=== PATIENT | male | born 1935 | race Caucasian/White ===

== ENCOUNTER → 2023-04-29 08:29 | Outpatient (REF) | payer MEDICARE, SELFPAY ==
[2023-04-29 09:22] LABS: INR 3.09; PT 32.4 Sec (11.4-14.6)
== END ==
LOC: REG 08:29
PROVIDERS: ATTENDING PHYSICIAN Internal Medicine Cardiovascular Disease; FAMILY PHYSICIAN Physician Assistant Medical
DX: I48.0 Paroxysmal atrial fibrillation (principal)
CPT/HCPCS: 36415; 85610

== ENCOUNTER → 2023-05-06 07:38 | Outpatient (REF) | payer MEDICARE, SELFPAY ==
[2023-05-06 08:30] LABS: INR 3.31; PT 33.6 Sec (11.4-14.6)
== END ==
LOC: REG 07:38
PROVIDERS: ATTENDING PHYSICIAN Internal Medicine Cardiovascular Disease
DX: I48.0 Paroxysmal atrial fibrillation (principal)
CPT/HCPCS: 36415; 85610

== ENCOUNTER → 2023-05-14 10:23 | Outpatient (REF) | payer MEDICARE, SELFPAY ==
[2023-05-14 11:06] LABS: INR 3.35; PT 34.5 Sec (11.4-14.6)
== END ==
LOC: REG 10:23
PROVIDERS: ATTENDING PHYSICIAN Internal Medicine Cardiovascular Disease
DX: I48.0 Paroxysmal atrial fibrillation (principal)
CPT/HCPCS: 36415; 85610

== ENCOUNTER → 2023-05-20 07:25 | Outpatient (REF) | payer MEDICARE, SELFPAY ==
[2023-05-20 08:32] LABS: INR 2.18; PT 24.2 Sec (11.4-14.6)
== END ==
LOC: REG 07:25
PROVIDERS: ATTENDING PHYSICIAN Internal Medicine Cardiovascular Disease; FAMILY PHYSICIAN Physician Assistant Medical
DX: I48.0 Paroxysmal atrial fibrillation (principal)
CPT/HCPCS: 36415; 85610

== ENCOUNTER → 2023-05-27 06:49 | Outpatient (REF) | payer MEDICARE, SELFPAY ==
[2023-05-27 07:37] LABS: INR 2.19; PT 24.2 Sec (11.4-14.6)
== END ==
LOC: REG 06:49
PROVIDERS: ATTENDING PHYSICIAN Internal Medicine Cardiovascular Disease; FAMILY PHYSICIAN Physician Assistant Medical
DX: I48.0 Paroxysmal atrial fibrillation (principal)
CPT/HCPCS: 36415; 85610

== ENCOUNTER → 2023-06-03 06:53 | Outpatient (REF) | payer MEDICARE, SELFPAY ==
[2023-06-03 08:31] LABS: INR 1.92; PT 21.9 Sec (11.4-14.6)
== END ==
LOC: REG 06:53
PROVIDERS: ATTENDING PHYSICIAN Internal Medicine Cardiovascular Disease; FAMILY PHYSICIAN Physician Assistant Medical
DX: I48.0 Paroxysmal atrial fibrillation (principal)
CPT/HCPCS: 36415; 85610

== ENCOUNTER → 2023-06-10 07:16 | Outpatient (REF) | payer MEDICARE, SELFPAY ==
[2023-06-10 08:05] LABS: INR 1.87; PT 21.4 Sec (11.4-14.6)
== END ==
LOC: REG 07:16
PROVIDERS: ATTENDING PHYSICIAN Internal Medicine Cardiovascular Disease; FAMILY PHYSICIAN Physician Assistant Medical
DX: I48.0 Paroxysmal atrial fibrillation (principal)
CPT/HCPCS: 36415; 85610

== ENCOUNTER → 2023-06-17 07:19 | Outpatient (REF) | payer MEDICARE, SELFPAY ==
[2023-06-17 08:31] LABS: INR 2.25; PT 24.7 Sec (11.4-14.6)
== END ==
LOC: REG 07:19
PROVIDERS: ATTENDING PHYSICIAN Internal Medicine Cardiovascular Disease; FAMILY PHYSICIAN Physician Assistant Medical
DX: I48.0 Paroxysmal atrial fibrillation (principal)
CPT/HCPCS: 36415; 85610

== ENCOUNTER → 2023-06-24 07:22 | Outpatient (REF) | payer MEDICARE, SELFPAY ==
[2023-06-24 08:02] LABS: INR 1.83
== END ==
LOC: REG 07:22
PROVIDERS: ATTENDING PHYSICIAN Internal Medicine Cardiovascular Disease; FAMILY PHYSICIAN Physician Assistant Medical
DX: I48.0 Paroxysmal atrial fibrillation (principal)
CPT/HCPCS: 36415; 85610

== ENCOUNTER → 2023-07-01 06:32 | Outpatient (REF) | payer MEDICARE, SELFPAY ==
[2023-07-01 07:09] LABS: INR 2.37; PT 25.8 Sec (11.4-14.6)
== END ==
LOC: REG 06:32
PROVIDERS: ATTENDING PHYSICIAN Internal Medicine Cardiovascular Disease; FAMILY PHYSICIAN Physician Assistant Medical
DX: I48.0 Paroxysmal atrial fibrillation (principal)
CPT/HCPCS: 36415; 85610

== ENCOUNTER → 2023-07-08 06:28 | Outpatient (REF) | payer MEDICARE, SELFPAY ==
[2023-07-08 07:36] LABS: INR 2.82; PT 29.6 Sec (11.4-14.6)
== END ==
LOC: REG 06:28
PROVIDERS: ATTENDING PHYSICIAN Internal Medicine Cardiovascular Disease; FAMILY PHYSICIAN Physician Assistant Medical
DX: I48.0 Paroxysmal atrial fibrillation (principal)
CPT/HCPCS: 36415; 85610

== ENCOUNTER → 2023-07-15 06:25 | Outpatient (REF) | payer MEDICARE, SELFPAY ==
[2023-07-15 07:08] LABS: PT 30.3 Sec (11.4-14.6)
== END ==
LOC: REG 06:25
PROVIDERS: ATTENDING PHYSICIAN Internal Medicine Cardiovascular Disease; FAMILY PHYSICIAN Physician Assistant Medical
DX: I48.0 Paroxysmal atrial fibrillation (principal)
CPT/HCPCS: 36415; 85610

== ENCOUNTER → 2023-07-22 06:38 | Outpatient (REF) | payer MEDICARE, SELFPAY ==
[2023-07-22 07:56] LABS: INR 2.62; PT 27.9 Sec (11.4-14.6)
== END ==
LOC: REG 06:38
PROVIDERS: ATTENDING PHYSICIAN Internal Medicine Cardiovascular Disease
DX: I48.0 Paroxysmal atrial fibrillation (principal)
CPT/HCPCS: 36415; 85610

== ENCOUNTER → 2023-08-04 06:22 | Outpatient (REF) | payer MEDICARE, SELFPAY ==
[2023-08-04 07:15] LABS: % Basophils 0.6 % (0-2); % Eosinophils 2.2 % (0-6); % Immature Granulocytes 0.3 % (0-0.5); % Lymphocytes 16.5 % (20.5-51.1); % Neutrophils 70.4 % (42.2-75.2); Absolute Eosinophils 0.2 10^3/uL (0-0.7); Absolute Lymphocytes 1.1 10^3/uL (1.2-3.4); Absolute Monocytes 0.7 10^3/uL (0.1-0.6); Absolute Neutrophils 4.8 10^3/uL (1.4-6.5); Hematocrit 44.5 % (39.0-52.0); Hemoglobin 14.8 g/dL (13.0-18.0); Mean Corp Hgb Conc. 33.3 g/dL (33.0-37.0); Mean Corpuscular Hgb 27.9 pg (27.0-31.0); Mean Corpuscular Volume 83.8 fL (80.0-94.0); Mean Platelet Volume 11.5 fL (7.4-10.4); Nucleated Red Blood Cells % 0 % (-); Platelet Count 191 10^3/uL (130-400); Red Blood Cell Count 5.31 10^6/uL (4.70-6.10); Red Cell Dist. Width 14.3 % (11.5-14.5); White Blood Cell Count 6.8 10^3/uL (4.8-10.8)
[2023-08-04 07:34] LABS: ALT (SGPT) 15 U/L (0-50); AST (SGOT) 21 U/L (17-59); Albumin 4.5 g/dl (3.5-5.0); Alkaline Phosphatase 82 U/L (38-126); Blood Urea Nitrogen 41 mg/dl (9-20); Calcium 9.6 mg/dl (8.4-10.2); Carbon Dioxide 30 mmol/L (22-30); Chloride 101 mmol/L (98-107); Glucose 135 mg/dl (70-99); Sodium 141 mmol/L (135-145); Total Bilirubin 0.9 mg/dl (0.2-1.3); Total Protein 7.4 g/dl (6.3-8.2)
[2023-08-04 07:50] LABS: Vitamin D, 25-OH*** 37.4 ng/mL (30-80)
[2023-08-04 07:53] LABS: Microalbumin, Random Urine 8.1 mg/dl (0.6-1.7); Microalbumin/creatinine Ratio 111.1 mg/g
[2023-08-04 09:50] LABS: Glycohemoglobin (HgbA1c) 8.5 % (4.0-5.6)
== END ==
LOC: REG 06:22
PROVIDERS: ATTENDING PHYSICIAN Physician Assistant Medical
DX: I10 Essential (primary) hypertension (principal); E11.22 Type 2 diabetes mellitus with diabetic chronic kidney disease; D68.69 Other thrombophilia; E55.9 Vitamin D deficiency, unspecified
CPT/HCPCS: 36415; 80053; 82043; 82306; 82570; 83036; 85025

== ENCOUNTER → 2023-08-19 06:21 | Outpatient (REF) | payer MEDICARE, SELFPAY ==
[2023-08-19 07:47] LABS: PT 34.4 Sec (11.4-14.6)
== END ==
LOC: REG 06:21
PROVIDERS: ATTENDING PHYSICIAN Internal Medicine Cardiovascular Disease
DX: I48.0 Paroxysmal atrial fibrillation (principal)
CPT/HCPCS: 36415; 85610

== ENCOUNTER → 2023-08-26 06:25 | Outpatient (REF) | payer MEDICARE, SELFPAY ==
[2023-08-26 07:29] LABS: INR 2.24; PT 24.6 Sec (11.4-14.6)
== END ==
LOC: REG 06:25
PROVIDERS: ATTENDING PHYSICIAN Internal Medicine Cardiovascular Disease; FAMILY PHYSICIAN Physician Assistant Medical
DX: I48.0 Paroxysmal atrial fibrillation (principal)
CPT/HCPCS: 36415; 85610

== ENCOUNTER → 2023-09-02 06:19 | Outpatient (REF) | payer MEDICARE, SELFPAY ==
[2023-09-02 07:50] LABS: INR 2.17
== END ==
LOC: REG 06:19
PROVIDERS: ATTENDING PHYSICIAN Internal Medicine Cardiovascular Disease; FAMILY PHYSICIAN Physician Assistant Medical
DX: I48.0 Paroxysmal atrial fibrillation (principal)
CPT/HCPCS: 36415; 85610

== ENCOUNTER → 2023-09-09 06:24 | Outpatient (REF) | payer MEDICARE, SELFPAY ==
[2023-09-09 07:38] LABS: PT 24.3 Sec (11.4-14.6)
== END ==
LOC: REG 06:24
PROVIDERS: ATTENDING PHYSICIAN Internal Medicine Cardiovascular Disease; FAMILY PHYSICIAN Physician Assistant Medical
DX: I48.0 Paroxysmal atrial fibrillation (principal)
CPT/HCPCS: 36415; 85610

== ENCOUNTER → 2023-09-16 06:31 | Outpatient (REF) | payer MEDICARE, SELFPAY ==
[2023-09-16 08:01] LABS: INR 2.96; PT 30.8 Sec (11.4-14.6)
== END ==
LOC: REG 06:31
PROVIDERS: ATTENDING PHYSICIAN Internal Medicine Cardiovascular Disease
DX: I48.0 Paroxysmal atrial fibrillation (principal)
CPT/HCPCS: 36415; 85610

== ENCOUNTER → 2023-10-14 06:22 | Outpatient (REF) | payer MEDICARE, SELFPAY ==
[2023-10-14 07:37] LABS: PT 28.6 Sec (11.4-14.6)
== END ==
LOC: REG 06:22
PROVIDERS: ATTENDING PHYSICIAN Internal Medicine Cardiovascular Disease; FAMILY PHYSICIAN Physician Assistant Medical
DX: I48.0 Paroxysmal atrial fibrillation (principal)
CPT/HCPCS: 36415; 85610

== ENCOUNTER → 2023-11-11 06:26 | Outpatient (REF) | payer MEDICARE, SELFPAY ==
[2023-11-11 07:47] LABS: INR 1.65; PT 19.4 Sec (11.4-14.6)
== END ==
LOC: REG 06:26
PROVIDERS: ATTENDING PHYSICIAN Internal Medicine Cardiovascular Disease; FAMILY PHYSICIAN Physician Assistant Medical
DX: I48.0 Paroxysmal atrial fibrillation (principal)
CPT/HCPCS: 36415; 85610

== ENCOUNTER → 2023-11-18 06:22 | Outpatient (REF) | payer MEDICARE, SELFPAY ==
[2023-11-18 07:48] LABS: INR 1.91; PT 21.7 Sec (11.4-14.6)
== END ==
LOC: REG 06:22
PROVIDERS: ATTENDING PHYSICIAN Internal Medicine Cardiovascular Disease; FAMILY PHYSICIAN Physician Assistant Medical
DX: I48.0 Paroxysmal atrial fibrillation (principal)
CPT/HCPCS: 36415; 85610

== ENCOUNTER → 2023-11-25 06:32 | Outpatient (REF) | payer MEDICARE, SELFPAY ==
[2023-11-25 07:31] LABS: PT 33.5 Sec (11.4-14.6)
== END ==
LOC: REG 06:32
PROVIDERS: ATTENDING PHYSICIAN Internal Medicine Cardiovascular Disease; FAMILY PHYSICIAN Physician Assistant Medical
DX: I48.0 Paroxysmal atrial fibrillation (principal); I48.91 Unspecified atrial fibrillation
CPT/HCPCS: 36415; 85610

== ENCOUNTER → 2023-12-02 06:27 | Outpatient (REF) | payer MEDICARE, SELFPAY ==
[2023-12-02 07:33] LABS: INR 3.62; PT 36.1 Sec (11.4-14.6)
== END ==
LOC: REG 06:27
PROVIDERS: ATTENDING PHYSICIAN Internal Medicine Cardiovascular Disease; FAMILY PHYSICIAN Physician Assistant Medical
DX: I48.0 Paroxysmal atrial fibrillation (principal)
CPT/HCPCS: 36415; 85610

== ENCOUNTER → 2023-12-16 09:35 | Outpatient (REF) | payer MEDICARE, SELFPAY ==
[2023-12-16 10:20] LABS: INR 1.84; PT 21.1 Sec (11.4-14.6)
== END ==
LOC: REG 09:35
PROVIDERS: ATTENDING PHYSICIAN Internal Medicine Cardiovascular Disease; FAMILY PHYSICIAN Physician Assistant Medical
DX: I48.0 Paroxysmal atrial fibrillation (principal)
CPT/HCPCS: 36415; 85610

== ENCOUNTER → 2023-12-23 09:48 | Outpatient (REF) | payer MEDICARE, SELFPAY ==
[2023-12-23 11:46] LABS: INR 1.86; PT 21.3 Sec (11.4-14.6)
== END ==
LOC: REG 09:48
PROVIDERS: ATTENDING PHYSICIAN Internal Medicine Cardiovascular Disease
DX: I48.0 Paroxysmal atrial fibrillation (principal)
CPT/HCPCS: 36415; 85610

== ENCOUNTER → 2023-12-30 08:44 | Outpatient (REF) | payer MEDICARE, SELFPAY ==
[2023-12-30 10:31] LABS: INR 1.72
== END ==
LOC: REG 08:44
PROVIDERS: ATTENDING PHYSICIAN Internal Medicine Cardiovascular Disease; FAMILY PHYSICIAN Physician Assistant Medical
DX: I48.0 Paroxysmal atrial fibrillation (principal)
CPT/HCPCS: 36415; 85610

== ENCOUNTER → 2024-01-06 09:16 | Outpatient (REF) | payer MEDICARE, SELFPAY ==
[2024-01-06 10:26] LABS: % Basophils 0.5 % (0-2); % Eosinophils 2.5 % (0-6); % Immature Granulocytes 0.5 % (0-0.5); % Lymphocytes 17.6 % (20.5-51.1); % Monocytes 7.1 % (1.7-9.3); % Neutrophils 71.8 % (42.2-75.2); Absolute Eosinophils 0.2 10^3/uL (0-0.7); Absolute Lymphocytes 1.1 10^3/uL (1.2-3.4); Absolute Monocytes 0.5 10^3/uL (0.1-0.6); Absolute Neutrophils 4.6 10^3/uL (1.4-6.5); Hematocrit 41.3 % (39.0-52.0); Hemoglobin 13.7 g/dL (13.0-18.0); Mean Corp Hgb Conc. 33.2 g/dL (33.0-37.0); Mean Corpuscular Hgb 28.1 pg (27.0-31.0); Mean Corpuscular Volume 84.8 fL (80.0-94.0); Mean Platelet Volume 12.2 fL (7.4-10.4); Nucleated Red Blood Cells % 0 % (-); Platelet Count 187 10^3/uL (130-400); Red Blood Cell Count 4.87 10^6/uL (4.70-6.10); Red Cell Dist. Width 14.6 % (11.5-14.5); White Blood Cell Count 6.4 10^3/uL (4.8-10.8)
[2024-01-06 10:28] LABS: INR 2.56; PT 27.4 Sec (11.4-14.6)
[2024-01-06 11:09] LABS: Microalbumin, Random Urine 3.5 mg/dl (0.6-1.7); Microalbumin/creatinine Ratio 45.5 mg/g
[2024-01-06 11:24] LABS: Glycohemoglobin (HgbA1c) 8.8 % (4.0-5.6)
[2024-01-06 11:26] LABS: ALT (SGPT) 14 U/L (0-50); AST (SGOT) 19 U/L (17-59); Albumin 4.3 g/dl (3.5-5.0); Alkaline Phosphatase 78 U/L (38-126); Blood Urea Nitrogen 63 mg/dl (9-20); Calcium 9.5 mg/dl (8.4-10.2); Carbon Dioxide 28 mmol/L (22-30); Chloride 101 mmol/L (98-107); Glucose 207 mg/dl (70-99); HDL Cholesterol 55 mg/dl; LDL Cholesterol, Calculated 95 mg/dl; Potassium 4.2 mmol/L (3.5-5.1); Sodium 143 mmol/L (135-145); Total Bilirubin 0.7 mg/dl (0.2-1.3); Total Cholesterol 171 mg/dl (50-199); Total Protein 6.9 g/dl (6.3-8.2); Triglyceride 106 mg/dl (10-149); Very Low Density Lipoprotein 21 mg/dl (0-30); eGFR 38.53
[2024-01-06 11:27] LABS: Vitamin D, 25-OH*** 34.4 ng/mL (30-80)
== END ==
LOC: REG 09:16
PROVIDERS: ATTENDING PHYSICIAN Internal Medicine Cardiovascular Disease; FAMILY PHYSICIAN Physician Assistant Medical
DX: I48.0 Paroxysmal atrial fibrillation (principal); Z00.01 Encounter for general adult medical examination with abnormal findings; E11.22 Type 2 diabetes mellitus with diabetic chronic kidney disease; E55.9 Vitamin D deficiency, unspecified; I25.810 Atherosclerosis of coronary artery bypass graft(s) without angina pectoris; I48.91 Unspecified atrial fibrillation
CPT/HCPCS: 36415; 80053; 80061; 82043; 82306; 82570; 83036; 85025; 85610

== ENCOUNTER → 2024-01-13 09:25 | Outpatient (REF) | payer MEDICARE, SELFPAY ==
[2024-01-13 11:30] LABS: INR 2.66; PT 28.3 Sec (11.4-14.6)
== END ==
LOC: REG 09:25
PROVIDERS: ATTENDING PHYSICIAN Internal Medicine Cardiovascular Disease; FAMILY PHYSICIAN Physician Assistant Medical
DX: I48.0 Paroxysmal atrial fibrillation (principal)
CPT/HCPCS: 36415; 85610

== ENCOUNTER → 2024-01-20 10:04 | Outpatient (REF) | payer MEDICARE, SELFPAY ==
[2024-01-20 10:56] LABS: INR 3.71; PT 36.8 Sec (11.4-14.6)
== END ==
LOC: REG 10:04
PROVIDERS: ATTENDING PHYSICIAN Internal Medicine Cardiovascular Disease; FAMILY PHYSICIAN Physician Assistant Medical
DX: I48.0 Paroxysmal atrial fibrillation (principal)
CPT/HCPCS: 36415; 85610

== ENCOUNTER → 2024-01-27 09:24 | Outpatient (REF) | payer MEDICARE, SELFPAY ==
[2024-01-27 12:19] LABS: INR 1.68; PT 19.6 Sec (11.4-14.6)
== END ==
LOC: REG 09:24
PROVIDERS: ATTENDING PHYSICIAN Internal Medicine Cardiovascular Disease; FAMILY PHYSICIAN Physician Assistant Medical
DX: I48.0 Paroxysmal atrial fibrillation (principal)
CPT/HCPCS: 36415; 85610

== ENCOUNTER → 2024-02-03 08:31 | Outpatient (REF) | payer MEDICARE, SELFPAY ==
[2024-02-03 09:55] LABS: INR 4.69; PT 44.3 Sec (11.4-14.6)
[2024-02-03 10:27] LABS: HDL Cholesterol 52 mg/dl; LDL Cholesterol, Calculated 67 mg/dl; Total Cholesterol 130 mg/dl (50-199); Triglyceride 57 mg/dl (10-149); Very Low Density Lipoprotein 11 mg/dl (0-30)
== END ==
LOC: REG 08:31
PROVIDERS: ATTENDING PHYSICIAN Internal Medicine Cardiovascular Disease
DX: I48.0 Paroxysmal atrial fibrillation (principal); Z95.1 Presence of aortocoronary bypass graft; I10 Essential (primary) hypertension
CPT/HCPCS: 36415; 80061; 85610

== ENCOUNTER → 2024-02-11 14:18 | Outpatient (REF) | payer MEDICARE, SELFPAY ==
[2024-02-11 15:06] LABS: INR 4.58; PT 43.4 Sec (11.4-14.6)
== END ==
LOC: REG 14:18
PROVIDERS: ATTENDING PHYSICIAN Internal Medicine Cardiovascular Disease
DX: I48.0 Paroxysmal atrial fibrillation (principal)
CPT/HCPCS: 36415; 85610

== ENCOUNTER → 2024-02-17 10:22 | Outpatient (REF) | payer MEDICARE, SELFPAY ==
[2024-02-17 11:39] LABS: INR 3.68; PT 36.2 Sec (11.4-14.6)
== END ==
LOC: REG 10:22
PROVIDERS: ATTENDING PHYSICIAN Internal Medicine Cardiovascular Disease; FAMILY PHYSICIAN Physician Assistant Medical
DX: I48.0 Paroxysmal atrial fibrillation (principal)
CPT/HCPCS: 36415; 85610

== ENCOUNTER 2024-06-08 12:57 | Inpatient (IN) | payer MEDICARE, SELFPAY ==
[2024-06-08 09:55] VITALS: BP 140/75
[2024-06-08 10:21] LABS: % Basophils 0.3 % (0-2); % Eosinophils 0.6 % (0-6); % Immature Granulocytes 0.4 % (0-0.5); % Lymphocytes 9.3 % (20.5-51.1); % Monocytes 8.9 % (1.7-9.3); % Neutrophils 80.5 % (42.2-75.2); Absolute Lymphocytes 0.7 10^3/uL (1.2-3.4); Absolute Monocytes 0.6 10^3/uL (0.1-0.6); Absolute Neutrophils 5.8 10^3/uL (1.4-6.5); Hematocrit 35.7 % (39.0-52.0); Hemoglobin 11.8 g/dL (13.0-18.0); Mean Corp Hgb Conc. 33.1 g/dL (33.0-37.0); Mean Corpuscular Hgb 27.6 pg (27.0-31.0); Mean Corpuscular Volume 83.4 fL (80.0-94.0); Mean Platelet Volume 11.4 fL (7.4-10.4); Nucleated Red Blood Cells % 0 % (-); Platelet Count 172 10^3/uL (130-400); Red Blood Cell Count 4.28 10^6/uL (4.70-6.10); Red Cell Dist. Width 15.1 % (11.5-14.5); White Blood Cell Count 7.2 10^3/uL (4.8-10.8)
[2024-06-08 10:38] LABS: ALT (SGPT) < 10 U/L (0-50); AST (SGOT) 15 U/L (17-59); Albumin 3.6 g/dl (3.5-5.0); Alkaline Phosphatase 78 U/L (38-126); Blood Urea Nitrogen 40 mg/dl (9-20); Carbon Dioxide 29 mmol/L (22-30); Chloride 100 mmol/L (98-107); Glucose 331 mg/dl (70-99); Potassium 3.6 mmol/L (3.5-5.1); Sodium 136 mmol/L (135-145); Total Bilirubin 1.7 mg/dl (0.2-1.3); Total Protein 6.2 g/dl (6.3-8.2); eGFR 53.17
--- NOTE | 2024-06-08 11:03 | EDRN ---
Pt was dropped off by a driver engineer from [facility], driver engineer name is Siddhartha and he will grape picker pt when discharged. Siddhartha--[phone]
--- NOTE | 2024-06-08 11:22 | ED.GENMED ---
History of Present Illness
<ROSHAN Trotter - Last Filed: 06/09/24 10:13>
General
Chief Complaint: Skin Problem
Source: patient
Exam Limitations: none
Time Seen by Provider: 06/08/24 11:09
Nursing documentation reviewed up to this point in time: agreed with
History of Present Illness
History of Present Illness:
Patient is an 88-year-old male presents to the ER for evaluation of redness to right hand and wrist. This started on Friday 4 days ago. He reports started with redness to the right wrist but this has spread to his hand. He does complain of
swelling. He saw his family doctor yesterday who wanted him to come to the ER but it was late and so they prescribed Keflex. He started Keflex yesterday. He is a diabetic and takes Tresiba however has not been able to take it yesterday or today
because he is right-handed and had difficulty injecting himself. 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 Garza .
He denies any fever/chills.
Past History
<ROSHAN Trotter - Last Filed: 06/09/24 10:13>
Past History
ED Past Medical History: Arrthythmia, NIDDM and Other (sleep apnea)
ED Past Surgical History: Cardiac
Social History
Tobacco: Non-smoker
Personal:
Living: with family
Review of Systems
<ROSHAN Trotter - Last Filed: 06/09/24 10:13>
Review of Systems
Allergies reviewed?: Yes
All Other Systems: ROS reviewed and negative except as documented in HPI and ROS
Constitutional: Reports no symptoms; Denies fever, fatigue or chills
Musculoskeletal: Reports other (redness/pain/swelling to right hand/wrist )
Skin: Reports other (see above )
Neurological: Reports no symptoms
Psychiatric: Reports no symptoms
Phy Exam
<ROSHAN Trotter - Last Filed: 06/09/24 10:13>
General Physical Exam
General Presentation: well appearing
General age: appears stated age
General Skin: warm and dry
General Habitus: normal
General Mental: alert
General Hydration: appears well hydrated
Neurological Exam
Neurological Exam: alert and oriented x3
Musculoskeletal Exam
Musculoskeletal Exam: other (rue with strong pulses + swelling/erythema to hand/index finger and volar/dorsal wrist, patient has good range of motion to hand and wrist)
Skin Exam
Skin Exam: normal color and warm/dry
Psychiatric Exam
Psychiatric Exam: normal mood/affect
Course
<ROSHAN Trotter - Last Filed: 06/09/24 10:13>
Orders/Labs/Results
Orders:
Orders
06/08/24 10:02
Complete Blood Count/With Diff Urgent
Comprehensive Metabolic Panel Urgent
06/08/24 11:23
IV Insert/Care/Rem.- Treatment PRN
0.9% Sodium Chloride 1000 ml [Nss] 1,000 ml IV BOLUS
Hand, Right 3 View [CR Hand - Right Min 3 Views] Urgent
Comment:
Reason For Exam: redness
06/08/24 11:24
Foot, Right 3 View [CR Foot - Right Min 3 Views] Urgent
Comment:
Reason For Exam: diabetic ulcer
06/08/24 11:42
Lactic Acid Urgent
06/08/24 12:06
Cefepime HCl [Maxipime] 1,000 mg IV NOW STA
06/08/24 12:15
Vancomycin [Vancocin] 2,000 mg 0.9% Sodium Chloride 500 ml [Nss] 500 ml IV NOW
06/08/24 12:49
Admit/Transfer Patient As Directed
Co-Sign Provider:
Level of Care: Inpatient admission
Assign to:: Medical/Surgical
Physician / Group: ame
Diagnosis: hand ifnection
Reason for Hospitalization: hand infection
Expected length of stay greater than two midnights?: Yes
ELOS- Estimated Length of Stay in days: 2
I certify the patient meets the requirements for IP care: Yes
PRN Pain Medication Management As Directed
May give lesser potent ordered pain med per pt: Yes
preference::
Protocol:: Medication orders for pain may be administered in a
manner that supports deferring to patient preference
when the pt is:
- Requesting an ordered lesser potent pain medication.
Least to most potent pain medications are defined
as: acetaminophen < NSAID < tramadol < opioids
(morphine, oxycodone, hydromorphone).
- Requesting a lesser dose of the same medication IF
ORDERED.
- Requesting a less intrusive route of administration
if both routes are prescribed by the provider (PO <
IV).
06/08/24 12:50
Code Status As Directed
Resuscitation Status: Full Code
06/08/24 14:54
Cefepime HCl [Maxipime] 2,000 mg IV Q24H
Dextrose 50%-Water [Dextrose 50% Syringe] 12.5 grams IV [id number] PRN
Glucagon [GlucaGen] 1 mg IM PRN PRN
VANCOMYCIN Pharmacy to Dose [VANCOCIN Pharmacy to Dose] 1 each Pharmacy To Prepare [Call Pharmacy To Prepare] 0 ml IV PER PROTOCOL
06/08/24 14:54
ORTHOPEDIC CONSULT Routine
Consulting Provider: Clifton Mallory
Was physician already notified: Yes
Activity As Directed
Activity Level: As Tolerated
Bedside Glucose Monitoring As Directed
Frequency: AC&HS
Additional Instructions:: Change to q6h if pt on TPN, tube feeding or not eating
Pneumatic Compression Sleeves As Directed
Type: Knee high
Vital Signs As Directed
Frequency: Per unit guidelines
DX Deep Vein Thrombosis Video Routine
06/08/24 Dinner
2000 calorie (17 carb) Diabetic
At Your Request: Full Participation
06/08/24 15:05
Acetaminophen [Tylenol] 1,000 mg PO Q6HPRN PRN
06/08/24 16:30
Insulin Aspart Corrective Low [Novolog Flexpen-Low Resistance] See Protocol SC AC
06/08/24 18:00
Aspirin Low Dose EC [Aspir Low (Enteric Coated)] 81 mg PO QPM
Atorvastatin [Lipitor] 40 mg PO QPM
Metoprolol Xl [Toprol Xl] 75 mg PO QPM
Valsartan [Diovan] 160 mg PO QPM
06/09/24 05:42
Complete Blood Count/With Diff IN AM
Comprehensive Metabolic Panel IN AM
Glycohemoglobin (HgbA1c) IN AM
Abnormal Lab Results
06/08/24
10:02
RBC 4.28 L 10^6/uL
(4.70-6.10)
Hgb 11.8 L g/dL
(13.0-18.0)
Hct 35.7 L %
(39.0-52.0)
RDW 15.1 H %
(11.5-14.5)
MPV 11.4 H fL
(7.4-10.4)
Absolute Lymphs (auto) 0.7 L 10^3/uL
(1.2-3.4)
Neutrophils % 80.5 H %
(42.2-75.2)
Lymphocytes % 9.3 L %
(20.5-51.1)
BUN 40 H mg/dl
(9-20)
Glucose 331 H mg/dl
(70-99)
Total Bilirubin 1.7 H mg/dl
(0.2-1.3)
AST 15 L U/L
(17-59)
Total Protein 6.2 L g/dl
(6.3-8.2)
06/08/24 10:02
06/08/24 10:02
Vital Signs
Initial and Last Documented VS:
Initial Vital Signs
Temp Pulse Resp BP Pulse Ox
98.4 F 96 16 140/75 95
06/08/24 09:55 06/08/24 09:55 06/08/24 09:55 06/08/24 09:55 06/08/24 09:55
Last Documented Vital Signs
Temp Pulse Resp BP Pulse Ox
97.5 F 72 17 139/73 97
06/09/24 07:24 06/09/24 07:24 06/09/24 07:24 06/09/24 07:24 06/09/24 08:15
Summer Counselor consulted with Physician
Summer Counselor consulted with physician?: Yes
Name of Physician Consulted: Fadi
<Favian Aponte, DO - Last Filed: 06/08/24 12:06>
Orders/Labs/Results
Orders:
Orders
06/08/24 10:02
Complete Blood Count/With Diff Urgent
Comprehensive Metabolic Panel Urgent
06/08/24 11:23
IV Insert/Care/Rem.- Treatment PRN
0.9% Sodium Chloride 1000 ml [Nss] 1,000 ml IV BOLUS
Hand, Right 3 View [CR Hand - Right Min 3 Views] Urgent
Comment:
Reason For Exam: redness
06/08/24 11:24
Foot, Right 3 View [CR Foot - Right Min 3 Views] Urgent
Comment:
Reason For Exam: diabetic ulcer
06/08/24 11:42
Lactic Acid Urgent
06/08/24 12:06
Cefepime HCl [Maxipime] 1,000 mg IV NOW STA
06/08/24 12:15
Vancomycin [Vancocin] 2,000 mg 0.9% Sodium Chloride 500 ml [Nss] 500 ml IV NOW
06/08/24 12:49
Admit/Transfer Patient As Directed
Co-Sign Provider:
Level of Care: Inpatient admission
Assign to:: Medical/Surgical
Physician / Group: ame
Diagnosis: hand ifnection
Reason for Hospitalization: hand infection
Expected length of stay greater than two midnights?: Yes
ELOS- Estimated Length of Stay in days: 2
I certify the patient meets the requirements for IP care: Yes
PRN Pain Medication Management As Directed
May give lesser potent ordered pain med per pt: Yes
preference::
Protocol:: Medication orders for pain may be administered in a
manner that supports deferring to patient preference
when the pt is:
- Requesting an ordered lesser potent pain medication.
Least to most potent pain medications are defined
as: acetaminophen < NSAID < tramadol < opioids
(morphine, oxycodone, hydromorphone).
- Requesting a lesser dose of the same medication IF
ORDERED.
- Requesting a less intrusive route of administration
if both routes are prescribed by the provider (PO <
IV).
06/08/24 12:50
Code Status As Directed
Resuscitation Status: Full Code
06/08/24 14:54
Cefepime HCl [Maxipime] 2,000 mg IV Q24H
Dextrose 50%-Water [Dextrose 50% Syringe] 12.5 grams IV [id number] PRN
Glucagon [GlucaGen] 1 mg IM PRN PRN
VANCOMYCIN Pharmacy to Dose [VANCOCIN Pharmacy to Dose] 1 each Pharmacy To Prepare [Call Pharmacy To Prepare] 0 ml IV PER PROTOCOL
06/08/24 14:54
ORTHOPEDIC CONSULT Routine
Consulting Provider: Clifton Mallory
Was physician already notified: Yes
Activity As Directed
Activity Level: As Tolerated
Bedside Glucose Monitoring As Directed
Frequency: AC&HS
Additional Instructions:: Change to q6h if pt on TPN, tube feeding or not eating
Pneumatic Compression Sleeves As Directed
Type: Knee high
Vital Signs As Directed
Frequency: Per unit guidelines
DX Deep Vein Thrombosis Video Routine
06/08/24 Dinner
2000 calorie (17 carb) Diabetic
At Your Request: Full Participation
06/08/24 15:05
Acetaminophen [Tylenol] 1,000 mg PO Q6HPRN PRN
06/08/24 16:30
Insulin Aspart Corrective Low [Novolog Flexpen-Low Resistance] See Protocol SC AC
06/08/24 18:00
Aspirin Low Dose EC [Aspir Low (Enteric Coated)] 81 mg PO QPM
Atorvastatin [Lipitor] 40 mg PO QPM
Metoprolol Xl [Toprol Xl] 75 mg PO QPM
Valsartan [Diovan] 160 mg PO QPM
06/09/24 05:42
Complete Blood Count/With Diff IN AM
Comprehensive Metabolic Panel IN AM
Glycohemoglobin (HgbA1c) IN AM
Abnormal Lab Results
06/08/24
10:02
RBC 4.28 L 10^6/uL
(4.70-6.10)
Hgb 11.8 L g/dL
(13.0-18.0)
Hct 35.7 L %
(39.0-52.0)
RDW 15.1 H %
(11.5-14.5)
MPV 11.4 H fL
(7.4-10.4)
Absolute Lymphs (auto) 0.7 L 10^3/uL
(1.2-3.4)
Neutrophils % 80.5 H %
(42.2-75.2)
Lymphocytes % 9.3 L %
(20.5-51.1)
BUN 40 H mg/dl
(9-20)
Glucose 331 H mg/dl
(70-99)
Total Bilirubin 1.7 H mg/dl
(0.2-1.3)
AST 15 L U/L
(17-59)
Total Protein 6.2 L g/dl
(6.3-8.2)
06/08/24 10:02
06/08/24 10:02
Vital Signs
Initial and Last Documented VS:
Initial Vital Signs
Temp Pulse Resp BP Pulse Ox
98.4 F 96 16 140/75 95
06/08/24 09:55 06/08/24 09:55 06/08/24 09:55 06/08/24 09:55 06/08/24 09:55
Last Documented Vital Signs
Temp Pulse Resp BP Pulse Ox
97.5 F 72 17 139/73 97
06/09/24 07:24 06/09/24 07:24 06/09/24 07:24 06/09/24 07:24 06/09/24 08:15
<ROSHAN Trotter - Last Filed: 06/09/24 10:13>
MDM/Problems Addressed
Differential Diagnosis Includes:
Not limited to cellulitis less likely septic joint
MDM/Problems Addressed:
Patient is a 88-year-old male diabetic who has not taken his injectable Tresiba because of right hand pain presents to the ER for evaluation. Patient started with right wrist and hand pain redness several days ago on Keflex since yesterday however
no improvement. On exam he has redness to his hand index finger and volar dorsal wrist. He does however good range of motion to the wrist ;he denies any fevers and is nontoxic. Incidentally his sugar was found to be elevated 331 again he has not
used his Tresiba injectable medication because he has had discomfort and swelling in the right hand. Incidentally patient is following with his diabetic educator for ulcer to plantar aspect of right foot. 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
right foot.
Patient evaluated by ED physician will admit with IV antibiotics
Chronic conditions affecting care:
iddm
<ROSHAN Trotter - Last Filed: 06/09/24 10:13>
*Radiology
Radiology exam reviewed: radiology read reviewed
*Pulse Oximetry
Patient hypoxic: no
*Critical Care Note
Total Time (30-74mins, 75-104mins- exclusive of procedures): Not Applicable
ED Attending Note
<ROSHAN Trotter - Last Filed: 06/09/24 10:13>
-
Portions of this chart may have been created with voice recognition software.� Occasional wrong word or��sound alike� substitutions may have occurred due to the inherent limitations of voice recognition software.
<Favian Aponte DO - Last Filed: 06/08/24 12:06>
ED Attending Note
Patient seen and examined by attending physician: Yes
I performed the substantive portion of visit, reviewed & personally made and approve the management plan that is documented in note by myself or ALBAN.: Yes
ED Attending Note:
Seen with WAREHOUSE FOREMAN examined independently 88-year-old male diabetic not on insulin prior amputation of the right great toe presents with atraumatic right hand swelling warmth some general malaise but no fever has had a few doses of Keflex
Discharge Plan
Departure
Patient Disposition: Admit
Date of Disposition: 06/08/24
Time of Disposition: 12:20
Admit to: Med/Surg
Admit to doctor: hospitalist
Presentation/result/management discussed w/ accepting MD/DO: Hospitalist
Patient with high blood pressure during this ER visit?: Yes
Condition: Fair
Covid-19: Not Applicable
Discharge Problem:
Cellulitis, Acute hyperglycemia
Interventions
Interventions:
*Risk Screen - Suicide Last Done: 06/08/24 09:55
*General Assessment Last Done: 06/08/24 09:55
*Neglect/Abuse Screening Last Done: 06/08/24 09:55
*ED- Fall Risk Assessment Last Done: 06/08/24 14:57
*ED COVID-19 Vaccine History Last Done: 06/08/24 15:04
*Nursing Disposition Last Done: 06/08/24 14:57
ED-Skin Assessment Last Done: 06/08/24 11:58
Discharge Date and Time
Discharge Date/Time: 06/08/24 14:59
[2024-06-08] MEDS: NSS 1000 IV (11:41)
[2024-06-08 11:58] VITALS: BMI 26.1
[2024-06-08] MEDS: MAXIPIME 1000 MG IV ×2 (12:37→23:10)
[2024-06-08] MEDS: VANCOCIN 540 MG IV (12:37)
--- NOTE | 2024-06-08 12:52 | HPS.HSE ---
Family Physician
-
Family Physician: Bee Posada PA-C
Chief Complaint
-
right hand infection
History of Present Illness
88-year-old male past medical history of permanent atrial fibrillation on Coumadin, Dupuytren's contracture of right hand status post surgery 6 years ago, CAD, hypertension, diabetes, chronic right foot ulcer, presenting for redness of the right
hand and wrist starting 4 days ago. Started with redness to the right wrist but spread to the hand. Denies any injury. Complains of swelling. He saw his primary care physician who wanted him to come to the emergency room and prescribed Keflex.
Start Keflex yesterday.
He has a chronic ulcer on the plantar surface of the right foot for which she sees Dr. Garza and gets periodic debridements. This is stable.
He has not been able to inject himself with Tresiba due to the hand discomfort.
He does not smoke or drink alcohol.
Medical History
Past Medical History
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
Past Surgical History: Reports None
Social History
Tobacco: Non-smoker
Alcohol: None
Drug: None
Family History
Family History: Not pertinent
Allergies / Home Medications
Allergies reflects when Allergies were last updated in [facility].
Home Medications with original date entered in [facility]
Allergy/Medication List:
Allergies
Allergy/AdvReac Type Severity Reaction Status Date / Time
ivermectin Allergy Unknown Verified 06/08/24 09:58
penicillin Allergy Rash Verified 06/08/24 09:58
penicillin G Allergy SEE BELOW Verified 06/08/24 09:58
Home Medications
aspirin 81 mg tablet,delayed release 81 mg PO QPM 10/11/14
metoprolol succinate 50 mg tablet,extended release 24 hr 75 mg PO QPM 10/11/14
acetaminophen 500 mg tablet 1,000 mg PO Q6HPRN PRN mild pain 06/08/24
atorvastatin 40 mg tablet (Lipitor) 40 mg PO QPM 06/08/24
cephalexin 500 mg capsule 500 mg PO TID for 7 days 06/08/24
insulin degludec 100 unit/mL (3 mL) subcutaneous pen (Tresiba FlexTouch U-100 insulin) 20 unit SC DAILY 06/08/24
valsartan 160 mg-hydrochlorothiazide 25 mg tablet 1 tab PO QPM 06/08/24
warfarin 5 mg tablet (Jantoven) 5 mg PO QPM 06/08/24
Review of Systems
-
History Source: Patient
A 12 point ROS was completed and negative except as noted: Yes
Constitutional: Reports No Symptoms
EENT: Reports No Symptoms
Respiratory: Reports No Symptoms
Cardiac: Reports No Symptoms
Abdomen/GI: Reports No Symptoms
: Reports No Symptoms
Musculoskeletal: Reports No Symptoms
Skin: Reports See HPI
Neurological: Reports No Symptoms
Endocrine: Reports No Symptoms
Hematologic/Lymphatic: Reports No Symptoms
Psych: Reports No Symptoms
Physical Exam
Vital Signs
Vital Signs
Temp Pulse Resp BP Pulse Ox
98.4 F 96 16 140/75 95
06/08/24 09:55 06/08/24 09:55 06/08/24 09:55 06/08/24 09:55 06/08/24 09:55
Physical Exam
General: Well Developed, Well Nourished and No Apparent Distress
HEENT: NormoCephalic, Moist mucous membranes and Atraumatic
Respiratory: Clear
Cardiac: S1/S2 and Regular Rhythm; No Murmur or Rub
GI: Soft, Non Tender, Non Distended and Normal Bowel Sounds; No Organomegaly
Rectal: Deferred by Provider
Musculoskeletal: No Clubbing, No Cyanosis and No Edema
Skin: No Rash
Neuro: Nonfocal/grossly intact
Laboratory Results
-
06/08/24 10:02
06/08/24 10:02
Laboratory Results
Lactic Acid 1.0 mmol/L (0.7-2.0) 06/08/24 11:42
Total Bilirubin 1.7 mg/dl (0.2-1.3) H 06/08/24 10:02
AST 15 U/L (17-59) L 06/08/24 10:02
ALT < 10 U/L (0-50) 06/08/24 10:02
Alkaline Phosphatase 78 U/L (38-126) 06/08/24 10:02
Data Reviewed
-
Lab Data: Labs Reviewed by me
Old Records: Reviewed
Impression/Plan
-
IMPRESSION:
PLAN:
# Right hand/wrist hand/wrist infection, possible tenosynovitis
-X-ray report pending
-Vancomycin/cefepime
-Ortho consulted
-Hold Coumadin for now
# Hyperglycemia due to not taking insulin
# Type 2 diabetes
-Blood sugar 331
-Resume Tresiba 20 units
-Insulin sliding scale
Permanent atrial fibrillation
-Hold Coumadin for now
-Continue metoprolol
CAD
-Continue aspirin, statin
Essential hypertension
-Continue valsartan/hydrochlorothiazide
Chronic right foot ulcer
-X-ray pending but has been stable
Chronic anemia
Full code
DVT prophylaxis�SCDs
Diabetic diet
--- NOTE | 2024-06-08 14:14 | W.PN.UPDATE ---
Update Note
Progress Note Update
Full H&P to follow
88-year-old [id number] male with significant past medical history of atrial fibrillation and type 2 diabetes for right wrist pain swelling and redness ongoing 6 days without traumatic injury. He denies any inoculating injury reports pain
began about the right wrist and is spread most proximal and distal. Denies associated paresthesias. Denies fevers or chills
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
Examination of the right upper extremity shows redness and swelling to about the mid antebrachium that is all dorsal. There is no significant volar cellulitis or skin changes. Distal sensation is intact. He tolerates mild wrist passive range of
motion as well as finger passive flexion and extension without significant discomfort. There is no palpable fluid collection or effusion. There are some prominence of the ulnar styloid about the ulnar carpal joint. Dorsally there is a small
amount of eschar slightly proximal to the radiocarpal joint
No current ESR CRP; WBC within normal limits
Imaging: X-rays taken of the right wrist show mild degenerative changes but no acute osseous abnormalities
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 Superficial cellulitis is within
the differential diagnosis as well; limited nonvascular ultrasound was performed at bedside showing no significant effusion.
Recommend ESR and CRP for trending and baseline. Recommend continued soft tissue rest. Can continue with treatment for infectious cellulitis and will continue to monitor clinically if there is further indication for arthrocentesis. Pending his
response can further consider more specific treatment for crystal arthropathy or diagnostic imaging if indicated. Orthopedic surgery will continue to follow
[2024-06-08 15:07] VITALS: BP 125/94
[2024-06-08 15:09] VITALS: BMI 26.6
[2024-06-08 15:39] VITALS: BMI 26.6
--- NOTE | 2024-06-08 15:50 | PHA.VAN.IN ---
Assessment
- Assessment
Renal Function: Unknown baseline
Concomitant Antimicrobials: cefepime
Plan
- Plan
Initial / Loading Dose: 2000mg - 06/08 12:37
Maintenance Regimen: dosing by level
Monitoring: random 06/09 0600
Pharmacokinetics Vancomycin I
- -
Patient Age: 88
Patient Sex: Male
Vancomycin Day #: 1
Indication: Skin And Soft Tissue
Requesting Provider: Dr. Car
Pertinent Antimicrobial Allergies:
ivermectin - dehydration
penicillin - rash
Height / Weight:
Height 5 ft 10 in
Actual Weight 83.971 kg
Pertinent Past Medical History: DM 2
- Vital Signs / Lab Results
Temp Pulse Resp BP Pulse Ox
97.9 F 85 17 125/94 97
06/08/24 15:07 06/08/24 15:07 06/08/24 15:07 06/08/24 15:07 06/08/24 15:07
Lab Results - Hematology
06/08/24
10:02
WBC 7.2
Lab Results - Chemistry
06/08/24
10:02
BUN 40 H
Creatinine 1.3
Albumin 3.6
06/08/24
11:42
Lactic Acid 1.0
[2024-06-08 16:25] LABS: Glucose - Point of Care 187 mg/dl (70-99)
[2024-06-08] MEDS: DIOVAN 160 MG PO (18:05)
[2024-06-08] MEDS: NOVOLOG FLEXPEN-LOW RESISTANCE 1 UNITS SC (18:05)
[2024-06-08] MEDS: ORETIC 25 MG PO (18:05)
[2024-06-08] MEDS: ASPIR LOW (ENTERIC COATED) 81 MG PO (18:05)
[2024-06-08] MEDS: TOPROL XL 75 MG PO (18:06)
[2024-06-08] MEDS: LIPITOR 40 MG PO (18:08)
[2024-06-08 21:44] LABS: Glucose - Point of Care 217 mg/dl (70-99)
[2024-06-08 21:48] LABS: Erythrocyte Sed Rate 58 mm/hour (0-20)
[2024-06-08] MEDS: STERILE WATER FOR INJECTION 10 ML IV (23:11)
[2024-06-08 23:25] VITALS: BP 133/69
[2024-06-09 06:20] LABS: % Basophils 0.5 % (0-2); % Eosinophils 1.4 % (0-6); % Immature Granulocytes 1.3 % (0-0.5); % Lymphocytes 9.5 % (20.5-51.1); % Monocytes 9.5 % (1.7-9.3); % Neutrophils 77.8 % (42.2-75.2); Absolute Eosinophils 0.1 10^3/uL (0-0.7); Absolute Immature Granulocytes 0.1 10^3/uL (0-0.05); Absolute Lymphocytes 0.6 10^3/uL (1.2-3.4); Absolute Monocytes 0.6 10^3/uL (0.1-0.6); Absolute Neutrophils 4.9 10^3/uL (1.4-6.5); Hematocrit 32.4 % (39.0-52.0); Hemoglobin 10.9 g/dL (13.0-18.0); Mean Corp Hgb Conc. 33.6 g/dL (33.0-37.0); Mean Corpuscular Hgb 27.6 pg (27.0-31.0); Mean Platelet Volume 11.4 fL (7.4-10.4); Nucleated Red Blood Cells % 0 % (-); Platelet Count 155 10^3/uL (130-400); Red Blood Cell Count 3.95 10^6/uL (4.70-6.10); Red Cell Dist. Width 14.7 % (11.5-14.5); White Blood Cell Count 6.3 10^3/uL (4.8-10.8)
[2024-06-09 06:40] LABS: ALT (SGPT) < 10 U/L (0-50); AST (SGOT) 13 U/L (17-59); Albumin 3.1 g/dl (3.5-5.0); Alkaline Phosphatase 74 U/L (38-126); Blood Urea Nitrogen 29 mg/dl (9-20); Calcium 8.8 mg/dl (8.4-10.2); Carbon Dioxide 26 mmol/L (22-30); Chloride 106 mmol/L (98-107); Estimated Creatinine Clearance 49 ml/min; Glucose 168 mg/dl (70-99); Potassium 3.5 mmol/L (3.5-5.1); Sodium 137 mmol/L (135-145); Total Bilirubin 1.5 mg/dl (0.2-1.3); Total Protein 5.7 g/dl (6.3-8.2); Vancomycin Random 12.5 ug/ml; eGFR > 60.00
[2024-06-09 07:24] VITALS: BP 139/73
--- NOTE | 2024-06-09 07:37 | W.PN.UPDATE ---
Update Note
Progress Note Update
Mr. Coleman is resting comfortably in bed this morning. He reports the symptoms in his hand and wrist have gradually improved overnight. He reports his ROM seems improved, and his pain is less intense.
Directed exam of the right upper extremity reveals erythema, and edema overlying the dorsal aspect of the hand and wrist. Patient able to wiggle fingers, and flex/extend wrist, which he reports is improved from yesterday. There is still stiffness
and discomfort with these movements. Sensation intact to light touch. Capillary refill <2 seconds.
WBC 7.2-->6.3
CRP 71.1
ESR 58
Overall, Lucas seems to be making progress in the right direction since initiating IV antibiotics. Continue to monitor symptoms. Should symptoms worsen or persist, we can consider arthrocentesis/advanced imaging/treatment for crystal arthropathy.
Continue with abx per ID and primary, currently vanco and cefepime. Continue with soft tissue rest. May perform gentle ROM of fingers as tolerated. Pain control prn. Elevation for edema control. Orthopedic surgery will continue to follow.
[2024-06-09 07:44] LABS: Glucose - Point of Care 159 mg/dl (70-99)
[2024-06-09] MEDS: NOVOLOG FLEXPEN-LOW RESISTANCE 1 UNITS SC ×2 (07:50→17:20)
[2024-06-09] MEDS: LANTUS 0.2 UNITS SC (07:50)
[2024-06-09 09:21] LABS: Glycohemoglobin (HgbA1c) 7.5 % (4.0-5.6)
--- NOTE | 2024-06-09 09:32 | PHA.VAN.FU ---
Vancomycin Assessment / Plan
- Assessment
Renal Function: SCR Decreasing
In the past 24 hrs, patient has been: Afebrile
Concomitant Antimicrobials: cefepime
- Assessment - Therapeutic Drug Monitoring
Random Level: 12.5 - drawn ~17H after 2g loading dose
- Dosing Plan
Dosing by Level: Re-dose today (Vanc 1250mg)
- Monitoring Plan
Random Level: 06/10 06
- Follow Up
Pharmacy will continue to follow.
Vancomycin Follow UP
- -
Patient Age: 88
Patient Sex: Male
Vancomycin Day #: 2
Indication: Skin And Soft Tissue
Requesting Provider: Dr. Car
Pertinent Antimicrobial Allergies:
ivermectin - dehydration
penicillin - rash
Height / Weight:
Height 5 ft 10 in
Actual Weight 83.971 kg
Pertinent Past Medical History: DM 2
- Vital Signs / Lab Results
Temp Pulse Resp BP Pulse Ox
97.5 F 72 17 139/73 97
06/09/24 07:24 06/09/24 07:24 06/09/24 07:24 06/09/24 07:24 06/09/24 08:15
Lab Results - Hematology
06/08/24 06/09/24
10:02 05:42
WBC 7.2 6.3
Lab Results - Chemistry
06/08/24 06/09/24
10:02 05:42
BUN 40 H 29 H
Creatinine 1.3 1.1
Estimated Creat Clear 49
Albumin 3.6 3.1 L
06/08/24
11:42
Lactic Acid 1.0
Therapeutic Drug Monitoring
Random Vancomycin 12.5 ug/ml 06/09/24 05:42
[2024-06-09] MEDS: MAXIPIME 1000 MG IV (11:27)
[2024-06-09] MEDS: STERILE WATER FOR INJECTION 10 ML IV (11:29)
[2024-06-09] MEDS: VANCOCIN 275 MG IV (11:49)
[2024-06-09] MEDS: NOVOLOG FLEXPEN-LOW RESISTANCE 2 UNITS SC (11:51)
[2024-06-09 11:52] LABS: Glucose - Point of Care 227 mg/dl (70-99)
[2024-06-09 13:44] LABS: APTT 50.5 Sec (23.4-35.0); INR 1.47; PT 18.4 Sec (11.4-14.6)
[2024-06-09 13:52] VITALS: BP 139/67; O2SAT 98
--- NOTE | 2024-06-09 13:59 | CM ---
Patient seen at bedside. Patient states that he lives in an apartment at [address] in [place] with his . Patient uses a cane but no other DME. Patient stated that he uses the [facility]. 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 Patient PCP is Bee LAW. Patient daughter would provide transportation home. Patient has a nurse from [facility]. CM will continue to follow for discharge planning needs.
Plan; home with home health from [facility] will need referral for [facility]
[2024-06-09 14:03] VITALS: BP 139/67; PULSE 69; O2SAT 100
--- NOTE | 2024-06-09 14:53 | W.PN.HOSP.TC ---
Addendum entered and electronically signed by Aly Condon MD 06/09/24 23:54:
Attending Addendum-
I saw and evaluated the patient. I reviewed the resident�s note and agree with findings and plan as documented in the resident�s note. Sub: Complains of pain swelling and decreased ROM of right wrist. Denies fevers chills. Full 12 point ROS
reviewed and negative except as documented Exam: Vitals reviewed in chart GEN-NAD heart irreg irreg lungs clear abd soft Ext: rights wrist red swollen warm pulses intact contracted pulses intact limited ROM due to pain and swelling
# Right hand/wrist hand/wrist cellulitis, possible tenosynovitis
-right hand X-ray-No fractures, dislocations, or suspicious bony abnormalities
-cont Vancomycin DC cefepime
-elevated CRP
-Ortho consulted- appreciate input leaning towards pseudogout
-check US
-would favor aspiration to confirm dx r/o septic arthritis
# Type 2 diabetes
- hasn't taken insulin since 06/04
- Resume Tresiba 20 units
- JlR9a-3.5
- Insulin sliding scale
# Permanent atrial fibrillation
-restart Coumadin
-check STAT INR
-Continue metoprolol
#CAD
-Continue aspirin, statin
#Essential hypertension
-Continue valsartan/hydrochlorothiazide
#Chronic right foot ulcer
-wound care consult
-foot x ray-Extensive postsurgical and postinfectious changes involving the right foot with a large skin defect/wound seen along the undersurface of the distal foot. There appears to be some irregular ulceration/erosion of the undersurface of the
metatarsal suspicious for acute on chronic osteomyelitis
-T/C MRI r/o osteo
#Chronic anemia
#HLD-cont atorvastatin
Full code
DVT prophylaxis�coumadin
Diabetic diet
Time spent coordinating care, review of plan of care with resident, personally reviewed records in EMR, med rec, consults, notes, labs, radiology, d/w nursing � 55 mins
Original Note:
Today's Communication/Plan
-
Continue vanco, hand US to eval for joint effusion consistent with crystal arthropathy
Assessment / Plan
Assessment / Plan
88-year-old male with past medical history of permanent A-fib on Coumadin, diabetes, chronic right foot ulcer presented to ED on 06/08 with right hand and wrist pain, redness and swelling. Diagnosed with cellulitits by PCP on friday who started him
on keflex and recommended him to come to ED. He started the Keflex on 06/07. Hand x-ray findings inconclusive. Vitals stable. Patient started on broad-spectrum antibiotics and admitted for cellulitis versus pseudogout.
Right hand redness and swelling
-Hand x-ray unremarkable for cause and no hx trauma
-Ortho recommended continuation of antibiotics, but if doesnt get better consider work up for crystal arthropathy
-Limited nonvascular US at bedside revealed no significant effusion per ortho
-2 doses of cefepime and 2 doses of vanco
-d/c cefepime and continue with vanco
-Patient stated he feels better today after starting antibiotics
-Formal US to eval joint spaces for effusion pending
-Further workup for crystal arthopathy pending clinical progression per ortho
Permanent a.fib
-On Coumadin
-Hasn't taken since Friday
-INR subtherapeutic at 1.47
-Restart him home dose of 5mg Coumadin qpm
-Unlikely to need procedure
-Continue metoprolol
Type 2 diabetes
-Hyperglycemic on admission as he stated he wasn't taking insulin due to pain in hand
-Restarted home dose tresiba 20 units
-Insulin sliding scale
-hgA1c 7.5
Chronic right foot ulcer
-Follows with Dr. Garza and gets periodic debridement
-Foot x-ray suspicious for acute on chronic osteomyelitis
-Currently on vanco
-Monitor
CAD
-Cont asa and statin
HTN
-Cont valsartan/HCTZ
Chronic anemia
Full code
DVT SCDs
Diabetic diet
Anticipated Discharge: Within 24 hours
Subjective/Interval History
-
Date of Service: June 09, 2024
Objective Data
-
Labs:
Laboratory Results
06/09/24 06/09/24
05:42 13:16
WBC 6.3
Hgb 10.9 L
Hct 32.4 L
Plt Count 155
PT 18.4 H
INR 1.47
APTT 50.5 H
Sodium 137
Potassium 3.5
Chloride 106
Carbon Dioxide 26
BUN 29 H
Creatinine 1.1
Glucose 168 H
Calcium 8.8
Total Bilirubin 1.5 H
AST 13 L
ALT < 10
Alkaline Phosphatase 74
Vital Signs:
Vital Signs
Temp Pulse Resp BP Pulse Ox
97.5 F 72 17 139/73 97
06/09/24 07:24 06/09/24 07:24 06/09/24 07:24 06/09/24 07:24 06/09/24 08:15
I&O
06/08/24 06/09/24 06/10/24
06:59 06:59 06:59
Intake Total 720 / 720
Output Total 400 / 400
Balance 320 / 320
Review of Systems
-
History Source: Patient
Respiratory: Reports No Symptoms
Cardiac: Reports No Symptoms
Abdomen/GI: Reports No Symptoms
Musculoskeletal: Reports Other (increased pain, swelling and redness of right hand/wrist)
Neuro: Reports No Symptoms
Physical Exam
-
General: Well Developed, Well Nourished and No Apparent Distress
HEENT: Normocephalic
Respiratory: Clear to Auscultation
Cardiac: Regular Rhythm and S1/S2
GI: Soft, Nontender and Nondistended
Musculoskeletal: Other (Increase swelling and erythema of right hand. Tenderness with palpation of skin. Warm. Pain with movement of fingers and wrist. ROM intact, sensation intact, capillary refill intact. )
Skin: Warm and Dry
Neuro: AO x 3
Psych: Calm
[2024-06-09 15:13] VITALS: BP 130/72
[2024-06-09 16:27] LABS: Glucose - Point of Care 163 mg/dl (70-99)
--- NOTE | 2024-06-09 16:42 | CON.ORTHO ---
Consultation
-
Date/Time Consultation Requested: 06/08/2024 1247
Date/Time Consultation Performed: 06/08/2024 1400
Requesting Provider: Dr. Chika Car
Performing Provider: MOE Balderrama, Dr. Catarino Adames
Reason for Consultation: R elbow redness/pain/swelling
Consultation - Orthopedics
History
88-year-old [id number] male with significant past medical history of atrial fibrillation and type 2 diabetes for right wrist pain swelling and redness ongoing 6 days without traumatic injury. He denies any inoculating injury reports pain
began about the right wrist and is spread most proximal and distal. Denies associated paresthesias. Denies fevers or chills
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
Allergies / Home Medications
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
Past Surgical History: Reports None
Social History
Tobacco: Non-smoker
Alcohol: None
Drug: None
Family History
Family History: Not pertinent
Allergies / Home Medications
Allergy/AdvReac Type Severity Reaction Status Date / Time
ivermectin Allergy dehydration Verified 06/08/24 15:50
penicillin Allergy Rash Verified 06/08/24 09:58
penicillin G Allergy Tolerated Verified 06/08/24 15:50
Keflex in
the past-
pt
allergic
to all PCN
�Medication �Instructions �Recorded
aspirin 81 mg tablet,delayed 81 mg PO QPM Blood Clot 10/11/14
release Prevention/Tx
metoprolol succinate 50 mg 75 mg PO QPM Heart 10/11/14
tablet,extended release 24 hr Disease/Condition
acetaminophen 500 mg tablet 1,000 mg PO Q6HPRN PRN mild pain 06/08/24
atorvastatin 40 mg tablet (Lipitor) 40 mg PO QPM High Cholesterol 06/08/24
cephalexin 500 mg capsule 500 mg PO TID for 7 days 06/08/24
insulin degludec 100 unit/mL (3 20 unit SC DAILY Diabetes 06/08/24
mL) subcutaneous pen (Tresiba
FlexTouch U-100 insulin)
valsartan 160 1 tab PO QPM Blood Pressure 06/08/24
mg-hydrochlorothiazide 25 mg tablet
warfarin 5 mg tablet (Jantoven) 5 mg PO QPM Blood Clot 06/08/24
Prevention/Tx
Vital Signs / Lab Results
Temp Pulse Resp BP Pulse Ox
98.1 F 69 17 130/72 97
06/09/24 15:13 06/09/24 15:13 06/09/24 15:13 06/09/24 15:13 06/09/24 15:13
06/09/24 05:42
06/09/24 05:42
Labs:
ESR/CRP pending at time of eval
WBC WNL
PE: Examination of the right upper extremity shows redness and swelling to about the mid antebrachium that is all dorsal. There is no significant volar cellulitis or skin changes. Distal sensation is intact. He tolerates mild wrist passive range
of motion as well as finger passive flexion and extension without significant discomfort. There is no palpable fluid collection or effusion. There are some prominence of the ulnar styloid about the ulnar carpal joint. Dorsally there is a small
amount of eschar slightly proximal to the radiocarpal joint
Imaging: X-rays taken of the right wrist show mild degenerative changes but no acute osseous abnormalities
Assessment / Plan
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 Superficial cellulitis is within
the differential diagnosis as well; limited nonvascular ultrasound was performed at bedside showing no significant effusion.
Recommend ESR and CRP for trending and baseline. Recommend continued soft tissue rest. Can continue with treatment for infectious cellulitis and will continue to monitor clinically if there is further indication for arthrocentesis. Pending his
response can further consider more specific treatment for crystal arthropathy or diagnostic imaging if indicated. Orthopedic surgery will continue to follow
[2024-06-09] MEDS: TOPROL XL 75 MG PO (17:18)
[2024-06-09] MEDS: LIPITOR 40 MG PO (17:19)
[2024-06-09] MEDS: COUMADIN 5 MG PO (17:19)
[2024-06-09] MEDS: ASPIR LOW (ENTERIC COATED) 81 MG PO (17:19)
[2024-06-09] MEDS: DIOVAN 160 MG PO (17:19)
[2024-06-09] MEDS: ORETIC 25 MG PO (17:19)
[2024-06-09 21:47] LABS: Glucose - Point of Care 212 mg/dl (70-99)
[2024-06-09 23:13] VITALS: BP 134/84
[2024-06-10 06:27] LABS: Vancomycin Random 14.2 ug/ml
[2024-06-10 06:34] LABS: PT 17.7 Sec (11.4-14.6)
[2024-06-10 06:42] LABS: % Basophils 0.5 % (0-2); % Eosinophils 2.2 % (0-6); % Immature Granulocytes 0.2 % (0-0.5); % Lymphocytes 11.1 % (20.5-51.1); % Monocytes 10.3 % (1.7-9.3); % Neutrophils 75.7 % (42.2-75.2); Absolute Eosinophils 0.1 10^3/uL (0-0.7); Absolute Lymphocytes 0.7 10^3/uL (1.2-3.4); Absolute Monocytes 0.7 10^3/uL (0.1-0.6); Absolute Neutrophils 4.8 10^3/uL (1.4-6.5); Hematocrit 32.9 % (39.0-52.0); Hemoglobin 11.1 g/dL (13.0-18.0); Mean Corp Hgb Conc. 33.7 g/dL (33.0-37.0); Mean Corpuscular Hgb 27.5 pg (27.0-31.0); Mean Corpuscular Volume 81.6 fL (80.0-94.0); Mean Platelet Volume 11.5 fL (7.4-10.4); Nucleated Red Blood Cells % 0 % (-); Platelet Count 164 10^3/uL (130-400); Red Blood Cell Count 4.03 10^6/uL (4.70-6.10); Red Cell Dist. Width 14.6 % (11.5-14.5); White Blood Cell Count 6.3 10^3/uL (4.8-10.8)
[2024-06-10 06:48] LABS: Blood Urea Nitrogen 29 mg/dl (9-20); Carbon Dioxide 26 mmol/L (22-30); Chloride 104 mmol/L (98-107); Estimated Creatinine Clearance 49 ml/min; Glucose 147 mg/dl (70-99); Potassium 3.4 mmol/L (3.5-5.1); Sodium 137 mmol/L (135-145); eGFR > 60.00
[2024-06-10 07:16] VITALS: BP 136/75
[2024-06-10 07:53] LABS: Glucose - Point of Care 142 mg/dl (70-99)
[2024-06-10 07:57] LABS: Erythrocyte Sed Rate 58 mm/hour (0-20)
--- NOTE | 2024-06-10 08:18 | W.PN.UPDATE ---
Update Note
Progress Note Update
Patient relays that he is scheduled for an ultrasound of his right upper extremity later today. He relays that Dr. Adames did see him yesterday and was in agreement with this study. If fluid collection noted recommend that he be sent to
interventional radiology for aspiration. Continue with current medical treatment and antibiotics. Orthopedics to follow along.
--- NOTE | 2024-06-10 08:32 | W.PN.HOSP.TC ---
Addendum entered and electronically signed by Aly Condon MD 06/10/24 22:45:
Attending Addendum-
I saw and evaluated the patient. I reviewed the resident�s note and agree with findings and plan as documented in the resident�s note. Sub: states that pain and swelling have improved slightly.. Denies fevers chills. Full 12 point ROS reviewed and
negative except as documented Exam: Vitals reviewed in chart GEN-NAD heart irreg irreg lungs clear abd soft Ext: rights wrist/hand swollen warm pulses intact, contracted, pulses intact limited ROM
# Right hand/wrist hand/wrist cellulitis, possible pseudogout
-right hand X-ray-No fractures, dislocations, or suspicious bony abnormalities
-cont Vancomycin DC cefepime
-elevated CRP
-Ortho consulted- appreciate input leaning towards pseudogout
-check US - no drainable collection
-start short course steroids and cont RICE
# Hypokalemia
-replete
-repeat BMP in am
# Type 2 diabetes
- hasn't taken insulin since 06/04
- cont Tresiba 20 units
- XoO1k-5.5
- Insulin sliding scale
# Permanent atrial fibrillation
-cont Coumadin, subtherapeutic INR
-daily INR
-Continue metoprolol
#CAD
-Continue aspirin, statin
#Essential hypertension
-Continue valsartan/hydrochlorothiazide
#Chronic right foot ulcer
-wound care consult
-foot x ray-Extensive postsurgical and postinfectious changes involving the right foot with a large skin defect/wound seen along the undersurface of the distal foot. There appears to be some irregular ulceration/erosion of the undersurface of the
metatarsal suspicious for acute on chronic osteomyelitis
#Chronic anemia
#HLD-cont atorvastatin
Full code
DVT prophylaxis�coumadin
Diabetic diet
Dispo DC in am
Time spent coordinating care, review of plan of care with resident, personally reviewed records in EMR, med rec, consults, notes, labs, radiology, d/w nursing � 53 mins
Original Note:
Today's Communication/Plan
-
Continue antibiotics, discharge tomorrow
Assessment / Plan
Assessment / Plan
88-year-old male with past medical history of permanent A-fib on Coumadin, diabetes, chronic right foot ulcer presented to ED on 06/08 with right hand and wrist pain, redness and swelling. Diagnosed with cellulitits by PCP on friday who started him
on keflex and recommended him to come to ED. He started the Keflex on 06/07. Hand x-ray findings inconclusive. Vitals stable. Patient started on broad-spectrum antibiotics and admitted for cellulitis versus pseudogout.
Right hand redness and swelling
-Hand x-ray unremarkable for cause and no hx trauma
-Ortho recommended continuation of antibiotics, but if doesnt get better consider work up for crystal arthropathy
-Limited nonvascular US at bedside revealed no significant effusion per ortho
-2 doses of cefepime and 2 doses of vanco
-d/c cefepime and continue with vanco day 3
-Formal US reveal no abscess or drainable collection, although swelling
-Further workup for crystal arthopathy pending clinical progression per ortho
Permanent a.fib
-On Coumadin
-Hasn't taken since Friday
-INR subtherapeutic at 1.40 today
-Continue him home dose of 5mg Coumadin qpm
-Continue metoprolol
Hypokalemia
-Replete as needed
Type 2 diabetes
-Hyperglycemic on admission as he stated he wasn't taking insulin due to pain in hand
-Restarted home dose tresiba 20 units
-Insulin sliding scale
-hgA1c 7.5
Chronic right foot ulcer
-Follows with Dr. Garza and gets periodic debridement
-Foot x-ray suspicious for acute on chronic osteomyelitis
-Currently on vanco
-Monitor
CAD
-Cont asa and statin
HTN
-Cont valsartan/HCTZ
Chronic anemia
Full code
DVT SCDs
Diabetic diet
Anticipated Discharge: Within 24 hours
Subjective/Interval History
-
Date of Service: June 10, 2024
Objective Data
-
Labs:
Laboratory Results
06/10/24
05:47
WBC 6.3
Hgb 11.1 L
Hct 32.9 L
Plt Count 164
PT 17.7 H
INR 1.40
Sodium 137
Potassium 3.4 L
Chloride 104
Carbon Dioxide 26
BUN 29 H
Creatinine 1.1
Glucose 147 H
Calcium 9.0
Vital Signs:
Vital Signs
Temp Pulse Resp BP Pulse Ox
98.6 F 74 18 136/75 93
06/10/24 07:16 06/10/24 07:16 06/10/24 07:16 06/10/24 07:16 06/10/24 07:16
I&O
06/09/24 06/10/24 06/11/24
06:59 06:59 06:59
Intake Total 720 / 720 720 / 720
Output Total 400 / 400 600 / 600
Balance 320 / 320 120 / 120
Review of Systems
-
History Source: Patient
Constitutional: Reports No Symptoms
Respiratory: Reports No Symptoms
Cardiac: Reports No Symptoms
Abdomen/GI: Reports No Symptoms
Musculoskeletal: Reports Other (Right hand/wrist pain, reddness and swelling improved from yesterday)
Neuro: Reports No Symptoms
Physical Exam
-
General: Well Developed and No Apparent Distress
Respiratory: Clear to Auscultation
Cardiac: Irregular Rhythm
GI: Soft, Nontender, Nondistended and Normal Bowel Sounds
Musculoskeletal: Other (Right hand/wrist redness, swelling, tenderness with palpation and movement but improved from yesterday)
Skin: Warm and Dry
Neuro: AO x 3
Psych: Calm
[2024-06-10] MEDS: NOVOLOG FLEXPEN-LOW RESISTANCE SC ×2 (08:42→16:54)
[2024-06-10] MEDS: LANTUS 0.2 UNITS SC (08:43)
[2024-06-10] MEDS: KCL 20 MEQ PO (09:09)
--- NOTE | 2024-06-10 09:57 | PN.CDI ---
CDI
- -
CDI:
Physician Documentation Request
Admit Date: 06/08/24 12:57
Dear Doctor Lenore,
Please review the following and provide your response in the progress notes.
Clinical Indicators:
PN, 06/10
#...Diagnosed with cellulitits by PCP on friday ....
#...started the Keflex on 06/07.
#...Patient started on broad-spectrum antibiotics and
#...admitted for cellulitis versus pseudogout.
#Right hand redness and swelling
#...-Hand x-ray unremarkable for cause and no hx trauma
#...-2 doses of cefepime and 2 doses of vanco
#...-d/c cefepime and continue with vanco day 3
#Type 2 diabetes
#...-Hyperglycemic on admission as he stated he wasn't taking insulin due to pain in hand
#...-hgA1c 7.5
#Chronic right foot ulcer
#...-Foot x-ray suspicious for acute on chronic osteomyelitis
#...-Currently on vanco
Laboratory Tests
06/08/24 06/09/24 06/10/24
21:34 05:42 05:47
Hemoglobin A1c 7.5 H
C-Reactive Protein 71.10 H 82.30 H
Based on the above and your clinical assessment, please clarify the etiology of the right hand cellulitis:
Multifactorial, diabetes, pseudogout, and (please specify)
Right hand cellulitis only
Other (please specify)
Use of terms such as suspected, likely, concern for, or probable (associated with a specific diagnosis that is being evaluated, monitored, or treated as if it exists) are acceptable and can be coded in the inpatient setting, when documented at the
time of discharge.
Thank you,
Urvashi Montana RN BSN CCDS
CDI Specialist
please contact via tiger text
Please use your independent medical judgment in providing your response.
--- NOTE | 2024-06-10 10:29 | PHA.VAN.FU ---
Vancomycin Assessment / Plan
- Assessment
Renal Function: Stable
WBC's are: WNL
In the past 24 hrs, patient has been: Afebrile
- Assessment - Therapeutic Drug Monitoring
Random Level: 14.2 - drawn ~18H after previous dose of 1250mg
- Dosing Plan
Dosing by Level: Re-dose today (Vanc 1250mg)
- Monitoring Plan
Random Level: 06/11 0600
- Follow Up
Pharmacy will continue to follow.
Vancomycin Follow UP
- -
Patient Age: 88
Patient Sex: Male
Vancomycin Day #: 3
Indication: Skin And Soft Tissue
Requesting Provider: Dr. Car
Pertinent Antimicrobial Allergies:
ivermectin - dehydration
penicillin - rash
Height / Weight:
Height 5 ft 10 in
Actual Weight 83.971 kg
Pertinent Past Medical History: DM 2
- Vital Signs / Lab Results
Temp Pulse Resp BP Pulse Ox
98.6 F 74 18 136/75 93
06/10/24 07:16 06/10/24 07:16 06/10/24 07:16 06/10/24 07:16 06/10/24 07:16
Lab Results - Hematology
06/08/24 06/09/24 06/10/24
10:02 05:42 05:47
WBC 7.2 6.3 6.3
Lab Results - Chemistry
06/08/24 06/09/24 06/10/24
10:02 05:42 05:47
BUN 40 H 29 H 29 H
Creatinine 1.3 1.1 1.1
Estimated Creat Clear 49 49
Albumin 3.6 3.1 L
06/08/24
11:42
Lactic Acid 1.0
Therapeutic Drug Monitoring
Random Vancomycin 14.2 ug/ml 06/10/24 05:47
--- NOTE | 2024-06-10 10:50 | CM ---
Addendum entered by Adry Lee 06/10/24 14:48:
Patient seen at bedside. Patient states he doesnot want to go to SNF but understands that that is the recommendation of therapy. CM completed IMM and signed form placed on chart. Patient stated he is to go home tomorrow as he has no rides today. CM
will continue to follow for discharge planning needs.
Plan home with VN; [facility]
[place] [phone];please fax to [phone]
Original Note:
[facility] accepted per all scripts [place] [phone];please fax to [phone] when patient is for discharge. CM will continue to follow for discharge planning needs.
Plan; home with VN
[2024-06-10 12:12] LABS: Glucose - Point of Care 240 mg/dl (70-99)
[2024-06-10] MEDS: NOVOLOG FLEXPEN-LOW RESISTANCE 2 UNITS SC (13:00)
[2024-06-10] MEDS: VANCOCIN 275 MG IV (13:04)
[2024-06-10 16:09] VITALS: BP 151/80
[2024-06-10 16:44] LABS: Glucose - Point of Care 129 mg/dl (70-99)
[2024-06-10] MEDS: COUMADIN 5 MG PO (17:57)
[2024-06-10] MEDS: TOPROL XL 75 MG PO (17:57)
[2024-06-10] MEDS: ASPIR LOW (ENTERIC COATED) 81 MG PO (17:57)
[2024-06-10] MEDS: LIPITOR 40 MG PO (17:58)
[2024-06-10] MEDS: DIOVAN 160 MG PO (17:59)
[2024-06-10] MEDS: ORETIC 25 MG PO (18:06)
[2024-06-10 21:53] LABS: Glucose - Point of Care 159 mg/dl (70-99)
[2024-06-10 23:35] VITALS: BP 128/68
[2024-06-10] MEDS: DELTASONE 40 MG PO (23:41)
[2024-06-11 06:44] LABS: Hemoglobin 11.6 g/dL (13.0-18.0); Mean Corp Hgb Conc. 34.1 g/dL (33.0-37.0); Mean Corpuscular Hgb 27.6 pg (27.0-31.0); Mean Corpuscular Volume 80.8 fL (80.0-94.0); Mean Platelet Volume 11.3 fL (7.4-10.4); Platelet Count 174 10^3/uL (130-400); Red Blood Cell Count 4.21 10^6/uL (4.70-6.10); Red Cell Dist. Width 14.6 % (11.5-14.5); White Blood Cell Count 5.8 10^3/uL (4.8-10.8)
[2024-06-11 07:05] VITALS: BP 139/86
[2024-06-11 07:10] LABS: Blood Urea Nitrogen 26 mg/dl (9-20); Calcium 8.8 mg/dl (8.4-10.2); Carbon Dioxide 23 mmol/L (22-30); Chloride 103 mmol/L (98-107); Estimated Creatinine Clearance 54 ml/min; Glucose 171 mg/dl (70-99); Sodium 138 mmol/L (135-145); eGFR > 60.00
[2024-06-11] MEDS: DELTASONE 40 MG PO (07:46)
[2024-06-11] MEDS: LANTUS 0.2 UNITS SC (07:47)
[2024-06-11 08:01] LABS: Glucose - Point of Care 180 mg/dl (70-99)
[2024-06-11] MEDS: NOVOLOG FLEXPEN-LOW RESISTANCE 1 UNITS SC (08:23)
--- NOTE | 2024-06-11 09:10 | PHA.VAN.FU ---
Vancomycin Assessment / Plan
- Assessment
Renal Function: Stable
WBC's are: WNL
In the past 24 hrs, patient has been: Afebrile
- Assessment - Therapeutic Drug Monitoring
Random Level: 16 - drawn ~17H after previous dose of 1250mg
- Dosing Plan
Dosing by Level: Re-dose today (Vanc 1000mg)
Patient with accumulation - reducing dose today - if continues to accumulate, may require prolonged re-dosing interval
Patient appears to be clearing less than population PK predicts
- Monitoring Plan
Random Level: 06/12 0600
- Follow Up
Pharmacy will continue to follow.
Vancomycin Follow UP
- -
Patient Age: 88
Patient Sex: Male
Vancomycin Day #: 4
Indication: Skin And Soft Tissue
Requesting Provider: Dr. Car
Pertinent Antimicrobial Allergies:
ivermectin - dehydration
penicillin - rash
Height / Weight:
Height 5 ft 10 in
Actual Weight 83.971 kg
Pertinent Past Medical History: DM 2
- Vital Signs / Lab Results
Temp Pulse Resp BP Pulse Ox
97.7 F 99 18 139/86 97
06/11/24 07:05 06/11/24 07:05 06/11/24 07:05 06/11/24 07:05 06/11/24 07:05
Lab Results - Hematology
06/08/24 06/09/24 06/10/24
10:02 05:42 05:47
WBC 7.2 6.3 6.3
06/11/24
05:54
WBC 5.8
Lab Results - Chemistry
06/08/24 06/09/24 06/10/24
10:02 05:42 05:47
BUN 40 H 29 H 29 H
Creatinine 1.3 1.1 1.1
Estimated Creat Clear 49 49
Albumin 3.6 3.1 L
06/11/24
05:54
BUN 26 H
Creatinine 1.0
Estimated Creat Clear 54
Albumin
06/08/24
11:42
Lactic Acid 1.0
Therapeutic Drug Monitoring
Random Vancomycin 16.0 ug/ml 06/11/24 05:54
--- NOTE | 2024-06-11 09:43 | W.PN.HOSP.TC ---
Addendum entered and electronically signed by Aly Condon MD 06/11/24 22:33:
Attending Addendum-
I saw and evaluated the patient. I reviewed the resident�s note and agree with findings and plan as documented in the resident�s note. Sub: states that pain and swelling have improved dramatically s/p steroid.. Denies fevers chills. Full 12 point
ROS reviewed and negative except as documented Exam: Vitals reviewed in chart GEN-NAD heart irreg irreg lungs clear abd soft Ext: rights wrist/hand less swollen not warm pulses intact, contracted, pulses intact improved ROM
# Superimposed Right hand cellulitis on pseudogout
-right hand X-ray-No fractures, dislocations, or suspicious bony abnormalities
-cont keflex on DC
-Ortho consulted- appreciate input leaning towards pseudogout
-check US - no drainable collection
-start short course steroids and cont RICE
# Hypokalemia
-resolved
# Type 2 diabetes
- hasn't taken insulin since 06/04
- cont Tresiba 20 units
- DtH5p-0.5
- Insulin sliding scale
# Permanent atrial fibrillation
-cont Coumadin, still subtherapeutic INR
-INR on friday as OP
-Continue metoprolol
#CAD
-Continue aspirin, statin
#Essential hypertension
-Continue valsartan/hydrochlorothiazide
#Chronic right foot ulcer
-wound care consult
-foot x ray-Extensive postsurgical and postinfectious changes involving the right foot with a large skin defect/wound seen along the undersurface of the distal foot. There appears to be some irregular ulceration/erosion of the undersurface of the
metatarsal suspicious for acute on chronic osteomyelitis
-not septic close OP follow patient agreeable
#Chronic anemia
#HLD-cont atorvastatin
Full code
DVT prophylaxis�coumadin
Diabetic diet
Dispo DC home
Time spent coordinating care, DC planning, review of DC plan of care with resident, transition of care, review of records, med rec/scripts sent electronically, consults, notes, d/w consultants, nursing, and CM� 33 mins
Original Note:
Today's Communication/Plan
-
Discharge on antibiotics and steroid taper
Assessment / Plan
Assessment / Plan
88-year-old male with past medical history of permanent A-fib on Coumadin, diabetes, chronic right foot ulcer presented to ED on 06/08 with right hand and wrist pain, redness and swelling. Diagnosed with cellulitits by PCP on friday who started him
on keflex and recommended him to come to ED. He started the Keflex on 06/07. Hand x-ray findings inconclusive. Vitals stable. Patient started on broad-spectrum antibiotics and admitted for cellulitis versus pseudogout.
Right hand redness and swelling
-Hand x-ray unremarkable for cause and no hx trauma
-Ortho recommended continuation of antibiotics, but if doesnt get better consider work up for crystal arthropathy
-Limited nonvascular US at bedside revealed no significant effusion per ortho
-2 doses of cefepime
-d/c cefepime and continue with vanco day 4
-Formal US reveal no abscess or drainable collection, although swelling
-Further workup for crystal arthopathy pending clinical progression per ortho
-Start steroids as othro suspects pseudogout
-Discharge on taper and oral antibiotics
Permanent a.fib
-On Coumadin
-Hasn't taken since Friday
-INR subtherapeutic
-Continue him home dose of 5mg Coumadin qpm
-Continue metoprolol
Hypokalemia
-Replete as needed
Type 2 diabetes
-Hyperglycemic on admission as he stated he wasn't taking insulin due to pain in hand
-Restarted home dose tresiba 20 units
-Insulin sliding scale
-hgA1c 7.5
-Monitor now that he is on steroids
Chronic right foot ulcer
-Follows with Dr. Garza and gets periodic debridement
-Foot x-ray suspicious for acute on chronic osteomyelitis
-Currently on vanco
-Wound care consult
-Monitor
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
CAD
-Cont asa and statin
HTN
-Cont valsartan/HCTZ
Chronic anemia
Full code
DVT SCDs
Diabetic diet
Anticipated Discharge: Today
Subjective/Interval History
-
Date of Service: June 11, 2024
Objective Data
-
Labs:
Laboratory Results
06/11/24 06/11/24
05:54 09:15
WBC 5.8
Hgb 11.6 L
Hct 34.0 L
Plt Count 174
PT Pending
INR Pending
Sodium 138
Potassium 4.0
Chloride 103
Carbon Dioxide 23
BUN 26 H
Creatinine 1.0
Glucose 171 H
Calcium 8.8
Vital Signs:
Vital Signs
Temp Pulse Resp BP Pulse Ox
97.7 F 99 18 139/86 97
06/11/24 07:05 06/11/24 07:05 06/11/24 07:05 06/11/24 07:05 06/11/24 07:05
I&O
06/10/24 06/11/24 06/12/24
06:59 06:59 06:59
Intake Total 720 / 720 960 / 960
Output Total 600 / 600 675 / 675
Balance 120 / 120 285 / 285
Review of Systems
-
History Source: Patient
Constitutional: Reports No Symptoms
Respiratory: Reports No Symptoms
Cardiac: Reports No Symptoms
Abdomen/GI: Reports No Symptoms
Musculoskeletal: Reports Other (Hand redness and swelling improvement from prior )
Neuro: Reports No Symptoms
Physical Exam
-
General: Well Developed and No Apparent Distress
Respiratory: Clear to Auscultation
Cardiac: Irregular Rhythm
GI: Soft and Nontender
Musculoskeletal: No Edema
Neuro: AO x 3
[2024-06-11 09:48] LABS: INR 1.45; PT 17.9 Sec (11.4-14.6)
[2024-06-11] MEDS: VANCOCIN 200 IV (10:19)
[2024-06-11 11:38] LABS: Glucose - Point of Care 394 mg/dl (70-99)
[2024-06-11] MEDS: NOVOLOG FLEXPEN-LOW RESISTANCE 5 UNITS SC (11:41)
--- NOTE | 2024-06-11 12:48 | W.PN.UPDATE ---
Update Note
Progress Note Update
Pt seen this AM- no fluid collection on diagnostic MSK US with radiology- reports improvement dramatically with steroid.
Ortho will follow peripherally at this time.
[2024-06-11 15:05] VITALS: BP 136/83
--- NOTE | 2024-06-11 17:16 | W.DCSUMMARY ---
Addendum entered and electronically signed by Aly Condon MD 06/11/24 22:36:
Read, reviewed, and agree. See same day progress note for additional details. Error noted in warfarin instructions- patient verbally advised to continue taking warfarin over weekend and repeat INR on Wednesday 06/14.
Mando Condon MD
Original Note:
Documented by User: Patricia Grover MD, Resident 06/11/24 17:23
Discharge Summary
Discharge Data
Date of Admission: 06/08/24
Date of Discharge: 06/11/24
-
Pending Results: No
Hospital Course
Primary diagnosis:
Cellulitis versus pseudogout
Secondary diagnosis:
Permanent A-fib
Hypokalemia
Type 2 diabetes
Chronic right foot ulcer
CAD
Hypertension
Chronic anemia
Hospital course:
Right hand redness and swelling
-Hand x-ray unremarkable for cause and no hx trauma
-Started on cefepime and vanco -> vanco
-Ortho recommended continuation of antibiotics, but if doesnt get better consider work up for crystal arthropathy
-Limited nonvascular US at bedside revealed no significant effusion per ortho
-Improvement with antibiotics and later steroids
-Discharge with 5 day steroid burst and finish keflex provided by PCP prior to admission
Type 2 diabetes
-Hyperglycemic on admission as he stated he wasn't taking insulin due to pain in hand
-Restarted home dose tresiba 20 units
-Insulin sliding scale
-hgA1c 7.5
-Monitor now that he is on steroids
Chronic right foot ulcer
-Follows with Dr. Garza and gets periodic debridement
-Foot x-ray suspicious for acute on chronic osteomyelitis
-Was on antibiotics for hand
-Wound care
-Monitor
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
Today, pt is stable for discharge. Provided steroid burst and recommendations to continue keflex provided by PCP for duration of course as he stated he only took one dose prior.
Discharge Plan
-
Patient Disposition: Home (Routine Discharge)
Discharge Diagnosis/Procedures: Right lower extremity Cellulitis
Condition: Good
Diet: No restrictions
Activity: No restrictions
Driving Restrictions: As prior to admission
Other Services: VN and PT
Referrals:
Bee Posada PA-C [Family Provider] - in less than 1 week
Prescriptions:
New
prednisone 20 mg tablet
40 mg PO DAILY 5 Days Qty: 10 0RF
Continued
metoprolol succinate 50 MG tablet extended release 24 hr
75 mg PO QPM
aspirin 81 MG tablet,delayed release (DR/EC)
81 mg PO QPM
atorvastatin [Lipitor] 40 mg Tablet
40 mg PO QPM
acetaminophen 500 mg Tablet
1,000 mg PO Q6HPRN PRN (Reason: mild pain)
cephalexin 500 mg Capsule
500 mg PO TID
valsartan-hydrochlorothiazide 160-25 mg Tablet
1 tab PO QPM
insulin degludec [Tresiba FlexTouch U-100] 100 unit/mL (3 mL) Insulin Pen
20 unit SC DAILY
warfarin [Jantoven] 5 MG tablet
5 mg PO QPM
Rx Instructions:
DO NOT TAKE THIS WEEKEND. CHECK INR ON Friday10/16/15 AND WE WILL GIVE YOU DOSING INSTRUCTIONS ([facility])
Discharge Orders:
Discharge Patient (As Directed); Ordered 06/11/24
Ordered By: Patricia Grover
Discharge Date and Time
Discharge Date/Time: 06/11/24 17:01
Print Language: NIGERIEN

Documented by User: Aly Condon MD 06/11/24 22:29
Discharge Summary
Discharge Data
Date of Admission: 06/08/24
Date of Discharge: 06/11/24
Discharge Plan
-
Patient Disposition: Home (Routine Discharge)
Discharge Diagnosis/Procedures: Right lower extremity Cellulitis
Condition: Good
Diet: No restrictions
Activity: No restrictions
Driving Restrictions: As prior to admission
Other Services: VN and PT
Referrals:
Bee Posada PA-C [Family Provider] - in less than 1 week
Prescriptions:
New
prednisone 20 mg tablet
40 mg PO DAILY 5 Days Qty: 10 0RF
Continued
metoprolol succinate 50 MG tablet extended release 24 hr
75 mg PO QPM
aspirin 81 MG tablet,delayed release (DR/EC)
81 mg PO QPM
atorvastatin [Lipitor] 40 mg Tablet
40 mg PO QPM
acetaminophen 500 mg Tablet
1,000 mg PO Q6HPRN PRN (Reason: mild pain)
cephalexin 500 mg Capsule
500 mg PO TID
valsartan-hydrochlorothiazide 160-25 mg Tablet
1 tab PO QPM
insulin degludec [Tresiba FlexTouch U-100] 100 unit/mL (3 mL) Insulin Pen
20 unit SC DAILY
warfarin [Jantoven] 5 MG tablet
5 mg PO QPM
Rx Instructions:
DO NOT TAKE THIS WEEKEND. CHECK INR ON Friday10/16/15 AND WE WILL GIVE YOU DOSING INSTRUCTIONS ([facility])
Discharge Orders:
Discharge Patient (As Directed); Ordered 06/11/24
Ordered By: Patricia Grover
Discharge Date and Time
Discharge Date/Time: 06/11/24 17:01
Print Language: NIGERIEN
--- NOTE | 2024-06-11 17:50 | CM ---
MD entered order for discharge.
Spoke with pt he said he was ready for discharge . IMM reviewed and he agreed with dc.
Spoke with Imelda at [facility] [phone] she requested nurse call report.She said their was no transportation for patients.
Spoke with King sanchez he agreed to pay for [facility] . Acute care number [phone].
transport form completed.
LM with [facility].
PLAN [facility] report [phone] fax [phone]
[facility] fax [phone]
== END 2024-06-11 17:01 | disposition home health service (06) | DRG 603 ==
LOC: 3 WEST ACU 12:57
PROVIDERS: Nurse Practitioner; Physician Assistant Surgical; ADMITTING PHYSICIAN Hospitalist; ATTENDING PHYSICIAN Family Medicine; EMERGENCY PHYSICIAN Emergency Medicine; FAMILY PHYSICIAN Physician Assistant Medical; OTHER PHYSICIAN Orthopaedic Surgery
DX: L03.113 Cellulitis of right upper limb (principal); L03.115 Cellulitis of right lower limb; I48.21 Permanent atrial fibrillation; M86.671 Other chronic osteomyelitis, right ankle and foot; M86.171 Other acute osteomyelitis, right ankle and foot; M11.241 Other chondrocalcinosis, right hand; E87.6 Hypokalemia; E11.621 Type 2 diabetes mellitus with foot ulcer; E11.622 Type 2 diabetes mellitus with other skin ulcer; L97.519 Non-pressure chronic ulcer of other part of right foot with unspecified severity; E11.65 Type 2 diabetes mellitus with hyperglycemia; M72.0 Palmar fascial fibromatosis [Dupuytren]; I25.10 Atherosclerotic heart disease of native coronary artery without angina pectoris; D64.9 Anemia, unspecified; I10 Essential (primary) hypertension; E78.5 Hyperlipidemia, unspecified; M65.931 Unspecified synovitis and tenosynovitis, right forearm; M65.941 Unspecified synovitis and tenosynovitis, right hand; Z79.01 Long term (current) use of anticoagulants; Z79.899 Other long term (current) drug therapy; Z79.4 Long term (current) use of insulin; Z79.82 Long term (current) use of aspirin
CPT/HCPCS: 73130; 73630; 76882; 80048; 80053; 80202; 82962; 83036; 83605; 85025; 85027; 85610; 85652; 85730; 86140; 87070; 96365; 96366; 96375; 97116; 97163; 97167; 99285

== ENCOUNTER 2024-09-10 14:15 | Emergency (ER) | payer MEDICARE, SELFPAY ==
[2024-09-10 14:26] VITALS: BP 155/93
[2024-09-10 14:49] LABS: % Basophils 0.2 % (0-2); % Eosinophils 0.1 % (0-6); % Immature Granulocytes 0.4 % (0-0.5); % Lymphocytes 6.3 % (20.5-51.1); Absolute Lymphocytes 0.5 10^3/uL (1.2-3.4); Absolute Monocytes 0.7 10^3/uL (0.1-0.6); Absolute Neutrophils 6.9 10^3/uL (1.4-6.5); Hemoglobin 10.4 g/dL (13.0-18.0); Mean Corp Hgb Conc. 33.5 g/dL (33.0-37.0); Mean Corpuscular Hgb 27.7 pg (27.0-31.0); Mean Corpuscular Volume 82.4 fL (80.0-94.0); Mean Platelet Volume 10.9 fL (7.4-10.4); Nucleated Red Blood Cells % 0 % (-); Platelet Count 177 10^3/uL (130-400); Red Blood Cell Count 3.76 10^6/uL (4.70-6.10); Red Cell Dist. Width 14.4 % (11.5-14.5); White Blood Cell Count 8.1 10^3/uL (4.8-10.8)
[2024-09-10 15:15] LABS: Erythrocyte Sed Rate 1 mm/hour (0-20)
[2024-09-10 15:55] LABS: ALT (SGPT) 10 U/L (0-50); AST (SGOT) 14 U/L (17-59); Albumin 3.7 g/dl (3.5-5.0); Alkaline Phosphatase 84 U/L (38-126); Blood Urea Nitrogen 25 mg/dl (9-20); Calcium 8.6 mg/dl (8.4-10.2); Carbon Dioxide 25 mmol/L (22-30); Chloride 106 mmol/L (98-107); Glucose 215 mg/dl (70-99); Potassium 3.6 mmol/L (3.5-5.1); Sodium 138 mmol/L (135-145); Total Bilirubin 1.9 mg/dl (0.2-1.3); Total Protein 6.5 g/dl (6.3-8.2); eGFR 58.17
[2024-09-10] MEDS: ULTRAM 50 MG PO (17:00)
--- NOTE | 2024-09-10 18:05 | ED.GENMED ---
History of Present Illness
General
Chief Complaint: Musculo-Skeletal Complaint
Time Seen by Provider: 09/10/24 16:49
History of Present Illness
History of Present Illness:
Note:
CHIEF COMPLAINT(S)
Wrist pain and swelling.
HISTORY OF PRESENT ILLNESS
The patient is an 89-year-old male with a history of pseudogout, presenting with wrist pain and swelling since Friday. The patient indicates the current episode feels similar to previous pseudogout flare-ups. He denies any injury to the wrist. He
is currently on warfarin for anticoagulation. A previous episode approximately six weeks ago was treated with prednisone. The wrist displays pain with passive flexion but not with passive extension.
CHRONIC MEDICAL CONDITIONS SIGNIFICANTLY AFFECTING CARE
- Diabetes mellitus
- Atrial fibrillation (implied from warfarin use)
MEDICATIONS
- Warfarin
- Prednisone (previous episodic use for joint swelling)
REVIEW OF SYSTEMS
- Muscular-skeletal: Wrist pain and swelling, likened to previous pseudogout episodes
- Skin: No open wounds or clear sources of infection noted.
PHYSICAL EXAM
- GEN: WDWN, no distress
- Cardio: Regular rate
- Musculoskeletal: Diffuse edema of the wrist with minor joint effusion, mild erythema and warmth. Pain noted with passive flexion but not with extension. The patient appears well and in no distress.
- Nursing notes reviewed and vital signs reviewed.
PLAN
- Obtain wrist X-ray to assess for characteristic changes suggestive of inflammatory conditions.
- Await lab results to exclude joint infection.
- Consider a course of steroids, provided lab work is reassuring.
- Provide pain management, mindful of NSAID-related renal risk due to warfarin.
- Provide a mild splint for wrist immobilization to minimize pain.
- Follow-up with the patients regular physician during the week.
DIFFERENTIAL DIAGNOSIS
The Differential Diagnosis includes, in no particular order and is not limited to:
1. Pseudogout
2. Gout
3. Septic arthritis
4. Osteoarthritis
5. Rheumatoid arthritis
6. Joint effusion
7. Tenosynovitis
8. Traumatic arthritis
9. Psoriatic arthritis
10. Systemic lupus erythematosus arthritis
Disposition:
DIAGNOSIS
- Pseudogout (M11.09)
SUMMARY OF ENCOUNTER
The patient is an 89-year-old male who presented with non-traumatic swelling of the left wrist. His symptomatology is reminiscent of a previous episode of pseudogout which occurred earlier in the year affecting the right wrist. Physical examination
revealed minimal pain with passive stretch. Given the absence of fever or leukocytosis, infectious arthritis is not currently indicated.
PLAN
- Treat with corticosteroids considering past efficacy for pseudogout and current anticoagulation therapy.
- Avoid NSAIDs due to anticoagulation therapy (warfarin).
- Provide opioid analgesics for pain management.
INDEPENDENT INTERPRETATION OF TESTS
- My independent interpretation of wrist X-rays is that they are unremarkable with no significant findings.
MEDICATION RECONCILIATION
- Initiate corticosteroid therapy.
- Provide opioid analgesics for pain relief.
MEDICAL DECISION MAKING
Number and Complexity of Problems Addressed:
The chief complaint was non-traumatic wrist swelling in a patient with a history of pseudogout. The decision-making process involved evaluating the recurrence of pseudogout and managing it in the context of the patient�s current anticoagulation
therapy.
Data:
Based on the presentation and past medical history, other causes of arthritis were considered, but were less likely due to the lack of infectious signs.
Risk:
Risk management considerations included avoiding NSAIDs due to the patients ongoing anticoagulation therapy. The decision for potential hospitalization was contemplated, but not pursued. Corticosteroid therapy was chosen based on previous positive
response and risk assessments.
Past History
Past History
ED Past Medical History: Arrthythmia, NIDDM and Other (sleep apnea)
ED Past Surgical History: Cardiac
Social History
Tobacco: Non-smoker
Personal:
Living: with family
Phy Exam
Physical Exam
Physical Exam:
.
Course
Orders/Labs/Results
Orders:
Orders
09/10/24 14:37
C-Reactive Protein Urgent
Comment: ADD ON
CMP [Comprehensive Metabolic Panel] Urgent
Complete Blood Count/With Diff Urgent
Erythrocyte Sed Rate Urgent
Comment: ADD ON
09/10/24 14:54
Add On- LAB Urgent
Comments:: blood in lab
Tests Added?: ESR, CRP.
09/10/24 16:56
Tramadol HCl [Ultram] 50 mg PO NOW STA
CR Wrist - Left Min 3 Views Urgent
Comment:
Reason For Exam: swelling
09/10/24 18:35
Prednisone [Deltasone] 40 mg PO NOW STA
Abnormal Lab Results
09/10/24
14:37
RBC 3.76 L 10^6/uL
(4.70-6.10)
Hgb 10.4 L g/dL
(13.0-18.0)
Hct 31.0 L %
(39.0-52.0)
MPV 10.9 H fL
(7.4-10.4)
Absolute Neuts (auto) 6.9 H 10^3/uL
(1.4-6.5)
Absolute Lymphs (auto) 0.5 L 10^3/uL
(1.2-3.4)
Absolute Monos (auto) 0.7 H 10^3/uL
(0.1-0.6)
Neutrophils % 85.0 H %
(42.2-75.2)
Lymphocytes % 6.3 L %
(20.5-51.1)
BUN 25 H mg/dl
(9-20)
Glucose 215 H mg/dl
(70-99)
Total Bilirubin 1.9 H mg/dl
(0.2-1.3)
AST 14 L U/L
(17-59)
C-Reactive Protein 117.30 H mg/L
(0.0-10.00)
09/10/24 14:37
09/10/24 14:37
Vital Signs
Initial and Last Documented VS:
Initial Vital Signs
Temp Pulse Resp BP Pulse Ox
99.8 F 105 18 155/93 99
09/10/24 14:26 09/10/24 14:26 09/10/24 14:26 09/10/24 14:26 09/10/24 14:26
Last Documented Vital Signs
Temp Pulse Resp BP Pulse Ox
99.8 F 105 18 155/93 99
09/10/24 14:26 09/10/24 14:26 09/10/24 14:26 09/10/24 14:26 09/10/24 14:26
*Critical Care Note
Total Time (30-74mins, 75-104mins- exclusive of procedures): Not Applicable
ED Attending Note
-
Portions of this chart may have been created with voice recognition software.� Occasional wrong word or��sound alike� substitutions may have occurred due to the inherent limitations of voice recognition software.
Discharge Plan
Departure
Patient Disposition: Home (Routine Discharge)
Date of Disposition: 09/10/24
Time of Disposition: 18:05
Patient with high blood pressure during this ER visit?: No
Discharge Problem:
Pseudogout of left wrist
Instructions: Calcium pyrophosphate deposition disease
Prescriptions:
New
methylprednisolone [Medrol ([place])] 4 mg tablets,dose pack
See Rx Instructions .ROUTE .COMPLEX Qty: 21 0RF
Rx Instructions:
for 6 days
tramadol 50 mg tablet
50 mg PO Q8H PRN (Reason: Pain) Qty: 10 0RF
No Action
metoprolol succinate 50 MG tablet extended release 24 hr
75 mg PO QPM
aspirin 81 MG tablet,delayed release (DR/EC)
81 mg PO QPM
atorvastatin [Lipitor] 40 mg Tablet
40 mg PO QPM
acetaminophen 500 mg Tablet
1,000 mg PO Q6HPRN PRN (Reason: mild pain)
cephalexin 500 mg Capsule
500 mg PO TID
valsartan-hydrochlorothiazide 160-25 mg Tablet
1 tab PO QPM
insulin degludec [Tresiba FlexTouch U-100] 100 unit/mL (3 mL) Insulin Pen
20 unit SC DAILY
warfarin [Jantoven] 5 MG tablet
5 mg PO QPM
Rx Instructions:
DO NOT TAKE THIS WEEKEND. CHECK INR ON Friday10/16/15 AND WE WILL GIVE YOU DOSING INSTRUCTIONS ([facility])
prednisone 20 mg tablet
40 mg PO DAILY 5 Days Qty: 10 0RF
Referrals:
Bee Posada PA-C [Family Provider, Family Practice]
Interventions
Interventions:
*Risk Screen - Suicide Last Done: 09/10/24 14:26
*General Assessment Last Done: 09/10/24 15:44
*Neglect/Abuse Screening Last Done: 09/10/24 14:26
*Nursing Disposition Last Done: 09/10/24 18:48
ED-Musculoskeletal Assessment Last Done: 09/10/24 15:44
Discharge Date and Time
Discharge Date/Time: 09/10/24 18:49
Print Language: SPANISH
[2024-09-10] MEDS: DELTASONE 40 MG PO (18:46)
== END 2024-09-10 18:49 | disposition home or self-care (01) ==
LOC: EMR 14:15
PROVIDERS: Emergency Medicine; EMERGENCY PHYSICIAN Student in an Organized Health Care Education/Training Program; FAMILY PHYSICIAN Physician Assistant Medical
DX: M25.432 Effusion, left wrist (principal); M11.20 Other chondrocalcinosis, unspecified site; E11.9 Type 2 diabetes mellitus without complications; G47.30 Sleep apnea, unspecified; I48.91 Unspecified atrial fibrillation; Z79.01 Long term (current) use of anticoagulants
CPT/HCPCS: 99283; 29125; 73110; 80053; 85025; 85652; 86140

== ENCOUNTER 2024-09-28 20:47 | Inpatient (IN) | payer MEDICARE, SELFPAY ==
[2024-09-28] VITALS (8 sets, daily range): BP systolic 90–117; BP diastolic 50–67; BMI 25.3
[2024-09-28 17:02] LABS: Urine Character Clear (Clear)
[2024-09-28 17:04] LABS: Hematocrit 25.6 % (39.0-52.0); Hemoglobin 8.7 g/dL (13.0-18.0); Mean Corp Hgb Conc. 34.0 g/dL (33.0-37.0); Mean Corpuscular Volume 81.3 fL (80.0-94.0); Nucleated Red Blood Cells % 0 % (-); Platelet Count 152 10^3/uL (130-400); Red Cell Dist. Width 14.8 % (11.5-14.5)
[2024-09-28 17:08] LABS: Urine Squamous Cell 0-2 /LPF (Few)
[2024-09-28 17:09] LABS: Urine Red Blood Cell 0-2 /HPF (0-2)
[2024-09-28 17:23] LABS: COVID-19 Antigen Negative (Negative)
[2024-09-28 17:24] LABS: ALT (SGPT) 11 U/L (0-50); AST (SGOT) 14 U/L (17-59); Albumin 2.7 g/dl (3.5-5.0); Alkaline Phosphatase 92 U/L (38-126); Blood Urea Nitrogen 28 mg/dl (9-20); Calcium 7.6 mg/dl (8.4-10.2); Carbon Dioxide 25 mmol/L (22-30); Chloride 105 mmol/L (98-107); Estimated Creatinine Clearance 45 ml/min; Glucose 361 mg/dl (70-99); Magnesium 1.5 mg/dl (1.6-2.3); Potassium 3.3 mmol/L (3.5-5.1); Sodium 131 mmol/L (135-145); Total Protein 5.1 g/dl (6.3-8.2); eGFR 58.17
--- NOTE | 2024-09-28 17:31 | ED.GENMED ---
History of Present Illness
General
Chief Complaint: Abdominal Symptoms
Time Seen by Provider: 09/28/24 16:07
History of Present Illness
History of Present Illness:
Patient is a 89-year-old male with history of A-fib on Coumadin, hypertension, hyperlipidemia, diabetes presenting to the emergency department with nausea vomiting diarrhea. Patient states for the past few days been having nausea vomiting diarrhea.
He also been having ongoing weakness. He has been having some chills. No recent travel or antibiotics. He does state that there is a wound to his right foot that has been been monitored by podiatry. There has been some increase in drainage. No
chest pain. No difficulty breathing.
Past History
Past History
ED Past Medical History: Arrthythmia, NIDDM and Other (sleep apnea)
ED Past Surgical History: Cardiac
Social History
Tobacco: Non-smoker
Personal:
Living: with family
Phy Exam
Physical Exam
Physical Exam:
GENERAL: in no acute distress
HEENT: normocephalic, extraocular movements intact, dry oral mucosa
NECK: normal inspection
RESPIRATORY: no respiratory distress, clear to auscultation bilaterally
CARDIOVASCULAR: regular rate and rhythm
ABDOMEN/: soft, non-distended, non-tender to palpation, no rebound or guarding
EXTREMITIES: Right foot with foot ulcer at the base of the foot with mild drainage, foul-smelling, no warmth or tenderness
NEUROLOGIC: awake and alert, moves all extremities
SKIN: warm
Sepsis
Sepsis Screening
Sepsis Assessment: Sepsis
Sepsis Screen
Sepsis Screen: Sepsis
Date: 09/28/24
Time: 19:50
Course
Orders/Labs/Results
Orders:
Orders
09/28/24 16:12
Electrocardiogram (*1) Urgent
Reason for Study: Fatigue / Weakness
09/28/24 16:13
EKG- Treatment ONCE
09/28/24 16:44
COVID-19 Antigen Urgent
Source: Nasal Swab
Complete Blood Count/With Diff Urgent
Comprehensive Metabolic Panel Urgent
Magnesium Urgent
Urinalysis Reflex To Culture Urgent
Date Specimen was Collected: 09/28/24
Time Specimen was Collected: 16:13
Urine Microscopic Reflex Cult Urgent
Influenza A+B Rapid Molecular Urgent
SANDRA Source: Nasal Swab
Specimen Description:
Urine Culture Urgent
SANDRA Source: U
Specimen Description:
Date Specimen was Collected: 09/28/24
Time Specimen was Collected: 16:13
09/28/24 17:29
CT Abd/pelvis W Iv Cont Urgent
Comment:
Reason For Exam: n/v/d
Cefepime HCl [Maxipime] 2,000 mg IV NOW STA
MetroNIDAZOLE 500 MG/100 ML [Flagyl 500 mg] 100 ml IV NOW
CR Foot - Right Min 3 Views Urgent
Reason For Exam: diABETIC FOOT WOUND
09/28/24 17:30
Lactated Ringers [Lr] 1,000 ml IV BOLUS
09/28/24 17:32
Acetaminophen [Tylenol] 1,000 mg PO NOW STA
09/28/24 17:44
Vancomycin [Vancocin] 2,000 mg 0.9% Sodium Chloride 500 ml [Nss] 500 ml IV NOW
09/28/24 17:51
Lactic Acid Urgent
Blood Culture Q30M
SANDRA Source: Blood/Venous
Specimen Description:
Wound Culture [Wound/Abscess/Other Culture] Urgent
SANDRA Source: Foot
Specimen Description: Right
Date Specimen was Collected: 09/28/24
Time Specimen was Collected: 17:37
09/28/24 18:00
Blood Culture Q30M
SANDRA Source: Blood/Venous
Specimen Description:
09/28/24 18:15
Blood Culture Urgent
SANDRA Source: Blood/Venous
Specimen Description:
Abnormal Lab Results
09/28/24
16:44
WBC 11.6 H 10^3/uL
(4.8-10.8)
RBC 3.15 L 10^6/uL
(4.70-6.10)
Hgb 8.7 L g/dL
(13.0-18.0)
Hct 25.6 L %
(39.0-52.0)
RDW 14.8 H %
(11.5-14.5)
MPV 11.1 H fL
(7.4-10.4)
Abs Immat Gran (auto) 0.1 H 10^3/uL
(0-0.05)
Absolute Neuts (auto) 10.8 H 10^3/uL
(1.4-6.5)
Absolute Lymphs (auto) 0.1 L 10^3/uL
(1.2-3.4)
Neutrophils % 92.9 H %
(42.2-75.2)
Lymphocytes % 1.0 L %
(20.5-51.1)
Sodium 131 L mmol/L
(135-145)
Potassium 3.3 L mmol/L
(3.5-5.1)
BUN 28 H mg/dl
(9-20)
Glucose 361 H mg/dl
(70-99)
Calcium 7.6 L mg/dl
(8.4-10.2)
Magnesium 1.5 L mg/dl
(1.6-2.3)
Total Bilirubin 1.4 H mg/dl
(0.2-1.3)
AST 14 L U/L
(17-59)
Total Protein 5.1 L g/dl
(6.3-8.2)
Albumin 2.7 L g/dl
(3.5-5.0)
Urine Bacteria (Reflex) Many A
(Negative)
Urine Glucose 4+ A
(Negative)
Urine Albumin (Reflex) 2+ A
(Neg - Trace)
09/28/24 16:44
09/28/24 16:44
Vital Signs
Initial and Last Documented VS:
Initial Vital Signs
Temp Pulse Resp BP Pulse Ox
102.9 F H 99 18 99/51 96
09/28/24 16:00 09/28/24 16:00 09/28/24 16:00 09/28/24 16:00 09/28/24 16:00
Last Documented Vital Signs
Temp Pulse Resp BP Pulse Ox
102.9 F H 81 16 105/50 94
09/28/24 16:00 09/28/24 19:15 09/28/24 19:15 09/28/24 19:00 09/28/24 19:15
MDM/Problems Addressed
Differential Diagnosis Includes:
Patient is a 89-year-old man presenting to the emergency department with a few days of nausea vomiting diarrhea as well as a foot wound with increased drainage and chills. On arrival patient is hypotensive and febrile. On exam he does have dry
oral mucosa with a ulcer to the bottom of the right foot that is actively draining and foul-smelling. Concern for intra-abdominal pathology such as diverticulitis or gastroenteritis. Regarding patient's foot concern for osteomyelitis. No obvious
crepitus less likely be necrotizing soft tissue infection. Blood work obtained prior to evaluation does show leukocytosis. Given patient's allergies will cover with cefepime Flagyl and vancomycin. Will obtain blood cultures and lactic acid. Will
give IV fluids. Will also obtain x-ray of the foot as well as CT scan of the abdomen.
*Pulse Oximetry
SaO2: 97
Oxygen Mode of Delivery: Room air
Patient hypoxic: no
*Critical Care Note
Total Time (30-74mins, 75-104mins- exclusive of procedures): Not Applicable
Update Note
Update Note:
Urine does appear infected. CT scan does show mild urinary bladder wall thickening. There is a distended gallbladder with a noncalcified gallstone and gallbladder sludge but no signs of acute cholecystitis. On repeat evaluation patient's abdomen
exam remains benign.
X-ray of the foot per my interpretation with new destructive changes. Per the official read consistent with osteo and there is small foci of gas are scattered around the first metatarsophalangeal joint. I did discuss with radiology as this is the
location of the ulcer and if it is more consistent with the ulcer versus necrotizing soft tissue infection. Given that it is hard to say I did reach out to on-call podiatry Dr. Polanco to evaluate images. He is in agreement that it is less likely
to be necrotizing soft tissue infection especially as this was not patient's primary complaint and his white count is 11.6. At this time we will hold off on adding clindamycin. If he clinically decompensates overnight we can reach out to this
group. Otherwise patient does follow with
ED Attending Note
-
Portions of this chart may have been created with voice recognition software.� Occasional wrong word or��sound alike� substitutions may have occurred due to the inherent limitations of voice recognition software.
Discharge Plan
Departure
Patient Disposition: Admit
Date of Disposition: 09/28/24
Time of Disposition: 19:44
Presentation/result/management discussed w/ accepting MD/DO: Hospitalist
Discharge Problem:
Acute UTI, Osteomyelitis, Vomiting, Diarrhea
Prescriptions:
No Action
metoprolol succinate 50 MG tablet extended release 24 hr
75 mg PO QPM
aspirin 81 MG tablet,delayed release (DR/EC)
81 mg PO QPM
atorvastatin [Lipitor] 40 mg Tablet
40 mg PO QPM
acetaminophen 500 mg Tablet
1,000 mg PO Q6HPRN PRN (Reason: mild pain)
valsartan-hydrochlorothiazide 160-25 mg Tablet
1 tab PO QPM
insulin degludec [Tresiba FlexTouch U-100] 100 unit/mL (3 mL) Insulin Pen
20 unit SC DAILY
warfarin [Jantoven] 5 MG tablet
5 mg PO QPM
Rx Instructions:
DO NOT TAKE THIS WEEKEND. CHECK INR ON Friday10/16/15 AND WE WILL GIVE YOU DOSING INSTRUCTIONS (CBC CARDIOLOGY)
furosemide 20 mg Tablet
20 mg PO DAILY PRN (Reason: fluid retention/peripheral edema)
Referrals:
UNKNOWN - PT DOES,NOT KNOW [Unknown Provider]
Interventions
Interventions:
*Risk Screen - Suicide Last Done: 09/28/24 16:00
*General Assessment Last Done: 09/28/24 16:00
*Neglect/Abuse Screening Last Done: 09/28/24 16:00
*ED- Fall Risk Assessment Last Done: 09/28/24 16:00
*ED COVID-19 Vaccine History Last Done: 09/28/24 16:00
[id number] Assessment Last Done: 09/28/24 16:00
Discharge Date and Time
Print Language: DANISH
[2024-09-28] MEDS: VANCOCIN 540 MG IV (17:58)
[2024-09-28] MEDS: MAXIPIME 2000 MG IV (17:59)
[2024-09-28] MEDS: TYLENOL 1000 MG PO (17:59)
[2024-09-28] MEDS: FLAGYL 500 MG 100 IV (17:59)
[2024-09-28] MEDS: LR 1000 IV (18:00)
--- NOTE | 2024-09-28 20:02 | HPS.HSE ---
Addendum entered and electronically signed by Dave Peck DO 09/28/24 21:09:
Patient seen and examined independently. Agree with findings and plan as set forth by Emy Watts PA-C.
Patient is an 89y M with PMH significant for ASCVD, DM-II and chronic R foot wound who presents to ED complaining of poor PO intake, weakness / fatigue, N/V and 'feeling dehydrated'. Patient denies abdominal pain. He is noted to have R foot
wound with malodorous / purulent discharge. Imaging studies in the ED show evidence for acute osteomyelitis at the R 1st MTP.
Ass:
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
Cellulitis / Diabetic Foot Infection secondary to the above
Sepsis secondary to the above
ASCVD
Permanent Atrial Fibrillation
Hypokalemia / Hypomagnesemia
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
DM-II
Benign Hypertension
Plan:
Admit for further evaluation and treatment.
IV abx with Vanco / Cefepime / Flagyl.
IVF support.
Podiatry eval for additional recommendations and probable amputation.
Hold Coumadin for possible OR / intervention.
1/2 dose usual insulin while NPO. Follow glucose and cover with SSI as needed.
Hold antihypertensive medications given hypotension.
Follow for clinical improvement.
Original Note:
Family Physician
-
Family Physician: Bee Posada PA-C
Chief Complaint
-
Weakness
History of Present Illness
Patient is an 89 y/o male past medical history of coronary artery disease, atrial fibrillation, hypertension, hyperlipidemia, diabetes mellitus and chronic right foot ulcer who presents with weakness. Patient reports he usually ambulates with a
single point cane, but today was unable to ambulate. Patient reports associated nausea, vomiting and diarrhea, but denies any abdominal pain. Patient also reports increased drainage from his chronic right foot wound. Upon arrival to the emergency
department he was found to be febrile with temp 102.9F.
Medical History
Past Medical History
Past Medical History: Reports Other
Additional Past Medical History:
Coronary Artery Disease
Permanent Atrial Fibrillation
Essential Hypertension
Hyperlipidemia
Diabetes Mellitus, Type II
Chronic Right Foot Ulcer
Past Surgical History: Reports Other
Additional Past Surgical History:
Right Hand Dupuytren's Contracture Release
Multiple Right Foot Surgeries for infection
Social History
Tobacco: Non-smoker
Alcohol: None
Drug: None
Family History
Family History: Not pertinent
Allergies / Home Medications
Allergies reflects when Allergies were last updated in [facility].
Home Medications with original date entered in [facility]
Allergy/Medication List:
Allergies
Allergy/AdvReac Type Severity Reaction Status Date / Time
ivermectin Allergy dehydration Verified 09/10/24 14:26
penicillin Allergy Rash Verified 09/10/24 14:26
penicillin G Allergy Tolerated Verified 09/10/24 14:26
Keflex in
the past-
pt
allergic
to all PCN
Home Medications
aspirin 81 mg tablet,delayed release 81 mg PO QPM Blood Clot Prevention/Tx 10/11/14
metoprolol succinate 50 mg tablet,extended release 24 hr 75 mg PO QPM Heart Disease/Condition 10/11/14
acetaminophen 500 mg tablet 1,000 mg PO Q6HPRN PRN mild pain 06/08/24
atorvastatin 40 mg tablet (Lipitor) 40 mg PO QPM High Cholesterol 06/08/24
insulin degludec 100 unit/mL (3 mL) subcutaneous pen (Tresiba FlexTouch U-100 insulin) 20 unit SC DAILY Diabetes 06/08/24
valsartan 160 mg-hydrochlorothiazide 25 mg tablet 1 tab PO QPM Blood Pressure 06/08/24
warfarin 5 mg tablet (Jantoven) 5 mg PO QPM Blood Clot Prevention/Tx 06/08/24
furosemide 20 mg tablet 20 mg PO DAILY PRN fluid retention/peripheral edema 09/28/24
Review of Systems
-
A 12 point ROS was completed and negative except as noted: Yes
Constitutional: Reports Fever
Respiratory: Denies Cough or Trouble Breathing
Cardiac: Denies Chest Pain or Palpitations
Abdomen/GI: Reports See HPI
Skin: Reports See HPI
Physical Exam
Vital Signs
Vital Signs
Temp Pulse Resp BP Pulse Ox
102.9 F H 81 16 105/50 94
09/28/24 16:00 09/28/24 19:15 09/28/24 19:15 09/28/24 19:00 09/28/24 19:15
Physical Exam
General: Comfortable and Conversant
HEENT: Anicteric and Moist mucous membranes
Respiratory: Clear and Non Labored Respirations
Cardiac: S1/S2 and Irregular Rhythm; No Tachycardia
GI: Soft, Non Tender and Non Distended
Rectal: Deferred by Provider
Musculoskeletal: No Clubbing and No Cyanosis
Skin: Warm, Dry and Other (Right forefoot with increased erythema and warmth to touch; Right plantar foot wound with foul smelling purulent drainage noted)
Neuro: Awake, Alert and Nonfocal/grossly intact
Laboratory Results
-
09/28/24 16:44
09/28/24 16:44
Laboratory Results
Lactic Acid 1.6 mmol/L (0.7-2.0) 09/28/24 17:51
Total Bilirubin 1.4 mg/dl (0.2-1.3) H 09/28/24 16:44
AST 14 U/L (17-59) L 09/28/24 16:44
ALT 11 U/L (0-50) 09/28/24 16:44
Alkaline Phosphatase 92 U/L (38-126) 09/28/24 16:44
Foot X-Ray:
New destructive changes centered at the first metatarsophalangeal joint involving the head of the first metatarsal and the base of the first proximal phalanx consistent with acute osteomyelitis.
Scattered small foci of gas about the first metatarsophalangeal joint, and soft tissue swelling about the foot. Other chronic findings are not appreciably changed compared to the previous right foot radiographs from 06/08/2024.
Abd/Pelvis CT Scan:
Distended gallbladder containing a large noncalcified gallstone and gallbladder sludge.
Splenomegaly.
Colonic diverticulosis, without evidence for acute diverticulitis.
Nonspecific mild urinary bladder wall thickening. Recommend correlation with a urinalysis if there is clinical concern for acute cystitis.
Data Reviewed
-
Diagnostic Radiology: Report Reviewed by me
CT Scan: Report Reviewed by me
Lab Data: Labs Reviewed by me
Impression/Plan
-
Sepsis secondary to Infected Right Foot Wound
-Admit to IMU due hypotension
-Continue Vancomycin, Cefepime and Metronidazole
-X-Ray raises concern for underlying osteomyelitis - Check MRI
-Consult Podiatry
-NPO after midnight for possible OR tomorrow
Hypokalemia / Hypomagnesemia
-Replace potassium and magnesium
-Recheck labs in AM
Normocytic Anemia
-Hgb trending down over the past few months
-Check iron studies, vitamin b12 and folic acid
Coronary Artery Disease
-Continue aspirin
Permanent Atrial Fibrillation
-Coumadin on Hold for possible OR - Await INR
-Hold metoprolol until blood pressure improves - Monitor heart rate
Diabetes Mellitus, Type II with Hyperglycemia
-Check HgbA1c
-Half usual dose of insulin ordered while NPO
-Monitor sugars and continue coverage insulin
Essential Hypertension
-Hold valsartan/HCTZ in setting of hypotension
Hyperlipidemia
-Continue atorvastatin
DVT prop: SCDs until able to restart Coumadin
Code Status: Full Code
[2024-09-28] MEDS: MAGNESIUM SULFATE 50 IV (20:48)
[2024-09-28] MEDS: NSS 1500 IV (20:51)
[2024-09-28 21:37] LABS: Iron < 20 ug/dl (49-181)
[2024-09-28 21:44] LABS: Total Iron Binding Capacity 199 ug/dl (261-462)
[2024-09-28 22:10] LABS: Ferritin 93.3 ng/ml (17.9-464.0)
--- NOTE | 2024-09-28 22:26 | PHA.VAN.IN ---
Assessment
- Assessment
Renal Function: SCR Appears Elevated from baseline (06/11/24 BASELINE SCR: 1.0)
Concomitant Antimicrobials: CEFEPIME
- Previous Dosing Experience
Previous Regimen: DOSING BY RANDOM LEVELS
Date of Regimen: 06/08/24
Provided Trough of: UNKNOWN
Provided AUC of: UNKNOWN
Patient's SCR is: Decreased compared to previous dosing experience (06/08/24 SCR = 1.3)
Patient's weight is: Decreased compared to previous dosing experience (06/08/24 WT = 84 KG)
AUC Dosing Plan
- Dosing Variables
Dosing Weight (kg): 82.1
Dosing CrCl (ml/min): 45
Vd coefficient (L/kg): 0.7
- Empiric Dosing
Initial / Loading Dose: 2GM
Maintenance Regimen: 1250MG IV Q24H
Estimated AUC (mcg*h/mL): 537
Estimated Peak (mcg*h/mL): 34.4
Estimated Trough (mcg/ml): 13.4
Estimated Half Life (H): 16.6
Pharmacokinetics Vancomycin I
- -
Patient Age: 89
Patient Sex: Male
Vancomycin Day #: 1
Indication: Diabetic Foot (OM [R] 1ST MTP)
Requesting Provider: MARK
Height / Weight:
Height 5 ft 11 in
Actual Weight 82.1 kg
Pertinent Past Medical History: DM
- Vital Signs / Lab Results
Temp Pulse Resp BP Pulse Ox
97.5 F 81 15 103/63 87
09/28/24 21:19 09/28/24 21:15 09/28/24 21:15 09/28/24 21:00 09/28/24 21:15
Lab Results - Hematology
09/28/24
16:44
WBC 11.6 H
Lab Results - Chemistry
09/28/24
16:44
BUN 28 H
Creatinine 1.2
Estimated Creat Clear 45
Albumin 2.7 L
09/28/24
17:51
Lactic Acid 1.6
Lab Results - Urine
09/28/24
16:44
Urine Nitrite (Reflex) Negative
Leukocyte Esterase Rfl Negative
Urine WBC (Reflex) 3-5
Ur Squamous Epith Cells 0-2
Urine Bacteria (Reflex) Many A
Microbiology Results
09/28/24 17:51 Gram Stain - Preliminary
Foot - Right
09/28/24 16:44 Influenza Types A & B (GINA) - Final
Nasal Swab Negative for Influenza A & B, NAAT
Negative results must be combined with clinical observations
and patient history.
Nucleic Acid Amplification test (NAAT)performed on the
[employer] NOW platform.
[2024-09-28 22:42] LABS: Folate 9.7 ng/ml (2.76-20); Vitamin B12 218 pg/ml (239-931)
[2024-09-28] MEDS: NSS 1000 IV (23:23)
[2024-09-28] MEDS: KCL ELIXIR 40 MEQ TUBE (23:23)
[2024-09-29] VITALS (14 sets, daily range): BP systolic 91–134; BP diastolic 48–82; BMI 25.5
[2024-09-29] MEDS: FLAGYL 500 MG 100 IV ×3 (02:25→18:05)
[2024-09-29] MEDS: MAXIPIME 1000 MG IV ×3 (02:26→18:05)
[2024-09-29] MEDS: STERILE WATER FOR INJECTION 10 ML IV ×3 (02:26→18:05)
[2024-09-29 05:00] LABS: Hematocrit 26.6 % (39.0-52.0); Hemoglobin 9.0 g/dL (13.0-18.0); Mean Corp Hgb Conc. 33.8 g/dL (33.0-37.0); Mean Corpuscular Volume 83.1 fL (80.0-94.0); Platelet Count 142 10^3/uL (130-400); Red Cell Dist. Width 15.1 % (11.5-14.5)
[2024-09-29 05:03] LABS: INR 2.44; PT 26.6 Sec (11.4-14.6)
[2024-09-29 05:19] LABS: ALT (SGPT) 11 U/L (0-50); AST (SGOT) 14 U/L (17-59); Albumin 2.6 g/dl (3.5-5.0); Alkaline Phosphatase 84 U/L (38-126); Blood Urea Nitrogen 27 mg/dl (9-20); Calcium 7.7 mg/dl (8.4-10.2); Carbon Dioxide 26 mmol/L (22-30); Chloride 107 mmol/L (98-107); Estimated Creatinine Clearance 45 ml/min; Glucose 248 mg/dl (70-99); Magnesium 2.2 mg/dl (1.6-2.3); Potassium 4.0 mmol/L (3.5-5.1); Sodium 134 mmol/L (135-145); Total Protein 5.1 g/dl (6.3-8.2); eGFR 58.17
[2024-09-29] MEDS: VANCOCIN 275 MG IV (06:00)
[2024-09-29 07:00] LABS: Glucose - Point of Care 221 mg/dl (70-99)
[2024-09-29 08:10] LABS: Glycohemoglobin (HgbA1c) 9.2 % (4.0-5.6)
--- NOTE | 2024-09-29 08:41 | PHA.VAN.FU ---
Vancomycin Assessment / Plan
- Assessment
Renal Function: Stable
WBC's are: WNL
In the past 24 hrs, patient has been: Febrile
Concomitant Antimicrobials: cefepime, metronidazole
- Dosing Plan
Adjust Regimen to: dosing by level
Patient previously was dosed by level and had accumulation of random levels with 1250mg dosing
Will change to dose by level for now to follow levels more closely
- Monitoring Plan
Random Level: 09/30 0600
- Follow Up
Pharmacy will continue to follow.
Vancomycin Follow UP
- -
Patient Age: 89
Patient Sex: Male
Vancomycin Day #: 2
Indication: Diabetic Foot
Requesting Provider: David Watts
Pertinent Antimicrobial Allergies:
penicillin - rash; tolerated cephalexin
ivermectin - dehydration
Height / Weight:
Height 5 ft 11 in
Actual Weight 82.752 kg
Pertinent Past Medical History: DM II
- Vital Signs / Lab Results
Temp Pulse Resp BP Pulse Ox
97.3 F 72 14 109/59 97
09/29/24 03:38 09/29/24 03:15 09/29/24 03:15 09/29/24 02:36 09/29/24 03:15
Lab Results - Hematology
09/28/24 09/29/24
16:44 04:42
WBC 11.6 H 10.0
Lab Results - Chemistry
09/28/24 09/29/24
16:44 04:42
BUN 28 H 27 H
Creatinine 1.2 1.2
Estimated Creat Clear 45 45
Albumin 2.7 L 2.6 L
09/28/24
17:51
Lactic Acid 1.6
Lab Results - Urine
09/28/24
16:44
Urine Nitrite (Reflex) Negative
Leukocyte Esterase Rfl Negative
Ur Squamous Epith Cells 0-2
Microbiology Results
09/28/24 17:51 Gram Stain - Preliminary
Foot - Right
09/28/24 16:44 Influenza Types A & B (GINA) - Final
Nasal Swab Negative for Influenza A & B, NAAT
Negative results must be combined with clinical observations
and patient history.
Nucleic Acid Amplification test (NAAT)performed on the
[employer] NOW platform.
[2024-09-29] MEDS: LANTUS 0.1 UNITS SC (09:01)
[2024-09-29] MEDS: NOVOLOG FLEXPEN-MODERATE RESISTANCE 3 UNITS SC (09:03)
[2024-09-29 09:14] LABS: Glucose - Point of Care 201 mg/dl (70-99)
--- NOTE | 2024-09-29 09:58 | W.PN.HOSP.TC ---
Today's Communication/Plan
-
see outlined plan below
Assessment / Plan
Assessment / Plan
Assessment:
Nausea/vomiting
- denies pain
- unclear etiology
- check Lipase
- CT: Distended gallbladder containing a large noncalcified gallstone and gallbladder sludge. Splenomegaly. Colonic diverticulosis, without evidence for acute diverticulitis. Nonspecific mild urinary bladder wall thickening.
- LFTs normal, UA normal
- NPO pending evals; if no surgery, can trial clears and assess tolerance.
Sepsis POA (fever, tachycardia)
Cellulitis and diabetic foot infection
- X-ray: New destructive changes centered at the first metatarsophalangeal joint involving the head of the first metatarsal and the base of the first proximal phalanx consistent with acute osteomyelitis. Scattered small foci of gas about the first
metatarsophalangeal joint, and soft tissue swelling about the foot
- MRI pending
- continue Vanco/Cefepime/Flagyl for now. ID consulted
- Podiatry consulted; patient known to Dr. Ventura.
- wound care consulted
Hypokalemia/Hypomagnesemia
- monitor labs and prn replacement
Hyponatremia
- monitor BMP
Permanent Atrial Fibrillation
- continue BB - reduce dose to 25mg due to hypotension
- holding Coumadin pending podiatric eval. f/u daily INRs
DM-II
- continue 1/2 dose of home long acting
- monitor accu-checks
- A1c: 9.2%
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
- Iron labs suggest deficiency. oral iron at discharge. heme test stools
- hypovitaminosis B12 - start replacement (IM while in hospital then PO)
Coronary Artery Disease
- continue aspirin/Statin/BB
Essential Hypertension
- hold valsartan/HCTZ in setting of hypotension
Hyperlipidemia
- continue atorvastatin
DVT prop: SCDs until able to restart Coumadin
Code Status: Full Code
Anticipated Discharge: > 48 hours
Subjective/Interval History
-
Date of Service: September 29, 2024
no abd pain or nausea
no vomiting
Tmax 102.9 at 4pm yesterday
reports some discomfort with R plantar foot ulcer - OM found on Xray
Objective Data
-
Labs:
Laboratory Results
09/28/24 09/29/24
20:06 04:42
WBC 10.0
Hgb 9.0 L
Hct 26.6 L
Plt Count 142
PT Cancelled 26.6 H
INR Cancelled 2.44
Sodium 134 L
Potassium 4.0
Chloride 107
Carbon Dioxide 26
BUN 27 H
Creatinine 1.2
Glucose 248 H
Calcium 7.7 L
Total Bilirubin 1.1
AST 14 L
ALT 11
Alkaline Phosphatase 84
Vital Signs:
Vital Signs
Temp Pulse Resp BP Pulse Ox
97.4 F 72 14 109/59 97
09/29/24 07:05 09/29/24 03:15 09/29/24 03:15 09/29/24 02:36 09/29/24 03:15
Physical Exam
-
General: No Apparent Distress
HEENT: Normocephalic and Atraumatic
Respiratory: Negative Wheezes
Cardiac: Regular Rhythm and S1/S2
GI: Soft and Nontender
Genito-urinary: No Costovertebral Tender
Skin: Other (Right forefoot with increased erythema and warmth to touch; Right plantar foot wound with foul smelling purulent drainage noted)
Neuro: AO x 3
Psych: Calm
Data Reviewed
-
Total Time Spent with Patient (in minutes): 42
Labs: Labs Reviewed by me
--- NOTE | 2024-09-29 10:44 | CON.ID ---
Consultation
-
Date/Time Consultation Requested: September 29, 2024 0826
Date/Time Consultation Performed: September 29, 2024 1045
Requesting Provider: Dr. Ashley Martinez
Performing Provider: Dr. Irma Rankin
Reason for Consultation: diabetic foot wound with osteomyelitis
Chief Complaint / Past History
Chief Complaint
Weakness and fall
History of Present Illness
89-year-old male with history of diabetes mellitus, neuropathy, pseudogout, right 1st and 2nd toe amputations who presented to the hospital on September 28 due to fall and unable to get up. Patient states he was feeling unwell with nausea and malaise.
In the ER temperature 102.9. Right foot x-ray shows a bone destruction first MPJ concerning for osteomyelitis. Patient has a chronic right plantar foot wound for which he follows with podiatry. He has neuropathy and no sensation. He weightbears
on his foot. Had vomiting x 1. No diarrhea. No abdominal pain.
Past History
Additional Past Medical History:
Diabetes mellitus
Neuropathy
Hypertension
CKD
CAD
Atrial fibrillation
Pseudogout
Right second toe osteomyelitis status post amputation
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
Allergy History:
ivermectin Allergy (Verified 09/10/24 14:26)
dehydration
penicillin Allergy (Verified 09/10/24 14:26)
Rash
penicillin G Allergy (Verified 09/10/24 14:26)
Tolerated Keflex in the past- pt allergic to all PCN
Medications Reviewed: Yes
Current Antibiotics:
Vancomycin
Cefepime
Metronidazole
Social History
Tobacco: Non-Smoker
Alcohol: None
Drug: None
Personal:
Living: Assisted Living
Family History
Family History: Not Pertinent
Review of Systems
Review of Systems
General: Change in Appetite
HEENT: Negative Sinus Problems or Headache
Cardiovascular: Negative Chest Pain or Dyspnea
Respiratory: Negative Dyspnea or Cough
Gasteroenterology: Nausea; Negative Diarrhea
Genital / Urological: Negative Dysuria or Flank Pain
Endocrine: Weakness
Neurological: Negative Dizziness
All systems: All other systems were reviewed and were negative
Vital Signs
Temp Pulse Resp BP Pulse Ox
97.4 F 72 14 109/59 97
09/29/24 07:05 09/29/24 03:15 09/29/24 03:15 09/29/24 02:36 09/29/24 03:15
Selected Entries
09/28/24
16:00 09/28/24
16:00
Temp 102.9 F H 102.9 F H
Physical Exam
Physical Exam
Constitutional: No Acute Distress and Comfortable
Head: Other (No frontal or max or sinus tenderness)
Eyes: No Conjunctival Hemorrhage and Sclera Anicteric
Cardiovascular: Regular Rate and S1/S2
Pulmonary: Clear
Gastrointestinal: Soft, Non Tender, Non Distended and Normal Bowel Sounds
Genito-Urinary: Negative CVA Tenderness
Extremities: Edema (RIGHT FOOT 1+, warm), Pulses (no palpable pulse right foot) and Venous Insufficiency
Wound: Other (Right plantar foot: over 5th metatarsal large wound with palpable bone; 5th toe edematous/erythematous)
Neurological: Awake and Alert
Lab / Diagnostic Study Results
09/29/24 04:42
09/29/24 04:42
Abs Immat Gran (auto) 0.1 10^3/uL (0-0.05) H 09/28/24 16:44
Absolute Neuts (auto) 10.8 10^3/uL (1.4-6.5) H 09/28/24 16:44
Absolute Lymphs (auto) 0.1 10^3/uL (1.2-3.4) L 09/28/24 16:44
Absolute Monos (auto) 0.6 10^3/uL (0.1-0.6) 09/28/24 16:44
Absolute Basos (auto) 0.0 10^3/uL (0-0.2) 09/28/24 16:44
Immature Gran % 0.5 % (0-0.5) 09/28/24 16:44
Neutrophils % 92.9 % (42.2-75.2) H 09/28/24 16:44
Lymphocytes % 1.0 % (20.5-51.1) L 09/28/24 16:44
Monocytes % 5.4 % (1.7-9.3) 09/28/24 16:44
Eosinophils % 0.0 % (0-6) 09/28/24 16:44
Basophils % 0.2 % (0-2) 09/28/24 16:44
PT 26.6 Sec (11.4-14.6) H 09/29/24 04:42
INR 2.44 09/29/24 04:42
Lactic Acid 1.6 mmol/L (0.7-2.0) 09/28/24 17:51
Ur Squamous Epith Cells 0-2 /LPF (Few) 09/28/24 16:44
Microbiology Results
Micro:
09/28/24 18:15 Blood Culture - Pending
Blood/Venous
09/28/24 17:51 Wound Culture - Pending
Foot - Right Gram Stain - Preliminary
09/28/24 17:51 Blood Culture - Pending
Blood/Venous
09/28/24 16:44 Influenza Types A & B (GINA) - Final
Nasal Swab Negative for Influenza A & B, NAAT
Negative results must be combined with clinical observations
and patient history.
Nucleic Acid Amplification test (NAAT)performed on the
[employer] platform.
09/28/24 16:44 Urine Culture - Pending
Urine
09/28/24 Foot XRAY: Personally reviewed. New destructive changes centered at the 5th metatarsophalangeal joint involving the head of the 5th metatarsal and the base of the first proximal phalanx consistent with acute osteomyelitis.
09/28/24 CT a/p: Distended gallbladder containing a large noncalcified gallstone and gallbladder sludge. Splenomegaly.
Assessment / Plan
# Right 5th toe cellulitis
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
# Fever
# Leukocytosis
# Uncontrolled diabetes mellitus with neuropathy
# PCN allergy
- I personally reviewed the right foot x-ray. Area of bony destruction is on the fifth metatarsal, not over the first digit as reported.
-MRI of the foot
-Ordered arterial duplex to assess arterial circulation.
-Follow blood cultures
-Continue vancomycin, cefepime, and metronidazole.
-Trend white count and temps.
- Recommend tight glucose control
Care Review
Plan reviewed with: Physician (Dr. Ashley Martinez)
--- NOTE | 2024-09-29 10:54 | WOUNDNOTE ---
LEFT POSTERIOR ELBOW/UPPER ARM
--- NOTE | 2024-09-29 10:55 | WOUNDNOTE ---
RIGHT PLANTAR FOOT
--- NOTE | 2024-09-29 10:55 | WOUNDNOTE ---
LEFT LATERAL LOWER LEG
--- NOTE | 2024-09-29 10:56 | WOUNDNOTE ---
BILATERAL LOWER LEGS
--- NOTE | 2024-09-29 10:56 | WOUNDNOTE ---
SACRUM/COCCYX/BUTTOCKS
[2024-09-29] MEDS: CYANOCOBALAMIN 1000 MCG IM (11:10)
[2024-09-29] MEDS: TOPROL XL 25 MG PO (11:10)
--- NOTE | 2024-09-29 11:17 | WOUNDNOTE ---
[facility] RN note: Patient admitted with acute UTI, osteomyelitis of R foot.
See H&P for complete history.
PMH:ED Past Medical History: Arrthythmia, NIDDM and Other (sleep apnea)
ED Past Surgical History: Cardiac
Wound Location and type/assessment: Patient admitted with: R plantar foot with osteomyelitis/diabetic wound. Podiatry on consult. Base of wound with galloway slough, macerated periwound and + odor. Skin warm and dry, wound culture pending. L elbow and L
medial ankle with skin tears from fall patient reports. Sacrum and heels intact.
Appetite: NPO
Pressure redistribution devices in place: On air mattress, turns with assist. Air cushion under heels. Asked nurse to locate pillow to place under calves along with air cushion to offload heels.
Plan: Local wound care applied, MRI for today and defer to Podiatry. Will follow along peripherally and assist as needed. Recommend [facility] WTD if surgery not an option. Arm and leg local wound care for skin tears and adhesive foams applied to heels
to protect. Will confirm orders with hospitalist and update nurse.
Updated care plan and will follow as needed.
Note to case management of equipment requested for discharge: TBD
Recommend follow up at wound care center upon discharge.
[2024-09-29 11:28] LABS: Lipase 30 U/L (23-300)
--- NOTE | 2024-09-29 12:05 | WOUNDNOTE ---
LEFT MEDIAL ANKLE
[2024-09-29] MEDS: NSS 1000 IV (12:37)
[2024-09-29] MEDS: NOVOLOG FLEXPEN-MODERATE RESISTANCE SC ×2 (12:38→18:06)
[2024-09-29 12:50] LABS: Glucose - Point of Care 133 mg/dl (70-99)
--- NOTE | 2024-09-29 15:36 | PN.CDI ---
CDI
- -
CDI:
Physician Documentation Request
Admit Date: 09/28/24 20:47
Dear Doctor Juan,
Patient admitted with sepsis.
09/29 Nursing skin assessment, 'Stage 2 sacral pressure injury, POA.'
Physician documentation of the type and location of wounds is required for compliant documentation. Based on the above clinical findings and your assessment, please provide the following in your progress note:
Type (etiology) of ulcer/wound:
- Pressure (decubitus) ulcer
- Other
- Unable to determine
For a pressure ulcer, please also include the stage* of the ulcer:
- Stage 1 - Skin intact, non-blanchable redness
- Stage 2 - Partial thickness loss of dermis, includes intact or open blister
- Stage 3 - Full thickness tissue not including bone, tendon or muscle
- Stage 4 - Full thickness tissue loss, including exposed bone, tendon or muscle
- Unstageable - Full thickness loss in which the base of the ulcer is covered by slough (yellow, galloway, bucio, green or brown) and/or eschar (galloway, brown or black) in the wound bed.
- Unable to determine
Use of terms such as suspected, likely, concern for, or probable (associated with a specific diagnosis that is being evaluated, monitored, or treated as if it exists) are acceptable and can be coded in the inpatient setting, when documented at the
time of discharge.
Thank you,
Althea DA SILVA,RN,CCDS
CDI Specialist
Available via [place] text
Please use your independent medical judgment in providing your response.
*Source: National Pressure Ulcer Advisory Panel (NPUAP)
--- NOTE | 2024-09-29 17:29 | W.PN.UPDATE ---
Update Note
Progress Note Update
Patient with forefoot abscess and acute on chronic osteomyelitis
-Discussed with patient tomorrow pending advanced imaging
-Await MRI
-NPO at midnight
-Plan for OR tomorrow for TMA, anticipated staged procedure
[2024-09-29 18:05] LABS: Glucose - Point of Care 103 mg/dl (70-99)
[2024-09-29] MEDS: ASPIR LOW (ENTERIC COATED) 81 MG PO (18:05)
[2024-09-29] MEDS: LIPITOR 40 MG PO (18:05)
[2024-09-29] MEDS: MEPHYTON 2.5 MG PO (18:37)
[2024-09-29 22:19] LABS: Glucose - Point of Care 122 mg/dl (70-99)
[2024-09-30] VITALS (17 sets, daily range): BP systolic 99–139; BP diastolic 55–97; BMI 27.7
[2024-09-30 00:24] LABS: Glucose - Point of Care 136 mg/dl (70-99)
[2024-09-30] MEDS: NSS 1000 IV ×2 (02:42→14:09)
[2024-09-30] MEDS: MAXIPIME 1000 MG IV ×3 (02:44→17:15)
[2024-09-30] MEDS: FLAGYL 500 MG 100 IV ×3 (02:44→17:15)
[2024-09-30] MEDS: STERILE WATER FOR INJECTION 10 ML IV ×3 (02:44→17:15)
[2024-09-30 05:47] LABS: Glucose - Point of Care 109 mg/dl (70-99)
[2024-09-30 06:00] LABS: Hematocrit 26.6 % (39.0-52.0); Hemoglobin 8.9 g/dL (13.0-18.0); Mean Corp Hgb Conc. 33.5 g/dL (33.0-37.0); Mean Corpuscular Volume 83.1 fL (80.0-94.0); Nucleated Red Blood Cells % 0 % (-); Platelet Count 141 10^3/uL (130-400); Red Cell Dist. Width 15.0 % (11.5-14.5)
[2024-09-30 06:13] LABS: INR 1.81; PT 21.5 Sec (11.4-14.6)
[2024-09-30 06:46] LABS: ALT (SGPT) 11 U/L (0-50); AST (SGOT) 16 U/L (17-59); Albumin 2.5 g/dl (3.5-5.0); Alkaline Phosphatase 79 U/L (38-126); Blood Urea Nitrogen 22 mg/dl (9-20); Calcium 7.6 mg/dl (8.4-10.2); Carbon Dioxide 19 mmol/L (22-30); Chloride 112 mmol/L (98-107); Estimated Creatinine Clearance 49 ml/min; Glucose 99 mg/dl (70-99); Potassium 3.7 mmol/L (3.5-5.1); Sodium 137 mmol/L (135-145); Total Protein 4.9 g/dl (6.3-8.2); eGFR > 60.00
--- NOTE | 2024-09-30 07:29 | PTCARENOTE ---
Pt continues AAOx3, denies complaints at this time. Witnessed desat to 58% on RA while sleeping, with prompt recovery to 96% without intervention. Upon arousal, pt denies symptoms. Maintained on RA. VSS otherwise. Call hale within reach. CHG and
linen change performed in preparation for OR this AM. Care ongoing.
[2024-09-30] MEDS: TOPROL XL 25 MG PO (08:31)
[2024-09-30] MEDS: NOVOLOG FLEXPEN-MODERATE RESISTANCE SC ×3 (08:41→17:14)
--- NOTE | 2024-09-30 08:58 | W.PN.HOSP.TC ---
Today's Communication/Plan
-
OR today
continue Abx
Assessment / Plan
Assessment / Plan
Assessment:
Nausea/vomiting
- denies pain
- unclear etiology
- Lipase 30
- CT: Distended gallbladder containing a large noncalcified gallstone and gallbladder sludge. Splenomegaly. Colonic diverticulosis, without evidence for acute diverticulitis. Nonspecific mild urinary bladder wall thickening.
- LFTs normal, UA normal
- tolerated diet
Sepsis POA (fever, tachycardia)
Cellulitis and diabetic foot infection
- X-ray: New destructive changes centered at the 5th metatarsophalangeal joint involving the head of the first metatarsal and the base of the first proximal phalanx consistent with acute osteomyelitis. Scattered small foci of gas about the first
metatarsophalangeal joint, and soft tissue swelling about the foot
- MRI: Acute osteomyelitis of the lateral forefoot. Involvement of the majority of the fourth and fifth metatarsals with sparing of small portions of both metatarsal bases. Osteomyelitis of the entire fifth proximal phalanx and the base of the
fourth proximal phalanx. Questionable early osteomyelitis versus reactive edema in the shaft of the third metatarsal without overt T1 hypointense marrow replacement. Plantar lateral forefoot soft tissue wound extending to the fourth and fifth
metatarsophalangeal joints. Rim-enhancing abscess contiguous with the soft tissue wound that wraps around the dorsal aspect of the fifth metatarsophalangeal joint and extends into the fourth intermetatarsal space.
- continue Vanco/Cefepime/Flagyl for now. ID following
- Podiatry evaluated; OR today for TMA, anticipated staged procedure
- wound care following
Hypokalemia/Hypomagnesemia
- monitor labs and prn replacement
Hyponatremia
- monitor BMP
Permanent Atrial Fibrillation
- continue BB - reduce dose to 25mg due to hypotension
- holding Coumadin for OR. s/p vitamin K 2.5mg. INR 1.81
DM-II
- continue 1/2 dose of home long acting
- monitor accu-checks
- A1c: 9.2%
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
- Iron labs suggest deficiency. oral iron at discharge. heme test stools
- hypovitaminosis B12 - continue replacement (IM while in hospital then PO)
Coronary Artery Disease
- continue aspirin/Statin/BB
Essential Hypertension
- hold valsartan/HCTZ in setting of hypotension
Hyperlipidemia
- continue atorvastatin
Stage 2 sacral pressure injury, POA
DVT prop: SCDs until able to resume Coumadin
Code Status: Full Code
Anticipated Discharge: > 48 hours
Subjective/Interval History
-
Date of Service: September 30, 2024
resting comfortably, no complaints at present
Objective Data
-
Labs:
Laboratory Results
09/30/24
05:51
WBC 6.4
Hgb 8.9 L
Hct 26.6 L
Plt Count 141
PT 21.5 H
INR 1.81
Sodium 137
Potassium 3.7
Chloride 112 H
Carbon Dioxide 19 L
BUN 22 H
Creatinine 1.1
Glucose 99
Calcium 7.6 L
Total Bilirubin 1.1
AST 16 L
ALT 11
Alkaline Phosphatase 79
Vital Signs:
Vital Signs
Temp Pulse Resp BP Pulse Ox
97.6 F 85 22 137/74 97
09/30/24 07:05 09/30/24 08:31 09/30/24 06:00 09/30/24 08:31 09/30/24 06:00
I&O
09/29/24 09/30/24 10/01/24
06:59 06:59 06:59
Intake Total 2700 / 2700
Output Total 900 / 900
Balance 1800 / 1800
Physical Exam
-
General: No Apparent Distress
HEENT: Normocephalic and Atraumatic
Respiratory: Negative Wheezes
Cardiac: Regular Rhythm and S1/S2
GI: Soft
Skin: Other (Right forefoot with increased erythema and warmth to touch; Right plantar foot wound with foul smelling purulent drainage noted)
Neuro: AO x 3
Psych: Calm
Data Reviewed
-
Total Time Spent with Patient (in minutes): 42
Labs: Labs Reviewed by me
--- NOTE | 2024-09-30 09:14 | PHA.VAN.FU ---
Vancomycin Assessment / Plan
- Assessment
Renal Function: Stable
WBC's are: Stable
In the past 24 hrs, patient has been: Afebrile
Concomitant Antimicrobials: cefepime, metronidazole
- Assessment - Therapeutic Drug Monitoring
Random Level: 14.7 - drawn ~24H after previous dose of 1250mg
- Dosing Plan
Dosing by Level: Re-dose today (Vanc 1000mg)
- Monitoring Plan
Random Level: 10/01 06
- Follow Up
Pharmacy will continue to follow.
Vancomycin Follow UP
- -
Patient Age: 89
Patient Sex: Male
Vancomycin Day #: 3
Indication: Diabetic Foot
Requesting Provider: David Watts / Dr. Rankin
Pertinent Antimicrobial Allergies:
penicillin - rash; tolerated cephalexin
ivermectin - dehydration
Height / Weight:
Height 5 ft 11 in
Actual Weight 89.9 kg
Pertinent Past Medical History: DM II
- Vital Signs / Lab Results
Temp Pulse Resp BP Pulse Ox
97.6 F 85 22 137/74 97
09/30/24 07:05 09/30/24 08:31 09/30/24 06:00 09/30/24 08:31 09/30/24 06:00
Lab Results - Hematology
09/28/24 09/29/24 09/30/24
16:44 04:42 05:51
WBC 11.6 H 10.0 6.4
Lab Results - Chemistry
09/28/24 09/29/24 09/30/24
16:44 04:42 05:51
BUN 28 H 27 H 22 H
Creatinine 1.2 1.2 1.1
Estimated Creat Clear 45 45 49
Albumin 2.7 L 2.6 L 2.5 L
09/28/24
17:51
Lactic Acid 1.6
Microbiology Results
09/28/24 17:51 Wound Culture - Preliminary
Foot - Right Staph aureus MRSA
Viridans Streptococcus Group
Gram Stain - Preliminary
09/29/24 17:19 Gram Stain - Preliminary
Foot - Right
09/28/24 18:15 Blood Culture - Preliminary
Blood/Venous No Growth in 24 hours- Final report to follow
09/28/24 17:51 Blood Culture - Preliminary
Blood/Venous No Growth in 24 hours- Final report to follow
09/28/24 16:44 Urine Culture - Final
Urine NO GROWTH
09/28/24 16:44 Influenza Types A & B (GINA) - Final
Nasal Swab Negative for Influenza A & B, NAAT
Negative results must be combined with clinical observations
and patient history.
Nucleic Acid Amplification test (NAAT)performed on the
[employer] platform.
Therapeutic Drug Monitoring
Random Vancomycin 14.7 ug/ml 09/30/24 05:51
--- NOTE | 2024-09-30 09:47 | W.PN.ID1 ---
Date of Service
Date of Service: September 30, 2024
Today's Communication
Continue antibiotics.
Assessment / Plan
# Right 5th toe cellulitis
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
# Fever
# Leukocytosis
# Uncontrolled diabetes mellitus with neuropathy
# PCN allergy
Recommendations:
- Follow blood cultures
- Continue vancomycin, cefepime, and metronidazole.
- Trend white count and temps.
- Tight glucose control
- Await potential surgery.
����������������������������������������������������������
Chief Complaint
-: Cellulitis
Subjective / Review of Systems
Review of Systems: No Fever and No Chills
Vital Signs / Physical Exam
Vital Signs
Vital Signs
Temp Pulse Resp BP Pulse Ox
97.6 F 85 22 137/74 97
09/30/24 07:05 09/30/24 08:31 09/30/24 06:00 09/30/24 08:31 09/30/24 06:00
Physical Exam
Constitutional: No Acute Distress, Comfortable and Non-toxic
Cardiovascular: S1/S2; Negative S3/S4
Pulmonary: Clear; Negative Wheezes or Rales
Extremities: Edema (Bilateral lower extremities); Negative Erythema
Wound: Other (Right foot dressed. No strikethrough.)
Neurological: Awake and Alert
Psychological: Calm
Objective Data
Lab Data
Lab Results
09/30/24 05:51
09/30/24 05:51
PT 21.5 Sec (11.4-14.6) H 09/30/24 05:51
INR 1.81 09/30/24 05:51
Estimated Creat Clear 49 ml/min 09/30/24 05:51
Lactic Acid 1.6 mmol/L (0.7-2.0) 07/01/25 17:51
Total Bilirubin 1.1 mg/dl (0.2-1.3) 09/30/24 05:51
AST 16 U/L (17-59) L 09/30/24 05:51
ALT 11 U/L (0-50) 09/30/24 05:51
Alkaline Phosphatase 79 U/L (38-126) 09/30/24 05:51
Most recent labs reviewed.
Micro Results:
09/28/24 17:51 Wound Culture - Preliminary
Foot - Right Staph aureus MRSA
Viridans Streptococcus Group
Gram Stain - Preliminary
09/29/24 17:19 Wound Culture - Pending
Foot - Right Gram Stain - Preliminary
09/28/24 18:15 Blood Culture - Preliminary
Blood/Venous No Growth in 24 hours- Final report to follow
09/28/24 17:51 Blood Culture - Preliminary
Blood/Venous No Growth in 24 hours- Final report to follow
09/29/24 17:19 Anaerobic Culture - Pending
Foot - Right
09/28/24 16:44 Urine Culture - Final
Urine NO GROWTH
09/28/24 16:44 Influenza Types A & B (GINA) - Final
Nasal Swab Negative for Influenza A & B, NAAT
Negative results must be combined with clinical observations
and patient history.
Nucleic Acid Amplification test (NAAT)performed on the
[employer] platform.
Imaging:
09/29/2024 MRI right lower extremity: Acute osteomyelitis of the lateral forefoot. Involvement of the majority of the fourth and fifth metatarsals with sparing of small portions of both metatarsal bases. Osteomyelitis of the entire fifth proximal
phalanx and the base of the fourth proximal phalanx. Questionable early osteomyelitis versus reactive edema in the shaft of the third metatarsal without overt T1 hypointense marrow replacement. Plantar lateral forefoot soft tissue wound extending to
the fourth and fifth metatarsophalangeal joints. Rim-enhancing abscess contiguous with the soft tissue wound that wraps around the dorsal aspect of the fifth metatarsophalangeal joint and extends into the fourth intermetatarsal space.
09/28/24 Foot XRAY: Personally reviewed. New destructive changes centered at the 5th metatarsophalangeal joint involving the head of the 5th metatarsal and the base of the first proximal phalanx consistent with acute osteomyelitis.
09/28/24 CT a/p: Distended gallbladder containing a large noncalcified gallstone and gallbladder sludge. Splenomegaly.
--- NOTE | 2024-09-30 11:20 | CM ---
Addendum entered by Veronique Friedman RN 09/30/24 11:43:
Seen by wound care nurse.
Original Note:
Patient from [facility] with Dx Sepsis POA, Cellulitis and diabetic foot infection. Plan OR today for TMA. Room air. Receiving IV Abx.
Met with patient who resides with his at [facility].
The patient has been independent in ADLs and ambulation using his SPC.
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
DME - [facility]PC
Current with [facility] for SN for wound care, [facility] for PT/OT
No prior SNF
PCP - Bee Posada
Pharmacy - [facility]
Spoke with Dr Martinez; patient going to OR today and will work with PT/OT post op, likely here over weekend.
Spoke with airline lounge receptionist, [facility]; she confirms patient is in assisted living (they have assisted living and memory care in their facility). The ph for report to the nurse is [phone], fax [phone].
Plan follow patient's wound care and mobility needs.
Plan follow up post op after seen by PT/OT.
[2024-09-30 11:27] LABS: Glucose - Point of Care 100 mg/dl (70-99)
--- NOTE | 2024-09-30 11:30 | W.PN.UPDATE ---
Update Note
Progress Note Update
s/p TMA right foot left open
-Plan for delayed primary closure on 10/04/24
-Continue ABx, plan for ABX for additional 14 days past 10/04 fof soft tissue coverage, pressumed surgical cure of bone
-NWB RLE
-Dressing changes per wound care or nursing
-Will follow
[2024-09-30] MEDS: LANTUS 0.1 UNITS SC (12:48)
[2024-09-30] MEDS: VANCOCIN 200 IV (12:48)
[2024-09-30] MEDS: CYANOCOBALAMIN 1000 MCG IM (14:07)
--- NOTE | 2024-09-30 14:14 | PTCARENOTE ---
Patient back from the OR s/p amputation on right lower extremity. Area wrapped with gauze upon arrival, No bleeding observed. Patient denying pain when asked. Patient ate 100% of lunch. Vital signs stable.
[2024-09-30] MEDS: ASPIR LOW (ENTERIC COATED) 81 MG PO (17:14)
[2024-09-30] MEDS: LIPITOR 40 MG PO (17:15)
[2024-09-30 17:24] LABS: Glucose - Point of Care 145 mg/dl (70-99)
--- NOTE | 2024-09-30 20:41 | PTCARENOTE ---
Pt continues to deny pain at surgical site. Dressing with small amount of pink drainage present. Pt reports feeling tired d/t poor sleep the past few nights. VSS. Call hale within reach. Pt able to make needs known. Frequent turning in place to
prevent skin breakdown. Care ongoing.
[2024-09-30 22:12] LABS: Glucose - Point of Care 203 mg/dl (70-99)
[2024-09-30] MEDS: ULTRAM 25 MG PO (22:26)
[2024-10-01] VITALS (13 sets, daily range): BP systolic 110–168; BP diastolic 53–82; PULSE 72–91; BMI 26.0
[2024-10-01] MEDS: FLAGYL 500 MG 100 IV ×3 (01:08→18:06)
[2024-10-01] MEDS: STERILE WATER FOR INJECTION 10 ML IV ×3 (01:10→18:06)
[2024-10-01] MEDS: MAXIPIME 1000 MG IV ×3 (01:10→18:07)
[2024-10-01 05:36] LABS: Hematocrit 25.8 % (39.0-52.0); Hemoglobin 8.5 g/dL (13.0-18.0); Mean Corp Hgb Conc. 32.9 g/dL (33.0-37.0); Mean Corpuscular Volume 82.7 fL (80.0-94.0); Nucleated Red Blood Cells % 0 % (-); Platelet Count 154 10^3/uL (130-400); Red Cell Dist. Width 14.9 % (11.5-14.5)
[2024-10-01 06:03] LABS: ALT (SGPT) < 10 U/L (0-50); AST (SGOT) 13 U/L (17-59); Albumin 2.6 g/dl (3.5-5.0); Alkaline Phosphatase 82 U/L (38-126); Blood Urea Nitrogen 21 mg/dl (9-20); Calcium 7.6 mg/dl (8.4-10.2); Carbon Dioxide 19 mmol/L (22-30); Chloride 111 mmol/L (98-107); Estimated Creatinine Clearance 49 ml/min; Glucose 162 mg/dl (70-99); Potassium 3.8 mmol/L (3.5-5.1); Sodium 136 mmol/L (135-145); Total Protein 5.0 g/dl (6.3-8.2); eGFR > 60.00
[2024-10-01 06:04] LABS: INR 1.44; PT 18.0 Sec (11.4-14.6)
--- NOTE | 2024-10-01 07:16 | PHA.VAN.FU ---
Vancomycin Assessment / Plan
- Assessment
Renal Function: Stable
WBC's are: WNL
In the past 24 hrs, patient has been: Afebrile
Concomitant Antimicrobials: cefepime, metronidazole
- Assessment - Therapeutic Drug Monitoring
Random Level: 15.4 - drawn ~16.5H after previous dose of 1000mg
- Dosing Plan
Dosing by Level: Re-dose today (Vanc 1000mg)
Will follow level trend - may require prolonged interval depending on trend
- Monitoring Plan
Random Level: 10/02 06
- Follow Up
Pharmacy will continue to follow.
Vancomycin Follow UP
- -
Patient Age: 89
Patient Sex: Male
Vancomycin Day #: 4
Indication: Diabetic Foot
Requesting Provider: David Watts / Dr. Rankin
Pertinent Antimicrobial Allergies:
penicillin - rash; tolerated cephalexin
ivermectin - dehydration
Height / Weight:
Height 5 ft 11 in
Actual Weight 84.5 kg
Pertinent Past Medical History: DM II
- Vital Signs / Lab Results
Temp Pulse Resp BP Pulse Ox
97.8 F 85 15 122/74 97
10/01/24 01:32 10/01/24 06:00 10/01/24 06:00 10/01/24 06:00 10/01/24 06:00
Lab Results - Hematology
09/28/24 09/29/24 09/30/24
16:44 04:42 05:51
WBC 11.6 H 10.0 6.4
10/01/24
05:29
WBC 6.2
Lab Results - Chemistry
09/28/24 09/29/24 09/30/24
16:44 04:42 05:51
BUN 28 H 27 H 22 H
Creatinine 1.2 1.2 1.1
Estimated Creat Clear 45 45 49
Albumin 2.7 L 2.6 L 2.5 L
10/01/24
05:29
BUN 21 H
Creatinine 1.1
Estimated Creat Clear 49
Albumin 2.6 L
09/28/24
17:51
Lactic Acid 1.6
Microbiology Results
09/28/24 17:51 Wound Culture - Preliminary
Foot - Right Staph aureus MRSA
Viridans Streptococcus Group
Gram Stain - Preliminary
09/28/24 18:15 Blood Culture - Preliminary
Blood/Venous No Growth in 48 hours- Final report to follow
09/28/24 17:51 Blood Culture - Preliminary
Blood/Venous No Growth in 48 hours- Final report to follow
09/30/24 10:56 Gram Stain - Preliminary
Foot - Right
09/29/24 17:19 Anaerobic Culture - Preliminary
Foot - Right Culture pending. Anaerobic cultures are examined after 3
days incubation. Additional information to follow.
09/29/24 17:19 Wound Culture - Preliminary
Foot - Right Gram Stain - Preliminary
09/28/24 16:44 Urine Culture - Final
Urine NO GROWTH
Therapeutic Drug Monitoring
Random Vancomycin 15.4 ug/ml 10/01/24 05:29
[2024-10-01 07:22] LABS: Glucose - Point of Care 176 mg/dl (70-99)
[2024-10-01] MEDS: CYANOCOBALAMIN 1000 MCG IM (08:07)
[2024-10-01] MEDS: LANTUS 0.1 UNITS SC (08:08)
[2024-10-01] MEDS: TOPROL XL 25 MG PO (08:08)
[2024-10-01] MEDS: VANCOCIN 200 IV (08:09)
[2024-10-01] MEDS: NOVOLOG FLEXPEN-MODERATE RESISTANCE 1 UNITS SC (08:09)
--- NOTE | 2024-10-01 08:13 | W.PN.UPDATE ---
Update Note
Progress Note Update
Patient s/p Rigth TMA left open
-Plan for OR 10/04 for closure
-NPO after 7am Friday (procedure planned after 3PM)
-Continue ABx
-NWB RLE
-PT/OT consults
-Daily dressing changes
--- NOTE | 2024-10-01 08:54 | W.PN.ID1 ---
Date of Service
Date of Service: October 01, 2024
Today's Communication
Continue current antibiotics.
Assessment / Plan
# Right 5th toe cellulitis
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
# Fever
# Leukocytosis
# Uncontrolled diabetes mellitus with neuropathy
# PCN allergy
Recommendations:
Patient is status post right TMA with delayed closure.
Blood cultures remain negative.
- Continue vancomycin, cefepime, and metronidazole. Follow Vanco levels closely to prevent nephrotoxicity.
- Trend white count and temps.
- Tight glucose control
����������������������������������������������������������
Chief Complaint
-: Cellulitis
Subjective / Review of Systems
Review of Systems: No Fever and No Chills
Vital Signs / Physical Exam
Vital Signs
Vital Signs
Temp Pulse Resp BP Pulse Ox
97.7 F 69 15 131/63 97
10/01/24 07:28 10/01/24 08:00 10/01/24 08:00 10/01/24 08:00 10/01/24 08:00
Physical Exam
Constitutional: No Acute Distress, Comfortable and Non-toxic
Cardiovascular: S1/S2; Negative S3/S4
Pulmonary: Clear; Negative Wheezes or Rales
Extremities: Edema (Bilateral lower extremities); Negative Erythema
Wound: Other (Right foot dressed. No strikethrough.)
Neurological: Awake and Alert
Psychological: Calm
Objective Data
Lab Data
Lab Results
10/01/24 05:29
10/01/24 05:
PT 18.0 Sec (11.4-14.6) H 10/01/24 05:29
INR 1.44 10/01/24 05:29
Estimated Creat Clear 49 ml/min 10/01/24 05:29
Lactic Acid 1.6 mmol/L (0.7-2.0) 09/28/24 17:51
Total Bilirubin 1.1 mg/dl (0.2-1.3) 10/01/24 05:29
AST 13 U/L (17-59) L 10/01/24 05:29
ALT < 10 U/L (0-50) 10/01/24 05:29
Alkaline Phosphatase 82 U/L (38-126) 10/01/24 05:29
Most recent labs reviewed.
Micro Results:
09/28/24 17:51 Wound Culture - Final
Foot - Right Staph aureus MRSA
Viridans Streptococcus Group
Gram Stain - Final
09/28/24 18:15 Blood Culture - Preliminary
Blood/Venous No Growth in 48 hours- Final report to follow
09/28/24 17:51 Blood Culture - Preliminary
Blood/Venous No Growth in 48 hours- Final report to follow
09/30/24 13:18 MRSA Screen - Pending
Nose
09/30/24 10:56 Wound Culture - Pending
Foot - Right Gram Stain - Preliminary
09/30/24 10:56 Anaerobic Culture - Pending
Foot - Right
09/29/24 17:19 Anaerobic Culture - Preliminary
Foot - Right Culture pending. Anaerobic cultures are examined after 3
days incubation. Additional information to follow.
09/29/24 17:19 Wound Culture - Preliminary
Foot - Right Gram Stain - Preliminary
09/28/24 16:44 Urine Culture - Final
Urine NO GROWTH
09/28/24 16:44 Influenza Types A & B (GINA) - Final
Nasal Swab Negative for Influenza A & B, NAAT
Negative results must be combined with clinical observations
and patient history.
Nucleic Acid Amplification test (NAAT)performed on the
[employer] platform.
Imaging:
09/29/2024 MRI right lower extremity: Acute osteomyelitis of the lateral forefoot. Involvement of the majority of the fourth and fifth metatarsals with sparing of small portions of both metatarsal bases. Osteomyelitis of the entire fifth proximal
phalanx and the base of the fourth proximal phalanx. Questionable early osteomyelitis versus reactive edema in the shaft of the third metatarsal without overt T1 hypointense marrow replacement. Plantar lateral forefoot soft tissue wound extending to
the fourth and fifth metatarsophalangeal joints. Rim-enhancing abscess contiguous with the soft tissue wound that wraps around the dorsal aspect of the fifth metatarsophalangeal joint and extends into the fourth intermetatarsal space.
09/28/24 Foot XRAY: Personally reviewed. New destructive changes centered at the 5th metatarsophalangeal joint involving the head of the 5th metatarsal and the base of the first proximal phalanx consistent with acute osteomyelitis.
09/28/24 CT a/p: Distended gallbladder containing a large noncalcified gallstone and gallbladder sludge. Splenomegaly.
--- NOTE | 2024-10-01 10:01 | W.PN.HOSP.TC ---
Today's Communication/Plan
-
continue IV abx pending cultures
follow podiatry recs
d/w podiatry and ok for IV heparin drip
Assessment / Plan
Assessment / Plan
Assessment:
Nausea/vomiting
- denies pain
- unclear etiology at time of admission, in retrospect possible related to acute illnes/sepsis?
- Lipase 30
- CT: Distended gallbladder containing a large noncalcified gallstone and gallbladder sludge. Splenomegaly. Colonic diverticulosis, without evidence for acute diverticulitis. Nonspecific mild urinary bladder wall thickening.
- LFTs normal, UA normal
- tolerating diet
- continue to observe
Sepsis POA (fever, tachycardia)
Cellulitis and diabetic foot infection
- X-ray: New destructive changes centered at the 5th metatarsophalangeal joint involving the head of the first metatarsal and the base of the first proximal phalanx consistent with acute osteomyelitis. Scattered small foci of gas about the first
metatarsophalangeal joint, and soft tissue swelling about the foot
- MRI: Acute osteomyelitis of the lateral forefoot. Involvement of the majority of the fourth and fifth metatarsals with sparing of small portions of both metatarsal bases. Osteomyelitis of the entire fifth proximal phalanx and the base of the
fourth proximal phalanx. Questionable early osteomyelitis versus reactive edema in the shaft of the third metatarsal without overt T1 hypointense marrow replacement. Plantar lateral forefoot soft tissue wound extending to the fourth and fifth
metatarsophalangeal joints. Rim-enhancing abscess contiguous with the soft tissue wound that wraps around the dorsal aspect of the fifth metatarsophalangeal joint and extends into the fourth intermetatarsal space.
- Podiatry following
- s/p Right TMA 09/30 with open surgical wound. Closure planned 10/04.
- NWB RLE. PT/OT
- continue Vanco/Cefepime/Flagyl pending operative cultures. ID following
L forearm/wrist stiffness
- patient was previous brace which he used longer than prescribed after orthopedic fluid drainage procedure 1 week prior (Dr. Adames)
- no evidence of infection
- encourage therapy and ROM exercises in bed. in no improvement by Friday, Consider consult to orthopedics
Hypokalemia/Hypomagnesemia
- monitor labs and prn replacement
Hyponatremia
- monitor BMP
Permanent Atrial Fibrillation
- continue BB - reduce dose to 25mg due to hypotension
- holding Coumadin for OR. s/p vitamin K 2.5mg. INR 1.44
- start IV heparin drip when ok'd by podiatry
DM-II
- continue Lantus 20 units - will reduce to 10 units perioperatively
- monitor accu-checks
- A1c: 9.2%
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
- Iron labs suggest deficiency. oral iron at discharge. heme test stools
- hypovitaminosis B12 - continue replacement (IM while in hospital then PO)
Coronary Artery Disease
- continue aspirin/Statin/BB
Essential Hypertension
- hold valsartan/HCTZ in setting of hypotension
Hyperlipidemia
- continue atorvastatin
Stage 2 sacral pressure injury, POA
DVT prop: SCDs until able to resume anticoagulation
Code Status: Full Code
Anticipated Discharge: > 48 hours
Subjective/Interval History
-
Date of Service: October 01, 2024
no overnight events
working with PT/OT; patient and therapy discussing stiffness of L forearm/wrist - patient was previous brace which he used longer than prescribed after orthopedic fluid drainage procedure 1 week prior
Objective Data
-
Labs:
Laboratory Results
10/01/24
05:29
WBC 6.2
Hgb 8.5 L
Hct 25.8 L
Plt Count 154
PT 18.0 H
INR 1.44
Sodium 136
Potassium 3.8
Chloride 111 H
Carbon Dioxide 19 L
BUN 21 H
Creatinine 1.1
Glucose 162 H
Calcium 7.6 L
Total Bilirubin 1.1
AST 13 L
ALT < 10
Alkaline Phosphatase 82
Vital Signs:
Vital Signs
Temp Pulse Resp BP Pulse Ox
97.7 F 69 15 131/63 97
10/01/24 07:28 10/01/24 08:00 10/01/24 08:00 10/01/24 08:00 10/01/24 08:00
I&O
09/30/24 10/01/24 10/02/24
06:59 06:59 06:59
Intake Total 2700 / 2700 315 / 315
Output Total 900 / 900 375 / 375
Balance 1800 / 1800 -60 / -60
Physical Exam
-
General: No Apparent Distress
HEENT: Normocephalic and Atraumatic
Respiratory: Negative Wheezes
Cardiac: Irregular Rhythm
GI: Soft and Nontender
Musculoskeletal: Other (L forearm/wrist stiffness, mild edema, no redness. )
Neuro: AO x 3 and No Motor Deficits
Psych: Calm
Data Reviewed
-
Total Time Spent with Patient (in minutes): 41
Labs: Labs Reviewed by me
[2024-10-01 11:39] LABS: Glucose - Point of Care 244 mg/dl (70-99)
[2024-10-01 12:06] LABS: APTT 46.8 Sec (23.4-35.0)
[2024-10-01] MEDS: HEPARIN 25000 UNITS/250 ML IV (12:41)
[2024-10-01] MEDS: NOVOLOG FLEXPEN-MODERATE RESISTANCE 3 UNITS SC ×2 (12:45→17:49)
--- NOTE | 2024-10-01 17:02 | TRANSFER ---
AAOx3 pleasant, denies pain. Right foot dressing changed previous shift- shadowing noted this pm. IV Heparin initiated per orders. PTT due 1849. Tolerating po ada diet, accu checks with coverage given. Report to Lauren and transferred to 2
north.
[2024-10-01 17:19] LABS: Glucose - Point of Care 220 mg/dl (70-99)
--- NOTE | 2024-10-01 17:29 | PTCARENOTE ---
Rec'd pt at aprox 1630 as a transfer from IMU. Pt transferred to bed from stretcher. Heparin infusing at 1000 unit (10ml) per hour. Next PTT due at 1850. Pt denies any pain. Right foot dressing changed. Pt will order dinner. Pt instructed to ring
for assistance.
[2024-10-01] MEDS: ASPIR LOW (ENTERIC COATED) 81 MG PO (18:06)
[2024-10-01] MEDS: LIPITOR 40 MG PO (18:06)
[2024-10-01 19:59] LABS: APTT 98.4 Sec (23.4-35.0)
[2024-10-01 21:39] LABS: Glucose - Point of Care 158 mg/dl (70-99)
[2024-10-02] MEDS: FLAGYL 500 MG 100 IV ×3 (01:13→17:26)
[2024-10-02] MEDS: MAXIPIME 1000 MG IV ×3 (01:13→17:26)
[2024-10-02] MEDS: STERILE WATER FOR INJECTION 10 ML IV ×3 (01:14→17:26)
[2024-10-02 02:16] LABS: APTT 103.4 Sec (23.4-35.0)
[2024-10-02 03:27] VITALS: BP 133/78
[2024-10-02 05:49] VITALS: BMI 26.2
[2024-10-02 07:00] VITALS: BP 126/75
[2024-10-02 07:05] LABS: Hematocrit 23.8 % (39.0-52.0); Hemoglobin 7.7 g/dL (13.0-18.0); Mean Corp Hgb Conc. 32.4 g/dL (33.0-37.0); Mean Corpuscular Volume 82.1 fL (80.0-94.0); Nucleated Red Blood Cells % 0 % (-); Platelet Count 144 10^3/uL (130-400); Red Cell Dist. Width 14.7 % (11.5-14.5)
[2024-10-02 07:06] LABS: INR 1.43; PT 17.7 Sec (11.4-14.6)
[2024-10-02 07:29] LABS: Glucose - Point of Care 126 mg/dl (70-99)
[2024-10-02] MEDS: NOVOLOG FLEXPEN-MODERATE RESISTANCE SC ×3 (07:29→17:51)
[2024-10-02 07:52] LABS: ALT (SGPT) < 10 U/L (0-50); AST (SGOT) 12 U/L (17-59); Albumin 2.4 g/dl (3.5-5.0); Alkaline Phosphatase 73 U/L (38-126); Blood Urea Nitrogen 16 mg/dl (9-20); Calcium 7.8 mg/dl (8.4-10.2); Carbon Dioxide 20 mmol/L (22-30); Chloride 113 mmol/L (98-107); Estimated Creatinine Clearance 60 ml/min; Glucose 118 mg/dl (70-99); Potassium 3.7 mmol/L (3.5-5.1); Sodium 135 mmol/L (135-145); Total Protein 4.8 g/dl (6.3-8.2); eGFR > 60.00
--- NOTE | 2024-10-02 07:58 | PHA.VAN.FU ---
Addendum entered and electronically signed by Flori Ramos [facility] 10/02/24 14:46:
Laboratory Tests
10/02/24
13:46
Vancomycin Peak 22.6
Obtained peak and will plan to assess with random level in AM to calculation patient-specific PK
Peak obtained in appropriate window.
Original Note:
Vancomycin Assessment / Plan
- Assessment
Renal Function: SCR Decreasing
WBC's are: WNL
In the past 24 hrs, patient has been: Afebrile
Concomitant Antimicrobials: cefepime, metronidazole
- Assessment - Therapeutic Drug Monitoring
Random Level: 15.3 - drawn ~23H after previous dose of 1g dose
- Dosing Plan
Dosing by Level: Re-dose today (Vanc 1000mg)
- Monitoring Plan
Random Level: 10/03 0600
- Follow Up
Pharmacy will continue to follow.
Vancomycin Follow UP
- -
Patient Age: 89
Patient Sex: Male
Vancomycin Day #: 5
Indication: Diabetic Foot
Requesting Provider: David Watts / Dr. Rankin
Pertinent Antimicrobial Allergies:
penicillin - rash; tolerated cephalexin
ivermectin - dehydration
Height / Weight:
Height 5 ft 11 in
Actual Weight 85.094 kg
Pertinent Past Medical History: DM II
- Vital Signs / Lab Results
Temp Pulse Resp BP Pulse Ox
98.3 F 98 18 133/78 97
10/02/24 03:27 10/02/24 03:27 10/02/24 03:27 10/02/24 03:27 10/02/24 03:27
Lab Results - Hematology
09/29/24 09/30/24 10/01/24
04:42 05:51 05:29
WBC 10.0 6.4 6.2
10/02/24
06:48
WBC 6.0
Lab Results - Chemistry
09/30/24 10/01/24 10/02/24
05:51 05:29 06:48
BUN 22 H 21 H 16
Creatinine 1.1 1.1 0.9
Estimated Creat Clear 49 49 60
Albumin 2.5 L 2.6 L 2.4 L
Microbiology Results
09/30/24 13:18 MRSA Screen - Final
Nose No Methicillin Resistant Staphylococcus aureus isolated.
09/30/24 10:56 Anaerobic Culture - Preliminary
Foot - Right Culture pending. Anaerobic cultures are examined after 3
days incubation. Additional information to follow.
09/30/24 10:56 Wound Culture - Preliminary
Foot - Right Gram Stain - Preliminary
09/29/24 17:19 Anaerobic Culture - Preliminary
Foot - Right Culture pending. Anaerobic cultures are examined after 3
days incubation. Additional information to follow.
09/29/24 17:19 Wound Culture - Preliminary
Foot - Right Staph aureus MRSA
Viridans Streptococcus Group
Diptheroids
Gram Stain - Preliminary
09/28/24 17:51 Blood Culture - Preliminary
Blood/Venous Positive culture in progress
Gram Stain - Preliminary
09/28/24 18:15 Blood Culture - Preliminary
Blood/Venous Positive culture in progress
Gram Stain - Preliminary
09/28/24 17:51 Wound Culture - Final
Foot - Right Staph aureus MRSA
Viridans Streptococcus Group
Gram Stain - Final
Therapeutic Drug Monitoring
Random Vancomycin 15.3 ug/ml 10/02/24 06:48
[2024-10-02 08:04] LABS: APTT 135.3 Sec (23.4-35.0)
--- NOTE | 2024-10-02 08:30 | W.PN.UPDATE ---
Update Note
Progress Note Update
Patient s/p Right TMA left open 09/30/24 w/ Dr. Polanco
-Plan for OR 10/04 for closure
-NPO after 7am Friday (procedure planned after 3PM)
-Continue ABx
-NWB RLE
-PT/OT consults
-Daily dressing changes
[2024-10-02] MEDS: CYANOCOBALAMIN 1000 MCG IM (09:05)
[2024-10-02] MEDS: TOPROL XL 25 MG PO (09:05)
[2024-10-02] MEDS: LANTUS 0.2 UNITS SC (09:06)
[2024-10-02 09:21] LABS: Iron 38 ug/dl (49-181)
[2024-10-02 09:30] LABS: Total Iron Binding Capacity 176 ug/dl (261-462)
[2024-10-02] MEDS: VANCOCIN 200 IV (10:39)
--- NOTE | 2024-10-02 10:46 | W.PN.ID1 ---
Date of Service
Date of Service: October 02, 2024
Today's Communication
Continue antibiotics.
Assessment / Plan
# Right 5th toe cellulitis
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
# Fever
# Leukocytosis
# Uncontrolled diabetes mellitus with neuropathy
# PCN allergy
Recommendations:
Patient is status post right TMA (09/30/24) with planned delayed closure.
Blood cultures remain negative.
Cultures with MRSA, viridans strep and diphtheroids. Anaerobic cultures remain pending.
- Continue vancomycin, cefepime, and metronidazole. Follow Vanco levels closely to prevent nephrotoxicity.
- Trend white count and temps.
- Tight glucose control
- Await final closure
����������������������������������������������������������
Chief Complaint
-: Cellulitis
Subjective / Review of Systems
Patient seen and examined. Reports no difficulty with antibiotics. Right foot pain controlled.
Review of Systems: No Fever and No Chills
Vital Signs / Physical Exam
Vital Signs
Vital Signs
Temp Pulse Resp BP Pulse Ox
97.5 F 90 17 126/75 97
10/02/24 07:00 10/02/24 09:05 10/02/24 07:00 10/02/24 09:05 10/02/24 10:14
Physical Exam
Constitutional: No Acute Distress, Comfortable and Non-toxic
Cardiovascular: S1/S2; Negative S3/S4
Pulmonary: Clear; Negative Wheezes or Rales
Extremities: Edema (Bilateral lower extremities); Negative Erythema
Wound: Other (Right foot dressed. No strikethrough.)
Neurological: Awake and Alert
Psychological: Calm
Objective Data
Lab Data
Lab Results
10/02/24 06:48
10/02/24 06:48
PT 17.7 Sec (11.4-14.6) H 07/05/25 06:48
INR 1.43 10/02/24 06:48
APTT 135.3 Sec (23.4-35.0) H 10/02/24 06:48
APTT Cancelled 10/02/24 06:48
Estimated Creat Clear 60 ml/min 10/02/24 06:48
Lactic Acid 1.6 mmol/L (0.7-2.0) 09/28/24 17:51
Total Bilirubin 0.9 mg/dl (0.2-1.3) 10/02/24 06:48
AST 12 U/L (17-59) L 10/02/24 06:48
ALT < 10 U/L (0-50) 10/02/24 06:48
Alkaline Phosphatase 73 U/L (38-126) 10/02/24 06:48
Most recent labs reviewed.
Micro Results:
09/30/24 13:18 MRSA Screen - Final
Nose No Methicillin Resistant Staphylococcus aureus isolated.
09/30/24 10:56 Anaerobic Culture - Preliminary
Foot - Right Culture pending. Anaerobic cultures are examined after 3
days incubation. Additional information to follow.
09/30/24 10:56 Wound Culture - Preliminary
Foot - Right Gram Stain - Preliminary
09/29/24 17:19 Anaerobic Culture - Preliminary
Foot - Right Culture pending. Anaerobic cultures are examined after 3
days incubation. Additional information to follow.
09/29/24 17:19 Wound Culture - Preliminary
Foot - Right Staph aureus MRSA
Viridans Streptococcus Group
Diptheroids
Gram Stain - Preliminary
09/28/24 17:51 Blood Culture - Preliminary
Blood/Venous Positive culture in progress
Gram Stain - Preliminary
09/28/24 18:15 Blood Culture - Preliminary
Blood/Venous Positive culture in progress
Gram Stain - Preliminary
09/28/24 17:51 Wound Culture - Final
Foot - Right Staph aureus MRSA
Viridans Streptococcus Group
Gram Stain - Final
09/28/24 16:44 Urine Culture - Final
Urine NO GROWTH
09/28/24 16:44 Influenza Types A & B (GINA) - Final
Nasal Swab Negative for Influenza A & B, NAAT
Negative results must be combined with clinical observations
and patient history.
Nucleic Acid Amplification test (NAAT)performed on the
[employer] platform.
Imaging:
09/29/2024 MRI right lower extremity: Acute osteomyelitis of the lateral forefoot. Involvement of the majority of the fourth and fifth metatarsals with sparing of small portions of both metatarsal bases. Osteomyelitis of the entire fifth proximal
phalanx and the base of the fourth proximal phalanx. Questionable early osteomyelitis versus reactive edema in the shaft of the third metatarsal without overt T1 hypointense marrow replacement. Plantar lateral forefoot soft tissue wound extending to
the fourth and fifth metatarsophalangeal joints. Rim-enhancing abscess contiguous with the soft tissue wound that wraps around the dorsal aspect of the fifth metatarsophalangeal joint and extends into the fourth intermetatarsal space.
09/28/24 Foot XRAY: Personally reviewed. New destructive changes centered at the 5th metatarsophalangeal joint involving the head of the 5th metatarsal and the base of the first proximal phalanx consistent with acute osteomyelitis.
09/28/24 CT a/p: Distended gallbladder containing a large noncalcified gallstone and gallbladder sludge. Splenomegaly.
[2024-10-02 11:18] VITALS: BP 131/66
[2024-10-02 11:21] LABS: Ferritin 94.2 ng/ml (17.9-464.0)
[2024-10-02 11:53] LABS: Folate 6.4 ng/ml (2.76-20); Vitamin B12 > 1000 pg/ml (239-931)
--- NOTE | 2024-10-02 12:32 | W.PN.HOSP.TC ---
Today's Communication/Plan
-
monitor H/H, transfuse if lower on tomorrows labs. Type/Screen
continue IV Abx pending cultures/path
continue post-op care
Assessment / Plan
Assessment / Plan
Assessment:
Nausea/vomiting
- denies pain
- unclear etiology at time of admission, in retrospect possible related to acute illnes/sepsis?
- Lipase 30
- CT: Distended gallbladder containing a large noncalcified gallstone and gallbladder sludge. Splenomegaly. Colonic diverticulosis, without evidence for acute diverticulitis. Nonspecific mild urinary bladder wall thickening.
- LFTs normal, UA normal
- tolerating diet
- continue to observe
Sepsis POA (fever, tachycardia)
Cellulitis and diabetic foot infection
- X-ray: New destructive changes centered at the 5th metatarsophalangeal joint involving the head of the first metatarsal and the base of the first proximal phalanx consistent with acute osteomyelitis. Scattered small foci of gas about the first
metatarsophalangeal joint, and soft tissue swelling about the foot
- MRI: Acute osteomyelitis of the lateral forefoot. Involvement of the majority of the fourth and fifth metatarsals with sparing of small portions of both metatarsal bases. Osteomyelitis of the entire fifth proximal phalanx and the base of the
fourth proximal phalanx. Questionable early osteomyelitis versus reactive edema in the shaft of the third metatarsal without overt T1 hypointense marrow replacement. Plantar lateral forefoot soft tissue wound extending to the fourth and fifth
metatarsophalangeal joints. Rim-enhancing abscess contiguous with the soft tissue wound that wraps around the dorsal aspect of the fifth metatarsophalangeal joint and extends into the fourth intermetatarsal space.
- Podiatry following
- s/p Right TMA 09/30 with open surgical wound. Closure planned 10/04.
- NWB RLE. PT/OT
- continue Vanco/Cefepime/Flagyl pending operative cultures. ID following
L forearm/wrist stiffness
- patient was previous brace which he used longer than prescribed after orthopedic fluid drainage procedure 1 week prior (Dr. Adames)
- no evidence of infection
- encourage therapy and ROM exercises in bed. in no improvement by Friday, Consider consult to orthopedics
Hypokalemia/Hypomagnesemia
- monitor labs and prn replacement
Hyponatremia
- monitor BMP
Permanent Atrial Fibrillation
- continue BB - reduce dose to 25mg due to hypotension
- holding Coumadin for OR. s/p vitamin K 2.5mg. INR 1.43
- continue IV heparin for bridging, monitor PTTs
DM-II
- continue Lantus 20 units - will reduce to 10 units perioperatively
- monitor accu-checks
- A1c: 9.2%
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
- Iron labs suggest deficiency. oral iron at discharge. heme test stools
- hypovitaminosis B12 - continue replacement (IM while in hospital then PO)
- acute changes possibly related to surgical blood loss. monitor H/H (currently 7.7). May need blood. Type/Screen ordered.
Coronary Artery Disease
- continue aspirin/Statin/BB
Essential Hypertension
- hold valsartan/HCTZ in setting of hypotension
Hyperlipidemia
- continue atorvastatin
Stage 2 sacral pressure injury, POA
DVT prop: SCDs until able to resume anticoagulation. continue IV heparin
Code Status: Full Code
Anticipated Discharge: > 48 hours
Subjective/Interval History
-
Date of Service: October 02, 2024
no new complaints
pain controlled
Objective Data
-
Labs:
Laboratory Results
10/02/24 10/02/24 10/02/24
01:50 06:48 06:48
WBC 6.0
Hgb 7.7 L
Hct 23.8 L
Plt Count 144
PT 17.7 H
INR 1.43
APTT 103.4 H 135.3 H Cancelled
Sodium 135
Potassium 3.7
Chloride 113 H
Carbon Dioxide 20 L
BUN 16
Creatinine 0.9
Glucose 118 H
Calcium 7.8 L
Total Bilirubin 0.9
AST 12 L
ALT < 10
Alkaline Phosphatase 73
10/02/24
16:00
WBC
Hgb
Hct
Plt Count
PT
INR
APTT Pending
Sodium
Potassium
Chloride
Carbon Dioxide
BUN
Creatinine
Glucose
Calcium
Total Bilirubin
AST
ALT
Alkaline Phosphatase
Vital Signs:
Vital Signs
Temp Pulse Resp BP Pulse Ox
98.3 F 82 16 131/66 100
10/02/24 11:18 10/02/24 11:18 10/02/24 11:18 10/02/24 11:18 10/02/24 11:18
I&O
10/01/24 10/02/24 10/03/24
06:59 06:59 06:59
Intake Total 315 / 315 680 / 680 440 / 440
Output Total 375 / 375 400 / 400 250 / 250
Balance -60 / -60 280 / 280 190 / 190
Physical Exam
-
General: No Apparent Distress
HEENT: Normocephalic and Atraumatic
Respiratory: Negative Wheezes
Cardiac: Regular Rhythm and S1/S2
GI: Soft
Musculoskeletal: Edema, Right Lower Extrem and Edema, Left Lower Extrem
Skin: Other (Right foot dressed. No strikethrough)
Data Reviewed
-
Total Time Spent with Patient (in minutes): 45
Labs: Labs Reviewed by me
[2024-10-02 12:35] LABS: Glucose - Point of Care 128 mg/dl (70-99)
[2024-10-02 15:10] VITALS: BP 128/68
[2024-10-02] MEDS: HEPARIN 25000 UNITS/250 ML IV (15:38)
[2024-10-02 16:12] LABS: APTT 67.0 Sec (23.4-35.0)
[2024-10-02] MEDS: ASPIR LOW (ENTERIC COATED) 81 MG PO (17:26)
[2024-10-02] MEDS: LIPITOR 40 MG PO (17:26)
[2024-10-02 17:45] LABS: Glucose - Point of Care 100 mg/dl (70-99)
[2024-10-02 19:05] VITALS: BP 129/62
--- NOTE | 2024-10-02 20:05 | PTCARENOTE ---
R foot dressing changed this shift and reinforced by this RN for serosanguineous drainage, patient states mild discomfort with dressing change but minimal pain overall in R foot and denies need for pain medication. +Doppler pulses. Patient bedrest
and q2hr turn, placed on static overlay, stage 2 on sacrum covered with foam, heel foams placed on patient and LUE skin tear dressing changed. Hep gtt infusing through R FA IV at 9ml/hr currently, next PTT due at 2215.
[2024-10-02 22:28] LABS: Glucose - Point of Care 83 mg/dl (70-99)
[2024-10-02 22:45] LABS: APTT 91.9 Sec (23.4-35.0)
[2024-10-02 23:39] VITALS: BP 137/69
[2024-10-03] MEDS: MAXIPIME 1000 MG IV ×3 (02:19→18:03)
[2024-10-03] MEDS: FLAGYL 500 MG 100 IV ×3 (02:20→18:03)
[2024-10-03] MEDS: STERILE WATER FOR INJECTION 10 ML IV ×3 (02:22→18:03)
[2024-10-03 03:22] VITALS: BP 134/67
[2024-10-03 04:45] LABS: Hematocrit 23.6 % (39.0-52.0); Hemoglobin 7.9 g/dL (13.0-18.0); Mean Corp Hgb Conc. 33.5 g/dL (33.0-37.0); Mean Corpuscular Volume 81.4 fL (80.0-94.0); Nucleated Red Blood Cells % 0 % (-); Platelet Count 160 10^3/uL (130-400); Red Cell Dist. Width 14.8 % (11.5-14.5)
[2024-10-03 04:51] LABS: INR 1.46; PT 18.0 Sec (11.4-14.6)
[2024-10-03 04:53] LABS: APTT 86.8 Sec (23.4-35.0)
[2024-10-03 04:56] LABS: ALT (SGPT) 10 U/L (0-50); AST (SGOT) 22 U/L (17-59); Albumin 2.4 g/dl (3.5-5.0); Alkaline Phosphatase 73 U/L (38-126); Blood Urea Nitrogen 15 mg/dl (9-20); Calcium 7.9 mg/dl (8.4-10.2); Carbon Dioxide 21 mmol/L (22-30); Chloride 112 mmol/L (98-107); Estimated Creatinine Clearance 54 ml/min; Glucose 71 mg/dl (70-99); Potassium 3.7 mmol/L (3.5-5.1); Sodium 136 mmol/L (135-145); Total Protein 4.9 g/dl (6.3-8.2); eGFR > 60.00
[2024-10-03 06:00] VITALS: BMI 26.5
[2024-10-03 07:00] VITALS: BP 133/72
[2024-10-03 07:03] LABS: Glucose - Point of Care 72 mg/dl (70-99)
--- NOTE | 2024-10-03 07:18 | PHA.VAN.FU ---
Vancomycin Assessment / Plan
- Assessment
Renal Function: Stable
WBC's are: WNL
In the past 24 hrs, patient has been: Afebrile
Concomitant Antimicrobials: cefepime, metronidazole
- Assessment - Therapeutic Drug Monitoring
Extrapolated Cmax (mcg/mL): 23.8
Peak level was drawn: Appropriately (drawn ~2.1 H after end of previous infusion)
Extrapolated Cmin (mcg/mL): 13.8
Trough Drawn: Appropriately
Levels were drawn: Pre-steady state (patient being dosed by level but received 5 days of once daily dosing and likely approaching steady state)
Calculated AUC (mcg*h/mL): 440
Calculated ke: 0.0237
Calculated half life (H): 29.3
Calculated Vd (L): 96 (~1.1 L/kg)
Calculated Vanc CL (ml/min): 38
AUC appropriate but anticipate additional accumulation with Q24H dosing interval
- Dosing Plan
Dosing by Level: Re-dose today (Vanc 1500mg)
Vanc 1500mg Q36H currently predicts AUC 448, peak 27.3, trough 12
Patient may still have additional accumulation - will hold off on scheduling for now in case requires longer dosing interval
- Monitoring Plan
Random Level: 7 0600
Monitoring Comments: anticipate 36-48H interval but will obtain AM level to trend
- Follow Up
Pharmacy will continue to follow.
Vancomycin Follow UP
- -
Patient Age: 89
Patient Sex: Male
Vancomycin Day #: 6
Indication: Diabetic Foot
Requesting Provider: David Watts / Dr. Rankin
Pertinent Antimicrobial Allergies:
penicillin - rash; tolerated cephalexin
ivermectin - dehydration
Height / Weight:
Height 5 ft 11 in
Actual Weight 86.092 kg
Pertinent Past Medical History: DM II
- Vital Signs / Lab Results
Temp Pulse Resp BP Pulse Ox
98.4 F 83 16 134/67 100
10/03/24 03:22 10/03/24 03:22 10/03/24 03:22 10/03/24 03:22 10/03/24 03:22
Lab Results - Hematology
10/01/24 10/02/24 10/03/24
05:29 06:48 04:22
WBC 6.2 6.0 6.6
Lab Results - Chemistry
10/01/24 10/02/24 10/03/24
05:29 06:48 04:22
BUN 21 H 16 15
Creatinine 1.1 0.9 1.0
Estimated Creat Clear 49 60 54
Albumin 2.6 L 2.4 L 2.4 L
Microbiology Results
09/28/24 18:15 Blood Culture - Preliminary
Blood/Venous Positive culture in progress
Gram Stain - Preliminary
09/28/24 17:51 Blood Culture - Preliminary
Blood/Venous Anaerobic gram positive cocci
Gram Stain - Preliminary
09/29/24 17:19 Anaerobic Culture - Preliminary
Foot - Right Culture pending. Anaerobic cultures are examined after 3
days incubation. Additional information to follow.
09/30/24 10:56 Wound Culture - Preliminary
Foot - Right Gram Stain - Preliminary
09/30/24 13:18 MRSA Screen - Final
Nose No Methicillin Resistant Staphylococcus aureus isolated.
09/30/24 10:56 Anaerobic Culture - Preliminary
Foot - Right Culture pending. Anaerobic cultures are examined after 3
days incubation. Additional information to follow.
09/29/24 17:19 Wound Culture - Preliminary
Foot - Right Staph aureus MRSA
Viridans Streptococcus Group
Diptheroids
Gram Stain - Preliminary
09/28/24 17:51 Wound Culture - Final
Foot - Right Staph aureus MRSA
Viridans Streptococcus Group
Gram Stain - Final
Therapeutic Drug Monitoring
Vancomycin Peak 22.6 ug/ml (18-26) 10/02/24 13:46
Random Vancomycin 16.0 ug/ml 10/03/24 04:22
[2024-10-03] MEDS: NOVOLOG FLEXPEN-MODERATE RESISTANCE SC ×3 (08:18→17:41)
[2024-10-03] MEDS: LANTUS 0.2 UNITS SC (08:18)
[2024-10-03] MEDS: TOPROL XL 25 MG PO (08:19)
[2024-10-03] MEDS: CYANOCOBALAMIN 1000 MCG IM (08:19)
[2024-10-03] MEDS: VANCOCIN 530 MG IV (08:23)
--- NOTE | 2024-10-03 08:50 | W.PN.ID1 ---
Date of Service
Date of Service: October 03, 2024
Today's Communication
Continue antibiotics.
Assessment / Plan
# Right 5th toe cellulitis
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
# Fever
# Leukocytosis
# Uncontrolled diabetes mellitus with neuropathy
# PCN allergy
Recommendations:
Patient is status post right TMA (09/30/24) with planned delayed closure to be performed 10/04/24
Blood cultures 09/28 with GNR
Foot cultures with MRSA, viridans strep and diphtheroids. Anaerobic cultures remain pending.
- Continue vancomycin, cefepime, and metronidazole. Follow Vanco levels closely to prevent nephrotoxicity.
- Trend white count and temps.
- Tight glucose control
- Await final closure
����������������������������������������������������������
Chief Complaint
-: Cellulitis and Other (Osteomyelitis)
Subjective / Review of Systems
Review of Systems: No Fever and No Chills
Vital Signs / Physical Exam
Vital Signs
Vital Signs
Temp Pulse Resp BP Pulse Ox
98.0 F 89 17 143/66 99
10/03/24 07:00 10/03/24 08:19 10/03/24 07:00 10/03/24 08:19 10/03/24 07:00
Physical Exam
Constitutional: No Acute Distress, Comfortable and Non-toxic
Cardiovascular: S1/S2; Negative S3/S4
Pulmonary: Clear; Negative Wheezes or Rales
Extremities: Edema (Bilateral lower extremities); Negative Erythema
Wound: Other (Right foot dressed. No strikethrough.)
Neurological: Awake and Alert
Psychological: Calm
Objective Data
Lab Data
Lab Results
10/03/24 04:22
10/03/24 04:22
PT 18.0 Sec (11.4-14.6) H 10/03/24 04:22
PT Cancelled 10/03/24 04:22
INR 1.46 10/03/24 04:22
INR Cancelled 10/03/24 04:22
APTT 86.8 Sec (23.4-35.0) H 10/03/24 04:22
Estimated Creat Clear 54 ml/min 10/03/24 04:22
Lactic Acid 1.6 mmol/L (0.7-2.0) 09/28/24 17:51
Total Bilirubin 1.1 mg/dl (0.2-1.3) 10/03/24 04:22
AST 22 U/L (17-59) 10/03/24 04:22
ALT 10 U/L (0-50) 10/03/24 04:22
Alkaline Phosphatase 73 U/L (38-126) 10/03/24 04:22
Most recent labs reviewed.
Micro Results:
09/28/24 18:15 Blood Culture - Preliminary
Blood/Venous Positive culture in progress
Gram Stain - Preliminary
09/28/24 17:51 Blood Culture - Preliminary
Blood/Venous Anaerobic gram positive cocci
Gram Stain - Preliminary
09/29/24 17:19 Anaerobic Culture - Preliminary
Foot - Right Culture pending. Anaerobic cultures are examined after 3
days incubation. Additional information to follow.
09/30/24 10:56 Wound Culture - Preliminary
Foot - Right Gram Stain - Preliminary
09/30/24 13:18 MRSA Screen - Final
Nose No Methicillin Resistant Staphylococcus aureus isolated.
09/30/24 10:56 Anaerobic Culture - Preliminary
Foot - Right Culture pending. Anaerobic cultures are examined after 3
days incubation. Additional information to follow.
09/29/24 17:19 Wound Culture - Preliminary
Foot - Right Staph aureus MRSA
Viridans Streptococcus Group
Diptheroids
Gram Stain - Preliminary
09/28/24 17:51 Wound Culture - Final
Foot - Right Staph aureus MRSA
Viridans Streptococcus Group
Gram Stain - Final
09/28/24 16:44 Urine Culture - Final
Urine NO GROWTH
09/28/24 16:44 Influenza Types A & B (GINA) - Final
Nasal Swab Negative for Influenza A & B, NAAT
Negative results must be combined with clinical observations
and patient history.
Nucleic Acid Amplification test (NAAT)performed on the
[employer] platform.
Imaging:
09/29/2024 MRI right lower extremity: Acute osteomyelitis of the lateral forefoot. Involvement of the majority of the fourth and fifth metatarsals with sparing of small portions of both metatarsal bases. Osteomyelitis of the entire fifth proximal
phalanx and the base of the fourth proximal phalanx. Questionable early osteomyelitis versus reactive edema in the shaft of the third metatarsal without overt T1 hypointense marrow replacement. Plantar lateral forefoot soft tissue wound extending to
the fourth and fifth metatarsophalangeal joints. Rim-enhancing abscess contiguous with the soft tissue wound that wraps around the dorsal aspect of the fifth metatarsophalangeal joint and extends into the fourth intermetatarsal space.
09/28/24 Foot XRAY: Personally reviewed. New destructive changes centered at the 5th metatarsophalangeal joint involving the head of the 5th metatarsal and the base of the first proximal phalanx consistent with acute osteomyelitis.
09/28/24 CT a/p: Distended gallbladder containing a large noncalcified gallstone and gallbladder sludge. Splenomegaly.
--- NOTE | 2024-10-03 09:20 | W.PN.HOSP.TC ---
Today's Communication/Plan
-
IV Heparin to stop 6 AM
continue Abx
monitor labs
follow ID and Podiatry recs
Assessment / Plan
Assessment / Plan
Assessment:
Nausea/vomiting
- denies pain
- unclear etiology at time of admission, in retrospect possible related to acute illnes/sepsis?
- Lipase 30
- CT: Distended gallbladder containing a large noncalcified gallstone and gallbladder sludge. Splenomegaly. Colonic diverticulosis, without evidence for acute diverticulitis. Nonspecific mild urinary bladder wall thickening.
- LFTs normal, UA normal
- tolerating diet
- continue to observe
Sepsis POA (fever, tachycardia)
Cellulitis and diabetic foot infection
- X-ray: New destructive changes centered at the 5th metatarsophalangeal joint involving the head of the first metatarsal and the base of the first proximal phalanx consistent with acute osteomyelitis. Scattered small foci of gas about the first
metatarsophalangeal joint, and soft tissue swelling about the foot
- MRI: Acute osteomyelitis of the lateral forefoot. Involvement of the majority of the fourth and fifth metatarsals with sparing of small portions of both metatarsal bases. Osteomyelitis of the entire fifth proximal phalanx and the base of the
fourth proximal phalanx. Questionable early osteomyelitis versus reactive edema in the shaft of the third metatarsal without overt T1 hypointense marrow replacement. Plantar lateral forefoot soft tissue wound extending to the fourth and fifth
metatarsophalangeal joints. Rim-enhancing abscess contiguous with the soft tissue wound that wraps around the dorsal aspect of the fifth metatarsophalangeal joint and extends into the fourth intermetatarsal space.
- Podiatry following
- s/p Right TMA 09/30 with open surgical wound. Closure planned 10/04.
- NWB RLE. PT/OT
- continue Vanco/Cefepime/Flagyl pending operative cultures. ID following
L forearm/wrist stiffness
- patient was previous brace which he used longer than prescribed after orthopedic fluid drainage procedure 1 week prior (Dr. Adames)
- no evidence of infection
- encourage therapy and ROM exercises in bed. in no improvement by Friday, Consider consult to orthopedics
Hypokalemia/Hypomagnesemia
- monitor labs and prn replacement
Hyponatremia
- monitor BMP
Permanent Atrial Fibrillation
- continue BB - reduce dose to 25mg due to hypotension
- holding Coumadin for OR. s/p vitamin K 2.5mg. INR 1.46
- continue IV heparin for bridging, monitor PTTs
DM-II
- continue Lantus 20 units - will reduce to 10 units perioperatively
- monitor accu-checks
- A1c: 9.2%
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
- Iron labs suggest deficiency. oral iron at discharge. heme test stools
- hypovitaminosis B12 - continue replacement (IM while in hospital then PO)
- acute changes possibly related to surgical blood loss. monitor H/H (currently 7.7). May need blood. Type/Screen ordered.
Coronary Artery Disease
- continue aspirin/Statin/BB
Essential Hypertension
- hold valsartan/HCTZ in setting of hypotension
Hyperlipidemia
- continue atorvastatin
Stage 2 sacral pressure injury, POA
DVT prop: SCDs until able to resume anticoagulation. continue IV heparin - stop 6 AM Friday for OR
Code Status: Full Code
Anticipated Discharge: > 48 hours
Subjective/Interval History
-
Date of Service: October 03, 2024
denies any new complaints at present
Objective Data
-
Labs:
Laboratory Results
10/02/24 10/03/24 10/03/24
22:24 04:22 04:22
WBC 6.6
Hgb 7.9 L
Hct 23.6 L
Plt Count 160
PT Cancelled 18.0 H
INR Cancelled
APTT 91.9 H
Sodium
Potassium
Chloride
Carbon Dioxide
BUN
Creatinine
Glucose
Calcium
Total Bilirubin
AST
ALT
Alkaline Phosphatase
10/03/24
04:22
WBC
Hgb
Hct
Plt Count
PT
INR 1.46
APTT 86.8 H
Sodium 136
Potassium 3.7
Chloride 112 H
Carbon Dioxide 21 L
BUN 15
Creatinine 1.0
Glucose 71
Calcium 7.9 L
Total Bilirubin 1.1
AST 22
ALT 10
Alkaline Phosphatase 73
Vital Signs:
Vital Signs
Temp Pulse Resp BP Pulse Ox
98.0 F 89 17 143/66 99
10/03/24 07:00 10/03/24 08:19 10/03/24 07:00 10/03/24 08:19 10/03/24 07:00
I&O
10/02/24 10/03/24 10/04/24
06:59 06:59 06:59
Intake Total 680 / 680 1040 / 1040
Output Total 400 / 400 625 / 625
Balance 280 / 280 415 / 415
Physical Exam
-
General: No Apparent Distress
HEENT: Normocephalic and Atraumatic
Respiratory: Negative Wheezes
Cardiac: Regular Rhythm and S1/S2
GI: Soft
Genito-urinary: No Costovertebral Tender
Neuro: AO x 3
Psych: Calm
Data Reviewed
-
Total Time Spent with Patient (in minutes): 41
Labs: Labs Reviewed by me
[2024-10-03 11:00] VITALS: BP 120/78
[2024-10-03 12:36] LABS: Glucose - Point of Care 73 mg/dl (70-99)
[2024-10-03 15:10] VITALS: BP 143/66
[2024-10-03 17:39] LABS: Glucose - Point of Care 62 mg/dl (70-99)
[2024-10-03 17:56] LABS: Glucose - Point of Care 61 mg/dl (70-99)
[2024-10-03] MEDS: ASPIR LOW (ENTERIC COATED) 81 MG PO (18:03)
[2024-10-03] MEDS: LIPITOR 40 MG PO (18:03)
[2024-10-03 18:16] LABS: Glucose - Point of Care 82 mg/dl (70-99)
[2024-10-03] MEDS: HEPARIN 25000 UNITS/250 ML IV (18:23)
[2024-10-03 19:29] VITALS: BP 146/78
[2024-10-03 20:03] LABS: Glucose - Point of Care 116 mg/dl (70-99)
[2024-10-03 21:11] LABS: Glucose - Point of Care 119 mg/dl (70-99)
[2024-10-03 22:06] LABS: Glucose - Point of Care 143 mg/dl (70-99)
[2024-10-03 23:00] VITALS: BP 116/58
[2024-10-04] VITALS (9 sets, daily range): BP systolic 115–148; BP diastolic 64–78; PULSE 77–79; O2SAT 100; BMI 26.6
[2024-10-04] MEDS: FLAGYL 500 MG 100 IV ×3 (02:51→19:06)
[2024-10-04] MEDS: MAXIPIME 1000 MG IV ×3 (02:51→18:49)
[2024-10-04] MEDS: STERILE WATER FOR INJECTION 10 ML IV ×3 (02:52→18:49)
[2024-10-04 02:57] LABS: Glucose - Point of Care 118 mg/dl (70-99)
--- NOTE | 2024-10-04 06:08 | PTCARENOTE ---
Heparin Drip stopped at 0600 per orders for surgery today.
[2024-10-04 07:30] LABS: Glucose - Point of Care 90 mg/dl (70-99)
--- NOTE | 2024-10-04 07:32 | W.PN.UPDATE ---
Update Note
Progress Note Update
Patient S/P TMA for source control
-Plan for OR today for delayed primary closure
-Will anticipate Strict NWB RLE, anticipate rehab
-PT/OT consults post operatively
-Continue ABx x 2 weeks
-Follow up 2 weeks
[2024-10-04] MEDS: NOVOLOG FLEXPEN-MODERATE RESISTANCE SC ×3 (08:01→17:43)
[2024-10-04 08:04] LABS: Hematocrit 26.2 % (39.0-52.0); Hemoglobin 8.6 g/dL (13.0-18.0); INR 1.64; Mean Corp Hgb Conc. 32.8 g/dL (33.0-37.0); Mean Corpuscular Volume 83.4 fL (80.0-94.0); Nucleated Red Blood Cells % 0 % (-); PT 19.7 Sec (11.4-14.6); Platelet Count 195 10^3/uL (130-400); Red Cell Dist. Width 15.2 % (11.5-14.5)
--- NOTE | 2024-10-04 08:12 | W.PN.HOSP.TC ---
Addendum entered and electronically signed by Nanci Lorenzo MD 10/04/24 08:43:
decrease Lantus further to 5 units daily
Original Note:
Today's Communication/Plan
-
see A/P
Assessment / Plan
Assessment / Plan
A/P:
# Nausea/vomiting, resolved
unclear etiology at time of admission, in retrospect possible related to acute illness/sepsis?
Lipase 30
CT: Distended gallbladder containing a large noncalcified gallstone and gallbladder sludge. Splenomegaly. Colonic diverticulosis, without evidence for acute diverticulitis. Nonspecific mild urinary bladder wall thickening.
LFTs normal, UA normal
tolerating diet
continue to observe
# Sepsis POA (fever, tachycardia) 2/2 RLE Cellulitis and diabetic foot infection
X-ray: New destructive changes centered at the 5th metatarsophalangeal joint involving the head of the first metatarsal and the base of the first proximal phalanx consistent with acute osteomyelitis. Scattered small foci of gas about the first
metatarsophalangeal joint, and soft tissue swelling about the foot
MRI: Acute osteomyelitis of the lateral forefoot. Involvement of the majority of the fourth and fifth metatarsals with sparing of small portions of both metatarsal bases. Osteomyelitis of the entire fifth proximal phalanx and the base of the fourth
proximal phalanx. Questionable early osteomyelitis versus reactive edema in the shaft of the third metatarsal without overt T1 hypointense marrow replacement. Plantar lateral forefoot soft tissue wound extending to the fourth and fifth
metatarsophalangeal joints. Rim-enhancing abscess contiguous with the soft tissue wound that wraps around the dorsal aspect of the fifth metatarsophalangeal joint and extends into the fourth intermetatarsal space.
Podiatry following
s/p Right TMA 09/30 with open surgical wound. Closure planned 10/04.
NWB RLE. PT/OT
continue Vanco/Cefepime/Flagyl pending operative cultures. ID following
# L forearm/wrist stiffness
patient was with previous brace which he used longer than prescribed after orthopedic fluid drainage procedure 1 week prior (Dr. Adames)
no evidence of infection
encourage therapy and ROM exercises in bed.
# Hypokalemia/Hypomagnesemia
repleted
monitor labs and prn replacement
# Hyponatremia, resolved
monitor BMP
# Permanent Atrial Fibrillation
continue BB - reduced dose to 25mg daily due to hypotension
holding Coumadin for OR. s/p vitamin K 2.5mg.
Daily INR, today at 1.64
s/p IV heparin for bridging
# DM-II
continue Lantus reduced to 10 units ([employer] 20 units daily)
monitor accu-checks
A1c: 9.2%
# Acute on chronic Normocytic Anemia
# Resolved B12 deficiency
Stop further IM B12 injection
Monitor CBC
# Coronary Artery Disease
continue aspirin/Statin/BB
# Essential Hypertension
hold valsartan/HCTZ in setting of hypotension
BP stable on reduced dose Toprol
# Hyperlipidemia
continue atorvastatin
# Stage 2 sacral pressure injury, POA
DVT prop: SCDs until able to resume anticoagulation. s/p IV heparin drip
Code Status: Full Code
total time 51 min
Anticipated Discharge: > 48 hours
Subjective/Interval History
-
Date of Service: October 04, 2024
Objective Data
-
Labs:
Laboratory Results
10/04/24
06:56
WBC 6.9
Hgb 8.6 L
Hct 26.2 L
Plt Count 195 D
PT 19.7 H
INR 1.64
Sodium Pending
Potassium Pending
Chloride Pending
Carbon Dioxide Pending
BUN Pending
Creatinine Pending
Glucose Pending
Calcium Pending
Total Bilirubin Pending
AST Pending
ALT Pending
Alkaline Phosphatase Pending
Vital Signs:
Vital Signs
Temp Pulse Resp BP Pulse Ox
36.6 C 75 16 116/58 98
10/03/24 23:00 10/03/24 23:00 10/03/24 23:00 10/03/24 23:00 10/03/24 23:00
I&O
10/03/24 10/04/24 10/05/24
06:59 06:59 06:59
Intake Total 1040 / 1040 1020 / 1020
Output Total 625 / 625 200 / 200
Balance 415 / 415 820 / 820
Review of Systems
-
History Source: Patient
All other systems: Reviewed and negative
Physical Exam
-
General: Well Developed, Well Nourished, No Apparent Distress, Comfortable and Conversant
HEENT: Normocephalic and Atraumatic
Respiratory: Clear to Auscultation and Non Labored Respirations; Negative Wheezes or Accessory Resp Muscle Use
Cardiac: Regular Rhythm and S1/S2
GI: Soft and Nontender
Skin: Other (see wound care note)
Neuro: Awake, Alert and Oriented
Psych: Calm and Intact Judgement/Insight
Data Reviewed
-
MRI: Report Reviewed by me
Labs: Labs Reviewed by me
[2024-10-04] MEDS: TOPROL XL 25 MG PO (08:34)
[2024-10-04 08:36] LABS: ALT (SGPT) 14 U/L (0-50); AST (SGOT) 25 U/L (17-59); Albumin 2.4 g/dl (3.5-5.0); Alkaline Phosphatase 84 U/L (38-126); Blood Urea Nitrogen 15 mg/dl (9-20); Calcium 7.8 mg/dl (8.4-10.2); Carbon Dioxide 20 mmol/L (22-30); Chloride 111 mmol/L (98-107); Estimated Creatinine Clearance 49 ml/min; Glucose 77 mg/dl (70-99); Potassium 3.7 mmol/L (3.5-5.1); Sodium 135 mmol/L (135-145); Total Protein 4.9 g/dl (6.3-8.2); eGFR > 60.00
[2024-10-04] MEDS: CYANOCOBALAMIN IM (08:36)
--- NOTE | 2024-10-04 09:02 | PHA.VAN.FU ---
Vancomycin Assessment / Plan
- Assessment
Renal Function: Stable
WBC's are: WNL
In the past 24 hrs, patient has been: Afebrile
Concomitant Antimicrobials: cefepime, metronidazole
- Assessment - Therapeutic Drug Monitoring
Random Level: 18.2 - drawn ~22.5H after end of previous infusion
- Dosing Plan
Adjust Regimen to: Vanc 1500mg Q36H
New Regimen Predicts: AUC (448), Peak (27.3), Trough (12)
Based on calculations yesterday and level today, suspect dosing will not maintain patient through Q48H interval at this time
Will tentatively schedule Vanc 1500mg Q36H starting tonight at 1800
- Monitoring Plan
No level(s) ordered at this time: consider trough for 10/06
- Follow Up
Pharmacy will continue to follow.
Vancomycin Follow UP
- -
Patient Age: 89
Patient Sex: Male
Vancomycin Day #: 7
Indication: Diabetic Foot
Requesting Provider: David Watts / Dr. Rankin
Pertinent Antimicrobial Allergies:
penicillin - rash; tolerated cephalexin
ivermectin - dehydration
Height / Weight:
Height 5 ft 11 in
Actual Weight 86.545 kg
Pertinent Past Medical History: DM II
- Vital Signs / Lab Results
Temp Pulse Resp BP Pulse Ox
97.6 F 76 16 128/70 100
10/04/24 07:32 10/04/24 08:34 10/04/24 07:32 10/04/24 08:34 10/04/24 07:32
Lab Results - Hematology
10/02/24 10/03/24 10/04/24
06:48 04:22 06:56
WBC 6.0 6.6 6.9
Lab Results - Chemistry
10/02/24 10/03/24 10/04/24
06:48 04:22 06:56
BUN 16 15 15
Creatinine 0.9 1.0 1.1
Estimated Creat Clear 60 54 49
Albumin 2.4 L 2.4 L 2.4 L
Microbiology Results
09/30/24 10:56 Anaerobic Culture - Preliminary
Foot - Right Culture pending. Anaerobic cultures are examined after 3
days incubation. Additional information to follow.
09/28/24 18:15 Blood Culture - Preliminary
Blood/Venous Positive culture in progress
Gram Stain - Preliminary
09/28/24 17:51 Blood Culture - Final
Blood/Venous Peptostreptococcus micros
Gram Stain - Final
09/29/24 17:19 Anaerobic Culture - Preliminary
Foot - Right Culture pending. Anaerobic cultures are examined after 3
days incubation. Additional information to follow.
09/30/24 10:56 Wound Culture - Preliminary
Foot - Right Gram Stain - Preliminary
Therapeutic Drug Monitoring
Vancomycin Peak 22.6 ug/ml (18-26) 10/02/24 13:46
Random Vancomycin 18.2 ug/ml 10/04/24 06:56
[2024-10-04 11:28] LABS: Glucose - Point of Care 83 mg/dl (70-99)
--- NOTE | 2024-10-04 12:41 | CM ---
Patient seen at bedside in [address] [place] [address]. Patient for surgery today per patient and nursing. Patient indicated that he was hoping that he could return to personal care when medically appropriate. CM will continue to follow for discharge planning needs.
Plan; return to personal care pending PT/OT assessment vs SNF
--- NOTE | 2024-10-04 12:52 | W.PN.ID1 ---
Date of Service
Date of Service: October 04, 2024
Today's Communication
Continue abx's.
Assessment / Plan
# Right 5th toe cellulitis and abscess
# R 5th MT head osteomyelitis
# Fever resolved
# Leukocytosis resolved
# Uncontrolled diabetes mellitus with neuropathy
# PCN allergy
Recommendations:
Patient is status post right TMA (09/30/24) with planned delayed closure to be performed 10/04/24
Blood cultures 09/28 with GNR
Foot cultures with MRSA, viridans strep and diphtheroids. Anaerobic cultures +
For final closure today
Continue vancomycin, cefepime, and metronidazole. Follow Vanco levels closely to prevent nephrotoxicity.
At time of discharge, will transition to po abx.
����������������������������������������������������������
Chief Complaint
-: Cellulitis and Other (Osteomyelitis)
Subjective / Review of Systems
no pain
Vital Signs / Physical Exam
Vital Signs
Vital Signs
Temp Pulse Resp BP Pulse Ox
97.6 F 76 16 128/70 100
10/04/24 07:32 10/04/24 08:34 10/04/24 07:32 10/04/24 08:34 10/04/24 11:33
Physical Exam
Constitutional: No Acute Distress
Cardiovascular: Regular Rate and S1/S2
Pulmonary: Clear
Extremities: Negative Edema
Wound: Other (right foot dressing dry)
Objective Data
Lab Data
Lab Results
10/04/24 06:56
10/04/24 06:56
PT 19.7 Sec (11.4-14.6) H 10/04/24 06:56
INR 1.64 10/04/24 06:56
APTT 86.8 Sec (23.4-35.0) H 10/03/24 04:22
Estimated Creat Clear 49 ml/min 10/04/24 06:56
Lactic Acid 1.6 mmol/L (0.7-2.0) 09/28/24 17:51
Total Bilirubin 0.9 mg/dl (0.2-1.3) 10/04/24 06:56
AST 25 U/L (17-59) 10/04/24 06:56
ALT 14 U/L (0-50) 10/04/24 06:56
Alkaline Phosphatase 84 U/L (38-126) 10/04/24 06:56
Most recent labs reviewed.
Micro Results:
09/29/24 17:19 Wound Culture - Final
Foot - Right Staph aureus MRSA
Viridans Streptococcus Group
Diptheroids
Gram Stain - Final
09/29/24 17:19 Anaerobic Culture - Final
Foot - Right
09/30/24 10:56 Anaerobic Culture - Preliminary
Foot - Right Culture pending. Anaerobic cultures are examined after 3
days incubation. Additional information to follow.
09/28/24 18:15 Blood Culture - Preliminary
Blood/Venous Positive culture in progress
Gram Stain - Preliminary
09/28/24 17:51 Blood Culture - Final
Blood/Venous Peptostreptococcus micros
Gram Stain - Final
09/30/24 10:56 Wound Culture - Preliminary
Foot - Right Gram Stain - Preliminary
09/30/24 13:18 MRSA Screen - Final
Nose No Methicillin Resistant Staphylococcus aureus isolated.
09/28/24 17:51 Wound Culture - Final
Foot - Right Staph aureus MRSA
Viridans Streptococcus Group
Gram Stain - Final
09/28/24 16:44 Urine Culture - Final
Urine NO GROWTH
09/28/24 16:44 Influenza Types A & B (GINA) - Final
Nasal Swab Negative for Influenza A & B, NAAT
Negative results must be combined with clinical observations
and patient history.
Nucleic Acid Amplification test (NAAT)performed on the
[employer] platform.
Imaging:
09/29/2024 MRI right lower extremity: Acute osteomyelitis of the lateral forefoot. Involvement of the majority of the fourth and fifth metatarsals with sparing of small portions of both metatarsal bases. Osteomyelitis of the entire fifth proximal
phalanx and the base of the fourth proximal phalanx. Questionable early osteomyelitis versus reactive edema in the shaft of the third metatarsal without overt T1 hypointense marrow replacement. Plantar lateral forefoot soft tissue wound extending to
the fourth and fifth metatarsophalangeal joints. Rim-enhancing abscess contiguous with the soft tissue wound that wraps around the dorsal aspect of the fifth metatarsophalangeal joint and extends into the fourth intermetatarsal space.
09/28/24 Foot XRAY: Personally reviewed. New destructive changes centered at the 5th metatarsophalangeal joint involving the head of the 5th metatarsal and the base of the first proximal phalanx consistent with acute osteomyelitis.
09/28/24 CT a/p: Distended gallbladder containing a large noncalcified gallstone and gallbladder sludge. Splenomegaly.
--- NOTE | 2024-10-04 16:30 | W.PN.UPDATE ---
Update Note
Progress Note Update
Patient s/p Right TMA Delayed primary closure
-NWB RLE
-PT/OT
-Anticipate rehab needs, dressing changes 2-3 time per week
-Continue ABx x 2 weeks
-Follow up outpatient 2 weeks
[2024-10-04 16:36] LABS: Glucose - Point of Care 73 mg/dl (70-99)
[2024-10-04 18:03] LABS: Glucose - Point of Care 72 mg/dl (70-99)
[2024-10-04] MEDS: DILAUDID 0.25 MG IV ×2 (18:07→18:33)
[2024-10-04] MEDS: LIPITOR 40 MG PO (18:49)
[2024-10-04] MEDS: ASPIR LOW (ENTERIC COATED) PO ×2 (18:49→18:58)
[2024-10-04 18:50] LABS: Glucose - Point of Care 80 mg/dl (70-99)
[2024-10-04 19:54] LABS: Hematocrit 27.3 % (39.0-52.0); Hemoglobin 9.0 g/dL (13.0-18.0); Mean Corp Hgb Conc. 33.0 g/dL (33.0-37.0); Mean Corpuscular Volume 83.5 fL (80.0-94.0); Platelet Count 190 10^3/uL (130-400); Red Cell Dist. Width 15.4 % (11.5-14.5)
[2024-10-04 20:03] LABS: APTT 41.5 Sec (23.4-35.0)
[2024-10-04] MEDS: COUMADIN 5 MG PO (20:18)
[2024-10-04] MEDS: VANCOCIN 530 MG IV (20:19)
[2024-10-04] MEDS: HEPARIN 25000 UNITS/250 ML IV (20:20)
[2024-10-04 21:18] LABS: Glucose - Point of Care 124 mg/dl (70-99)
[2024-10-04] MEDS: ULTRAM 50 MG PO (22:42)
[2024-10-05] MEDS: FLAGYL 500 MG 100 IV ×2 (02:20→10:39)
[2024-10-05] MEDS: MAXIPIME 1000 MG IV ×2 (02:20→10:39)
[2024-10-05] MEDS: STERILE WATER FOR INJECTION 10 ML IV ×2 (02:21→10:39)
[2024-10-05 03:00] VITALS: BP 129/74
[2024-10-05 03:07] LABS: APTT 77.5 Sec (23.4-35.0)
[2024-10-05 06:00] VITALS: BMI 26.7
[2024-10-05 07:00] VITALS: BP 137/68
[2024-10-05 08:17] LABS: Glucose - Point of Care 117 mg/dl (70-99)
[2024-10-05] MEDS: LANTUS 0.05 UNITS SC (08:31)
[2024-10-05] MEDS: NOVOLOG FLEXPEN-MODERATE RESISTANCE SC (08:31)
[2024-10-05] MEDS: TOPROL XL 25 MG PO (08:32)
[2024-10-05 09:35] LABS: Hematocrit 26.5 % (39.0-52.0); Hemoglobin 8.6 g/dL (13.0-18.0); Mean Corp Hgb Conc. 32.5 g/dL (33.0-37.0); Mean Corpuscular Volume 84.1 fL (80.0-94.0); Platelet Count 221 10^3/uL (130-400); Red Cell Dist. Width 15.5 % (11.5-14.5)
[2024-10-05 09:48] LABS: INR 1.74; PT 20.6 Sec (11.4-14.6)
[2024-10-05 09:49] LABS: APTT 83.9 Sec (23.4-35.0)
--- NOTE | 2024-10-05 09:52 | W.PN.HOSP.TC ---
Addendum entered and electronically signed by Nanci Lorenzo MD 10/05/24 10:07:
Correction to below: cont Lantus at 5 units
Original Note:
Today's Communication/Plan
-
see A/P
Assessment / Plan
Assessment / Plan
A/P:
# Nausea/vomiting, resolved
unclear etiology at time of admission, in retrospect possible related to acute illness/sepsis?
Lipase 30
CT: Distended gallbladder containing a large noncalcified gallstone and gallbladder sludge. Splenomegaly. Colonic diverticulosis, without evidence for acute diverticulitis. Nonspecific mild urinary bladder wall thickening.
LFTs normal, UA normal
tolerating diet
continue to observe
# Sepsis POA (fever, tachycardia) 2/2 RLE Cellulitis and diabetic foot infection
X-ray: New destructive changes centered at the 5th metatarsophalangeal joint involving the head of the first metatarsal and the base of the first proximal phalanx consistent with acute osteomyelitis. Scattered small foci of gas about the first
metatarsophalangeal joint, and soft tissue swelling about the foot
MRI: Acute osteomyelitis of the lateral forefoot. Involvement of the majority of the fourth and fifth metatarsals with sparing of small portions of both metatarsal bases. Osteomyelitis of the entire fifth proximal phalanx and the base of the fourth
proximal phalanx. Questionable early osteomyelitis versus reactive edema in the shaft of the third metatarsal without overt T1 hypointense marrow replacement. Plantar lateral forefoot soft tissue wound extending to the fourth and fifth
metatarsophalangeal joints. Rim-enhancing abscess contiguous with the soft tissue wound that wraps around the dorsal aspect of the fifth metatarsophalangeal joint and extends into the fourth intermetatarsal space.
Podiatry following
s/p Right TMA 09/30 with open surgical wound and closure 10/04.
NWB RLE.
PT/OT recc SNF
continue Vanco/Cefepime/Flagyl pending operative cultures. ID following
# L forearm/wrist stiffness
patient was with previous brace which he used longer than prescribed after orthopedic fluid drainage procedure 1 week prior (Dr. Adames)
no evidence of infection
encourage therapy and ROM exercises in bed.
# Hypokalemia/Hypomagnesemia
repleted
monitor labs and prn replacement
# Hyponatremia, resolved
monitor BMP
# Permanent Atrial Fibrillation
continue BB- reduced dose to 25mg daily due to hypotension
resumed IV heparin gtt for bridging back to Coumadin
Daily INR
# DM-II
continue reduced dose Lantus at 10 units (DRY MIXER 20 units daily)
monitor accu-checks
A1c: 9.2%
# Acute on chronic Normocytic Anemia
# Resolved B12 deficiency
Stop further IM B12 injection
Monitor CBC
# Coronary Artery Disease
continue aspirin/Statin/BB
# Essential Hypertension
hold valsartan/HCTZ in setting of hypotension
BP stable on reduced dose Toprol
# Hyperlipidemia
continue atorvastatin
# Stage 2 sacral pressure injury, POA
DVT prop: IV heparin gtt for bridging back to Coumadin
Code Status: Full Code
Dispo: PT/OT recc SNF
d/w daughter on the phone
Anticipated Discharge: 24 - 48 hours
Subjective/Interval History
-
Date of Service: October 05, 2024
Objective Data
-
Labs:
Laboratory Results
10/05/24 10/05/24 10/05/24
02:33 09:18 09:18
WBC 10.9 H
Hgb 8.6 L
Hct 26.5 L
Plt Count 221
PT 20.6 H
INR 1.74
APTT 77.5 H 83.9 H Cancelled
Sodium Pending
Potassium Pending
Chloride Pending
Carbon Dioxide Pending
BUN Pending
Creatinine Pending
Glucose Pending
Calcium Pending
Vital Signs:
Vital Signs
Temp Pulse Resp BP Pulse Ox
36.4 C 78 16 137/68 99
10/05/24 07:00 10/05/24 07:00 10/05/24 07:00 10/05/24 07:00 10/05/24 07:00
I&O
10/04/24 10/05/24 10/06/24
06:59 06:59 06:59
Intake Total 1020 / 1020 150 / 150
Output Total 200 / 200
Balance 820 / 820 150 / 150
Review of Systems
-
History Source: Patient
All other systems: Reviewed and negative
Physical Exam
-
General: Well Developed, Well Nourished, No Apparent Distress, Comfortable and Conversant
HEENT: Normocephalic and Atraumatic
Respiratory: Clear to Auscultation and Non Labored Respirations; Negative Wheezes or Accessory Resp Muscle Use
Cardiac: Regular Rhythm and S1/S2
GI: Soft and Nontender
Skin: Other (see wound care note)
Neuro: Awake, Alert and Oriented
Psych: Calm and Intact Judgement/Insight
Data Reviewed
-
MRI: Report Reviewed by me
Labs: Labs Reviewed by me
[2024-10-05 10:22] LABS: Blood Urea Nitrogen 19 mg/dl (9-20); Calcium 7.9 mg/dl (8.4-10.2); Carbon Dioxide 14 mmol/L (22-30); Chloride 110 mmol/L (98-107); Estimated Creatinine Clearance 49 ml/min; Glucose 117 mg/dl (70-99); Magnesium 2.1 mg/dl (1.6-2.3); Potassium 4.6 mmol/L (3.5-5.1); Sodium 135 mmol/L (135-145); eGFR > 60.00
[2024-10-05] MEDS: HEPARIN 25000 UNITS/250 ML IV (11:35)
[2024-10-05 11:45] LABS: Glucose - Point of Care 203 mg/dl (70-99)
[2024-10-05] MEDS: NOVOLOG FLEXPEN-MODERATE RESISTANCE 3 UNITS SC (11:47)
--- NOTE | 2024-10-05 13:00 | PHA.VAN.FU ---
Vancomycin Assessment / Plan
- Assessment
Renal Function: Stable
In the past 24 hrs, patient has been: Afebrile
Concomitant Antimicrobials: metronidazole
- Dosing Plan
Continue: Vanc 1500mg Q36H
- Monitoring Plan
Trough Level: 10/06 05:30
- Follow Up
Pharmacy will continue to follow.
Vancomycin Follow UP
- -
Patient Age: 89
Patient Sex: Male
Vancomycin Day #: 8
Indication: Diabetic Foot
Requesting Provider: David Watts / Dr. Rankin
Pertinent Antimicrobial Allergies:
penicillin - rash; tolerated cephalexin
ivermectin - dehydration
Height / Weight:
Height 5 ft 11 in
Actual Weight 86.75 kg
Pertinent Past Medical History: DM II
- Vital Signs / Lab Results
Temp Pulse Resp BP Pulse Ox
97.5 F 78 16 137/68 99
10/05/24 07:00 10/05/24 07:00 10/05/24 07:00 10/05/24 07:00 10/05/24 07:00
Lab Results - Hematology
10/03/24 10/04/24 10/04/24
04:22 06:56 19:44
WBC 6.6 6.9 8.6
10/05/24
09:18
WBC 10.9 H
Lab Results - Chemistry
10/03/24 10/04/24 10/05/24
04:22 06:56 09:18
BUN 15 15 19
Creatinine 1.0 1.1 1.1
Estimated Creat Clear 54 49 49
Albumin 2.4 L 2.4 L
Microbiology Results
09/28/24 18:15 Blood Culture - Preliminary
Blood/Venous Mobiluncus species
Gram Stain - Preliminary
09/30/24 10:56 Wound Culture - Final
Foot - Right Gram Stain - Final
09/30/24 10:56 Anaerobic Culture - Final
Foot - Right NO ANAEROBES ISOLATED
09/29/24 17:19 Wound Culture - Final
Foot - Right Staph aureus MRSA
Viridans Streptococcus Group
Diptheroids
Gram Stain - Final
09/29/24 17:19 Anaerobic Culture - Final
Foot - Right
09/28/24 17:51 Blood Culture - Final
Blood/Venous Peptostreptococcus micros
Gram Stain - Final
Therapeutic Drug Monitoring
Vancomycin Peak 22.6 ug/ml (18-26) 10/02/24 13:46
Random Vancomycin 18.2 ug/ml 10/04/24 06:56
[2024-10-05 13:02] VITALS: BMI 26.7
--- NOTE | 2024-10-05 13:05 | W.PN.ID1 ---
Date of Service
Date of Service: October 05, 2024
Today's Communication
Transition to doxycycline 100mg po bid and metronidazole 500mg po bid through 10/14.
Assessment / Plan
# Right 5th toe cellulitis and abscess
# R 5th MT head osteomyelitis
# Peptostreptococcus bacteremia (1 of 2 sets) - likely foot source
# Mobiluncus bacteremia (1 of 2 sets) - contaminant
# Fever resolved
# Leukocytosis resolved
# Uncontrolled diabetes mellitus with neuropathy
# PCN allergy
Recommendations:
Patient is status post right TMA (09/30/24)
10/04/24 s/p delayed primary closure.
Foot cultures with MRSA, viridans strep and diphtheroids. Anaerobic cultures +
Discontinue vancomycin, cefepime, and metronidazole.
Transition to doxycycline 100mg po bid and metronidazole 500mg po bid through 10/14.
����������������������������������������������������������
Chief Complaint
-: Cellulitis and Other (Osteomyelitis)
Subjective / Review of Systems
No complaints
Vital Signs / Physical Exam
Vital Signs
Vital Signs
Temp Pulse Resp BP Pulse Ox
97.5 F 78 16 137/68 99
10/05/24 07:00 10/05/24 07:00 10/05/24 07:00 10/05/24 07:00 10/05/24 07:00
Physical Exam
Constitutional: No Acute Distress
Cardiovascular: Regular Rate and S1/S2
Pulmonary: Clear
Extremities: Negative Edema
Wound: Other (right foot dressing dry)
Neurological: AO x 3
Objective Data
Lab Data
Lab Results
10/05/24 09:18
10/05/24 09:18
PT 20.6 Sec (11.4-14.6) H 10/05/24 09:18
INR 1.74 10/05/24 09:18
APTT 83.9 Sec (23.4-35.0) H 10/05/24 09:18
APTT Cancelled 10/05/24 09:18
Estimated Creat Clear 49 ml/min 10/05/24 09:18
Lactic Acid 1.6 mmol/L (0.7-2.0) 09/28/24 17:51
Total Bilirubin 0.9 mg/dl (0.2-1.3) 10/04/24 06:56
AST 25 U/L (17-59) 10/04/24 06:56
ALT 14 U/L (0-50) 10/04/24 06:56
Alkaline Phosphatase 84 U/L (38-126) 10/04/24 06:56
Most recent labs reviewed.
Micro Results:
09/28/24 18:15 Blood Culture - Preliminary
Blood/Venous Mobiluncus species
Gram Stain - Preliminary
09/30/24 10:56 Wound Culture - Final
Foot - Right Gram Stain - Final
09/30/24 10:56 Anaerobic Culture - Final
Foot - Right NO ANAEROBES ISOLATED
09/29/24 17:19 Wound Culture - Final
Foot - Right Staph aureus MRSA
Viridans Streptococcus Group
Diptheroids
Gram Stain - Final
09/29/24 17:19 Anaerobic Culture - Final
Foot - Right
09/28/24 17:51 Blood Culture - Final
Blood/Venous Peptostreptococcus micros
Gram Stain - Final
09/30/24 13:18 MRSA Screen - Final
Nose No Methicillin Resistant Staphylococcus aureus isolated.
09/28/24 17:51 Wound Culture - Final
Foot - Right Staph aureus MRSA
Viridans Streptococcus Group
Gram Stain - Final
09/28/24 16:44 Urine Culture - Final
Urine NO GROWTH
09/28/24 16:44 Influenza Types A & B (GINA) - Final
Nasal Swab Negative for Influenza A & B, NAAT
Negative results must be combined with clinical observations
and patient history.
Nucleic Acid Amplification test (NAAT)performed on the
[employer] platform.
Imaging:
09/29/2024 MRI right lower extremity: Acute osteomyelitis of the lateral forefoot. Involvement of the majority of the fourth and fifth metatarsals with sparing of small portions of both metatarsal bases. Osteomyelitis of the entire fifth proximal
phalanx and the base of the fourth proximal phalanx. Questionable early osteomyelitis versus reactive edema in the shaft of the third metatarsal without overt T1 hypointense marrow replacement. Plantar lateral forefoot soft tissue wound extending to
the fourth and fifth metatarsophalangeal joints. Rim-enhancing abscess contiguous with the soft tissue wound that wraps around the dorsal aspect of the fifth metatarsophalangeal joint and extends into the fourth intermetatarsal space.
09/28/24 Foot XRAY: Personally reviewed. New destructive changes centered at the 5th metatarsophalangeal joint involving the head of the 5th metatarsal and the base of the first proximal phalanx consistent with acute osteomyelitis.
09/28/24 CT a/p: Distended gallbladder containing a large noncalcified gallstone and gallbladder sludge. Splenomegaly.
[2024-10-05 15:00] VITALS: BP 118/61
--- NOTE | 2024-10-05 15:25 | CM ---
Patient seen at bedside on . Patient requested referrals to [facility] and said that he would talk to marciano about their recommendations. CM will send referral to [facility]. CM will continue to follow for discharge planning needs.
Plan;SNF; pending response.
[2024-10-05 16:41] LABS: Glucose - Point of Care 261 mg/dl (70-99)
[2024-10-05] MEDS: ASPIR LOW (ENTERIC COATED) 81 MG PO (17:08)
[2024-10-05] MEDS: LIPITOR 40 MG PO (17:08)
[2024-10-05] MEDS: NOVOLOG FLEXPEN-MODERATE RESISTANCE 5 UNITS SC (17:09)
[2024-10-05] MEDS: COUMADIN 5 MG PO (17:12)
[2024-10-05 21:29] LABS: Glucose - Point of Care 233 mg/dl (70-99)
[2024-10-05] MEDS: VIBRAMYCIN 100 MG PO (22:44)
[2024-10-05] MEDS: FLAGYL 500 MG PO (22:44)
[2024-10-05 23:04] VITALS: BP 123/53
--- NOTE | 2024-10-06 03:51 | PTCARENOTE ---
Assumed care of pt from antonio PRADO. Pt has heparin gtt infusing at 1000 u/hr. Dressing on right foot is clean, dry and intact. MERLIN medications administered. Pt resting in bed with call hale in reach
[2024-10-06 05:47] VITALS: BMI 27.1
[2024-10-06 05:55] LABS: Hematocrit 26.5 % (39.0-52.0); Hemoglobin 8.5 g/dL (13.0-18.0); Mean Corp Hgb Conc. 32.1 g/dL (33.0-37.0); Mean Corpuscular Volume 84.4 fL (80.0-94.0); Platelet Count 265 10^3/uL (130-400); Red Cell Dist. Width 16.0 % (11.5-14.5)
[2024-10-06 06:03] LABS: INR 2.10; PT 23.7 Sec (11.4-14.6)
[2024-10-06 06:06] LABS: APTT 118.3 Sec (23.4-35.0)
[2024-10-06 06:27] LABS: Blood Urea Nitrogen 25 mg/dl (9-20); Calcium 7.9 mg/dl (8.4-10.2); Carbon Dioxide 21 mmol/L (22-30); Chloride 110 mmol/L (98-107); Estimated Creatinine Clearance 42 ml/min; Glucose 174 mg/dl (70-99); Magnesium 2.0 mg/dl (1.6-2.3); Potassium 4.1 mmol/L (3.5-5.1); Sodium 134 mmol/L (135-145); eGFR 52.84
[2024-10-06 07:00] VITALS: BP 111/69
--- NOTE | 2024-10-06 08:10 | W.PN.HOSP.TC ---
Addendum entered and electronically signed by Nanci Lorenzo MD 10/06/24 14:04:
total DC time 39 min
Original Note:
Today's Communication/Plan
-
see A/P
for SNF
Assessment / Plan
Assessment / Plan
A/P:
# Nausea/vomiting, resolved
unclear etiology at time of admission, in retrospect possible related to acute illness/sepsis?
Lipase 30
CT: Distended gallbladder containing a large noncalcified gallstone and gallbladder sludge. Splenomegaly. Colonic diverticulosis, without evidence for acute diverticulitis. Nonspecific mild urinary bladder wall thickening.
LFTs normal, UA normal
tolerating diet
continue to observe
# Sepsis POA (fever, tachycardia) 2/2 RLE Cellulitis and diabetic foot infection
X-ray: New destructive changes centered at the 5th metatarsophalangeal joint involving the head of the first metatarsal and the base of the first proximal phalanx consistent with acute osteomyelitis. Scattered small foci of gas about the first
metatarsophalangeal joint, and soft tissue swelling about the foot
MRI: Acute osteomyelitis of the lateral forefoot. Involvement of the majority of the fourth and fifth metatarsals with sparing of small portions of both metatarsal bases. Osteomyelitis of the entire fifth proximal phalanx and the base of the fourth
proximal phalanx. Questionable early osteomyelitis versus reactive edema in the shaft of the third metatarsal without overt T1 hypointense marrow replacement. Plantar lateral forefoot soft tissue wound extending to the fourth and fifth
metatarsophalangeal joints. Rim-enhancing abscess contiguous with the soft tissue wound that wraps around the dorsal aspect of the fifth metatarsophalangeal joint and extends into the fourth intermetatarsal space.
Podiatry following
s/p Right TMA 09/30 with open surgical wound and closure 10/04.
NWB RLE.
PT/OT recc SNF
IV Vanco/Cefepime/Flagyl -> transitioned to doxycycline 100 mg po bid and metronidazole 500 mg po bid through 10/14 per ID
# L forearm/wrist stiffness
patient was with previous brace which he used longer than prescribed after orthopedic fluid drainage procedure 1 week prior (Dr. Adames)
no evidence of infection
encourage therapy and ROM exercises in bed.
# Hypokalemia/Hypomagnesemia
repleted
monitor labs and prn replacement
# Hyponatremia, resolved
monitor BMP
# Permanent Atrial Fibrillation
continue BB- reduced dose to 25mg daily due to hypotension
s/p IV heparin bridge back to Coumadin
Cont Coumadin 5 mg HS
Daily INR
# DM-II
continue reduced dose Lantus, adjusted to 10 units (SAMPLER RADIOACTIVE WASTE 20 units daily)
monitor accu-checks
A1c: 9.2%
# Acute on chronic Normocytic Anemia
# Resolved B12 deficiency
Stopped further IM B12 injection
Monitor CBC
# Coronary Artery Disease
continue aspirin/Statin/BB
# Essential Hypertension
hold valsartan/HCTZ in setting of hypotension
BP stable on reduced dose Toprol
# Hyperlipidemia
continue atorvastatin
# Stage 2 sacral pressure injury, POA
DVT prop: s/p IV heparin bridge back to Coumadin, cont Coumadin
Code Status: Full Code
Dispo: PT/OT recc SNF
d/w daughter on the phone 10/05
Anticipated Discharge: Within 24 hours
Subjective/Interval History
-
Date of Service: October 06, 2024
Objective Data
-
Labs:
Laboratory Results
10/06/24 10/06/24
05:38 12:30
WBC 10.5
Hgb 8.5 L
Hct 26.5 L
Plt Count 265
PT 23.7 H
INR 2.10
APTT 118.3 H Pending
Sodium 134 L
Potassium 4.1
Chloride 110 H
Carbon Dioxide 21 L
BUN 25 H
Creatinine 1.3
Glucose 174 H
Calcium 7.9 L
Vital Signs:
Vital Signs
Temp Pulse Resp BP Pulse Ox
36.4 C 84 18 123/53 98
10/05/24 23:04 10/05/24 23:04 10/05/24 23:04 10/05/24 23:04 10/06/24 03:48
I&O
10/05/24 10/06/24 10/07/24
06:59 06:59 06:59
Intake Total 150 / 150 1050 / 1050
Output Total 400 / 400
Balance 150 / 150 650 / 650
Review of Systems
-
History Source: Patient
All other systems: Reviewed and negative
Physical Exam
-
General: Well Developed, Well Nourished, No Apparent Distress, Comfortable and Conversant
HEENT: Normocephalic and Atraumatic
Respiratory: Clear to Auscultation and Non Labored Respirations; Negative Wheezes or Accessory Resp Muscle Use
Cardiac: Regular Rhythm and S1/S2
GI: Soft and Nontender
Skin: Other (see wound care note)
Neuro: Awake, Alert and Oriented
Psych: Calm and Intact Judgement/Insight
Data Reviewed
-
MRI: Report Reviewed by me
Labs: Labs Reviewed by me
[2024-10-06] MEDS: VIBRAMYCIN 100 MG PO (08:28)
[2024-10-06] MEDS: TOPROL XL 25 MG PO (08:28)
[2024-10-06] MEDS: FLAGYL 500 MG PO (08:28)
[2024-10-06 08:37] LABS: Glucose - Point of Care 173 mg/dl (70-99)
[2024-10-06] MEDS: LANTUS 0.1 UNITS SC (08:37)
[2024-10-06] MEDS: NOVOLOG FLEXPEN-MODERATE RESISTANCE 1 UNITS SC ×2 (08:38→12:41)
[2024-10-06] MEDS: LANTUS SC (08:38)
--- NOTE | 2024-10-06 09:51 | PTCARENOTE ---
Heparin gtt removed from pt per MD order, bridging to coumadin. No new orders at this time.
[2024-10-06 11:11] VITALS: BP 117/61
--- NOTE | 2024-10-06 11:13 | CM ---
CM following re: discharge planning.
Reviewed pt's chart, met with pt and spoke to pt's daughter Asuncion over the phone to update on discharge plan progress.
Discharge order noted. Both pt and his daughter are aware, expressed their agreement with discharge and they requested [facility]. IMM reviewed, placed on chart, pt has a copy.
CM spoke to [facility] head start director and she confirmed they do have a bed available to day and pt is accepted for admission today. COVID test requested. is aware.
to arrange ambulance transport, BLS. PMNC completed and left with
[facility] nursing report: [phone]
Discharge instructions fax with COVID test result: [phone]
D/C plan: [facility]
[2024-10-06 11:56] LABS: Glucose - Point of Care 172 mg/dl (70-99)
[2024-10-06 12:31] LABS: COVID-19 Antigen Negative (Negative)
[2024-10-06 13:00] VITALS: BP 120/72
--- NOTE | 2024-10-06 13:39 | W.DCSUMMARY ---
Discharge Summary
Discharge Data
Date of Admission: 09/28/24
Date of Discharge: 10/06/24
-
Pending Results: No
Hospital Course
Principal Diagnosis:
Sepsis POA 2/2 RLE Cellulitis and diabetic foot infection
Chronic Diagnoses:�
Permanent Atrial Fibrillation
Insulin-dependent diabetes, continue reduced dose Tresiba at 10 units daily (PEDIATRIC PSYCHOLOGIST 20 units daily)
Acute on chronic Normocytic Anemia
Resolved B12 deficiency
Coronary Artery Disease
Essential Hypertension, stopped valsartan/HCTZ this admission, continue reduced dose Toprol at 25 mg daily
Hyperlipidemia, on atorvastatin
Stage 2 sacral pressure injury, POA
Consultations:�
Podiatry
Infectious disease
Procedures:�
Right TMA 09/30 with open surgical wound and closure on 10/04/2024.
Clinical course:�
This is a 89-year-old male, with past medical history as stated above, who presented with right leg cellulitis and diabetic foot infection.
Problem 1:
Sepsis POA 2/2 RLE cellulitis and diabetic foot infection.
His X-ray showed new destructive changes centered at the 5th metatarsophalangeal joint involving the head of the first metatarsal and the base of the first proximal phalanx consistent with acute osteomyelitis.
His MRI foot confirmed acute osteomyelitis of the lateral forefoot.
He underwent Right TMA on 09/30 with subsequent wound closure on 10/04.
He was discharged to SNF for PT OT recommendation.
Of note, he was covered with IV Vanco/Cefepime/Flagyl while in the hospital, and he can continue with oral doxycycline 100 mg po bid and metronidazole 500 mg po bid through 10/14 per ID.
Problem 2:
Permanent Atrial Fibrillation.
He received heparin bridge back to Coumadin and he can continue Coumadin 5 mg at bedtime.
He can check repeat INR in 3 to 5 days with PCP.
Of note, his prior to admission Toprol was decreased from 75 to 25 mg due to hypotension.
His blood pressure has been stable on Toprol alone at 25 mg daily.
As for the rest of his medical problems, they were stable during his hospital stay.
Discharge Plan
-
Patient Disposition: Skilled Nursing/SNF
Discharge Diagnosis/Procedures: # Right foot cellulitis and diabetic foot infection status post Right TMA 09/30 with open surgical wound and closure 10/04.
# Permanent Atrial Fibrillation
Condition: Fair
Diet: As tolerated and Diabetic, Carb Controlled
Activity: As tolerated
Driving Restrictions: As prior to admission
Blood Work: INR in 3-5 days
Wound Care: Wound Care Instructions:
R plantar foot local care and weight bearing restrictions as per natural resource technician's instructions.
L arm and L medial leg: clean with saline adaptic and dry dressing change q 2-3 days and prn drainage.
Follow up with Podiatry
Referrals:
Bee Posada PA-C [Family Provider, Family Practice] - in less than 1 week
Additional Discharge Medication Instructions: Continue doxycycline 100 mg po twice daily and metronidazole 500 mg twice daily through 10/14 per ID
Avoid sun exposure and dairy products while on doxycycline.
Continue reduced dose Tresiba at 10 units daily (previously 20 units daily).
Stop further valsartan-HCTZ.
Continue reduced dose Toprol at 25 mg daily (previously at 75 mg daily).
Prescriptions:
New
metronidazole 500 mg Tablet
500 mg PO BID 8 Days Qty: 16 0RF
metoprolol succinate 25 mg Tablet Extended Release 24 Hr
25 mg PO DAILY Qty: 30 0RF
doxycycline hyclate 100 mg Capsule
100 mg PO Q12 8 Days Qty: 16 0RF
Continued
aspirin 81 MG tablet,delayed release (DR/EC)
81 mg PO DAILY
atorvastatin [Lipitor] 40 mg Tablet
40 mg PO DAILY
acetaminophen 500 mg Tablet
1,000 mg PO Q6HPRN PRN (Reason: mild pain/fever)
warfarin [Jantoven] 5 MG tablet
5 mg PO QPM
furosemide 20 mg Tablet
20 mg PO DAILY PRN (Reason: fluid retention/peripheral edema)
Patient Comments:
09/28/2024, take for visible water retention (peripheral edema); take 1 tab if weight gain of 3 lbs in 24hr or 5 lbs in 7 days.
Changed
insulin degludec [Tresiba FlexTouch U-100] 100 unit/mL (3 mL) Insulin Pen
10 unit SC DAILY Qty: 0 0RF
Discontinued
metoprolol succinate 50 MG tablet extended release 24 hr
75 mg PO DAILY
valsartan-hydrochlorothiazide 160-25 mg Tablet
1 tab PO DAILY
Discharge Orders:
Discharge Patient (As Directed); Ordered 10/06/24
Ordered By: Nanci Lorenzo
Discharge Date and Time
Print Language: BHUTANESE
== END 2024-10-06 13:49 | DRG 854 ==
LOC: 2 NORTH 20:47
PROVIDERS: Hospitalist; Internal Medicine; Internal Medicine Infectious Disease; Physician Assistant Medical; ADMITTING PHYSICIAN Hospitalist; ATTENDING PHYSICIAN Internal Medicine; CONSULT PHYSICIAN Internal Medicine Infectious Disease; CONSULT PHYSICIAN Student in an Organized Health Care Education/Training Program; EMERGENCY PHYSICIAN Student in an Organized Health Care Education/Training Program; FAMILY PHYSICIAN Physician Assistant Medical
PROC: 0Y6M0ZD Detachment at Right Foot, Partial 4th Ray, Open Approach (ICD-10-PCS; 2024-09-30)
PROC: 0Y6M0ZF Detachment at Right Foot, Partial 5th Ray, Open Approach (ICD-10-PCS; 2024-09-30)
PROC: 0Y6M0ZC Detachment at Right Foot, Partial 3rd Ray, Open Approach (ICD-10-PCS; 2024-09-30)
PROC: 0Y6M0Z9 Detachment at Right Foot, Partial 1st Ray, Open Approach (ICD-10-PCS; 2024-09-30)
PROC: 0Y6M0ZB Detachment at Right Foot, Partial 2nd Ray, Open Approach (ICD-10-PCS; 2024-09-30)
PROC: 0QBN0ZZ Excision of Right Metatarsal, Open Approach (ICD-10-PCS; 2024-10-04)
DX: A41.9 Sepsis, unspecified organism (principal); E87.1 Hypo-osmolality and hyponatremia; I48.21 Permanent atrial fibrillation; L03.115 Cellulitis of right lower limb; M86.171 Other acute osteomyelitis, right ankle and foot; L02.611 Cutaneous abscess of right foot; M00.9 Pyogenic arthritis, unspecified; E11.628 Type 2 diabetes mellitus with other skin complications; E11.40 Type 2 diabetes mellitus with diabetic neuropathy, unspecified; E11.65 Type 2 diabetes mellitus with hyperglycemia; E11.69 Type 2 diabetes mellitus with other specified complication; E11.621 Type 2 diabetes mellitus with foot ulcer; L97.519 Non-pressure chronic ulcer of other part of right foot with unspecified severity; D64.9 Anemia, unspecified; E53.8 Deficiency of other specified B group vitamins; I25.10 Atherosclerotic heart disease of native coronary artery without angina pectoris; E78.5 Hyperlipidemia, unspecified; L89.152 Pressure ulcer of sacral region, stage 2; E87.6 Hypokalemia; E83.42 Hypomagnesemia; I10 Essential (primary) hypertension; M11.20 Other chondrocalcinosis, unspecified site; R11.2 Nausea with vomiting, unspecified; M25.632 Stiffness of left wrist, not elsewhere classified; I95.9 Hypotension, unspecified; G47.30 Sleep apnea, unspecified; Z11.52 Encounter for screening for COVID-19; Z88.0 Allergy status to penicillin; Z79.4 Long term (current) use of insulin; Z89.421 Acquired absence of other right toe(s); Z79.82 Long term (current) use of aspirin; Z79.01 Long term (current) use of anticoagulants
CPT/HCPCS: 72110; 73630; 73720; 74177; 80048; 80053; 80202; 81003; 81015; 82607; 82728; 82746; 82962; 83036; 83540; 83550; 83605; 83690; 83735; 85025; 85027; 85610; 85730; 86850; 86900; 86901; 87040; 87070; 87075; 87077; 87086; 87147; 87154; 87186; 87205; 87502; 87811; 88307; 88311; 93005; 93922; 93925; 96365; 96366; 96367; 96375; 97110; 97163; 97167; 97530; 97535; 99285; A9575; Q9967

== ENCOUNTER 2024-10-27 22:50 | Inpatient (IN) | payer MEDICARE, SELFPAY ==
[2024-10-27] VITALS (17 sets, daily range): BP systolic 93–117; BP diastolic 48–69
[2024-10-27 18:33] LABS: Glucose - Point of Care 236 mg/dl (70-99)
[2024-10-27 18:45] LABS: Hematocrit 16.5 % (39.0-52.0); Hemoglobin 5.2 g/dL (13.0-18.0); Mean Corp Hgb Conc. 31.5 g/dL (33.0-37.0); Mean Corpuscular Volume 82.9 fL (80.0-94.0); Nucleated Red Blood Cells % 0.4 % (-); Platelet Count 297 10^3/uL (130-400); Red Cell Dist. Width 17.4 % (11.5-14.5)
[2024-10-27 19:08] LABS: ALT (SGPT) 14 U/L (0-50); AST (SGOT) 23 U/L (17-59); Albumin 3.2 g/dl (3.5-5.0); Alkaline Phosphatase 72 U/L (38-126); Blood Urea Nitrogen 42 mg/dl (9-20); Calcium 8.6 mg/dl (8.4-10.2); Carbon Dioxide 24 mmol/L (22-30); Chloride 102 mmol/L (98-107); Glucose 194 mg/dl (70-99); Potassium 4.6 mmol/L (3.5-5.1); Sodium 134 mmol/L (135-145); Total Protein 5.6 g/dl (6.3-8.2); eGFR 41.19
--- NOTE | 2024-10-27 19:57 | ED.GENMED ---
History of Present Illness
General
Chief Complaint: Abnormal Lab Value
Source: patient
Exam Limitations: none
Time Seen by Provider: 10/27/24 18:50
Nursing documentation reviewed up to this point in time: agreed with
History of Present Illness
History of Present Illness:
Patient is a 89-year-old male past medical history of sepsis right lower extremity cellulitis diabetic foot infection A-fib normocytic anemia B12 deficiency CAD hypertension hyperlipidemia recent osteomyelitis of right foot with amputation(TMA)
presents from rehab for low hemoglobin of 5.7. Patient does admit to feeling very weak. He does not think his stools are dark. He is on Coumadin for permanent A-fib.
Daughter at bedside he is patient was just at podiatry office Dr. 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
Past History
Past History
ED Past Medical History: Arrthythmia, NIDDM and Other (sleep apnea)
ED Past Surgical History: Cardiac
Social History
Tobacco: Non-smoker
Personal:
Living: with family
Phy Exam
General Physical Exam
General Presentation: no apparent distress
General age: appears stated age
General Skin: warm and pale
General Habitus: elderly
General Mental: alert
General Hydration: dry mucous membranes
Cardiovascular Exam
Cardiovascular Exam: irregularly irregular
Pulmonary Exam
Pulmonary Exam: lungs clear and no respiratory distress
Gastrointestinal Exam
Gastrointestinal Exam: non tender, soft and other (brown stool heme negative )
Neurological Exam
Neurological Exam: alert and oriented x3
Musculoskeletal Exam
Musculoskeletal Exam: full ROM
Skin Exam
Skin Exam: normal color and warm/dry
Psychiatric Exam
Psychiatric Exam: normal mood/affect
Course
Orders/Labs/Results
Orders:
Orders
10/27/24 18:25
Type And Crossmatch [Type+Screen] Urgent
Complete Blood Count/With Diff Urgent
Comprehensive Metabolic Panel Urgent
10/27/24 18:29
EKG [Electrocardiogram (*1)] Urgent
Reason for Study: Tachycardia
EKG- Treatment ONCE
10/27/24 20:07
* Blood Bank Products Urgent
Dr's Orders: thao/fan
Blood Bank Products: *Packed RBC Leuko(PRBC's)
Quantity: 2
Transfuse Today: Yes
Reason: Anemia
Patient will require pre-treatment for transfusion:: No
Comment: obtained
10/27/24 20:11
Chest [CR Chest - 2 Views ] Urgent
Comment:
Reason For Exam: weakness
10/27/24 20:21
PT/INR [Prothrombin Time] Urgent
10/27/24 20:49
UA Reflex to Culture [Urinalysis Reflex To Culture] Urgent
Date Specimen was Collected: 10/27/24
Time Specimen was Collected: 20:19
Urine Microscopic Reflex Cult Urgent
10/27/24 21:25
0.9% Sodium Chloride 500 ml [Nss] 500 ml IV BOLUS
10/27/24 22:10
CT Head W/o Iv Contrast Urgent
Comment:
Reason For Exam: altered mental status
10/27/24 22:12
Admit/Transfer Patient As Directed
Co-Sign Provider:
Level of Care: Inpatient admission
Assign to:: Medical/Surgical
Physician / Group: ame
Diagnosis: anemia
Reason for Hospitalization: anemia
Expected length of stay greater than two midnights?: Yes
ELOS- Estimated Length of Stay in days: 2
I certify the patient meets the requirements for IP care: Yes
Code Status As Directed
Resuscitation Status: Do not resuscitate
Reached after discussion with pt or family/Healthcare POA: Yes
PRN Pain Medication Management As Directed
May give lesser potent ordered pain med per pt: Yes
preference::
Protocol:: Medication orders for pain may be administered in a
manner that supports deferring to patient preference
when the pt is:
- Requesting an ordered lesser potent pain medication.
Least to most potent pain medications are defined
as: acetaminophen < NSAID < tramadol < opioids
(morphine, oxycodone, hydromorphone).
- Requesting a lesser dose of the same medication IF
ORDERED.
- Requesting a less intrusive route of administration
if both routes are prescribed by the provider (PO <
IV).
10/27/24 22:13
DNR Bracelet Application ONCE
10/27/24 22:32
COVID-19 Antigen Urgent
Source: Nasal Swab
10/27/24 22:45
MRSA Screen Routine
SANDRA Source: Nose
Specimen Description:
Abnormal Lab Results
10/27/24 10/27/24 10/27/24
18:25 18:31 20:21
WBC 13.7 H 10^3/uL
(4.8-10.8)
RBC 1.99 L 10^6/uL
(4.70-6.10)
Hgb 5.2 L* g/dL
(13.0-18.0)
Hct 16.5 L* %
(39.0-52.0)
MCH 26.1 L pg
(27.0-31.0)
MCHC 31.5 L g/dL
(33.0-37.0)
RDW 17.4 H %
(11.5-14.5)
MPV 10.8 H fL
(7.4-10.4)
Abs Immat Gran (auto) 0.1 H 10^3/uL
(0-0.05)
Absolute Neuts (auto) 10.6 H 10^3/uL
(1.4-6.5)
Absolute Monos (auto) 1.6 H 10^3/uL
(0.1-0.6)
Immature Gran % 0.7 H %
(0-0.5)
Neutrophils % 77.1 H %
(42.2-75.2)
Lymphocytes % 10.4 L %
(20.5-51.1)
Monocytes % 11.6 H %
(1.7-9.3)
PT 33.7 H Sec
(11.4-14.6)
Sodium 134 L mmol/L
(135-145)
BUN 42 H mg/dl
(9-20)
Creatinine 1.6 H mg/dL
(0.7-1.3)
Glucose 194 H mg/dl
(70-99)
Total Protein 5.6 L g/dl
(6.3-8.2)
Albumin 3.2 L g/dl
(3.5-5.0)
Urine Ketones
Urine Bilirubin
Urine Bacteria (Reflex)
Urine Albumin (Reflex)
POC Glucose 236 H mg/dl
(70-99)
Crossmatch IS Only See Detail
10/27/24
20:49
WBC
RBC
Hgb
Hct
MCH
MCHC
RDW
MPV
Abs Immat Gran (auto)
Absolute Neuts (auto)
Absolute Monos (auto)
Immature Gran %
Neutrophils %
Lymphocytes %
Monocytes %
PT
Sodium
BUN
Creatinine
Glucose
Total Protein
Albumin
Urine Ketones 1+ A
(Negative)
Urine Bilirubin 1+ A
(Negative)
Urine Bacteria (Reflex) Few A
(Negative)
Urine Albumin (Reflex) 2+ A
(Neg - Trace)
POC Glucose
Crossmatch IS Only
10/27/24 18:25
10/27/24 18:25
Vital Signs
Initial and Last Documented VS:
Initial Vital Signs
Pulse Resp Pulse Ox
125 32 99
10/27/24 18:22 10/27/24 18:22 10/27/24 18:22
Last Documented Vital Signs
Temp Pulse Resp BP Pulse Ox
98.2 F 101 25 112/64 98
10/27/24 22:28 10/27/24 22:30 10/27/24 22:30 10/27/24 22:30 10/27/24 22:30
Middle School Assistant Principal consulted with Physician
Middle [employer] Assistant Principal consulted with physician?: Yes
Name of Physician Consulted: [email or web address]
MDM/Problems Addressed
Differential Diagnosis Includes:
Not limited to anemia
MDM/Problems Addressed:
Patient is an 89-year-old male status post recent amputations of right metatarsals September 2024 send in rehab for low hemoglobin. Patient is weak. He is on Coumadin for permanent A-fib however his stool is brown in color heme-negative. Patient's
hemoglobin today is 5.2 significantly lower than last hemoglobin October 06 of 8.5.
Patient will require admission and blood. Patient is weak. His white count is minimally elevated at 13.7 no fever afebrile here negative urinalysis.
Patient was admitted to the hospital service chest x-ray with a left lower lobe pneumonia. Hospitalist was made aware and will order antibiotics.
Chronic conditions affecting care:
recent osteomyelitis and amputations of right metatarsals, A-fib on chronic Coumadin CAD hypertension diabetes
*Radiology
Radiology exam reviewed: radiology read reviewed
*Pulse Oximetry
SaO2: 99
Oxygen Mode of Delivery: Room air
Patient hypoxic: no
*EKG
Interpreted by ED Provider?: Yes
Heart Rate: 101
Rate: tachycardiac
Rhythm: a-fib
Ischemia: non-specific ST changes
*Critical Care Note
Total Time (30-74mins, 75-104mins- exclusive of procedures): Not Applicable
ED Attending Note
-
Portions of this chart may have been created with voice recognition software.� Occasional wrong word or��sound alike� substitutions may have occurred due to the inherent limitations of voice recognition software.
Discharge Plan
Departure
Patient Disposition: Admit
Date of Disposition: 10/27/24
Time of Disposition: 21:35
Admit to: Telemetry
Admit to doctor: hospitalist
Presentation/result/management discussed w/ accepting MD/DO: Hospitalist
Patient with high blood pressure during this ER visit?: No
Condition: Fair
Covid-19: Not Applicable
Discharge Problem:
Anemia, Weakness, Acute renal insufficiency
Interventions
Interventions:
*Risk Screen - Suicide Last Done: 10/27/24 18:21
*General Assessment Last Done: 10/27/24 18:22
*Neglect/Abuse Screening Last Done: 10/27/24 18:21
*ED- Fall Risk Assessment Last Done: 10/27/24 18:22
*ED COVID-19 Vaccine History Last Done: 10/27/24 18:22
[2024-10-27 20:39] LABS: INR 3.28; PT 33.7 Sec (11.4-14.6)
[2024-10-27 21:04] LABS: Urine Character Clear (Clear)
[2024-10-27 21:22] LABS: Urine Red Blood Cell 0-2 /HPF (0-2); Urine White Cell 0-2 /HPF (0-5)
--- NOTE | 2024-10-27 22:15 | HPS.HSE ---
Addendum entered and electronically signed by Chika Car MD 10/27/24 23:05:
CXR shows PNA. Started Ceftriaxone and Doxycycline.
Original Note:
Family Physician
-
Family Physician: Bee Posada PA-C
Chief Complaint
-
anemia
History of Present Illness
89-year-old male past medical history of permanent atrial fibrillation on Coumadin, Dupuytren's contracture of right hand status post surgery 6 years ago, CAD, hypertension, diabetes, chronic right foot ulcer, chronic normocytic anemia, resolved B12
deficiency, stage II sacral pressure injury, hyperlipidemia, presenting with low hemoglobin of 5.7 at [facility] rehab.
He had recent osteomyelitis of the right foot status post transmetatarsal amputation by Dr. Polanco on 09/30 with drainage until 10/04 when he had debridement delayed primary closure. He saw Dr. Polanco in the office today and had some of the sutures
removed and everything looked good to him without evidence of infection.
Patient with weakness and he has not been ambulatory since the surgery. As per daughter he is more lethargic today and falling asleep which is not normal for him. Daughter is not sure how long this has been going on since he has been in [facility]. He has been a little bit constipated. Unknown when last bowel movement was. No urinary symptoms. He was complaining of some left hip pain. He did not have any falls or injury that daughter knows about.
He does not smoke or drink alcohol.
Medical History
Past Medical History
Past Medical History: Reports Other (permanent atrial fibrillation on Coumadin, Dupuytren's contracture of right hand status post surgery 6 years ago, CAD, hypertension, diabetes, chronic right foot ulcer, chronic normocytic anemia, resolved B12
deficiency, stage II sacral pressure injury, hyperlipidemia)
Past Surgical History: Reports None
Social History
Tobacco: Non-smoker
Alcohol: None
Drug: None
Family History
Family History: Not pertinent
Allergies / Home Medications
Allergies reflects when Allergies were last updated in [employer].
Home Medications with original date entered in [employer]
Allergy/Medication List:
Allergies
Allergy/AdvReac Type Severity Reaction Status Date / Time
ivermectin Allergy dehydration Verified 09/10/24 14:26
penicillin Allergy Rash Verified 09/10/24 14:26
penicillin G Allergy Tolerated Verified 09/10/24 14:26
Keflex in
the past-
pt
allergic
to all PCN
Home Medications
aspirin 81 mg tablet,delayed release 81 mg PO DAILY Blood Clot Prevention/Tx 10/11/14
acetaminophen 500 mg tablet 1,000 mg PO Q6HPRN PRN mild pain/fever 06/08/24
atorvastatin 40 mg tablet (Lipitor) 40 mg PO DAILY High Cholesterol 06/08/24
warfarin 5 mg tablet (Jantoven) 5 mg PO QPM Blood Clot Prevention/Tx 06/08/24
furosemide 20 mg tablet 20 mg PO DAILY PRN fluid retention/peripheral edema 09/28/24
doxycycline hyclate 100 mg capsule 100 mg PO Q12 8 days #16 caps 10/06/24
insulin degludec 100 unit/mL (3 mL) subcutaneous pen (Tresiba FlexTouch U-100 insulin) 10 unit (0.1 mL) SC DAILY Diabetes #0 mL 10/06/24
metoprolol succinate 25 mg tablet,extended release 24 hr 25 mg PO DAILY #30 tabs 10/06/24
metronidazole 500 mg tablet 500 mg PO BID 8 days #16 tabs 10/06/24
Review of Systems
-
Constitutional: Reports No Symptoms
EENT: Reports No Symptoms
Respiratory: Reports No Symptoms
Cardiac: Reports No Symptoms
Abdomen/GI: Reports No Symptoms
: Reports No Symptoms
Musculoskeletal: Reports No Symptoms
Skin: Reports No Symptoms
Neurological: Reports No Symptoms
Endocrine: Reports No Symptoms
Hematologic/Lymphatic: Reports No Symptoms
Psych: Reports No Symptoms
Physical Exam
Vital Signs
Vital Signs
Temp Pulse Resp BP Pulse Ox
98.7 F 99 16 101/63 97
10/27/24 20:55 10/27/24 21:48 10/27/24 21:48 10/27/24 21:48 10/27/24 21:30
Physical Exam
General: Well Developed, Well Nourished and No Apparent Distress
HEENT: NormoCephalic, Moist mucous membranes and Atraumatic
Respiratory: Clear
Cardiac: S1/S2 and Regular Rhythm; No Murmur or Rub
GI: Soft, Non Tender, Non Distended and Normal Bowel Sounds; No Organomegaly
Rectal: Deferred by Provider
Musculoskeletal: No Clubbing, No Cyanosis and No Edema
Skin: No Rash
Neuro: Nonfocal/grossly intact
Laboratory Results
-
10/27/24 18:25
10/27/24 18:25
Laboratory Results
PT 33.7 Sec (11.4-14.6) H 10/27/24 20:21
INR 3.28 10/27/24 20:21
Total Bilirubin 1.1 mg/dl (0.2-1.3) 10/27/24 18:25
AST 23 U/L (17-59) 10/27/24 18:25
ALT 14 U/L (0-50) 10/27/24 18:25
Alkaline Phosphatase 72 U/L (38-126) 10/27/24 18:25
Data Reviewed
-
Lab Data: Labs Reviewed by me
Old Records: Reviewed
Impression/Plan
-
IMPRESSION:
PLAN:
# Symptomatic acute on chronic normocytic anemia presumably blood loss anemia from recent transmetatarsal amputation of right foot
- Hemoglobin 5.2 from previously 8.5
-Stool was brown and heme-negative
-No bruising or edema visible around the hips or lower extremities
- 2 units of blood, hoping that hemoglobin should stabilize after blood transfusion since amputation site looks clean
- Check iron studies, B12 and folate
# Slightly supratherapeutic INR
- INR of 3.28
- Hold Coumadin
# Acute metabolic encephalopathy unclear etiology could be secondary to hypovolemia/anemia
-Leukocytosis
- Urinalysis unremarkable
- Chest x-ray does not show any abnormality although report pending
- Check COVID
-Check CT head
# Acute kidney injury likely prerenal
- Gentle IV fluids
Permanent atrial fibrillation
-Hold Coumadin
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
CAD
- Continue statin
Essential hypertension
- Continue metoprolol
Type 2 diabetes
- Hold Tresiba due to mental status
- Insulin sliding scale
Chronic right foot ulcer
History of resolved B12 deficiency
Stage II sacral pressure injury
Hyperlipidemia
-Continue statin
DNR/DNI
DVT prophylaxis�SCDs
Regular diet
[2024-10-27] MEDS: NSS 500 IV (22:32)
[2024-10-27 22:51] LABS: COVID-19 Antigen Negative (Negative)
[2024-10-27] MEDS: ROCEPHIN 1000 MG IV (23:51)
[2024-10-27] MEDS: VIBRAMYCIN 100 MG PO (23:52)
[2024-10-27] MEDS: STERILE WATER FOR INJECTION 10 ML IV (23:52)
[2024-10-28] VITALS (55 sets, daily range): BP systolic 92–150; BP diastolic 29–95; BMI 25.0
[2024-10-28 00:28] LABS: Iron 33 ug/dl (49-181)
[2024-10-28 00:44] LABS: Total Iron Binding Capacity 225 ug/dl (261-462)
[2024-10-28 00:47] LABS: Ferritin 41.1 ng/ml (17.9-464.0)
[2024-10-28 01:18] LABS: Folate 6.0 ng/ml (2.76-20)
[2024-10-28 01:34] LABS: Vitamin B12 475 pg/ml (239-931)
--- NOTE | 2024-10-28 01:35 | PTCARENOTE ---
Resumed care of pt as a hold pt. Pt extremely drowsy, lethargic, but AAOx2, able to answer questions appropriately. HR in raúl low 100's in Afib on the monitor. pt with hx sleep apnea, POX was dropping while sleeping, 2 LO2 NC applied, POX now 100%.
Lungs dec t/o. Hyper bowel, PT inc of loose stool. Alexandra care provided. MASD noted, Stage 2 to sacrum noted. Barrier cream applied, Foam dressing applied. Ecchymotic b/l UE. Brown PVD legs. Trace LE edema, +2 LUE edema. Weak pedal pulses. Right foot
dressing in place with shoe. Left foot pinky toe amputated. Right AC int infusing 2nd unit of blood as ordered. Will start IVF once blood transfusion completed. Pt denies any complaints of pain. Call hale in reach. Will continue to monitor.
--- NOTE | 2024-10-28 03:01 | PTCARENOTE ---
Blood transfusion completed without complication. Pt resting comfortably.
[2024-10-28] MEDS: NSS 1000 IV ×2 (03:03→12:23)
[2024-10-28 06:10] LABS: Hematocrit 22.1 % (39.0-52.0); Hemoglobin 7.3 g/dL (13.0-18.0); Mean Corp Hgb Conc. 33.0 g/dL (33.0-37.0); Mean Corpuscular Volume 85.3 fL (80.0-94.0); Nucleated Red Blood Cells % 0.5 % (-); Platelet Count 222 10^3/uL (130-400); Red Cell Dist. Width 16.3 % (11.5-14.5)
[2024-10-28 06:13] LABS: INR 2.89; PT 30.6 Sec (11.4-14.6)
[2024-10-28 06:32] LABS: ALT (SGPT) 12 U/L (0-50); AST (SGOT) 21 U/L (17-59); Albumin 3.0 g/dl (3.5-5.0); Alkaline Phosphatase 72 U/L (38-126); Blood Urea Nitrogen 41 mg/dl (9-20); Calcium 8.2 mg/dl (8.4-10.2); Carbon Dioxide 24 mmol/L (22-30); Chloride 106 mmol/L (98-107); Glucose 133 mg/dl (70-99); Potassium 4.3 mmol/L (3.5-5.1); Sodium 136 mmol/L (135-145); Total Protein 5.5 g/dl (6.3-8.2); eGFR 48.34
[2024-10-28 08:12] LABS: Glucose - Point of Care 158 mg/dl (70-99)
[2024-10-28] MEDS: NOVOLOG FLEXPEN-LOW RESISTANCE SC ×3 (08:13→16:50)
[2024-10-28] MEDS: VIBRAMYCIN 100 MG PO ×2 (08:13→20:04)
--- NOTE | 2024-10-28 09:15 | PHANOTE ---
med rec note- called [facility] at [phone] for patient missing medication list to be faxed over
[2024-10-28 12:19] LABS: Glucose - Point of Care 148 mg/dl (70-99)
--- NOTE | 2024-10-28 12:39 | W.PN.HOSP.TC ---
Addendum entered and electronically signed by Urvashi Swanson MD 10/28/24 19:32:
I saw and evaluated the patient independently. I reviewed the resident�s note and agree with findings and plan as documented by Dr. Rose.
GENERAL: chronically ill appearing male in no apparent distress--sleepy
HEENT: NC/AT--O2 NC in place
HEART: irreg irreg
LUNGS : clear to auscultation bilaterally
ABDOM: soft, nontender, nondistended, + bowel sounds
EXT: no cyanosis, clubbing, or edema--right foot with surgical boot in place
NEUROLOGIC: sleepy
Acute on Chronic Anemia--likely worsening chronic anemia with coumadin contribution--no signs of active bleeding--s/p 3 untis pRBC--trend HGB--INR supratherapeutic--follow INR--hold coumadin
Recent transmetatarsal amputation--Follow up 2 weeks after discharge--apprec Dr. Polanco input
Altered Mental Status likely due to Left Lower Lobe Pneumonia--has acute hypoxemic resp failure--wearing O2--cont rocephin/doxy--head CT neg--follow cultures
Anterior Right Knee Pain--possibly due to disturbed gait from recent transmetatarsal amputation--check bilateral LE US--PT
Acute Kidney Injury--Cr 1.6 BUN 42 on admission, baseline Creat 1.0-- ALESHA is like prerenal iso hypovolemia from anemia and poor hydration--cont IVF
Permanent Atrial Fibrillation--Supratherapeutic INR--INR 3.28 on admission, holding coumadin with daily INR checks.
CAD/Hyperlipidemia-- Continue Atorvastatin and Lasix- Hold Aspirin 81mg PO daily
Essential Hypertension-- Continue Metoprolol Succinate
Type 2 Diabetes---- held metformin due to AMS and ALESHA--lantus dropped to 6 units for now
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
Constipation- Continue bowel regimen
DVT prophylaxis � SCDs
Code Status: DNR/DNI
Original Note:
Today's Communication/Plan
-
- Continue IV Cftx & PO Doxy
- CTM Hgb and transfuse prn
- Insulin glargine 6 units for type 2 diabetes
- Follow-up hemoglobin from this evening s/p third unit of pRBCs
Assessment / Plan
Assessment / Plan
Lucas Coleman is an 89-year-old male with atrial fibrillation on Coumadin, Dupuytren's contracture of right hand s/p surgery 6 years ago, CAD, hypertension, diabetes, chronic right foot ulcer, chronic normocytic anemia, B12 deficiency, stage II
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 Polanco who [facility]
weeks of weakness, SOB, lethargy, and poor ambulation found to have a left lower lobe PNA on CXR and Hbg 5.2.
#Acute on Chronic Normocytic Anemia
Hemoglobin 5.2 on admission from 8.5 (on discharge) s/p 2u pRBCs 10/28/24. Repeat Hbg 7.3, ordered 3rd unit. Etiology is likely iso recent transmetatarsal amputation of right foot, where he could be bleeding intermittently from the wound. His most
recent wound check with stitches removal, however, was on 10/27/24 without evidence of bleeding/infection. Of note, INR is subtherapeutic, so Coumadin was held.
- Dr. Polanco made aware via TT and has no concern for bleeding at surgery site; his recs are as follows:
-- dressings change, please have nursing change 2 x per week
-- NWB RLE, heel weight bearing for transfers
--Follow up 2 weeks after discharge
- CTM Hgb, transfuse prn
- Head CT negative, BM brown, fecal heme test (-); consider CT A/P if Hbg continues to drop
- Iron 33L, TIBC 225L, Ferritin 41wnl; reflective of known ACD
- Hold Coumadin; daily INR checks
#Altered Mental Status
#Left Lower Lobe Pneumonia
WBC 13.7 and CXR showing left lower lobe pneumonia for which he is on IV Ceftrixone and PO Doxycline. Infection, in combination with low hemoglobin likely contributing to AMS.
- UA and head CT unremarkable
- F/u blood cultures, COVID-19, and sputum cultures
- Continue IV Ceftriaxone 1000mg and Doxycycline 100 mg PO q12h
#Anterior Right Knee Pain
He endorses right knee pain anteriorly, NTP nor erythematous. Most likely etiology is mechanical wear due to increased weight-bearing on right leg as the left foot is s/p surgery. Iso elevated WBC and subtherapeutic INR, however, infection, gout,
septic arthritis, and DVT cannot be ruled out.
- F/u BLLE DVUs
- PT consulted
#Acute Kidney Injury
Cr 1.6 BUN 42 on admission, BL Cr 1. ALESHA is like prerenal iso hypovolemia from blood loss and poor hydration.
- mIVF NSS 1000mLs at 80 mLs/hr
- Trend CMP
#Permanent Atrial Fibrillation
#Supratherapeutic INR
INR 3.28 on admission, iso bleeding and high INR, holding coumadin with daily INR checks.
- Hold Coumadin
- Trend INRs
#CAD
#Hyperlipidemia
- Continue Atorvastatin 40mg PO QPM and Lasix 20mg PO daily prn
- Hold Aspirin 81mg PO daily
#Essential Hypertension
- Continue Metoprolol Succinate 2 mg PO daily
#Type 2 Diabetes
- Home regimen: Insulin Glargine 12u SC daily
-- held due to AMS and ALESHA
- Hold Home Metformin 500mg PO BID
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
#Chronic Right Foot Ulcer
#Stage II Sacral Pressure Injury
- Wound Ostomy consult
- APAP 1000mg Q6H prn
#Dupuytren's contracture right hand
- s/p surgery 6 years ago, NTD
#Constipation
- Continue home bowel regimen
DVT prophylaxis � SCDs
Code Status: DNR/DNI
Anticipated Discharge: > 48 hours (pending infection clearance and clinical improvement)
Subjective/Interval History
-
Date of Service: October 28, 2024
Lucas Coleman is an 89-year-old male with atrial fibrillation on Coumadin, Dupuytren's contracture of right hand s/p surgery 6 years ago, CAD, hypertension, diabetes, chronic right foot ulcer, chronic normocytic anemia, B12 deficiency, stage II
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 Polanco who [facility] with 2
weeks of weakness, SOB, lethargy, and poor ambulation. In the ED, labs were pertinent for hemoglobin of 5.7, WBC 13.7, BUN 42, Cr 1.6 (BL 0.9-1.1), Iron 33L, TIBC 225L, Ferritin 41wnl, CXR showed left lower lobe pneumonia with eft pleural effusion
and trace right pleural effusion with mild vascular congestion. Head CT was negative for acute findings. He was given 2 units pRBCs and started on IV Ceftriaxone 1000mg daily and PO Doxycycline 100mg q12h. Of note, he was seen by Dr. Polanco in the
office on 10/27/24 and the amputation site's stitches were removed without concern for wound infection.
- Overnight, he received 2 units pRBCs; 10/27 20:40 and 10/28 00:17, Hg 5.2 --> 7.3 now, 3rd unit ordered.
- He had a large BM, reports that he was constipated prior.
- This morning, he reports left knee pain and ongoing cough with yellow sputum. He seems confused, lethargic, and in and out of sleep.
- Dr. Polanco was made aware via [place] [employer].
Objective Data
-
Labs:
Laboratory Results
10/28/24 10/28/24
05:54 16:16
WBC 9.7
Hgb 7.3 L D Pending
Hct 22.1 L
Plt Count 222 D
PT 30.6 H
INR 2.89
Sodium 136
Potassium 4.3
Chloride 106
Carbon Dioxide 24
BUN 41 H
Creatinine 1.4 H
Glucose 133 H
Calcium 8.2 L
Total Bilirubin 1.3
AST 21
ALT 12
Alkaline Phosphatase 72
Vital Signs:
Vital Signs
Temp Pulse Resp BP Pulse Ox
98.6 F 108 16 129/69 99
10/28/24 12:18 10/28/24 12:18 10/28/24 12:18 10/28/24 12:18 10/28/24 12:18
I&O
10/27/24 10/28/24 10/29/24
06:59 06:59 06:59
Intake Total 500 / 500 0 / 0
Balance 500 / 500 0 / 0
Review of Systems
-
History Source: Patient
All other systems: Reviewed and negative
Constitutional: Reports Fatigue and Weakness
Respiratory: Reports Cough
Cardiac: Reports No Symptoms
Abdomen/GI: Reports No Symptoms
Genitourinary: Reports No Symptoms
Musculoskeletal: Reports Muscle Weakness
Skin: Reports Other (Chronic venous insufficiency of BLLE)
Neuro: Reports No Symptoms
Endocrine: Reports No Symptoms
Hematologic / Lymphatic: Reports Bleeding
Allergy / Immunology: Reports No Symptoms
Physical Exam
-
General: Appears in Distress and Other (Appears sluggish, lethargic, and ill. Laying in bed, in and out of sleep.)
HEENT: Normocephalic
Respiratory: Decreased Breath Sounds (L>R, especially at bases)
Cardiac: S1/S2 and Irregular Rhythm (A-Fib)
GI: Soft, Nontender and Nondistended
Musculoskeletal: No Clubbing and No Cyanosis
Skin: Dry and Other (Cold skin)
Neuro: AO x 3
Psych: Intact Judgement/Insight
--- NOTE | 2024-10-28 13:36 | PTCARENOTE ---
second unit of PRBCs transfused without difficulty. sent report to 2 [facility] pt being admitted to [id number]
--- NOTE | 2024-10-28 14:45 | PTCARENOTE ---
Received patient from ED at 1445. WOC RN here to see patient for right foot wound (recent amputation). Call hale in reach.
--- NOTE | 2024-10-28 15:00 | PTCARENOTE ---
Patient AAOx3, withdrawn. Patient has no c/o pain. Right foot elevated on pillow. Call hale in reach.
--- NOTE | 2024-10-28 16:21 | WOUNDNOTE ---
RIGHT TOE AMP SITE
--- NOTE | 2024-10-28 16:22 | WOUNDNOTE ---
LEFT HIP BRUISE
--- NOTE | 2024-10-28 16:22 | WOUNDNOTE ---
LEFT HIP BRUISE
--- NOTE | 2024-10-28 16:22 | WOUNDNOTE ---
BUTTOCKS/SACRAL Coccyx
--- NOTE | 2024-10-28 16:33 | W.PN.UPDATE ---
Update Note
Progress Note Update
s/p right foot TMA, stable
-No concern for bleeding source
-dressings change, please have nursing change 2 x per week
-NWB RLE, heel weight bearing for transfers
-Continue ABx per Primary team
-Will follow from afar
-Follow up 2 weeks after discharge
--- NOTE | 2024-10-28 16:35 | WOUNDNOTE ---
WO RN note: Patient admitted with anemia
See H&P for complete history.
PMH: anemia, sepsis, a-fib, ALESHA
Wound Location and type/assessment: Patient admitted s/p right foot TMA. Site intact, covered with steri strips. Patient with MASD to buttocks, incontinent of bowel and bladder. Buttocks with scattered open areas likely related to friction and
moisture.
Appetite: not know at this time
Pressure redistribution devices in place: Turning schedule, keep heels off-loaded with pillow or air cushion under calf, turning schedule.
Plan: Wound care provided as ordered.Will confirm orders with hospitalist and update nurse.
Updated care plan and will follow as needed.
Note to case management of equipment requested for discharge:
Recommend follow up at wound care center upon discharge.
--- NOTE | 2024-10-28 16:46 | CM ---
Patient seen at bedside in ED with physician. Patient was at patient at [facility], and previously from [facility] with . Patient was independent in ADL's and used a SPC. Patient concerned about caregiving for his
but asked CM to Call to patient daughter [phone] [place]. Patient has been at [facility], has had [facility] and [facility] in the past. Patient PCP is Dr. Posada, and patient uses [facility]. Patient [facility]; is in assisted living (they have assisted living and memory care in their facility). The phone number for report to the nurse is [phone], fax [phone]. Patient will need therapy assessments and consider if
patient needs SNF. CM will call to patient daughter and review patient next steps.
Plan; SNF; pending family discussion
[2024-10-28 16:47] LABS: Glucose - Point of Care 147 mg/dl (70-99)
[2024-10-28] MEDS: LIPITOR 40 MG PO (17:44)
[2024-10-28 19:41] LABS: Hemoglobin 8.2 g/dL (13.0-18.0)
[2024-10-28] MEDS: DICLOFENAC 1% TOPICAL GEL 4 GRAM TOPICAL (20:04)
[2024-10-28] MEDS: SENOKOT-S PO (21:23)
[2024-10-28 22:01] LABS: Glucose - Point of Care 163 mg/dl (70-99)
[2024-10-29] MEDS: ROCEPHIN 1000 MG IV ×2 (00:44→23:23)
[2024-10-29] MEDS: STERILE WATER FOR INJECTION 10 ML IV ×2 (00:45→23:24)
[2024-10-29] MEDS: NSS 1000 IV ×2 (03:05→13:20)
--- NOTE | 2024-10-29 07:08 | PN.DE.MGMTRT ---
Insulin Management
- -
10/29/2024 Diabetes Management Consult
Patient admitted 10/28 with Hgb 5.7, - anemia, found to have pneumonia. PMH sepsis, R lower leg cellulitis,, osteomyelitis of r foot, recent transmetatarsal amputation, diabetes, afib, normocytic anemia, B12 def, CAD, HTN, HLD. Prior to admission
was taking glargine 12 units AM with metformin 500 mg BID. A1C 09/29 9.2%. Cr 1.4, eGFR 46.34.
Patient is awake alert and oriented able to discuss diabetes care. Family at bedside very supportive. Has had diabetes 15 years, follows with primary care doctor for ongoing diabetes care. Lives in assisted living, they test glucose for him at
least 2 to 3 times per day.
Glucose range yesterday 147 to 158, patient received no insulin. Dr. Swanson has started lantus 6 units in AM with low corrective insulin AC. Will continue this regimen. HOLD metformin due to cr and eGFR.
Discussed with nurse.
Will follow.
Diabetes History
- -
Type of Diabetes: 2 requiring insulin
Pre-Admission Diabetes Regimen
Insulin Pump Settings
IP Diabetes Regimen
10/28/24 10/28/24 10/28/24
08:11 12:18 16:37
POC Glucose 158 H 148 H 147 H
10/28/24
22:00
POC Glucose 163 H
Amount consumed: 0
Patient Education
[2024-10-29 07:20] VITALS: BP 134/76
[2024-10-29 07:23] LABS: INR 2.13; PT 23.9 Sec (11.4-14.6)
[2024-10-29 07:34] LABS: Glucose - Point of Care 158 mg/dl (70-99)
[2024-10-29 07:50] LABS: Hematocrit 25.4 % (39.0-52.0); Hemoglobin 8.4 g/dL (13.0-18.0); Mean Corp Hgb Conc. 33.1 g/dL (33.0-37.0); Mean Corpuscular Volume 85.2 fL (80.0-94.0); Nucleated Red Blood Cells % 0 % (-); Platelet Count 202 10^3/uL (130-400); Red Cell Dist. Width 16.2 % (11.5-14.5)
[2024-10-29 07:57] LABS: ALT (SGPT) 13 U/L (0-50); AST (SGOT) 20 U/L (17-59); Albumin 2.9 g/dl (3.5-5.0); Alkaline Phosphatase 74 U/L (38-126); Blood Urea Nitrogen 35 mg/dl (9-20); Calcium 7.8 mg/dl (8.4-10.2); Carbon Dioxide 22 mmol/L (22-30); Chloride 108 mmol/L (98-107); Estimated Creatinine Clearance 45 ml/min; Glucose 134 mg/dl (70-99); Potassium 3.9 mmol/L (3.5-5.1); Sodium 136 mmol/L (135-145); Total Protein 5.4 g/dl (6.3-8.2); eGFR 58.17
[2024-10-29] MEDS: NOVOLOG FLEXPEN-LOW RESISTANCE 1 UNITS SC ×3 (08:17→17:15)
[2024-10-29] MEDS: TOPROL XL 25 MG PO (08:17)
[2024-10-29] MEDS: VIBRAMYCIN 100 MG PO ×2 (08:17→21:00)
[2024-10-29] MEDS: LANTUS 0.06 UNITS SC (08:17)
[2024-10-29] MEDS: DICLOFENAC 1% TOPICAL GEL 4 GRAM TOPICAL ×2 (08:17→20:57)
[2024-10-29 09:56] LABS: Glucose 163 mg/dl (70-99)
[2024-10-29 13:20] VITALS: BP 166/99; PULSE 115
[2024-10-29 14:53] VITALS: BP 166/99
[2024-10-29 15:20] VITALS: BP 138/75
[2024-10-29 16:48] LABS: Glucose - Point of Care 175 mg/dl (70-99)
[2024-10-29 16:48] LABS: Glucose - Point of Care 168 mg/dl (70-99)
[2024-10-29] MEDS: LIPITOR 40 MG PO (17:14)
--- NOTE | 2024-10-29 17:41 | W.PN.HOSP.TC ---
Addendum entered and electronically signed by Urvashi Swanson MD 10/29/24 18:52:
I saw and evaluated the patient independently. I reviewed the resident�s note and agree with findings and plan as documented by Dr. Rose.
GENERAL: chronically ill appearing male in no apparent distress--sleepy
HEENT: NC/AT
HEART: irreg irreg
LUNGS : clear to auscultation bilaterally
ABDOM: soft, nontender, nondistended, + bowel sounds
EXT: no cyanosis, clubbing, or edema--right foot with bandage
NEUROLOGIC: nonfocal
Acute on Chronic Anemia--likely worsening chronic anemia with coumadin contribution--no signs of active bleeding--s/p 3 untis pRBC--HGB 5.2 to 8.4--INR supratherapeutic--coumadin dosing restarted--follow INR
Recent transmetatarsal amputation--Follow up 2 weeks after discharge--apprec Dr. Polanco input
Altered Mental Status likely due to Left Lower Lobe Pneumonia--has acute hypoxemic resp failure--wearing O2--cont rocephin/doxy--head CT neg--follow cultures
Anterior Right Knee Pain--possibly due to disturbed gait from recent transmetatarsal amputation-- bilateral LE US neg for DVT--PT/OT--voltaren gel
Acute Kidney Injury--Cr 1.6 BUN 42 on admission, baseline Creat 1.0-- ALESHA is likely prerenal, hypovolemia from anemia and poor hydration--stop IVF
Permanent Atrial Fibrillation--Supratherapeutic INR--INR 3.28 on admission, holding coumadin with daily INR checks.
CAD/Hyperlipidemia-- Continue Atorvastatin and Lasix- Hold Aspirin 81mg PO daily
Essential Hypertension-- Continue Metoprolol Succinate
Type 2 Diabetes---- held metformin due to AMS and ALESHA--restart insulin dosing now that pt is eating
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
Constipation- Continue bowel regimen
DVT prophylaxis � SCDs
Code Status: DNR/DNI
Original Note:
Today's Communication/Plan
-
Continue antibiotics, daily INR checks, and hemoglobin trending
Work with PT and focus on ambulating
Resume home dose insulin
Possible discharge tomorrow with complete switch to p.o. antibiotics
Resume Coumadin
Assessment / Plan
Assessment / Plan
Lucas Coleman is an 89-year-old male with atrial fibrillation on Coumadin, Dupuytren's contracture of right hand s/p surgery 6 years ago, CAD, hypertension, diabetes, chronic right foot ulcer, chronic normocytic anemia, B12 deficiency, stage II
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 Polanco who [facility] from [facility] with 2
weeks of weakness, SOB, lethargy, and poor ambulation found to have a left lower lobe PNA on CXR on IV ceftriaxone and doxycycline p.o. and Hbg 5.2 s/p 3 units of pRBC transfusion.
#Acute on Chronic Normocytic Anemia
Hemoglobin 5.2 on admission from 8.5 (on discharge) s/p 2u pRBCs 10/28/24. Repeat Hbg 7.3, ordered 3rd unit, repeat Hbg 8.2. Etiology is likely iso recent transmetatarsal amputation of right foot, where he could be bleeding intermittently from the
wound. His most recent wound check with stitches removal, however, was on 10/27/24 without evidence of bleeding/infection. Of note, INR is subtherapeutic, so Coumadin was held.
- Dr. Polanco made aware via TT and has no concern for bleeding at surgery site; his recs are as follows:
-- Dressings change, please have nursing change 2 x per week
-- NWB RLE, heel weight bearing for transfers
--Follow up 2 weeks after discharge
- CTM Hgb, transfuse prn
- Head CT negative, BM brown, fecal heme test (-); consider CT A/P if Hbg continues to drop
- Iron 33L, TIBC 225L, Ferritin 41wnl; reflective of known ACD
- Resume Coumadin; daily INR checks
#Altered Mental Status
#Left Lower Lobe Pneumonia
On admission, WBC 13.7 and CXR showing left lower lobe pneumonia for which he is on IV Ceftriaxone and PO Doxycycline. Infection, in combination with low hemoglobin likely contributing to AMS.
- UA and head CT unremarkable
- F/u blood cultures, COVID-19, and sputum cultures
- Continue IV Ceftriaxone 1000mg and Doxycycline 100 mg PO q12h
#Anterior Right Knee Pain
He endorses right knee pain anteriorly, NTP nor erythematous. Most likely etiology is mechanical wear due to increased weight-bearing on right leg as the left foot is s/p surgery. Iso elevated WBC and subtherapeutic INR, however, infection, gout,
septic arthritis, and DVT cannot be ruled out.
- DVU 10/28/2024 was negative for acute thrombus in bilateral lower extremities.
- PT and OT consulted
- Voltaren gel as needed
#Acute Kidney Injury
Cr 1.6 BUN 42 on admission, BL Cr 1. ALESHA is like prerenal iso hypovolemia from blood loss and poor hydration.
- mIVF NSS 1000mLs at 80 mLs/hr
- Trend CMP
#Permanent Atrial Fibrillation
#Supratherapeutic INR
INR 3.28 on admission, iso bleeding and high INR. INR was back to therapeutic range on 10/29/2024 so Coumadin was resumed. We will continue with daily INR checks.
- Resume Coumadin
- Trend INRs
#CAD
#Hyperlipidemia
- Continue Atorvastatin 40mg PO QPM and Lasix 20mg PO daily prn
- Hold Aspirin 81mg PO daily
#Essential Hypertension
- Continue Metoprolol Succinate 2 mg PO daily
#Type 2 Diabetes
- Home regimen: Insulin Glargine 12u SC daily
- Hold Home Metformin 500mg PO BID
- Resume home dose of insulin glargine 12 units; diabetic [employer] H[employer]PER FEEDER consult
#Chronic Right Foot Ulcer
#Stage II Sacral Pressure Injury
- Wound Ostomy consult
- APAP 1000mg Q6H prn
#Dupuytren's contracture right hand
- s/p surgery 6 years ago, NTD
#Constipation
- Continue home bowel regimen
DVT prophylaxis � SCDs
Code Status: DNR/DNI
Anticipated Discharge: Within 24 hours (Pending clinical improvement and switch to p.o. antibiotics.)
Subjective/Interval History
-
Date of Service: October 29, 2024
Lucas Coleman is an 89-year-old male with atrial fibrillation on Coumadin, Dupuytren's contracture of right hand s/p surgery 6 years ago, CAD, hypertension, diabetes, chronic right foot ulcer, chronic normocytic anemia, B12 deficiency, stage II
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 Polanco who [facility] with 2
weeks of weakness, SOB, lethargy, and poor ambulation found to have a left lower lobe PNA on CXR on IV ceftriaxone and doxycycline p.o. and Hbg 5.2 s/p 3 units of pRBC transfusion.
This morning:
- He is alert, awake, and very talkative. He reports feeling much better since yesterday.
- His hemoglobin last night was 8.2 s/p third unit of pRBC.
- His insulin was dropped from 6 units to 12 units as per his home regimen given that he is eating well now.
- PT and OT consulted for evaluation and treatment.
- He reports his knee pain has improved with Voltaren gel.
Objective Data
-
Labs:
Laboratory Results
10/29/24 10/29/24 10/29/24
06:52 06:53 09:23
WBC 7.2
Hgb 8.4 L
Hct 25.4 L
Plt Count 202
PT 23.9 H
INR 2.13
Sodium 136
Potassium 3.9
Chloride 108 H
Carbon Dioxide 22
BUN 35 H
Creatinine 1.2
Glucose 134 H 163 H
Calcium 7.8 L
Total Bilirubin 1.5 H
AST 20
ALT 13
Alkaline Phosphatase 74
Vital Signs:
Vital Signs
Temp Pulse Resp BP Pulse Ox
99.3 F 84 16 138/75 99
10/29/24 15:20 10/29/24 15:20 10/29/24 15:20 10/29/24 15:20 10/29/24 15:20
I&O
10/28/24 10/29/24 10/30/24
06:59 06:59 06:59
Intake Total 500 / 500 1210 / 1210
Output Total 325 / 325
Balance 500 / 500 1210 / 1210 -325 / -325
Review of Systems
-
History Source: Patient
All other systems: Reviewed and negative
Constitutional: Reports No Symptoms
EENT: Reports No Symptoms Reported
Respiratory: Reports Cough
Cardiac: Reports No Symptoms
Abdomen/GI: Reports No Symptoms
Genitourinary: Reports No Symptoms
Skin: Reports No Symptoms
Physical Exam
-
General: Well Developed, Well Nourished, No Apparent Distress, Comfortable and Conversant
HEENT: Normocephalic, Atraumatic and Moist Mucous Membranes
Respiratory: Clear to Auscultation and Decreased Breath Sounds (In the left lung base)
Cardiac: Regular Rhythm and S1/S2
GI: Soft, Nontender and Nondistended
Musculoskeletal: No Clubbing, No Cyanosis and Other (Bilateral venous insufficiency of lower extremities, right foot wrapped in gauze by Dr. Polanco s/p transmetatarsal amputation)
Skin: Warm and Dry
--- NOTE | 2024-10-29 17:53 | CM ---
Patient seen at bedside with physician on 2 hunt and CM spoke with patient daughter. Plan continues to be to return to SNF when medically appropriate and patient daughter requested call from physician. CM sent referral to [facility] to assess
ability to accept. CM will continue to follow for discharge planinng needs.
Plan; SNF
[2024-10-29] MEDS: COUMADIN 3 MG PO (18:25)
[2024-10-29] MEDS: SENOKOT-S 2 TABLET PO (21:00)
[2024-10-29 21:26] LABS: Glucose - Point of Care 169 mg/dl (70-99)
[2024-10-29] MEDS: FLUSH (NSS) 2 FLUSH IV (23:24)
[2024-10-29 23:38] VITALS: BP 142/82
[2024-10-30 07:00] VITALS: BP 135/81
[2024-10-30 07:22] LABS: Hematocrit 25.4 % (39.0-52.0); Hemoglobin 8.3 g/dL (13.0-18.0); Mean Corp Hgb Conc. 32.7 g/dL (33.0-37.0); Mean Corpuscular Volume 86.7 fL (80.0-94.0); Nucleated Red Blood Cells % 0 % (-); Platelet Count 208 10^3/uL (130-400); Red Cell Dist. Width 16.3 % (11.5-14.5)
[2024-10-30 07:47] LABS: ALT (SGPT) 13 U/L (0-50); AST (SGOT) 17 U/L (17-59); Albumin 2.9 g/dl (3.5-5.0); Alkaline Phosphatase 80 U/L (38-126); Blood Urea Nitrogen 29 mg/dl (9-20); Calcium 8.1 mg/dl (8.4-10.2); Carbon Dioxide 23 mmol/L (22-30); Chloride 109 mmol/L (98-107); Estimated Creatinine Clearance 49 ml/min; Glucose 133 mg/dl (70-99); Potassium 3.7 mmol/L (3.5-5.1); Sodium 137 mmol/L (135-145); Total Protein 5.5 g/dl (6.3-8.2); eGFR > 60.00
[2024-10-30 07:54] LABS: INR 1.95; PT 22.4 Sec (11.4-14.6)
[2024-10-30 08:04] LABS: Glucose - Point of Care 141 mg/dl (70-99)
[2024-10-30] MEDS: TOPROL XL 25 MG PO (08:59)
[2024-10-30] MEDS: ASPIR LOW (ENTERIC COATED) 81 MG PO (08:59)
[2024-10-30] MEDS: LANTUS 0.12 UNITS SC (09:00)
[2024-10-30] MEDS: VIBRAMYCIN 100 MG PO ×2 (09:00→19:49)
[2024-10-30] MEDS: DICLOFENAC 1% TOPICAL GEL 4 GRAM TOPICAL (09:01)
[2024-10-30] MEDS: NOVOLOG FLEXPEN-LOW RESISTANCE SC (09:02)
[2024-10-30 12:13] LABS: Glucose - Point of Care 203 mg/dl (70-99)
--- NOTE | 2024-10-30 13:45 | W.PN.HOSP.TC ---
Addendum entered and electronically signed by Urvashi Swanson MD 10/30/24 14:54:
I saw and evaluated the patient independently. I reviewed the resident�s note and agree with findings and plan as documented by Dr. Rose.
GENERAL: chronically ill appearing male in no apparent distress
HEENT: NC/AT
HEART: irreg irreg
LUNGS : clear to auscultation bilaterally
ABDOM: soft, nontender, nondistended, + bowel sounds
EXT: no cyanosis, clubbing, or edema--right foot with bandage
NEUROLOGIC: nonfocal
Acute on Chronic Anemia--likely worsening chronic anemia with coumadin contribution--no signs of active bleeding--s/p 3 untis pRBC--HGB 5.2 to 8.4--INR supratherapeutic--coumadin dosing restarted--follow INR
Recent transmetatarsal amputation--Follow up 2 weeks after discharge--apprec Dr. Polanco input
Altered Mental Status likely due to Left Lower Lobe Pneumonia--has acute hypoxemic resp failure--wearing O2--cont rocephin/doxy--head CT neg--follow cultures
Anterior Right Knee Pain--possibly due to disturbed gait from recent transmetatarsal amputation-- bilateral LE US neg for DVT--PT/OT--voltaren gel
Acute Kidney Injury--Cr 1.6 BUN 42 on admission, baseline Creat 1.0-- ALESHA is likely prerenal, hypovolemia from anemia and poor hydration--stop IVF
Permanent Atrial Fibrillation--Supratherapeutic INR--INR 3.28 on admission, holding coumadin with daily INR checks.
CAD/Hyperlipidemia-- Continue Atorvastatin and Lasix- Hold Aspirin 81mg PO daily
Essential Hypertension-- Continue Metoprolol Succinate
Type 2 Diabetes---- held metformin due to AMS and ALESHA--restart insulin dosing now that pt is eating
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
Constipation- Continue bowel regimen
DVT prophylaxis � SCDs
Code Status: DNR/DNI
will need SNF--await info from
Original Note:
Today's Communication/Plan
-
Continue antibiotics, and switch to p.o. at time of discharge
Continue to monitor hemoglobin
Continue to redose Coumadin based on daily INR checks
Check in with case management regarding discharge plan to [facility]
Assessment / Plan
Assessment / Plan
Lucas Coleman is an 89-year-old male with atrial fibrillation on Coumadin, Dupuytren's contracture of right hand s/p surgery 6 years ago, CAD, hypertension, diabetes, chronic right foot ulcer, chronic normocytic anemia, B12 deficiency, stage II
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 Polanco who presented from [facility] rehab with 2
weeks of weakness, SOB, lethargy, and poor ambulation found to have a left lower lobe PNA on CXR on IV ceftriaxone and doxycycline p.o. and Hbg 5.2 s/p 3 units of pRBC transfusion. He has since been clinically improving. We are working with case
management to figure out placement and plan back to [facility] for discharge.
#Acute on Chronic Normocytic Anemia
Hemoglobin 5.2 on admission from 8.5 (on discharge) s/p 2u pRBCs 10/28/24. Repeat Hbg 7.3, ordered 3rd unit, repeat Hbg 8.2. Etiology is likely iso recent transmetatarsal amputation of right foot, where he could be bleeding intermittently from the
wound. His most recent wound check with stitches removal, however, was on 10/27/24 without evidence of bleeding/infection. Of note, INR is subtherapeutic, so Coumadin was held.
- Dr. Polanco made aware via TT and has no concern for bleeding at surgery site; his recs are as follows:
-- Dressings change, please have nursing change 2 x per week
-- NWB RLE, heel weight bearing for transfers
--Follow up 2 weeks after discharge
- CTM Hgb, transfuse prn
- Head CT negative, BM brown, fecal heme test (-); consider CT A/P if Hbg continues to drop
- Iron 33L, TIBC 225L, Ferritin 41wnl; reflective of known ACD
- Coumadin redosed based on daily INR checks
-- Continue with daily INR checks.
#Altered Mental Status
#Left Lower Lobe Pneumonia
On admission, WBC 13.7 and CXR showing left lower lobe pneumonia for which he is on IV Ceftriaxone and PO Doxycycline. Infection, in combination with low hemoglobin likely contributing to AMS.
- UA and head CT unremarkable
- F/u blood cultures, COVID-19, and sputum cultures
- Continue IV Ceftriaxone 1000mg and Doxycycline 100 mg PO q12h
-- Switch to cephalexin and doxycycline at the time of discharge.
#Anterior Right Knee Pain
He endorses right knee pain anteriorly, NTP nor erythematous. Most likely etiology is mechanical wear due to increased weight-bearing on right leg as the left foot is s/p surgery. Iso elevated WBC and subtherapeutic INR, however, infection, gout,
septic arthritis, and DVT cannot be ruled out.
- DVU 10/28/2024 was negative for acute thrombus in bilateral lower extremities.
- PT and OT consulted
- Voltaren gel as needed
#Acute Kidney Injury
Cr 1.6 BUN 42 on admission, BL Cr 1. ALESHA is like prerenal iso hypovolemia from blood loss and poor hydration.
- mIVF NSS 1000mLs at 80 mLs/hr
- Trend CMP
#Permanent Atrial Fibrillation
#Supratherapeutic INR
INR 3.28 on admission, iso bleeding and high INR. INR was back to therapeutic range on 10/29/2024 so Coumadin was resumed. We will continue with daily INR checks.
- Continue home Coumadin
- Trend INRs
#CAD
#Hyperlipidemia
- Continue Atorvastatin 40mg PO QPM and Lasix 20mg PO daily prn
- Hold Aspirin 81mg PO daily
#Essential Hypertension
- Continue Metoprolol Succinate 2 mg PO daily
#Type 2 Diabetes
- Home regimen: Insulin Glargine 12u SC daily
- Hold Home Metformin 500mg PO BID
- Resume home dose of insulin glargine 12 units; diabetic [employer]SEMBLER consult
#Chronic Right Foot Ulcer
#Stage II Sacral Pressure Injury
- Wound Ostomy consult
- APAP 1000mg Q6H prn
#Dupuytren's contracture right hand
- s/p surgery 6 years ago, NTD
#Constipation
- Continue home bowel regimen
DVT prophylaxis � SCDs
Code Status: DNR/DNI
Anticipated Discharge: 24 - 48 hours (Pending case management confirmation of [facility] discharge)
Subjective/Interval History
-
Date of Service: October 30, 2024
Lucas Coleman is an 89-year-old male with atrial fibrillation on Coumadin, Dupuytren's contracture of right hand s/p surgery 6 years ago, CAD, hypertension, diabetes, chronic right foot ulcer, chronic normocytic anemia, B12 deficiency, stage II
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 Polanco who presented from [facility] rehab with 2
weeks of weakness, SOB, lethargy, and poor ambulation found to have a left lower lobe PNA on CXR on IV ceftriaxone and doxycycline p.o. and Hbg 5.2 s/p 3 units of pRBC transfusion.
- Yesterday, I talked to [place], who voiced that her father should go to [facility] after discharge. He will then be able to go to [place] where his is. Following up with case management to see the status of placement postdischarge.
- This morning, he reports ongoing weakness, but motivation to work with PT. He would like to get out of bed and try to walk with his cane or walker. A message PT to request that he be seen today.
- Otherwise no acute events overnight.
- He continues on antibiotics with for his pneumonia without any deterioration in clinical status.
Objective Data
-
Labs:
Laboratory Results
10/30/24 10/30/24
06:54 06:56
WBC 7.1
Hgb 8.3 L
Hct 25.4 L
Plt Count 208
PT 22.4 H
INR 1.95
Sodium 137
Potassium 3.7
Chloride 109 H
Carbon Dioxide 23
BUN 29 H
Creatinine 1.1
Glucose 133 H
Calcium 8.1 L
Total Bilirubin 1.7 H
AST 17
ALT 13
Alkaline Phosphatase 80
Vital Signs:
Vital Signs
Temp Pulse Resp BP Pulse Ox
97.6 F 102 18 135/81 99
10/30/24 07:00 10/30/24 07:00 10/30/24 07:00 10/30/24 07:00 10/30/24 07:00
I&O
10/29/24 10/30/24 10/31/24
06:59 06:59 06:59
Intake Total 1210 / 1210 1640 / 1640
Output Total 1055 / 1055
Balance 1210 / 1210 585 / 585
Review of Systems
-
All other systems: Reviewed and negative
Constitutional: Reports Weakness
Musculoskeletal: Reports Joint Pain (His left knee pain is improved with Voltaren gel.) and Other (Right foot is wrapped by Dr. Polanco s/p transmetatarsal amputation 2/2 osteomyelitis.)
Physical Exam
-
General: No Apparent Distress, Comfortable, Conversant and Other (Sitting up in bed, alert and oriented, waiting for breakfast tray.)
HEENT: Normocephalic, Atraumatic and Moist Mucous Membranes
Respiratory: Clear to Auscultation and Non Labored Respirations
Cardiac: Regular Rhythm and S1/S2
GI: Soft, Nontender and Nondistended
Musculoskeletal: No Clubbing, No Cyanosis and Other (General chronic venous insufficiency marking on bilateral lower extremity. Right foot wrapped in gauze by Dr. Polanco s/p transmetatarsal amputation 2/ osteomyelitis.)
Skin: Warm and Dry
Psych: Calm and Intact Judgement/Insight
[2024-10-30] MEDS: NOVOLOG FLEXPEN-LOW RESISTANCE 2 UNITS SC (14:02)
[2024-10-30 15:00] VITALS: BP 130/82
--- NOTE | 2024-10-30 15:13 | CM ---
CM spoke with [facility]. Pt family did not pay to hold bed. There is no SNF bed availability. Next bed Friday vs Friday. CM to follow up Friday. Attending made aware via TT.
[2024-10-30 16:48] LABS: Glucose - Point of Care 168 mg/dl (70-99)
[2024-10-30] MEDS: NOVOLOG FLEXPEN-LOW RESISTANCE 1 UNITS SC (16:49)
[2024-10-30] MEDS: COUMADIN 3 MG PO (16:50)
[2024-10-30] MEDS: LIPITOR 40 MG PO (16:51)
[2024-10-30] MEDS: DICLOFENAC 1% TOPICAL GEL TOPICAL (19:52)
[2024-10-30 20:52] LABS: Glucose - Point of Care 258 mg/dl (70-99)
[2024-10-30] MEDS: SENOKOT-S PO (21:15)
[2024-10-30] MEDS: STERILE WATER FOR INJECTION 10 ML IV (23:08)
[2024-10-30] MEDS: ROCEPHIN 1000 MG IV (23:08)
[2024-10-30] MEDS: FLUSH (NSS) 2 FLUSH IV (23:09)
[2024-10-30 23:15] VITALS: BP 132/72
[2024-10-31 05:51] LABS: INR 2.20; PT 24.5 Sec (11.4-14.6)
[2024-10-31 07:15] VITALS: BP 143/81
[2024-10-31 07:15] LABS: Glucose - Point of Care 145 mg/dl (70-99)
[2024-10-31] MEDS: NOVOLOG FLEXPEN-LOW RESISTANCE SC (07:46)
[2024-10-31] MEDS: ASPIR LOW (ENTERIC COATED) 81 MG PO (09:18)
[2024-10-31] MEDS: VIBRAMYCIN 100 MG PO ×2 (09:18→20:55)
[2024-10-31] MEDS: LANTUS 0.12 UNITS SC (09:18)
[2024-10-31] MEDS: TOPROL XL 25 MG PO (09:19)
[2024-10-31] MEDS: DICLOFENAC 1% TOPICAL GEL 4 GRAM TOPICAL ×2 (09:19→20:54)
[2024-10-31 10:47] LABS: Hematocrit 25.7 % (39.0-52.0); Hemoglobin 8.4 g/dL (13.0-18.0); Mean Corp Hgb Conc. 32.7 g/dL (33.0-37.0); Mean Corpuscular Volume 85.4 fL (80.0-94.0); Nucleated Red Blood Cells % 0 % (-); Platelet Count 242 10^3/uL (130-400); Red Cell Dist. Width 16.7 % (11.5-14.5)
[2024-10-31 11:12] LABS: ALT (SGPT) 12 U/L (0-50); AST (SGOT) 15 U/L (17-59); Albumin 2.9 g/dl (3.5-5.0); Alkaline Phosphatase 77 U/L (38-126); Blood Urea Nitrogen 25 mg/dl (9-20); Calcium 8.2 mg/dl (8.4-10.2); Carbon Dioxide 24 mmol/L (22-30); Chloride 109 mmol/L (98-107); Estimated Creatinine Clearance 54 ml/min; Glucose 180 mg/dl (70-99); Potassium 3.6 mmol/L (3.5-5.1); Sodium 137 mmol/L (135-145); Total Protein 5.4 g/dl (6.3-8.2); eGFR > 60.00
--- NOTE | 2024-10-31 11:35 | W.PN.HOSP.TC ---
Addendum entered and electronically signed by Urvashi Swanson MD 10/31/24 16:03:
I saw and evaluated the patient independently. I reviewed the resident�s note and agree with findings and plan as documented by Dr. Rose.
GENERAL: chronically ill appearing male in no apparent distress
HEENT: NC/AT
HEART: irreg irreg
LUNGS : clear to auscultation bilaterally
ABDOM: soft, nontender, nondistended, + bowel sounds
EXT: no cyanosis, clubbing, or edema--right foot with bandage
NEUROLOGIC: nonfocal
Acute on Chronic Anemia--likely worsening chronic anemia with coumadin contribution--no signs of active bleeding--s/p 3 untis pRBC--HGB 5.2 to 8.4--INR supratherapeutic--coumadin decreased? dosing restarted (not on home med list)--follow INR
Recent transmetatarsal amputation--Follow up 2 weeks after discharge--apprec Dr. Polanco input
Altered Mental Status likely due to Left Lower Lobe Pneumonia--has acute hypoxemic resp failure--off O2--changed rocephin/doxy to Keflex/doxy--head CT neg--follow cultures
Anterior Right Knee Pain--possibly due to disturbed gait from recent transmetatarsal amputation-- bilateral LE US neg for DVT--PT/OT--voltaren gel
Acute Kidney Injury--Cr 1.6 BUN 42 on admission, baseline Creat 1.0--resolved-- ALESHA was likely prerenal, hypovolemia from anemia and poor hydration--stop IVF
Permanent Atrial Fibrillation--Supratherapeutic INR--INR 3.28 on admission, restarted coumadin with daily INR checks.
CAD/Hyperlipidemia-- Continue Atorvastatin and Lasix- restart Aspirin 81mg PO daily
Essential Hypertension-- Continue Metoprolol Succinate
Type 2 Diabetes---- held metformin due to AMS and ALESHA--restart insulin dosing now that pt is eating
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
Constipation- Continue bowel regimen
DVT prophylaxis � SCDs
Code Status: DNR/DNI
will need SNF--await info from
Original Note:
Today's Communication/Plan
-
Continue on antibiotics
Clinically stable for discharge tomorrow, 11/01/2024, pending case management report for bed at [facility]
Assessment / Plan
Assessment / Plan
Lucas Coleman is an 89-year-old male with atrial fibrillation on Coumadin, Dupuytren's contracture of right hand s/p surgery 6 years ago, CAD, hypertension, diabetes, chronic right foot ulcer, chronic normocytic anemia, B12 deficiency, stage II
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 Polanco who presented from [facility] rehab with 2
weeks of weakness, SOB, lethargy, and poor ambulation found to have a left lower lobe PNA on CXR on IV ceftriaxone and doxycycline p.o. and Hbg 5.2 s/p 3 units of pRBC transfusion. He has since been clinically improving. Case management to figure
out placement and plan back to [facility] for discharge on 11/01/2024.
#Acute on Chronic Normocytic Anemia
Hemoglobin 5.2 on admission from 8.5 (on discharge) s/p 2u pRBCs 10/28/24. Repeat Hbg 7.3, ordered 3rd unit, repeat Hbg 8.2. Etiology is likely iso recent transmetatarsal amputation of right foot, where he could be bleeding intermittently from the
wound. His most recent wound check with stitches removal, however, was on 10/27/24 without evidence of bleeding/infection. Of note, INR is subtherapeutic, so Coumadin was held.
- Dr. Polanco made aware via TT and has no concern for bleeding at surgery site; his recs are as follows:
-- Dressings change, please have nursing change 2 x per week
-- NWB RLE, heel weight bearing for transfers
--Follow up 2 weeks after discharge
- CTM Hgb, transfuse prn
- Head CT negative, BM brown, fecal heme test (-); consider CT A/P if Hbg continues to drop
- Iron 33L, TIBC 225L, Ferritin 41wnl; reflective of known ACD
- Coumadin redosed based on daily INR checks. Warfarin 3 mg p.o. every afternoon tonight.
-- Continue with daily INR checks.
#Altered Mental Status
#Left Lower Lobe Pneumonia
On admission, WBC 13.7 and CXR showing left lower lobe pneumonia for which he is on IV Ceftriaxone and PO Doxycycline. Infection, in combination with low hemoglobin likely contributing to AMS.
- UA and head CT unremarkable
- F/u blood cultures, COVID-19, and sputum cultures
- Continue IV Ceftriaxone 1000mg and Doxycycline 100 mg PO q12h
-- Switch to cephalexin and doxycycline at the time of discharge.
#Anterior Right Knee Pain, resolving
He endorses right knee pain anteriorly, NTP nor erythematous. Most likely etiology is mechanical wear due to increased weight-bearing on right leg as the left foot is s/p surgery. Iso elevated WBC and subtherapeutic INR, however, infection, gout,
septic arthritis, and DVT cannot be ruled out.
- DVU 10/28/2024 was negative for acute thrombus in bilateral lower extremities.
- PT and OT consulted
- Voltaren gel as needed
#Acute Kidney Injury
Cr 1.6 BUN 42 on admission, BL Cr 1. ALESHA is like prerenal iso hypovolemia from blood loss and poor hydration.
- mIVF NSS 1000mLs at 80 mLs/hr
- Trend CMP
#Permanent Atrial Fibrillation
#Supratherapeutic INR
INR 3.28 on admission, iso bleeding and high INR. INR was back to therapeutic range on 10/29/2024 so Coumadin was resumed. We will continue with daily INR checks.
- Continue home Coumadin
- Trend INRs
#CAD
#Hyperlipidemia
- Continue Atorvastatin 40mg PO QPM and Lasix 20mg PO daily prn
- Hold Aspirin 81mg PO daily
#Essential Hypertension
- Continue Metoprolol Succinate 2 mg PO daily
#Type 2 Diabetes
- Home regimen: Insulin Glargine 12u SC daily
- Hold Home Metformin 500mg PO BID
- Resume home dose of insulin glargine 12 units; diabetic PONY TRIMMER consult
#Chronic Right Foot Ulcer
#Stage II Sacral Pressure Injury
- Wound Ostomy consult
- APAP 1000mg Q6H prn
#Dupuytren's contracture right hand
- s/p surgery 6 years ago, NTD
#Constipation
- Continue home bowel regimen
DVT prophylaxis � SCDs
Code Status: DNR/DNI
Anticipated Discharge: Today (Pending case management)
Subjective/Interval History
-
Date of Service: October 31, 2024
Lucas Coleman is an 89-year-old male with atrial fibrillation on Coumadin, Dupuytren's contracture of right hand s/p surgery 6 years ago, CAD, hypertension, diabetes, chronic right foot ulcer, chronic normocytic anemia, B12 deficiency, stage II
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 Polanco who presented from [facility] rehab with 2
weeks of weakness, SOB, lethargy, and poor ambulation found to have a left lower lobe PNA on CXR on IV ceftriaxone and doxycycline p.o. and Hbg 5.2 s/p 3 units of pRBC transfusion.
- NAEON; motivated to continue with PT.
- DC pending [facility] placement via ; medically stable.
Objective Data
-
Labs:
Laboratory Results
10/31/24 10/31/24
04:56 10:03
WBC 7.7
Hgb 8.4 L
Hct 25.7 L
Plt Count 242
PT 24.5 H
INR 2.20
Sodium 137
Potassium 3.6
Chloride 109 H
Carbon Dioxide 24
BUN 25 H
Creatinine 1.0
Glucose 180 H
Calcium 8.2 L
Total Bilirubin 1.7 H
AST 15 L
ALT 12
Alkaline Phosphatase 77
Vital Signs:
Vital Signs
Temp Pulse Resp BP Pulse Ox
97.6 F 97 16 143/81 98
10/31/24 07:15 10/31/24 07:15 10/31/24 07:15 10/31/24 07:15 10/31/24 07:15
I&O
10/30/24 10/31/24 11/01/24
06:59 06:59 06:59
Intake Total 1640 / 1640 720 / 720
Output Total 1055 / 1055 925 / 925
Balance 585 / 585 -205 / -205
Review of Systems
-
All other systems: Reviewed and negative
Constitutional: Reports Fatigue and Weakness
Musculoskeletal: Reports Joint Pain (Left knee worse than right)
Skin: Reports Other (Chronic venous insufficiency noted in bilateral lower extremities)
Physical Exam
-
General: No Apparent Distress, Comfortable, Conversant and Other (Laying in bed listening to classical music)
HEENT: Normocephalic, Atraumatic and Moist Mucous Membranes
Respiratory: Clear to Auscultation and Non Labored Respirations
Cardiac: Regular Rhythm and S1/S2
GI: Soft, Nontender and Nondistended
Musculoskeletal: No Clubbing, No Edema and Other (Right foot wrapped in gauze by Dr. Polanco)
Skin: Warm and Dry
Neuro: AO x 3
Psych: Calm and Intact Judgement/Insight
[2024-10-31 12:09] LABS: Glucose - Point of Care 174 mg/dl (70-99)
[2024-10-31] MEDS: NOVOLOG FLEXPEN-LOW RESISTANCE 1 UNITS SC ×2 (12:33→16:45)
[2024-10-31 15:10] VITALS: BP 128/75
[2024-10-31] MEDS: COUMADIN 3 MG PO (16:30)
[2024-10-31] MEDS: LIPITOR 40 MG PO (16:31)
[2024-10-31 16:43] LABS: Glucose - Point of Care 176 mg/dl (70-99)
[2024-10-31] MEDS: KEFLEX 500 MG PO (20:55)
[2024-10-31] MEDS: SENOKOT-S PO (21:00)
[2024-10-31 21:31] LABS: Glucose - Point of Care 193 mg/dl (70-99)
[2024-10-31 23:13] VITALS: BP 150/80
[2024-11-01 07:15] VITALS: BP 137/85
--- NOTE | 2024-11-01 07:18 | PN.DE.MGMTRT ---
Insulin Management
- -
11/01/2024 Diabetes Management Consult Follow up
Patient admitted 10/28 with Hgb 5.7, - anemia, found to have pneumonia. PMH sepsis, R lower leg cellulitis,, osteomyelitis of r foot, recent transmetatarsal amputation, diabetes, afib, normocytic anemia, B12 def, CAD, HTN, HLD. Prior to admission
was taking glargine 12 units AM with metformin 500 mg BID. A1C 7/ 9.2%. Cr 1.4, eGFR 46.34.
Patient is awake alert and oriented able to discuss diabetes care. Has had diabetes 15 years, follows with primary care doctor for ongoing diabetes care. Lives in assisted living, they test glucose for him at least 2 to 3 times per day.
Glucose range yesterday 145 to 193, patient received 1 units corrective at lunch and dinner and 12 units lantus in AM. Will continue lantus 12 units in AM with low corrective insulin AC. Cr 1, eGFR > 60 today, will restart metformin 500 mg BID.
Discussed with nurse.
Will follow.
Diabetes History
- -
Type of Diabetes: 2 requiring insulin
Pre-Admission Diabetes Regimen
10/31/24
10:03
Creatinine 1.0
Insulin Pump Settings
IP Diabetes Regimen
10/31/24 10/31/24 10/31/24
10:03 12:08 16:42
Glucose 180 H
POC Glucose 174 H 176 H
10/31/24
21:30
Glucose
POC Glucose 193 H
Meal type: Dinner
Meal type: Lunch
Meal type: Breakfast
Amount consumed: 100%
Amount consumed: 90%
Patient Education
[2024-11-01 07:35] LABS: INR 2.01; PT 22.9 Sec (11.4-14.6)
[2024-11-01 07:58] LABS: Glucose - Point of Care 117 mg/dl (70-99)
--- NOTE | 2024-11-01 08:17 | CM ---
Addendum entered by Adry Lee 11/01/24 15:29:
Per Liaison at [facility] patient has a bed tomorrow unless discharge does not go through. CM updated patient daughter and updated her that bed at [facility], no beds at [place], would be available as well as possibly [place]. CM will call to [facility] to
determine if bed would be available. CM will continue to follow for discharge planning needs.
Plan; pending bed [facility], [facility] or [place].
Addendum entered by Adry Lee 11/01/24 12:06:
CM spoke with liaison who stated no beds today but possible tomorrow. CM also spoke with patient daughter and she requested referral to [place], [place] and [facility] to see if they had beds. CM will send referrals.
Original Note:
CM called and spoke with Liaison at [facility] who stated she was not in office yet and would assess and update CM as soon as possible. CM will call to patient family and review options. CM will continue to follow for discharge planning needs.
Plan; SNF
[2024-11-01 09:02] LABS: Hematocrit 27.6 % (39.0-52.0); Hemoglobin 8.8 g/dL (13.0-18.0); Mean Corp Hgb Conc. 31.9 g/dL (33.0-37.0); Mean Corpuscular Volume 87.6 fL (80.0-94.0); Nucleated Red Blood Cells % 0 % (-); Platelet Count 219 10^3/uL (130-400); Red Cell Dist. Width 16.8 % (11.5-14.5)
[2024-11-01 09:24] LABS: ALT (SGPT) 11 U/L (0-50); AST (SGOT) 14 U/L (17-59); Albumin 2.7 g/dl (3.5-5.0); Alkaline Phosphatase 76 U/L (38-126); Blood Urea Nitrogen 21 mg/dl (9-20); Calcium 8.0 mg/dl (8.4-10.2); Carbon Dioxide 23 mmol/L (22-30); Chloride 107 mmol/L (98-107); Estimated Creatinine Clearance 60 ml/min; Glucose 137 mg/dl (70-99); Potassium 3.7 mmol/L (3.5-5.1); Sodium 137 mmol/L (135-145); Total Protein 5.2 g/dl (6.3-8.2); eGFR > 60.00
--- NOTE | 2024-11-01 09:29 | W.PN.HOSP.TC ---
Today's Communication/Plan
-
Work with PT/OT
Discharge pending case management placement to [facility], likely tomorrow 11/02/2024. Case management aware.
Switch to p.o. antibiotics at time of discharge for a total 14-day course.
Assessment / Plan
Assessment / Plan
Lucas Coleman is an 89-year-old male with atrial fibrillation on Coumadin, Dupuytren's contracture of right hand s/p surgery 6 years ago, CAD, hypertension, diabetes, chronic right foot ulcer, chronic normocytic anemia, B12 deficiency, stage II
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 Polanco who presented from [facility] rehab with 2
weeks of weakness, SOB, lethargy, and poor ambulation found to have a left lower lobe PNA on CXR on IV ceftriaxone and doxycycline p.o. and Hbg 5.2 s/p 3 units of pRBC transfusion. He has since been clinically improving. �Case management
configuring placement, likely plan back to [facility] for discharge on 11/02/2024.
#Acute on Chronic Normocytic Anemia
Hemoglobin 5.2 on admission from 8.5 (on discharge) s/p 2u pRBCs 10/28/24. Repeat Hbg 7.3, ordered 3rd unit, repeat Hbg 8.2. Etiology is likely iso recent transmetatarsal amputation of right foot, where he could be bleeding intermittently from the
wound. His most recent wound check with stitches removal, however, was on 10/27/24 without evidence of bleeding/infection. Of note, INR is subtherapeutic, so Coumadin was held.
- Dr. Polanco made aware via TT and has no concern for bleeding at surgery site; his recs are as follows:
-- Dressings change, please have nursing change 2 x per week
-- NWB RLE, heel weight bearing for transfers
--Follow up 2 weeks after discharge
- CTM Hgb, transfuse prn
- Head CT negative, BM brown, fecal heme test (-); consider CT A/P if Hbg continues to drop
- Iron 33L, TIBC 225L, Ferritin 41wnl; reflective of known ACD
- Coumadin redosed based on daily INR checks.� 2.01 11/01/2022. Warfarin 3 mg p.o. every afternoon tonight.
-- Daily INR checks..
#Altered Mental Status
#Left Lower Lobe Pneumonia
On admission, WBC 13.7 and CXR showing left lower lobe pneumonia for which he is on IV Ceftriaxone and PO Doxycycline. Infection, in combination with low hemoglobin likely contributing to AMS.
- UA and head CT unremarkable
- F/u blood cultures, COVID-19, and sputum cultures
- Continue IV Ceftriaxone 1000mg and Doxycycline 100 mg PO q12h; started 10/27/24
-- Switch to Cephalexin and Doxycycline at the time of discharge, likely 11/01/2024.
#Anterior Right Knee Pain, resolving
He endorses right knee pain anteriorly, NTP nor erythematous. Most likely etiology is mechanical wear due to increased weight-bearing on right leg as the left foot is s/p surgery. Iso elevated WBC and subtherapeutic INR, however, infection, gout,
septic arthritis, and DVT cannot be ruled out.
- DVU 10/28/2024 was negative for acute thrombus in bilateral lower extremities.
- PT and OT consulted
- Voltaren gel as needed
#Acute Kidney Injury
Cr 1.6 BUN 42 on admission, BL Cr 1. ALESHA is like prerenal iso hypovolemia from blood loss and poor hydration.
- mIVF NSS 1000mLs at 80 mLs/hr
- Trend CMP
#Permanent Atrial Fibrillation
#Supratherapeutic INR
INR 3.28 on admission, iso bleeding and high INR. INR was back to therapeutic range on 10/29/2024 so Coumadin was resumed. We will continue with daily INR checks.
- Continue home Coumadin
- Trend INRs
#CAD
#Hyperlipidemia
- Continue Atorvastatin 40mg PO QPM and Lasix 20mg PO daily prn
- Hold Aspirin 81mg PO daily
#Essential Hypertension
- Continue Metoprolol Succinate 2 mg PO daily
#Type 2 Diabetes
- Home regimen: Insulin Glargine 12u SC daily
- Hold Home Metformin 500mg PO BID
- Resume home dose of insulin glargine 12 units; diabetic STOCK SELECTOR consult
#Chronic Right Foot Ulcer
#Stage II Sacral Pressure Injury
- Wound Ostomy consult
- APAP 1000mg Q6H prn
#Dupuytren's contracture right hand
- s/p surgery 6 years ago, NTD
#Constipation
- Continue home bowel regimen
DVT prophylaxis � SCDs
Code Status: DNR/DNI
Anticipated Discharge: Within 24 hours (Pending case management. Case management aware.)
Subjective/Interval History
-
Date of Service: November 01, 2024
DM STOCK SELECTOR saw him- restarted metformin, continue on home insulin 12u.
Per CM, dc to [facility] tomorrow.
This morning, he was working with PT and OT. He had no new complaints, and endorsed feeling really good.
Objective Data
-
Labs:
Laboratory Results
11/01/24
06:51
WBC 7.0
Hgb 8.8 L
Hct 27.6 L
Plt Count 219
PT 22.9 H
INR 2.01
Sodium 137
Potassium 3.7
Chloride 107
Carbon Dioxide 23
BUN 21 H
Creatinine 0.9
Glucose 137 H
Calcium 8.0 L
Total Bilirubin 1.7 H
AST 14 L
ALT 11
Alkaline Phosphatase 76
Vital Signs:
Vital Signs
Temp Pulse Resp BP Pulse Ox
97.8 F 90 18 137/85 100
11/01/24 07:15 11/01/24 07:15 11/01/24 07:15 11/01/24 07:15 11/01/24 07:15
I&O
10/31/24 11/01/24 11/02/24
06:59 06:59 06:59
Intake Total 720 / 720 540 / 540
Output Total 925 / 925 300 / 300 400 / 400
Balance -205 / -205 240 / 240 -400 / -400
Review of Systems
-
History Source: Patient
All other systems: Reviewed and negative
Constitutional: Reports Weakness
Musculoskeletal: Reports Muscle Pain (Left knee, better with Voltaren gel and lidocaine patch.) and Muscle Weakness (From deconditioning)
Physical Exam
-
General: No Apparent Distress, Comfortable, Conversant and Other (Laying in bed with PT and OT bedside, motivated to work with them today.)
HEENT: Normocephalic, Atraumatic and Moist Mucous Membranes
Respiratory: Clear to Auscultation and Non Labored Respirations
Cardiac: Regular Rhythm and S1/S2
GI: Soft, Nontender and Nondistended
Musculoskeletal: No Clubbing, No Cyanosis, No Edema and Other (Right foot dressing changed today by nursing 2/2 transmetatarsal amputation, baseline chronic venous insufficiency present in bilateral lower extremities.)
Skin: Warm and Dry
Neuro: AO x 3
Psych: Calm and Intact Judgement/Insight
[2024-11-01] MEDS: NOVOLOG FLEXPEN-LOW RESISTANCE SC (09:47)
[2024-11-01] MEDS: VIBRAMYCIN 100 MG PO ×2 (09:48→21:00)
[2024-11-01] MEDS: LANTUS 0.12 UNITS SC (09:48)
[2024-11-01] MEDS: KEFLEX 500 MG PO ×2 (09:48→21:00)
[2024-11-01] MEDS: ASPIR LOW (ENTERIC COATED) 81 MG PO (09:48)
[2024-11-01] MEDS: TOPROL XL 25 MG PO (09:48)
[2024-11-01] MEDS: GLUCOPHAGE 500 MG PO ×2 (09:48→16:49)
--- NOTE | 2024-11-01 09:48 | W.PN.UPDATE ---
Update Note
Progress Note Update
I saw and evaluated the patient. I reviewed the resident�s note and agree with findings and plan as documented in the resident�s note.
Gen: NAD, Awake and alert, appears chronically ill.
Eyes: EOMI, PERRLA, no scleral icterus.
Neck: supple.
CV: irreg/irreg, +S1/S2, no m/r/g.
Resp: CTAB, no rales, wheezes, or rhonchi.
Abd: +BS, soft, NT, ND
Skin: No rashes. C/D/I dressing R foot
Neuro: CN 2-12 intact, non-focal.
Psych: Normal mood and affect.
10/27/24 23:50 Blood/Venous Blood Culture - Preliminary
No Growth in 4 days- Final report to follow
10/27/24 23:40 Blood/Venous Blood Culture - Preliminary
No Growth in 4 days- Final report to follow
10/27/24 23:41 Nose MRSA Screen - Final
No Methicillin Resistant Staphylococcus aureus isolated.
CXR: LLL PNA. Probable left pleural effusion. Suspect trace right pleural effusion and mild vascular congestion.
CT brain: No acute intracranial abnormality noted. No acute intracranial hemorrhage. 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 Small chronic lacunar infarct in the anterior limb of the right internal capsule. Moderate to advanced atrophy. Mild chronic
microvascular white matter ischemic change.
B/L LE U/S: No sonographic evidence for lower extremity venous thrombosis.
Acute on Chronic Anemia:
-likely worsening chronic anemia exacerbated by coumadin (yet no signs of active bleeding)
-INR was supratherapeutic on admission and Coumadin was held.
-s/p 3U pRBC, Hb stable
-Coumadin restarted, trend Hb/INR
LLL PNA:
-with acute metabolic encephalopathy and acute hypoxemic respiratory failure
-now saturating well on RA
-was on Rocephin/Doxy, now on Keflex/Doxy
Other problems:
Recent R transmetatarsal amputation: seen by Dr. Polanco, f/u 2 weeks post-d/c
Anterior Right Knee Pain: likely due to disturbed gait from recent transmetatarsal amputation
ALESHA, prerenal, resolved with IVFs
Permanent Atrial Fibrillation: cont coumadin/BB
CAD: cont ASA/BB/statin
HLD: cont statin
Essential HTN: cont BB
DM2: cont Metformin/Lantus/SSI/accuchecks/diabetic diet
Chronic Right Foot Ulcer and Stage II Sacral Pressure Injury (POA): wound care
Dupuytren's contracture right hand s/p surgery 6 years ago
Constipation
DNR/DNI/SCDs
Medically cleared for d/c.
[2024-11-01] MEDS: DICLOFENAC 1% TOPICAL GEL 4 GRAM TOPICAL ×2 (09:49→20:53)
[2024-11-01 11:13] VITALS: BP 128/79; PULSE 96
[2024-11-01 11:44] LABS: Glucose - Point of Care 212 mg/dl (70-99)
[2024-11-01] MEDS: NOVOLOG FLEXPEN-LOW RESISTANCE 2 UNITS SC ×2 (12:53→17:42)
[2024-11-01] MEDS: MIRALAX 17 GRAMS PO (12:57)
[2024-11-01 15:14] VITALS: BP 136/74
[2024-11-01 17:12] LABS: Glucose - Point of Care 202 mg/dl (70-99)
[2024-11-01] MEDS: LIPITOR 40 MG PO (17:42)
[2024-11-01] MEDS: COUMADIN 3 MG PO (17:43)
[2024-11-01] MEDS: DESENEX/MITRAZOL/ZEASORB 1 APPLIC TOPICAL (20:52)
[2024-11-01] MEDS: SENOKOT-S PO (21:11)
[2024-11-01 21:38] LABS: Glucose - Point of Care 202 mg/dl (70-99)
[2024-11-01 23:24] VITALS: BP 133/71
[2024-11-02] MEDS: TYLENOL 1000 MG PO (02:04)
[2024-11-02 07:20] VITALS: BP 139/72
[2024-11-02 07:44] LABS: Glucose - Point of Care 145 mg/dl (70-99)
[2024-11-02 07:54] LABS: Hematocrit 27.0 % (39.0-52.0); Hemoglobin 8.6 g/dL (13.0-18.0); Mean Corp Hgb Conc. 31.9 g/dL (33.0-37.0); Mean Corpuscular Volume 88.2 fL (80.0-94.0); Nucleated Red Blood Cells % 0 % (-); Platelet Count 250 10^3/uL (130-400); Red Cell Dist. Width 17.2 % (11.5-14.5)
--- NOTE | 2024-11-02 08:01 | W.PN.UPDATE ---
Addendum entered and electronically signed by Clifton Whitney MD 11/02/24 09:32:
Total time spent on d/c = 31 min. This included today's physical exam, progress note, review of laboratory and diagnostic data, preparation of discharge documents and prescriptions, and discussions about the pt's hospital course and discharge plan
with the patient and other medical appointment scheduler involved in the patient's care.
Original Note:
Update Note
Progress Note Update
I saw and evaluated the patient. I reviewed the resident�s note and agree with findings and plan as documented in the resident�s note.
No new complaints.
Gen: NAD, Awake and alert, appears chronically ill.
Eyes: EOMI, PERRLA, no scleral icterus.
Neck: supple.
CV: remains irreg/irreg, +S1/S2, no m/r/g.
Resp: CTAB anteriorly, no rales, wheezes, or rhonchi.
Abd: remains +BS, soft, NT, ND
Skin: No rashes. C/D/I dressing R foot
Neuro: CN 2-12 intact, non-focal.
Psych: Normal mood and affect.
10/27/24 23:50 Blood/Venous Blood Culture - Final
No Growth - Final Report
10/27/24 23:40 Blood/Venous Blood Culture - Final
No Growth - Final Report
10/27/24 23:41 Nose MRSA Screen - Final
No Methicillin Resistant Staphylococcus aureus isolated.
CXR: LLL PNA. Probable left pleural effusion. Suspect trace right pleural effusion and mild vascular congestion.
CT brain: No acute intracranial abnormality noted. No acute intracranial hemorrhage. 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 Small chronic lacunar infarct in the anterior limb of the right internal capsule. Moderate to advanced atrophy. Mild chronic
microvascular white matter ischemic change.
B/L LE U/S: No sonographic evidence for lower extremity venous thrombosis.
Acute on Chronic Anemia:
-likely worsening chronic anemia exacerbated by coumadin (yet no signs of active bleeding)
-INR was supratherapeutic on admission and Coumadin was held.
-s/p 3U pRBC, Hb stable
-Coumadin restarted, trend Hb/INR
LLL PNA:
-with acute metabolic encephalopathy and acute hypoxemic respiratory failure
-now saturating well on RA
-was on Rocephin/Doxy, now on Keflex/Doxy. Change Keflex to Ceftin. Complete 7 days abx total.
Other problems:
Recent R transmetatarsal amputation: seen by Dr. Polanco, f/u 2 weeks post-d/c
Anterior Right Knee Pain: likely due to disturbed gait from recent transmetatarsal amputation
ALESHA, prerenal, resolved with IVFs
Permanent Atrial Fibrillation: cont coumadin/BB
CAD: cont ASA/BB/statin
HLD: cont statin
Essential HTN: cont BB
DM2: cont Metformin/Lantus/SSI/accuchecks/diabetic diet
Chronic Right Foot Ulcer and Stage II Sacral Pressure Injury (POA): wound care
Dupuytren's contracture right hand s/p surgery 6 years ago
Constipation
DNR/DNI/SCDs
Remains medically cleared for d/c, case management aware.
[2024-11-02 08:07] LABS: INR 2.05; PT 23.3 Sec (11.4-14.6)
[2024-11-02] MEDS: NOVOLOG FLEXPEN-LOW RESISTANCE SC ×2 (08:23→13:39)
--- NOTE | 2024-11-02 08:24 | PN.DE.MGMTRT ---
Insulin Management
- -
11/02/2024 Diabetes Management Consult Follow up
Patient admitted 10/28 with Hgb 5.7, - anemia, found to have pneumonia. PMH sepsis, R lower leg cellulitis,, osteomyelitis of r foot, recent transmetatarsal amputation, diabetes, afib, normocytic anemia, B12 def, CAD, HTN, HLD. Prior to admission
was taking glargine 12 units AM with metformin 500 mg BID. A1C 7/ 9.2%. Cr 1.4, eGFR 46.34.
Patient is awake alert and oriented able to discuss diabetes care. Has had diabetes 15 years, follows with primary care doctor for ongoing diabetes care. Lives in assisted living, they test glucose for him at least 2 to 3 times per day.
Glucose range yesterday 117 to 212, patient received 2 units corrective at lunch and dinner and 12 units lantus in AM. Will increase lantus 14 units in AM with low corrective insulin AC. Cr 1, eGFR > 60 today, will restart metformin 500 mg BID.
Discussed with nurse.
Will follow.
Diabetes History
- -
Type of Diabetes: 2 requiring insulin
Pre-Admission Diabetes Regimen
11/01/24
06:51
Creatinine 0.9
Insulin Pump Settings
IP Diabetes Regimen
11/01/24 11/01/24 11/01/24
06:51 11:43 17:09
Glucose 137 H
POC Glucose 212 H 202 H
11/01/24 11/02/24
21:36 07:26
Glucose
POC Glucose 202 H 145 H
Meal type: Breakfast
Amount consumed: 100%
Patient Education
[2024-11-02] MEDS: GLUCOPHAGE 500 MG PO (08:29)
[2024-11-02] MEDS: KEFLEX 500 MG PO (08:29)
[2024-11-02] MEDS: TOPROL XL 25 MG PO (08:29)
[2024-11-02] MEDS: DESENEX/MITRAZOL/ZEASORB 1 APPLIC TOPICAL (08:29)
[2024-11-02] MEDS: LANTUS 0.12 UNITS SC (08:29)
[2024-11-02] MEDS: VIBRAMYCIN 100 MG PO (08:29)
[2024-11-02] MEDS: ASPIR LOW (ENTERIC COATED) 81 MG PO (08:29)
--- NOTE | 2024-11-02 08:29 | W.PN.UPDATE ---
Update Note
Progress Note Update
s/p right foot TMA, stable
-No concern for bleeding source
-dressings change, please have nursing change 2 x per week
-NWB RLE, heel weight bearing for transfers
-Continue ABx per Primary team
-Will follow from afar
-Follow up 2 weeks after discharge
[2024-11-02] MEDS: DICLOFENAC 1% TOPICAL GEL 4 GRAM TOPICAL (08:30)
[2024-11-02 08:56] LABS: ALT (SGPT) 10 U/L (0-50); AST (SGOT) 13 U/L (17-59); Albumin 2.7 g/dl (3.5-5.0); Alkaline Phosphatase 78 U/L (38-126); Blood Urea Nitrogen 25 mg/dl (9-20); Calcium 8.1 mg/dl (8.4-10.2); Carbon Dioxide 24 mmol/L (22-30); Chloride 109 mmol/L (98-107); Estimated Creatinine Clearance 54 ml/min; Glucose 131 mg/dl (70-99); Potassium 3.9 mmol/L (3.5-5.1); Sodium 137 mmol/L (135-145); Total Protein 5.3 g/dl (6.3-8.2); eGFR > 60.00
--- NOTE | 2024-11-02 09:57 | CM ---
CM following re: discharge planning.
Reviewed pt's chart, met with pt and spoke to pt's daughter Asuncion over the phone to update on discharge plan progress.
Discharge order noted. Both pt and his daughter are aware, expressed their agreement with discharge. IMM reviewed, placed on chart, pt has a copy.
CM spoke to [facility] admissions advisor and she confirmed that pt is accepted for admission today. Covid test requested. is aware.
tro arrange ambulance transport BLS. PMNC completed and left with .
[facility] nursing report: [phone]
Discharge instructions with COVID test result fax: [phone]
D/C plan: [facility] for a short term rehab
[2024-11-02 10:29] LABS: COVID-19 Antigen Negative (Negative)
--- NOTE | 2024-11-02 13:24 | W.PN.HOSP.TC ---
Today's Communication/Plan
-
Discharge to [facility] today on Ceftin and Doxy for 1 more day.
Assessment / Plan
Assessment / Plan
Lucas Coleman is an 89-year-old male with atrial fibrillation on Coumadin, Dupuytren's contracture of right hand s/p surgery 6 years ago, CAD, hypertension, diabetes, chronic right foot ulcer, chronic normocytic anemia, B12 deficiency, stage II
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 Polanco who presented from [facility] rehab with 2
weeks of weakness, SOB, lethargy, and poor ambulation found to have a left lower lobe PNA on CXR on IV ceftriaxone and doxycycline p.o. and Hbg 5.2 s/p 3 units of pRBC transfusion. He has since been clinically improving. �Going back to [facility]
for discharge today.
#Acute on Chronic Normocytic Anemia
Hemoglobin 5.2 on admission from 8.5 (on discharge) s/p 2u pRBCs 10/28/24. Repeat Hbg 7.3, ordered 3rd unit, repeat Hbg 8.2. Etiology is likely iso recent transmetatarsal amputation of right foot, where he could be bleeding intermittently from the
wound. His most recent wound check with stitches removal, however, was on 10/27/24 without evidence of bleeding/infection. Of note, INR is subtherapeutic, so Coumadin was held.
- Dr. Polanco made aware via TT and has no concern for bleeding at surgery site; his recs are as follows:
-- Dressings change, please have nursing change 2 x per week
-- NWB RLE, heel weight bearing for transfers
--Follow up 2 weeks after discharge
- CTM Hgb, transfuse prn
- Head CT negative, BM brown, fecal heme test (-); consider CT A/P if Hbg continues to drop
- Iron 33L, TIBC 225L, Ferritin 41wnl; reflective of known ACD
- Coumadin redosed based on daily INR checks. Warfarin 3 mg p.o. every night.
-Daily INR checks.
#Altered Mental Status
#Left Lower Lobe Pneumonia
On admission, WBC 13.7 and CXR showing left lower lobe pneumonia for which he is on IV Ceftriaxone and PO Doxycycline. Infection, in combination with low hemoglobin likely contributing to AMS.
- UA and head CT unremarkable
- F/u blood cultures, COVID-19, and sputum cultures
- Continue IV Ceftriaxone 1000mg and Doxycycline 100 mg PO q12h; started 10/27/24
--Switched to Ceftin and Doxycycline at the time of discharge for 1 more day today.
#Anterior Right Knee Pain, resolving
He endorses right knee pain anteriorly, NTP nor erythematous. Most likely etiology is mechanical wear due to increased weight-bearing on right leg as the left foot is s/p surgery. Iso elevated WBC and subtherapeutic INR, however, infection, gout,
septic arthritis, and DVT cannot be ruled out.
- DVU 10/28/2024 was negative for acute thrombus in bilateral lower extremities.
- PT and OT consulted
- Voltaren gel as needed
#Acute Kidney Injury
Cr 1.6 BUN 42 on admission, BL Cr 1. ALESHA is like prerenal iso hypovolemia from blood loss and poor hydration.
- mIVF NSS 1000mLs at 80 mLs/hr
- Trend CMP
#Permanent Atrial Fibrillation
#Supratherapeutic INR
INR 3.28 on admission, iso bleeding and high INR. INR was back to therapeutic range on 10/29/2024 so Coumadin was resumed. We will continue with daily INR checks.
- Continue home Coumadin
- Trend INRs
#CAD
#Hyperlipidemia
- Continue Atorvastatin 40mg PO QPM and Lasix 20mg PO daily prn
- Hold Aspirin 81mg PO daily
#Essential Hypertension
- Continue Metoprolol Succinate 2 mg PO daily
#Type 2 Diabetes
- Home regimen: Insulin Glargine 12u SC daily
- Hold Home Metformin 500mg PO BID
- Resume home dose of insulin glargine 12 units; diabetic IDENTIFICATION AND RECORDS COMMANDER consult
#Chronic Right Foot Ulcer
#Stage II Sacral Pressure Injury
- Wound Ostomy consult
- APAP 1000mg Q6H prn
#Dupuytren's contracture right hand
- s/p surgery 6 years ago, NTD
#Constipation
- Continue home bowel regimen
DVT prophylaxis � SCDs
Code Status: DNR/DNI
Anticipated Discharge: Today (To [facility])
Subjective/Interval History
-
Date of Service: November 02, 2024
- No acute events overnight. This morning, sitting in bed and happy that he gets to go to [facility].
Objective Data
-
Labs:
Laboratory Results
11/02/24
07:02
WBC 8.3
Hgb 8.6 L
Hct 27.0 L
Plt Count 250
PT 23.3 H
INR 2.05
Sodium 137
Potassium 3.9
Chloride 109 H
Carbon Dioxide 24
BUN 25 H
Creatinine 1.0
Glucose 131 H
Calcium 8.1 L
Total Bilirubin 1.8 H
AST 13 L
ALT 10
Alkaline Phosphatase 78
Vital Signs:
Vital Signs
Temp Pulse Resp BP Pulse Ox
98.2 F 93 16 139/72 94
11/02/24 07:20 11/02/24 07:20 11/02/24 07:20 11/02/24 07:20 11/02/24 07:20
I&O
11/01/24 11/02/24 11/03/24
06:59 06:59 06:59
Intake Total 540 / 540 360 / 360
Output Total 300 / 300 750 / 750
Balance 240 / 240 -390 / -390
Review of Systems
-
All other systems: Reviewed and negative
Constitutional: Reports Weakness
Physical Exam
-
General: No Apparent Distress, Comfortable, Conversant, Appears Chronically Ill and Other (Sitting up in bed, asking about discharge plan.)
HEENT: Normocephalic, Atraumatic and Moist Mucous Membranes
Respiratory: Clear to Auscultation and Non Labored Respirations
Cardiac: Regular Rhythm and S1/S2
GI: Soft, Nontender and Nondistended
Musculoskeletal: Other (Right foot dressing in place 2/2 transmetatarsal amputation)
Psych: Calm and Intact Judgement/Insight
[2024-11-02 15:45] VITALS: BP 141/95
--- NOTE | 2024-11-02 16:11 | W.DCSUMMARY ---
Discharge Summary
Discharge Data
Date of Admission: 10/27/24
Date of Discharge: 11/02/24
-
Pending Results: No
Hospital Course
Discharging Physician : Burt Rose MD/ZEINAB
Disposition : [facility]
Principal Discharge diagnosis : Left lower lobe pneumonia and acute on chronic anemia
Hospital Course : Lucas Coleman is an 89-year-old male with atrial fibrillation on Coumadin, Dupuytren's contracture of right hand s/p surgery 6 years ago, CAD, hypertension, diabetes, chronic right foot ulcer, chronic normocytic anemia, B12
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 Polanco who presented to the
ED on 10/27/[address] [facility] rehab with 2 weeks of weakness, SOB, lethargy, and poor ambulation found to have a left lower lobe PNA on CXR (WBC 13.7) and Hbg 5.2. He received 3u of pRBCs and repeat hemoglobin was 8.3. He did not require any
other blood transfusion throughout hospital course. Dr. Polanco, his closed circuit screen watcher, followed Lucas throughout hospital course and his amputation site was deemed clean and nonbleeding. He also received daily INR checks and home warfarin was dosed
according to these. For his left lower lobe pneumonia, he was on IV ceftriaxone 1000 mg then p.o. doxycycline 100 mg twice daily through 10/27/2024 to 11/02/2024. Of note, he did not have a cough, fever, nor any other infectious symptoms. Other
problems addressed during this hospital course were acute kidney injury on admission, which resolved with maintenance IV fluids, and anterior right knee pain, which resolved with Voltaren gel and lidocaine patches. He was deemed medically stable
for discharge on 10/31/2024, however discharge was delayed pending placement to [facility] rehab. On 11/02/2024, he was discharged to [facility] on 1 more day of antibiotics: Ceftin 500 mg p.o. twice daily and doxycycline 100 mg twice daily with last
dose on 11/03/2024. He will need aggressive PT for reconditioning and a repeat CBC with differential and CMP in a week along with a follow-up appointment with his PCP.
Important imaging findings :
Exams: CR Chest - 2 Views
PROCEDURE: 2 view chest x-ray.
INDICATION: Weakness. Change in mental status.
COMPARISON: 10/11/2014.
FINDINGS:
Dense consolidation in the posterior left lower lobe, consistent with pneumonia. Probable associated left pleural effusion. There appears to be trace right pleural effusion. Mild vascular congestion. Top normal heart size. No pneumothorax.
IMPRESSION:
Left lower lobe pneumonia. Probable left pleural effusion. Suspect trace right pleural effusion and mild vascular congestion.
Discharge Plan
-
Patient Disposition: [facility]/SNF
Discharge Diagnosis/Procedures: Left lower lobe pneumonia
Acute on chronic normocytic anemia
Acute kidney injury
Condition: Good
Diet: Diabetic, Carb Controlled
Additional Diets: 1800-calorie (15 carb) diabetic
Activity: With assistance and As tolerated
Driving Restrictions: As prior to admission
Bathing Restrictions: None
Blood Work: CBC with differential, CMP, and INR in a week
Referrals:
Bee Posada PA-C [Family Provider, Internal Medicine] - in less than 1 week
Referral Note: Follow-up for pneumonia and acute on chronic anemia
Logan Polanco DPM [Active, Podiatry] - in two to three weeks
Referral Note: Follow-up for your right foot transmetatarsal amputation with your surgeon Dr. Polanco
Additional Discharge Medication Instructions: Continue on oral doxycycline 100 mg every 12 hours and ceftin 500 mg every 12 hours with last dose on 11/03/2024
Prescriptions:
New
warfarin [Jantoven] 3 mg Tablet
3 mg PO QPM 30 Days Qty: 30 0RF
doxycycline hyclate 100 mg Capsule
100 mg PO Q12 1 Days Qty: 2 0RF
cefuroxime axetil 500 mg tablet
500 mg PO BID Qty: 2 0RF
Rx Instructions:
Take Ceftin 500 mg twice daily (12 hours apart) with last dose on 11/03/24
Continued
atorvastatin [Lipitor] 40 mg Tablet
40 mg PO QPM 30 Days Qty: 30 0RF
polyethylene glycol 3350 [Miralax] 17 gram Powder In Packet
17 g PO DAILY 30 Days Qty: 30 0RF
sennosides-docusate sodium [Senna-S] 8.6-50 mg Tablet
2 tab-cap PO HS 30 Days Qty: 30 0RF
aspirin 81 MG tablet,delayed release (DR/EC)
81 mg PO DAILY 30 Days Qty: 30 0RF
zinc oxide 20 % Ointment
1 applic TOPICAL BID 30 Days Qty: 30 0RF
acetaminophen 500 mg Tablet
1,000 mg PO Q6HPRN PRN (Reason: mild pain/fever) 30 Days Qty: 30 0RF
magnesium hydroxide [Milk of Magnesia] 400 mg/5 mL Suspension
2,400 mg PO [id number] PRN (Reason: constipation) 30 Days Qty: 30 0RF
bisacodyl [Dulcolax (bisacodyl)] 10 mg Suppository
10 mg CA DAILYPRN PRN (Reason: if no bm aftr mom) 30 Days Qty: 30 0RF
furosemide 20 mg Tablet
20 mg PO DAILYPRN PRN (Reason: fluid retention/peripheral edema) 30 Days Qty: 30 0RF
metoprolol succinate 25 mg Tablet Extended Release 24 Hr
25 mg PO DAILY 30 Days Qty: 30 0RF
metformin 500 mg Tablet Extended Release 24 Hr
500 mg PO BID 30 Days Qty: 30 0RF
diclofenac sodium 1 % Gel
4 g TOPICAL BID 30 Days Qty: 1 0RF
insulin glargine-yfgn 100 unit/mL Solution
12 unit SC DAILY 30 Days Qty: 30 0RF
Discontinued
Fleet Enema 19-7 gram/118 mL Enema
118 ml CA DAILYPRN PRN (Reason: if no bm aftr dulcolax)
Discharge Orders:
Discharge Patient (As Directed); Ordered 11/02/24
Ordered By: Clifton Whitney
Discharge Date and Time
Discharge Date/Time: 11/02/24 15:52
Print Language: UGANDAN
[2024-11-02 22:04] LABS: Glucose - Point of Care 115 mg/dl (70-99)
[2024-11-02 22:04] LABS: Glucose - Point of Care 144 mg/dl (70-99)
== END 2024-11-02 15:52 | DRG 682 ==
LOC: 2 NORTH 22:50
PROVIDERS: Nurse Practitioner; ADMITTING PHYSICIAN Hospitalist; ATTENDING PHYSICIAN Internal Medicine; EMERGENCY PHYSICIAN Emergency Medicine; FAMILY PHYSICIAN Physician Assistant Medical; OTHER PHYSICIAN Student in an Organized Health Care Education/Training Program
PROC: 30233N1 Transfusion of Nonautologous Red Blood Cells into Peripheral Vein, Percutaneous Approach (ICD-10-PCS; 2024-10-27)
DX: N17.9 Acute kidney failure, unspecified (principal); G93.41 Metabolic encephalopathy; J18.9 Pneumonia, unspecified organism; J90 Pleural effusion, not elsewhere classified; I48.21 Permanent atrial fibrillation; D68.32 Hemorrhagic disorder due to extrinsic circulating anticoagulants; D64.9 Anemia, unspecified; E11.69 Type 2 diabetes mellitus with other specified complication; E78.5 Hyperlipidemia, unspecified; G47.30 Sleep apnea, unspecified; L89.152 Pressure ulcer of sacral region, stage 2; I25.10 Atherosclerotic heart disease of native coronary artery without angina pectoris; I10 Essential (primary) hypertension; E53.8 Deficiency of other specified B group vitamins; Z79.01 Long term (current) use of anticoagulants; K59.00 Constipation, unspecified; Z66 Do not resuscitate; R79.1 Abnormal coagulation profile; Z79.84 Long term (current) use of oral hypoglycemic drugs; Z89.431 Acquired absence of right foot; Z88.0 Allergy status to penicillin; Z88.8 Allergy status to other drugs, medicaments and biological substances; Z79.82 Long term (current) use of aspirin
CPT/HCPCS: 70450; 71046; 80053; 81003; 81015; 82607; 82728; 82746; 82947; 82962; 83540; 83550; 85018; 85025; 85610; 86850; 86900; 86901; 86920; 87040; 87070; 87811; 93005; 93970; 97110; 97162; 97167; 97530; 97535; P9016

== ENCOUNTER 2025-03-05 17:11 | Inpatient (IN) | payer MEDICARE, SELFPAY ==
[2025-03-05] VITALS (10 sets, daily range): BP systolic 133–171; BP diastolic 78–103; BMI 29.9; BMI 29.8
[2025-03-05 12:29] LABS: Hematocrit 32.3 % (39.0-52.0); Hemoglobin 10.0 g/dL (13.0-18.0); Mean Corp Hgb Conc. 31.0 g/dL (33.0-37.0); Mean Corpuscular Volume 85.7 fL (80.0-94.0); Nucleated Red Blood Cells % 0 % (-); Platelet Count 183 10^3/uL (130-400); Red Cell Dist. Width 18.3 % (11.5-14.5)
--- NOTE | 2025-03-05 12:43 | ED.GENMED ---
History of Present Illness
<Effie Soliman PA-C - Last Filed: 03/05/25 18:44>
General
Chief Complaint: Male Genito-Urinary Symptoms
Source: patient
Exam Limitations: none
Time Seen by Provider: 03/05/25 12:31
History of Present Illness
History of Present Illness:
89yoM with a history of atrial fibrillation on Coumadin, coronary artery disease s/p CABG, type 2 diabetes, hypertension, hyperlipidemia presenting via EMS for evaluation of leg swelling. Patient is a resident at [facility]. Nursing
home called EMS today due to increasing leg swelling. He takes furosemide 20mg daily as needed. He states he has leg swelling at baseline and does not believe it is any worse today. Urine appeared dark today and he believes there may have been
some blood in the urine but is not sure. He denies any difficulty urinating, dysuria, retention. No fevers, chills, flank pain, abdominal pain, vomiting, chest pain, shortness of breath.
Past History
<Effie Soliman PA-C - Last Filed: 03/05/25 18:44>
Past History
ED Past Medical History: Arrthythmia, NIDDM and Other (sleep apnea)
ED Past Surgical History: Cardiac
Social History
Tobacco: Non-smoker
Personal:
Living: with family
Phy Exam
<Effie Soliman PA-C - Last Filed: 03/05/25 18:44>
General Physical Exam
General Presentation: no apparent distress
General Skin: warm and dry
General Habitus: normal and elderly
General Mental: alert
ENT Exam
ENT Exam: normocephalic
Cardiovascular Exam
Cardiovascular Exam: irregularly irregular and other (3+ pitting edema in bilateral lower extremities. +JVD.)
Pulmonary Exam
Pulmonary Exam: no respiratory distress, no rhonchi, no wheezing, decreased breath sounds and other (Decreased breath sounds at the bases)
Gastrointestinal Exam
Gastrointestinal Exam: non tender, soft and non distended
Neurological Exam
Neurological Exam: alert
Skin Exam
Skin Exam: normal color and warm/dry
Psychiatric Exam
Psychiatric Exam: normal mood/affect
Course
<Effie Soliman PA-C - Last Filed: 03/05/25 18:44>
Orders/Labs/Results
Orders:
Orders
03/05/25 12:00
Complete Blood Count/With Diff Urgent
Comprehensive Metabolic Panel Urgent
NT-proBNP Urgent
03/05/25 12:42
CR Chest - 2 Views Urgent
Comment:
Reason For Exam: leg swelling
03/05/25 12:54
CT Abd/pel Without Iv Or Oral Urgent
Comment:
Reason For Exam: ALESHA, hematuria
03/05/25 13:26
Prothrombin Time Urgent
03/05/25 13:55
Furosemide [Lasix] 40 mg IV NOW STA
03/05/25 Dinner
4 Gram Sodium (REJI) [Sodium, 4 Gram (REJI)]
Fluid Restriction: 1800 mL/day (60 oz)
03/05/25 16:28
Admit/Transfer Patient As Directed
Co-Sign Provider:
Level of Care: Inpatient admission
Assign to:: Telemetry
Physician / Group: hospitalist
Diagnosis: CHF exacerbation
Reason for Telemetry: Medication for Arrhythmia
Date to Stop Telemetry: 03/07/25
Time to Stop Telemetry: 11:00
Reason for Hospitalization: CHF exacerbation
Expected length of stay greater than two midnights?: Yes
ELOS- Estimated Length of Stay in days: 3
I certify the patient meets the requirements for IP care: Yes
03/05/25 16:29
PRN Pain Medication Management As Directed
May give lesser potent ordered pain med per pt: Yes
preference::
Protocol:: Medication orders for pain may be administered in a
manner that supports deferring to patient preference
when the pt is:
- Requesting an ordered lesser potent pain medication.
Least to most potent pain medications are defined
as: acetaminophen < NSAID < tramadol < opioids
(morphine, oxycodone, hydromorphone).
- Requesting a lesser dose of the same medication IF
ORDERED.
- Requesting a less intrusive route of administration
if both routes are prescribed by the provider (PO <
IV).
03/05/25 16:32
Code Status As Directed
Resuscitation Status: Full Code
03/05/25 16:47
Bladder Scan As Directed
Follow Bladder Retention/Intermittent Cath Algorithm?: Yes
PRN if no void in __ hours: 6
Frequency: Per Retention Algorithm
If Bladder Scan Result >: 400
then:: Straight cath
Straight Cath As Directed
Frequency: Per Retention Algorithm
Additional Instructions: straight cath as needed per acute urinary retention algorithm for 24 hrs
Additional Instructions: for bladder scan greater than 400 mL
03/05/25 18:27
Acetaminophen [Tylenol] 1,000 mg PO Q6HPRN PRN fever
Acetaminophen [Tylenol] 650 mg PO Q6HPRN PRN mild pain
Atorvastatin [Lipitor] 40 mg PO QPM
Polyethylene Glycol Powder [Miralax] 17 grams PO DAILYPRN PRN constipation
03/05/25 18:27
Echo 2D MMode Color/Doppler Routine
Reason for Study: heart failure
CARDIOLOGY CONSULT Routine
Consulting Provider: Chyna Rhodes
Was physician already notified: Yes
HF DIETARY CONSULT Routine
HF EDUCATOR CONSULT Routine
Comment:
NEPHROLOGY CONSULT Routine
Consulting Provider: Gwendolyn Hayden
Was physician already notified: Yes
VTE Contraindication Routine
VTE Mechanical Device Contraindication: Medical Contraindication
Pharmocologic Contraindication: Medical Contraindication
Activity As Directed
Activity Level: Out of Bed-Early Mobility
Intake/ Output As Directed
Frequency: Per unit guidelines
Patient Education As Directed
Type: CHF folder
Comment: give on admission. Document in Interdisciplinary Education record
Sleep Apnea Assessment by RN As Directed
Comment:
Physician Instructions:
Vital Signs As Directed
Frequency: Other
Additional Instructions:: Q12 or per unit guidelines if more frequent.
Weight As Directed
Frequency: Daily
Type of Scale: Standing Scale
Comment: Daily morning weight. If unable to stand, use balanced bed scale.
Weight As Directed
Frequency: Once
Type of Scale: Standing Scale
Comment: Upon Admission. If unable to stand, use balanced bed scale.
Pulse Ox/cont/shift [RESP] Routine
Quantity: 1
Special Instructions: Daily pulse oximetry at rest. If greater than 92% at rest also obtain pulse oximetry
while ambulating as tolerated.
03/05/25 20:00
Diclofenac 1% Topical Gel See Protocol TOPICAL BID
Apply 2 or 4 grams as per protocol to the following joints:: Other joint(s)
Other joint/location to apply to:: -
Grams to be applied to other indicated joint/location:: 1%
03/05/25 22:00
Acetaminophen [Tylenol] 1,000 mg PO TID
Mirtazapine [Remeron] 7.5 mg PO HS
03/06/25 06:00
Basic Metabolic Panel IN AM
Complete Blood Count/No Diff IN AM
Prothrombin Time IN AM
03/06/25 08:00
Aspirin Low Dose EC [Aspir Low (Enteric Coated)] 81 mg PO DAILY
Furosemide [Lasix] 40 mg PO DAILY
Insulin Glargine Lantus [Lantus] 6 units Subcutaneous Insulin Syringe [Syringe-Insulin] 0 unit SC DAILY
Metoprolol Xl [Toprol Xl] 25 mg PO DAILY
03/07/25 06:00
Basic Metabolic Panel IN AM
Prothrombin Time IN AM
03/07/25 11:00
DC Protocol for Telemetry ONCE
03/08/25 06:00
Basic Metabolic Panel IN AM
Prothrombin Time IN AM
03/09/25 06:00
Prothrombin Time IN AM
03/10/25 06:00
Prothrombin Time IN AM
Abnormal Lab Results
03/05/25 03/05/25
12:00 13:26
RBC 3.77 L 10^6/uL
(4.70-6.10)
Hgb 10.0 L g/dL
(13.0-18.0)
Hct 32.3 L %
(39.0-52.0)
MCH 26.5 L pg
(27.0-31.0)
MCHC 31.0 L g/dL
(33.0-37.0)
RDW 18.3 H %
(11.5-14.5)
MPV 11.2 H fL
(7.4-10.4)
Absolute Lymphs (auto) 0.7 L 10^3/uL
(1.2-3.4)
Neutrophils % 79.6 H %
(42.2-75.2)
Lymphocytes % 9.0 L %
(20.5-51.1)
PT 43.6 H Sec
(11.4-14.6)
Chloride 108 H mmol/L
(98-107)
BUN 39 H mg/dl
(9-20)
Creatinine 2.1 H mg/dL
(0.7-1.3)
Glucose 121 H mg/dl
(70-99)
Calcium 8.1 L mg/dl
(8.4-10.2)
Total Protein 5.8 L g/dl
(6.3-8.2)
Albumin 3.1 L g/dl
(3.5-5.0)
03/05/25 12:00
03/05/25 12:00
Vital Signs
Initial and Last Documented VS:
Initial Vital Signs
Temp Pulse Resp BP Pulse Ox
98.7 F 87 20 133/80 96
03/05/25 11:55 03/05/25 11:55 03/05/25 11:55 03/05/25 11:55 03/05/25 11:55
Last Documented Vital Signs
Temp Pulse Resp BP Pulse Ox
98.7 F 84 21 142/85 95
03/05/25 11:55 03/05/25 18:00 03/05/25 18:00 03/05/25 18:00 03/05/25 18:00
<Shannon Tao MD - Last Filed: 03/05/25 14:40>
Orders/Labs/Results
Orders:
Orders
03/05/25 12:00
Complete Blood Count/With Diff Urgent
Comprehensive Metabolic Panel Urgent
NT-proBNP Urgent
03/05/25 12:42
CR Chest - 2 Views Urgent
Comment:
Reason For Exam: leg swelling
03/05/25 12:54
CT Abd/pel Without Iv Or Oral Urgent
Comment:
Reason For Exam: ALESHA, hematuria
03/05/25 13:26
Prothrombin Time Urgent
03/05/25 13:55
Furosemide [Lasix] 40 mg IV NOW STA
03/05/25 Dinner
4 Gram Sodium (REJI) [Sodium, 4 Gram (REJI)]
Fluid Restriction: 1800 mL/day (60 oz)
03/05/25 16:28
Admit/Transfer Patient As Directed
Co-Sign Provider:
Level of Care: Inpatient admission
Assign to:: Telemetry
Physician / Group: hospitalist
Diagnosis: CHF exacerbation
Reason for Telemetry: Medication for Arrhythmia
Date to Stop Telemetry: 03/07/25
Time to Stop Telemetry: 11:00
Reason for Hospitalization: CHF exacerbation
Expected length of stay greater than two midnights?: Yes
ELOS- Estimated Length of Stay in days: 3
I certify the patient meets the requirements for IP care: Yes
03/05/25 16:29
PRN Pain Medication Management As Directed
May give lesser potent ordered pain med per pt: Yes
preference::
Protocol:: Medication orders for pain may be administered in a
manner that supports deferring to patient preference
when the pt is:
- Requesting an ordered lesser potent pain medication.
Least to most potent pain medications are defined
as: acetaminophen < NSAID < tramadol < opioids
(morphine, oxycodone, hydromorphone).
- Requesting a lesser dose of the same medication IF
ORDERED.
- Requesting a less intrusive route of administration
if both routes are prescribed by the provider (PO <
IV).
03/05/25 16:32
Code Status As Directed
Resuscitation Status: Full Code
03/05/25 16:47
Bladder Scan As Directed
Follow Bladder Retention/Intermittent Cath Algorithm?: Yes
PRN if no void in __ hours: 6
Frequency: Per Retention Algorithm
If Bladder Scan Result >: 400
then:: Straight cath
Straight Cath As Directed
Frequency: Per Retention Algorithm
Additional Instructions: straight cath as needed per acute urinary retention algorithm for 24 hrs
Additional Instructions: for bladder scan greater than 400 mL
03/05/25 18:27
Acetaminophen [Tylenol] 1,000 mg PO Q6HPRN PRN fever
Acetaminophen [Tylenol] 650 mg PO Q6HPRN PRN mild pain
Atorvastatin [Lipitor] 40 mg PO QPM
Polyethylene Glycol Powder [Miralax] 17 grams PO DAILYPRN PRN constipation
03/05/25 18:27
Echo 2D MMode Color/Doppler Routine
Reason for Study: heart failure
CARDIOLOGY CONSULT Routine
Consulting Provider: Chyna Rhodes
Was physician already notified: Yes
HF DIETARY CONSULT Routine
HF EDUCATOR CONSULT Routine
Comment:
NEPHROLOGY CONSULT Routine
Consulting Provider: Gwendolyn Hayden
Was physician already notified: Yes
VTE Contraindication Routine
VTE Mechanical Device Contraindication: Medical Contraindication
Pharmocologic Contraindication: Medical Contraindication
Activity As Directed
Activity Level: Out of Bed-Early Mobility
Intake/ Output As Directed
Frequency: Per unit guidelines
Patient Education As Directed
Type: CHF folder
Comment: give on admission. Document in Interdisciplinary Education record
Sleep Apnea Assessment by RN As Directed
Comment:
Physician Instructions:
Vital Signs As Directed
Frequency: Other
Additional Instructions:: Q12 or per unit guidelines if more frequent.
Weight As Directed
Frequency: Daily
Type of Scale: Standing Scale
Comment: Daily morning weight. If unable to stand, use balanced bed scale.
Weight As Directed
Frequency: Once
Type of Scale: Standing Scale
Comment: Upon Admission. If unable to stand, use balanced bed scale.
Pulse Ox/cont/shift [RESP] Routine
Quantity: 1
Special Instructions: Daily pulse oximetry at rest. If greater than 92% at rest also obtain pulse oximetry
while ambulating as tolerated.
03/05/25 20:00
Diclofenac 1% Topical Gel See Protocol TOPICAL BID
Apply 2 or 4 grams as per protocol to the following joints:: Other joint(s)
Other joint/location to apply to:: -
Grams to be applied to other indicated joint/location:: 1%
03/05/25 22:00
Acetaminophen [Tylenol] 1,000 mg PO TID
Mirtazapine [Remeron] 7.5 mg PO HS
03/06/25 06:00
Basic Metabolic Panel IN AM
Complete Blood Count/No Diff IN AM
Prothrombin Time IN AM
03/06/25 08:00
Aspirin Low Dose EC [Aspir Low (Enteric Coated)] 81 mg PO DAILY
Furosemide [Lasix] 40 mg PO DAILY
Insulin Glargine Lantus [Lantus] 6 units Subcutaneous Insulin Syringe [Syringe-Insulin] 0 unit SC DAILY
Metoprolol Xl [Toprol Xl] 25 mg PO DAILY
03/07/25 06:00
Basic Metabolic Panel IN AM
Prothrombin Time IN AM
03/07/25 11:00
DC Protocol for Telemetry ONCE
03/08/25 06:00
Basic Metabolic Panel IN AM
Prothrombin Time IN AM
03/09/25 06:00
Prothrombin Time IN AM
03/10/25 06:00
Prothrombin Time IN AM
Abnormal Lab Results
03/05/25 03/05/25
12:00 13:26
RBC 3.77 L 10^6/uL
(4.70-6.10)
Hgb 10.0 L g/dL
(13.0-18.0)
Hct 32.3 L %
(39.0-52.0)
MCH 26.5 L pg
(27.0-31.0)
MCHC 31.0 L g/dL
(33.0-37.0)
RDW 18.3 H %
(11.5-14.5)
MPV 11.2 H fL
(7.4-10.4)
Absolute Lymphs (auto) 0.7 L 10^3/uL
(1.2-3.4)
Neutrophils % 79.6 H %
(42.2-75.2)
Lymphocytes % 9.0 L %
(20.5-51.1)
PT 43.6 H Sec
(11.4-14.6)
Chloride 108 H mmol/L
(98-107)
BUN 39 H mg/dl
(9-20)
Creatinine 2.1 H mg/dL
(0.7-1.3)
Glucose 121 H mg/dl
(70-99)
Calcium 8.1 L mg/dl
(8.4-10.2)
Total Protein 5.8 L g/dl
(6.3-8.2)
Albumin 3.1 L g/dl
(3.5-5.0)
03/05/25 12:00
03/05/25 12:00
Vital Signs
Initial and Last Documented VS:
Initial Vital Signs
Temp Pulse Resp BP Pulse Ox
98.7 F 87 20 133/80 96
03/05/25 11:55 03/05/25 11:55 03/05/25 11:55 03/05/25 11:55 03/05/25 11:55
Last Documented Vital Signs
Temp Pulse Resp BP Pulse Ox
98.7 F 84 21 142/85 95
03/05/25 11:55 03/05/25 18:00 03/05/25 18:00 03/05/25 18:00 03/05/25 18:00
Ingelt;Effie Soliman PA-C - Last Filed: 03/05/25 18:44>
MDM/Problems Addressed
Differential Diagnosis Includes:
89yoM here with leg swelling and possible blood in urine. Denies SOB. Appears volume overloaded on exam with 3+ lower extremity edema and JVD. Decreased breath sounds in lung bases. Differential diagnosis includes but is not limited to: CHF
exacerbation, cardiorenal syndrome, lymphedema, hypoalbuminemia
Initial ED plan: Check cardiac labs, UA, and CXR.
<Effie Soliman PA-C - Last Filed: 03/05/25 18:44>
*Pulse Oximetry
SaO2: 98
Oxygen Mode of Delivery: Room air
Patient hypoxic: no
*Critical Care Note
Total Time (30-74mins, 75-104mins- exclusive of procedures): Not Applicable
<Effie Soliman PA-C - Last Filed: 03/05/25 18:44>
Update Note
Update Note:
BNP elevated >15,000. Creatinine 2.1, up from 1.[address] abdomen without contrast added due to ALESHA and hematuria. CT shows diffuse anasarca and moderate bilateral pleural effusions. 40mg IV Lasix ordered and patient admitted for further
management.
ED Attending Note
<Effie Soliman PA-C - Last Filed: 03/05/25 18:44>
-
Portions of this chart may have been created with voice recognition software.� Occasional wrong word or��sound alike� substitutions may have occurred due to the inherent limitations of voice recognition software.
<Shannon Tao MD - Last Filed: 03/05/25 14:40>
ED Attending Note
Patient seen and examined by attending physician: Yes
I performed the substantive portion of visit, reviewed & personally made and approve the management plan that is documented in note by myself or ALBAN.: Yes
ED Attending Note:
Patient appears comfortable. He is breathing comfortably. Decreased breath sounds and crackles bilaterally. 2+ pitting edema bilateral lower extremities
Discharge Plan
Departure
Patient Disposition: Admit
Date of Disposition: 03/05/25
Time of Disposition: 14:42
Presentation/result/management discussed w/ accepting MD/DO: Hospitalist
Discharge Problem:
Acute exacerbation of congestive heart failure, Acute kidney injury
Interventions
Interventions:
*Risk Screen - Suicide Last Done: 03/05/25 12:20
*General Assessment Last Done: 03/05/25 12:21
*Neglect/Abuse Screening Last Done: 03/05/25 12:20
*ED COVID-19 Vaccine History Last Done: 03/05/25 16:18
*ED Influenza Vaccine History Last Done: 03/05/25 16:18
[facility] Fall Risk Assessment Tool Last Done: 03/05/25 16:17
*Nursing Disposition Last Done: 03/05/25 18:22
ED-Male Genitourinary Assessment Last Done: 03/05/25 12:26
Discharge Date and Time
Discharge Date/Time: 03/05/25 18:23
[2025-03-05 12:48] LABS: ALT (SGPT) 13 U/L (0-50); AST (SGOT) 17 U/L (17-59); Albumin 3.1 g/dl (3.5-5.0); Alkaline Phosphatase 107 U/L (38-126); Blood Urea Nitrogen 39 mg/dl (9-20); Calcium 8.1 mg/dl (8.4-10.2); Carbon Dioxide 23 mmol/L (22-30); Chloride 108 mmol/L (98-107); Glucose 121 mg/dl (70-99); Potassium 4.3 mmol/L (3.5-5.1); Sodium 138 mmol/L (135-145); Total Protein 5.8 g/dl (6.3-8.2); eGFR 29.72
[2025-03-05 13:53] LABS: INR 4.57; PT 43.6 Sec (11.4-14.6)
[2025-03-05] MEDS: LASIX 40 MG IV (14:39)
--- NOTE | 2025-03-05 15:59 | W.PN.UPDATE ---
Update Note
Progress Note Update
This note serves as an addendum to the H&P by PGY3
HPI
89M Non smoker Res at [facility].
PHX: AF on Coumadin, CAD, s/p CABG,T2DM, HTN, HLD seen at ER
- [facility] EMS for evaluation of leg swelling
- on furosemide 20mg daily PRN
- leg swelling at baseline and does not believe it is any worse today.
- Urine appeared dark today and he believes there may have been some blood in the urine but is not sure.
- denies any difficulty urinating, dysuria, retention.
- No fevers, chills, flank pain, abdominal pain, vomiting, chest pain, shortness of breath.
Relevant VS
Vital Signs
Temp Pulse Resp BP Pulse Ox
98.7 F 83 22 163/94 97
03/05/25 11:55 03/05/25 15:00 03/05/25 15:00 03/05/25 15:00 03/05/25 15:00
10/06/24
05:47 10/28/24
14:58 03/05/25
16:28
Actual Weight 88.133 kg 81.193 kg 94.5 kg
PE
Gen: Not toxic , NAD
HEENT: anicteric
Neck: supple
Lungs: symmetric AE
Cor:
Abdomen:�
TECHNICAL REP:
MS:
Psych:
Relevant Data
11/01/24 11/02/24 03/05/25
06:51 07:02 12:00
Hgb 8.8 L 8.6 L 10.0 L
INR 4.57
BUN 25 H 39 H
Creatinine 1.0 2.1 H
03/05/25
12:00
Pro-BNP 75461
EKG
ATRIAL FIBRILLATION WITH RAPID VENTRICULAR RESPONSE
ST and T WAVE ABNORMALITY, CONSIDER INFERIOR ISCHEMIA
ST and T WAVE ABNORMALITY, CONSIDER ANTEROLATERAL ISCHEMIA
ABNORMAL ECG
WHEN COMPARED WITH ECG OF 28-Sep-2024 16:15,
INVERTED T WAVES HAVE REPLACED NONSPECIFIC T WAVE ABNORMALITY IN INFERIOR LEADS
T WAVE INVERSION MORE EVIDENT IN ANTEROLATERAL LEADS
CXR
Suspect mild CHF.
Small left pleural effusion with bibasilar atelectasis and/or pneumonia.
09/30/22 TTE
Normal biventricular size and systolic function without regional wall motion abnormality.
Estimated LVEF 55-60%.
Mild concentric left ventricular hypertrophy.
Aortic sclerosis without stenosis.
Mild to moderate tricuspid regurgitation. Moderately elevated PASP. Estimated pulmonary artery pressure of 48 mmHg assuming a right atrial pressure of 3 mmHg.
Ectatic proximal ascending aorta: 3.7cm.
CT Abd/pel Without Iv Or Oral
1. Small urinary bladder calculi dependently, several near the right ureterovesical junction.
There is likely associated mild diffuse right hydroureteronephrosis. Questionable cystitis.
2. Cholelithiasis and splenomegaly.
3. Moderate diffuse colonic and rectal stool burden may reflect constipation.
4. Diffuse anasarca.
5. Moderate bilateral pleural effusions with associated probable compressive atelectasis.
Last hospitalist admission: 10/27/24 -11/02/24
ASSESSMENT & PLAN
Suspect acute on chr CHF type unknown - HFpEF ?
Anasarca - Total body vol overload - sig wt gain about 6- kg over 5 months
Associated small left pleural effusion with bibasilar atelectasis and/or pneumonia.
p-BNP 15K
- ECHP
- IV Lasix 40 daily
- on [employer] metoprolol
- Daily BMP
- Daily Wt and IOs
- CBC Card Consult
ALESHA - suspect CRS vs. Obstructive Nephropathy
- US KUB
- Bladder scan
- Hold Metformin
- Avoid Nephrotoxics
- Renal consult
Chronic Anemia
- Relatively Hgb is up compare to priir Hgb
Over Rx-tic INR
Permanent atrial fibrillation
-Hold Coumadin
- daily INR
- Goal INR
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
CAD
- on statin
Hyperlipidemia
-Continue statin
Essential hypertension
- on metoprolol XL
T2DM
- Decreased Lantus to 6 units inplace of 12 U daily
- ISS Low
Chronic right foot ulcer
History of resolved B12 deficiency
HX Stage II sacral pressure injury
DVT prophylaxis SCD , while holding Warfarin
Full code
IP TLM
--- NOTE | 2025-03-05 16:38 | HPS.HSE ---
Family Physician
-
Family Physician: Do Martino
Chief Complaint
-
Lower extremity swelling
History of Present Illness
39-year-old male with history of permanent atrial fibrillation on Coumadin, hyperlipidemia, type 2 diabetes mellitus, recent osteomyelitis s/p transmetatarsal amputation on 09/30, presents with bilateral leg swelling. Patient is a resident of
[facility]. Patient states that today while changing his diaper the nursing staff noticed that his urine was brownish-red in color. They also noticed increased bilateral leg swelling. He is currently on 20 mg of furosemide as
needed. Patient denies previous history of heart failure or stroke. He is on long-term chronic anticoagulation for pulmonary atrial fibrillation. He denies any difficulty in urine dysuria, nausea, vomiting, fever, chills, shortness of breath or
chest pain.
Medical History
Past Medical History
Past Medical History: Reports Other (permanent atrial fibrillation on Coumadin, hyperlipidemia, type 2 diabetes mellitus, recent osteomyelitis s/p transmetatarsal amputation on 09/30,)
Past Surgical History: Reports Other (as above )
Social History
Tobacco: Non-smoker
Alcohol: None
Drug: None
Personal:
Living: Assisted Living
Employment: Retired
Family History
Family History: Not pertinent
Allergies / Home Medications
Allergies reflects when Allergies were last updated in [facility].
Home Medications with original date entered in [facility]
Allergy/Medication List:
Allergies
Allergy/AdvReac Type Severity Reaction Status Date / Time
ivermectin Allergy dehydration Verified 09/10/24 14:26
penicillin Allergy Rash Verified 09/10/24 14:26
penicillin G Allergy Tolerated Verified 09/10/24 14:26
Keflex in
the past-
pt
allergic
to all PCN
Home Medications
aspirin 81 mg tablet,delayed release 81 mg PO DAILY Blood Clot Prevention/Tx 30 days #30 tabs 11/01/24
atorvastatin 40 mg tablet (Lipitor) 40 mg PO QPM High Cholesterol 30 days #30 tabs 11/01/24
acetaminophen 325 mg tablet (Tylenol) 650 mg PO Q6HPRN PRN mild pain 03/05/25
acetaminophen 500 mg tablet 1,000 mg PO TID 03/05/25
acetaminophen 500 mg tablet (Tylenol Extra Strength) 1,000 mg PO Q6HPRN PRN fever 03/05/25
diclofenac sodium 1 % topical gel 0 g topical BID both knees 03/05/25
furosemide 20 mg tablet (Lasix) 20 mg PO DAILYPRN PRN edema 03/05/25
insulin glargine 100 unit/mL (3 mL) subcutaneous pen (Lantus Solostar U-100 Insulin) 12 unit SC DAILY Diabetes 03/05/25
metformin 500 mg tablet,extended release 24 hr 500 mg PO BID Diabetes 03/05/25
metoprolol succinate 25 mg tablet,extended release 24 hr 25 mg PO DAILY Heart Disease/Condition 03/05/25
mirtazapine 7.5 mg tablet 7.5 mg PO HS Sleep 03/05/25
polyethylene glycol 3350 17 gram oral powder packet (Miralax) 17 g PO DAILYPRN PRN constipation 03/05/25
warfarin 2 mg tablet 6 mg PO SUMOSA@1900 03/05/25
warfarin 3 mg tablet (Jantoven) 4 mg PO TUWEFR@1900 Blood Clot Prevention/Tx 03/05/25
Review of Systems
-
History Source: Patient
A 12 point ROS was completed and negative except as noted: Yes
Physical Exam
Vital Signs
Vital Signs
Temp Pulse Resp BP Pulse Ox
98.7 F 80 17 162/103 93
03/05/25 11:55 03/05/25 16:15 03/05/25 16:15 03/05/25 16:00 03/05/25 16:15
Physical Exam
General: Comfortable and Conversant
HEENT: NormoCephalic and Anicteric
Respiratory: Clear
Cardiac: Irregular Rhythm, JVD and Other
GI: Soft, Non Tender and Non Distended
Musculoskeletal: Edema, Left Lower Extremity (2+ pitting ) and Edema, Right Lower Extremity (3+ pitting )
Neuro: AO x 3
Hematologic/Lymphatic: No Lymphadenopathy
Psych: Calm
Laboratory Results
-
03/05/25 12:00
03/05/25 12:00
Laboratory Results
PT 43.6 Sec (11.4-14.6) H 03/05/25 13:26
INR 4.57 03/05/25 13:26
Total Bilirubin 0.7 mg/dl (0.2-1.3) 03/05/25 12:00
AST 17 U/L (17-59) 03/05/25 12:00
ALT 13 U/L (0-50) 03/05/25 12:00
Alkaline Phosphatase 107 U/L (38-126) 03/05/25 12:00
Data Reviewed
-
Diagnostic Radiology: Report Reviewed by me and Discussed with Physician
Medical Tests (Nuc Med, Echo, EKG etc): Report Reviewed by me and Discussed with Physician
Lab Data: Labs Reviewed by me and Discussed with Physician
Impression/Plan
-
IMPRESSION:
Acute on chronic HFpEF exacerbation
Acute kidney injury
Supratherapeutic INR
Permanent atrial fibrillation
Insulin-dependent type 2 diabetes mellitus
Anxiety/depression
Hyperlipidemia
Chronic constipation
PLAN:
Acute on chronic HFpEF exacerbation
Admit to telemetry
15 kg weight gain from his dry weight.
Dry weight 81-83 kg.
ALESHA in the setting of CHF exacerbation--- suspect cardiorenal syndrome
Will not aggressively diurese-- start with IV lasix 40 mg.
Check Echo. Previous echo 2022-- LVEF 55-60%
Continue beta robert, ASA.
Fluid restriction 1500ml/day
Consult cardiology
Check weight daily.
Monitor I/O.
Acute kidney injury
secondary to CHF exacerbation/cardiorenal syndrome
Creatinine 2.1, check bladder to r/o acute urinary retention.
Hold all nephrotoxic medications.
Consult nephrology.
Supratherapeutic INR
INR 4.57. Goal 2-3
Hold warfarin
Check PT/INR daily
Permanent atrial fibrillation
Irregular rhythm
Hold warfarin--INR supratherapeutic, 4.57
Continue beta-robert
Insulin-dependent type 2 diabetes mellitus
Decrease Lantus to 6 units due to ALESHA
Hold metformin
Check A1c, sliding scale
Anxiety/depression
Continue mirtazapine
Hyperlipidemia
Continue atorvastatin
Chronic constipation
Continue Miralax
Senokot-S prn
Full code
SCD
4 gram sodium diet
--- NOTE | 2025-03-05 16:44 | CM ---
Chart reviewed
Lives in [facility].
The patient has been independent in ADLs and ambulation using his SPC.
hx of [facility]
hx of [facility] [place]'s home in 10/2024
DCP is to go back to [facility] when ready
Cm will continue to follow up for dcp needs
[2025-03-05] MEDS: LIPITOR 40 MG PO (21:23)
[2025-03-05] MEDS: REMERON 7.5 MG PO (21:23)
[2025-03-05] MEDS: DICLOFENAC 1% TOPICAL GEL TOPICAL ×2 (21:23→21:26)
[2025-03-05 23:58] LABS: Glucose - Point of Care 51 mg/dl (70-99)
[2025-03-06 00:29] LABS: Glucose - Point of Care 66 mg/dl (70-99)
[2025-03-06 01:04] LABS: Glucose - Point of Care 66 mg/dl (70-99)
[2025-03-06] MEDS: DEXTROSE 50% SYRINGE 12.5 GRAMS IV (01:13)
[2025-03-06 01:53] LABS: Glucose - Point of Care 116 mg/dl (70-99)
[2025-03-06 03:00] VITALS: BP 156/93
--- NOTE | 2025-03-06 04:25 | W.PN.UPDATE ---
Update Note
Progress Note Update
RN reports Rectal temp 95.7 and BP was 171/97, HR 85. O2 99% on room air. Also that patient is lethargic, easily arousable. Advised to check the blood sugar BS is 51, did consume orange juice two tomes. B
IV glucagon
Patient seen and evaluated. Patient is oriented, weak and lethargic, easily arousable., report to me that he is just tired and wants to sleep, also he don't remember eating much during day time .
51>66>66
IV Dextrose given
BS is 116 at present.
hx of Diabetes type 2 , insulin given.
will add accu checks
[2025-03-06 04:33] LABS: Glucose - Point of Care 98 mg/dl (70-99)
--- NOTE | 2025-03-06 04:51 | PTCARENOTE ---
SPUDDER notified that pt's rectal temp has increased from 95.7F to 96.6F. Blood sugar remains at 98 s/p IV Dextrose administration. Will continue with current plan of care.
[2025-03-06 06:00] VITALS: BMI 29.6
[2025-03-06 06:07] LABS: Glucose - Point of Care 89 mg/dl (70-99)
[2025-03-06 07:10] VITALS: BP 164/101
[2025-03-06 07:24] LABS: Glucose - Point of Care 84 mg/dl (70-99)
[2025-03-06 08:41] LABS: Hematocrit 33.3 % (39.0-52.0); Hemoglobin 10.6 g/dL (13.0-18.0); Mean Corp Hgb Conc. 31.8 g/dL (33.0-37.0); Mean Corpuscular Volume 84.7 fL (80.0-94.0); Platelet Count 192 10^3/uL (130-400); Red Cell Dist. Width 18.2 % (11.5-14.5)
--- NOTE | 2025-03-06 08:49 | W.PN.HOSP.TC ---
Today's Communication/Plan
-
See plan
Assessment / Plan
Assessment / Plan
Physical Exam
General: Comfortable and Conversant
HEENT: Normocephalic
Respiratory: Clear
Cardiac: S1 and S2. Irregular Rhythm.
GI: Soft, Non Tender and Non Distended. Positive bowel sounds.
Musculoskeletal: Edema, Left Lower Extremity (3+ pitting) and Edema, Right Lower Extremity (3+ pitting)
Neuro: AAO x 3
Psych: Calm
Assessment/Plan
89-year-old male with past medical history of permanent atrial fibrillation on Coumadin, hyperlipidemia, type 2 diabetes mellitus, recent osteomyelitis status post transmetatarsal amputation on 09/30, presents with bilateral leg swelling. Patient is
a resident of [facility]. Patient states that while changing his diaper the nursing staff noticed that his urine was brownish-red in color. They also noticed increased bilateral leg swelling. He is currently on 20 mg of furosemide
as needed. Patient denied previous history of heart failure or stroke. He is on long-term chronic anticoagulation for pulmonary atrial fibrillation. He denied any difficulty in urine dysuria, nausea, vomiting, fever, chills, shortness of breath
or chest pain.
Presentation with bilateral leg swelling
Acute HFpEF exacerbation -- NEW DIAGNOSIS
Monitor on telemetry
15 kg weight gain from his dry weight.
Dry weight 81-83 kg.
ALESHA in the setting of CHF exacerbation--- suspect cardiorenal syndrome
Continue IV Lasix BID
Check Echo. Previous echo 2022-- LVEF 55-60%
Continue beta robert, ASA.
Fluid restriction 1500ml/day
Consult cardiology
Check weight daily.
Monitor I/O.
Small left pleural effusion with bibasilar atelectasis and/or pneumonia
Moderate bilateral pleural effusions with associated probable compressive atelectasis
-Clinically does not look like pneumonia, no symptoms or pneumonia
-On CT Abdomen/Pelvis, it was noted that patient has Moderate bilateral pleural effusions with associated probable compressive atelectasis
-Consider repeat CXR, patient is on IV diuretics
Coronary Artery Disease s/p four-vessel CAD (07/2005)
-Continue Aspirin, high-intensity statin and beta robert
Acute kidney injury
secondary to CHF exacerbation/cardiorenal syndrome, however patient also with mild right hydronephrosis with stones so obstructive component cannot be ruled out
Creatinine 2.1
Small catheter inserted, hydronephrosis present (see below), stool probably causing obstruction by pushing against bladder outlet as well
Hold all nephrotoxic medications.
Consult nephrology.
Mild right hydronephrosis with stones on CT Imaging
Mild ureteral dilatation
Moderate prostate enlargement with few, small bladder calculi
Rectum distended with stool pressing on prostate
Chronic Constipation
-Maintain Small Catheter
-Consulted urology
-Cystitis on the CT was questionable -- reasonable to hold antibiotics right now in the absence of UTI symptoms
-Treat constipation -- Miralax ordered, if still no bowel movement can try Dulocolax suppository and/or PO Senokot-S
Supratherapeutic INR
Gross Hematuria (blood-tinged urine on 03/06/25)
-Intermittent Hematuria in presence of bladder stones is to be expected
-INR 4+ initially. Goal 2-3
-Hold warfarin
-Check PT/INR daily
-Okay to continue Aspirin
-This is not a life-threatening/serious bleed at this time, therefore no need to Vitamin K at this moment in time
Chronic Anemia
-Hgb better during this admission compared to previous one
Permanent atrial fibrillation
Hold warfarin--INR supratherapeutic
Continue beta-robert
Hypoglycemia
Lethargy, likely from Hypoglycemia
-Accucheck glucose showed glucose 51 on 03/05 at 23:57
-Patient got carb load, was given IV dextrose, hypoglycemia resolved
Insulin-dependent type 2 diabetes mellitus
Hold metformin
No Insulin right given very symptomatic hypoglycemia above
Based on blood sugar trends, consider adding sliding scale, reduced dose home Lantus
Hypertension
Continue Toprol XL
Cholelithiasis and splenomegaly on hospital CT Abdomen/Pelvis imaging
Anxiety/depression
Continue mirtazapine
Hyperlipidemia
Continue atorvastatin
Chronic right foot ulcer
History of resolved B12 deficiency
History of Stage II sacral pressure injury
Hospitalization 10/27/24 to 11/02/24
-At that time, was treated for left lower lobe pneumonia and acute on chronic anemia
-Also received blood transfusions at that time
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 Polanco
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
Code Status: Full code
DVT Prophylaxis: Supratherapeutic INR
Anticipated Discharge: > 48 hours
Subjective/Interval History
-
Date of Service: March 06, 2025
Patient was seen and examined. This morning he was doing okay, denied any new symptoms. Overnight lethargic, likely from hypoglycemia.
Objective Data
-
Labs:
Laboratory Results
03/06/25
07:41
WBC 7.0
Hgb 10.6 L
Hct 33.3 L
Plt Count 192
PT Pending
INR Pending
Sodium Pending
Potassium Pending
Chloride Pending
Carbon Dioxide Pending
BUN Pending
Creatinine Pending
Glucose Pending
Calcium Pending
Vital Signs:
Vital Signs
Temp Pulse Resp BP Pulse Ox
96.6 F L 70 16 156/93 99
03/06/25 03:00 03/06/25 03:00 03/06/25 03:00 03/06/25 03:00 03/06/25 03:00
I&O
03/05/25 03/06/25 03/07/25
06:59 06:59 06:59
Intake Total 480 / 480
Output Total 1100 / 1100
Balance -1100 / -1100 480 / 480
[2025-03-06 09:04] LABS: INR 4.55; PT 43.5 Sec (11.4-14.6)
[2025-03-06 09:15] LABS: Blood Urea Nitrogen 41 mg/dl (9-20); Calcium 8.2 mg/dl (8.4-10.2); Carbon Dioxide 23 mmol/L (22-30); Chloride 105 mmol/L (98-107); Estimated Creatinine Clearance 26 ml/min; Glucose 73 mg/dl (70-99); Potassium 4.1 mmol/L (3.5-5.1); Sodium 138 mmol/L (135-145); eGFR 31.51
--- NOTE | 2025-03-06 09:51 | W.CON.NEPH ---
Consultation
-
Date/Time Consultation Requested: 03/05/25 1827
Date/Time Consultation Performed: 03/06/25 1015
Requesting Provider: Saw Bautista
Performing Provider: Gwendolyn Tao
Reason for Consultation: ALESHA
Medical History
-
Chief Complaint: LE edema
History of Present Illness:
89-year-old male with history of permanent atrial fibrillation on Coumadin, hyperlipidemia on statin, type 2 diabetes mellitus on insulin and metformin, recent osteomyelitis s/p transmetatarsal amputation on 09/30/24, presents with bilateral leg
swelling. Patient is a resident of [facility]. Patient states that while changing his diaper the nursing staff noticed that his urine was brownish-red in color intermittently for last 2weeks and he also had mild back pain for same
duration. They also noticed increased bilateral leg swelling and maintained on dialy lasix for months but it was still worsening hence sent to ER. He reportedly gained 13kg from last d/c in September, he offers no sob at rest or orthopnea. He denies
any difficulty in urine dysuria, nausea, vomiting, fever, chills, shortness of breath or chest pain. W/u in ER Noted CXR mild CHF, BNP 88133, CT abd with out contrast shows anasarca, bilat mod pleural effusion with dependant atelectasis, also right
UV junction stones with hydro and bladder caliculi. Cr noted at 2 from baseline 1. Nephrology consulted for ALESHA. He had lasix 40mg IV last night.
Past Medical History
permanent atrial fibrillation on Coumadin, hyperlipidemia, type 2 diabetes mellitus, recent osteomyelitis s/p transmetatarsal amputation on 09/30
Social History
Tobacco: Non-Smoker
Alcohol: None
Drug: None
Personal:
Living: Assisted Living
Employment: Retired
Family History
brother and maternal uncle likely with kidney disease?
Allergies / Home Medications
Allergy/AdvReac Type Severity Reaction Status Date / Time
ivermectin Allergy dehydration Verified 09/10/24 14:26
penicillin Allergy Rash Verified 09/10/24 14:26
penicillin G Allergy Tolerated Verified 09/10/24 14:26
Keflex in
the past-
pt
allergic
to all PCN
�Medication �Instructions �Recorded �Confirmed �Type
aspirin 81 mg tablet,delayed 81 mg PO DAILY Blood Clot 11/01/24 03/05/25 Rx
release Prevention/Tx 30 days #30 tabs
atorvastatin 40 mg tablet (Lipitor) 40 mg PO QPM High Cholesterol 30 11/01/24 03/05/25 Rx
days #30 tabs
acetaminophen 325 mg tablet 650 mg PO Q6HPRN PRN mild pain 03/05/25 03/05/25 History
(Tylenol)
acetaminophen 500 mg tablet 1,000 mg PO TID 03/05/25 03/05/25 History
acetaminophen 500 mg tablet 1,000 mg PO Q6HPRN PRN fever 03/05/25 03/05/25 History
(Tylenol Extra Strength)
diclofenac sodium 1 % topical gel 0 g topical BID both knees 03/05/25 03/05/25 History
furosemide 20 mg tablet (Lasix) 20 mg PO DAILYPRN PRN edema 03/05/25 03/05/25 History
insulin glargine 100 unit/mL (3 12 unit SC DAILY Diabetes 03/05/25 03/05/25 History
mL) subcutaneous pen (Lantus
Solostar U-100 Insulin)
metformin 500 mg tablet,extended 500 mg PO BID Diabetes 03/05/25 03/05/25 History
release 24 hr
metoprolol succinate 25 mg 25 mg PO DAILY Heart 03/05/25 03/05/25 History
tablet,extended release 24 hr Disease/Condition
mirtazapine 7.5 mg tablet 7.5 mg PO HS Sleep 03/05/25 03/05/25 History
polyethylene glycol 3350 17 gram 17 g PO DAILYPRN PRN constipation 03/05/25 03/05/25 History
oral powder packet (Miralax)
warfarin 2 mg tablet 6 mg PO SUMOSA@1900 03/05/25 03/05/25 History
warfarin 3 mg tablet (Jantoven) 4 mg PO TUWEFR@1900 Blood Clot 03/05/25 03/05/25 History
Prevention/Tx
Review of Systems
-
All other systems: Negative unless noted
Physical Exam
Vital Signs
Vital Signs
Temp Pulse Resp BP Pulse Ox
96.6 F L 90 16 164/101 97
03/06/25 07:10 03/06/25 07:10 03/06/25 07:10 03/06/25 07:10 03/06/25 07:10
Lab Results
WBC 7.0 10^3/uL (4.8-10.8) 03/06/25 07:41
RBC 3.93 10^6/uL (4.70-6.10) L 03/06/25 07:41
Hgb 10.6 g/dL (13.0-18.0) L 03/06/25 07:41
Hct 33.3 % (39.0-52.0) L 03/06/25 07:41
Plt Count 192 10^3/uL (130-400) 03/06/25 07:41
Sodium 138 mmol/L (135-145) 03/06/25 07:41
Potassium 4.1 mmol/L (3.5-5.1) 03/06/25 07:41
Chloride 105 mmol/L (98-107) 03/06/25 07:41
Carbon Dioxide 23 mmol/L (22-30) 03/06/25 07:41
BUN 41 mg/dl (9-20) H 03/06/25 07:41
Creatinine 2.0 mg/dL (0.7-1.3) H 03/06/25 07:41
eGFR 31.51 03/06/25 07:41
Glucose 73 mg/dl (70-99) 03/06/25 07:41
Calcium 8.2 mg/dl (8.4-10.2) L 03/06/25 07:41
Ifh-J-Waoszqsfvpy Pept 61747 pg/ml 03/05/25 12:00
Albumin 3.1 g/dl (3.5-5.0) L 03/05/25 12:00
Physical Exam
General: Awake, Alert, Oriented, AOx3, No Distress and Nontoxic
HEENT: EOMI, Anicteric, Conjunctivae Clear, Facial Symmetry and Other (JVD+)
Respiratory: Normal Excursion, Nonlabored Respirations and Other (decreased BS)
Cardiac: S1/S2 and Regular Rate/Rhythm
Abdomen: Soft, Nontender and Nondistended
Rectal: Deferred by Provider
Musculoskeletal: Edema (3+)
Skin: No Rash
Neuro: Nonfocal/Grossly Intact
Psych: Mood/afflect pleasant, Insight/judgement good and Appropriate
Assessment/Plan
-
IMP:
Acute on chronic HFpEF exacerbation
Acute kidney injury
Mild Right hydro with UV junction stones
mod bilat pleural effusion
Supratherapeutic INR
Permanent atrial fibrillation
Insulin-dependent type 2 diabetes mellitus
Anxiety/depression
Hyperlipidemia
Chronic constipation
Chr anemia
Plan:
A/w CHF also with dark urine
CHF-new, pending echo, cards follows, change to IV lasix
ALESHA-possible from CRS however he also with mild right hydro with stones so obst component can not be ruled out
consult and check urine studies
check urine for culture, cystitis on CT , keep her
BPs are high expect to improve with vol off
corrected annamaria is normal range
maintain FR, low salt diet
d/w pt in detail
d/w cards and nursing
[2025-03-06] MEDS: ASPIR LOW (ENTERIC COATED) 81 MG PO (10:19)
[2025-03-06] MEDS: TOPROL XL 25 MG PO (10:20)
[2025-03-06] MEDS: DICLOFENAC 1% TOPICAL GEL 100 GRAM TOPICAL ×2 (10:21→19:56)
--- NOTE | 2025-03-06 10:25 | CONS.URO ---
Consultation
-
Date/Time Consultation Performed: 03/06/2025 1205
Requesting Provider: Saw
Performing Provider: Espinoza
Reason for Consultation: Right Hydronephrosis
Medical History
History of Present Illness
ED note: 'Patient is a resident at [facility]. longterm called EMS today due to increasing leg swelling. He takes furosemide 20mg daily as needed. He states he has leg swelling at baseline and does not believe it is any worse
today. Urine appeared dark today and he believes there may have been some blood in the urine but is not sure. He denies any difficulty urinating, dysuria, retention. No fevers, chills, flank pain, abdominal pain, vomiting, chest pain, shortness
of breath.'
never has seen a urologist previously
not bothered by urinary pattern -- despite apparent incontinence
Past Medical History
Past Medical History: Other (atrial fibrillation on Coumadin, hyperlipidemia, type 2 diabetes mellitus, recent osteomyelitis s/p transmetatarsal amputation )
Past Surgical History: Orthopedic (s/p transmetatarsal amputation )
Social History
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
Allergies/Home Medications
Allergies
Allergy/AdvReac Type Severity Reaction Status Date / Time
ivermectin Allergy dehydration Verified 09/10/24 14:26
penicillin Allergy Rash Verified 09/10/24 14:26
penicillin G Allergy Tolerated Verified 09/10/24 14:26
Keflex in
the past-
pt
allergic
to all PCN
Home Medications
�Medication �Instructions �Recorded �Confirmed �Type
aspirin 81 mg tablet,delayed 81 mg PO DAILY Blood Clot 11/01/24 03/05/25 Rx
release Prevention/Tx 30 days #30 tabs
atorvastatin 40 mg tablet (Lipitor) 40 mg PO QPM High Cholesterol 30 11/01/24 03/05/25 Rx
days #30 tabs
acetaminophen 325 mg tablet 650 mg PO Q6HPRN PRN mild pain 03/05/25 03/05/25 History
(Tylenol)
acetaminophen 500 mg tablet 1,000 mg PO TID 03/05/25 03/05/25 History
acetaminophen 500 mg tablet 1,000 mg PO Q6HPRN PRN fever 03/05/25 03/05/25 History
(Tylenol Extra Strength)
diclofenac sodium 1 % topical gel 0 g topical BID both knees 03/05/25 03/05/25 History
furosemide 20 mg tablet (Lasix) 20 mg PO DAILYPRN PRN edema 03/05/25 03/05/25 History
insulin glargine 100 unit/mL (3 12 unit SC DAILY Diabetes 03/05/25 03/05/25 History
mL) subcutaneous pen (Lantus
Solostar U-100 Insulin)
metformin 500 mg tablet,extended 500 mg PO BID Diabetes 03/05/25 03/05/25 History
release 24 hr
metoprolol succinate 25 mg 25 mg PO DAILY Heart 03/05/25 03/05/25 History
tablet,extended release 24 hr Disease/Condition
mirtazapine 7.5 mg tablet 7.5 mg PO HS Sleep 03/05/25 03/05/25 History
polyethylene glycol 3350 17 gram 17 g PO DAILYPRN PRN constipation 03/05/25 03/05/25 History
oral powder packet (Miralax)
warfarin 2 mg tablet 6 mg PO SUMOSA@1900 03/05/25 03/05/25 History
warfarin 3 mg tablet (Jantoven) 4 mg PO TUWEFR@1900 Blood Clot 03/05/25 03/05/25 History
Prevention/Tx
Physical Exam
Vital Signs
Vital Signs
Temp Pulse Resp BP Pulse Ox
96.6 F L 90 16 164/101 97
03/06/25 07:10 03/06/25 07:10 03/06/25 07:10 03/06/25 07:10 03/06/25 07:10
Lab / Testing Results
Laboratory Results
03/06/25 07:41
03/06/25 07:41
Physical Exam
elderly male in bed
General: No Apparent Distress
HEENT: Normocephalic
Genito-urinary: Other (external urine collection device)
Assessment / Plan
-
moderate prostate enlargement with few, small bladder calculi
rectum distended with stool pressing on prostate
mild ureteral dilatation
Rec:
tx fecal impaction
bladder scan AFTER fecal impaction resolved
PSA
Data Reviewed
-
CT Scan: Image personally visualized and interpreted (' Small urinary bladder calculi dependently, several near the right ureterovesical junction. There is likely associated mild diffuse right hydroureteronephrosis.' fecal impaction) and Other
[2025-03-06 11:10] VITALS: BP 164/90
--- NOTE | 2025-03-06 11:27 | CON.CAR ---
Consultation
Consultation Request
Date/Time Consultation Requested: 03/06/2025
Reason for Consultation: 03/06/2025
Medical History
-
Chief Complaint: Edema
History of Present Illness:
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
presented with significant bilateral lower extremity swelling and shortness of breath.
.
Patient is a resident of [facility]. He has been on Lasix 20 mg but as needed. With severe edema going up to his thighs. He was sent to the ER. He was noted to be in acute renal insufficiency with baseline creatinine 0.9 in
October 2024 and presented with a creatinine of 2.1 on 03/05/2025.
Patient was started on fluid restriction. With ALESHA, patient received only 40 mg IV Lasix.
Echo 09/30/2022 was LVEF of 60%.
Lexiscan 01/23/2021: Small area of moderate to severely decreased perfusion with possible residual ischemia. LVEF of 60%. Apical reversibility was noted.
Patient's coronary disease was managed conservatively during the time of COVID.
Past Medical History
Past Medical History: Arrhythmias (Permanent A-fib), CAD ( s/p four-vessel CAD (07/2005)), CHF, HTN, Hypercholesterolemia and Other (ALEJANDRO)
Past Surgical History: Cardiac (Status post four-vessel CABG) and Other (Osteomyelitis with transmetatarsal amputation on the right foot-09/30/2024)
Social History
Tobacco: Non-Smoker
Alcohol: None
Drug: None
Living: Assisted Living
Family History
Family History: Reviewed & Not Pertinent
Allergies / Home Medications
Allergy/AdvReac Type Severity Reaction Status Date / Time
ivermectin Allergy dehydration Verified 09/10/24 14:26
penicillin Allergy Rash Verified 09/10/24 14:26
penicillin G Allergy Tolerated Verified 09/10/24 14:26
Keflex in
the past-
pt
allergic
to all PCN
�Medication �Instructions �Recorded �Confirmed �Type
aspirin 81 mg tablet,delayed 81 mg PO DAILY Blood Clot 11/01/24 03/05/25 Rx
release Prevention/Tx 30 days #30 tabs
atorvastatin 40 mg tablet (Lipitor) 40 mg PO QPM High Cholesterol 30 11/01/24 03/05/25 Rx
days #30 tabs
acetaminophen 325 mg tablet 650 mg PO Q6HPRN PRN mild pain 03/05/25 03/05/25 History
(Tylenol)
acetaminophen 500 mg tablet 1,000 mg PO TID 03/05/25 03/05/25 History
acetaminophen 500 mg tablet 1,000 mg PO Q6HPRN PRN fever 03/05/25 03/05/25 History
(Tylenol Extra Strength)
diclofenac sodium 1 % topical gel 0 g topical BID both knees 03/05/25 03/05/25 History
furosemide 20 mg tablet (Lasix) 20 mg PO DAILYPRN PRN edema 03/05/25 03/05/25 History
insulin glargine 100 unit/mL (3 12 unit SC DAILY Diabetes 03/05/25 03/05/25 History
mL) subcutaneous pen (Lantus
Solostar U-100 Insulin)
metformin 500 mg tablet,extended 500 mg PO BID Diabetes 03/05/25 03/05/25 History
release 24 hr
metoprolol succinate 25 mg 25 mg PO DAILY Heart 03/05/25 03/05/25 History
tablet,extended release 24 hr Disease/Condition
mirtazapine 7.5 mg tablet 7.5 mg PO HS Sleep 03/05/25 03/05/25 History
polyethylene glycol 3350 17 gram 17 g PO DAILYPRN PRN constipation 03/05/25 03/05/25 History
oral powder packet (Miralax)
warfarin 2 mg tablet 6 mg PO SUMOSA@1900 03/05/25 03/05/25 History
warfarin 3 mg tablet (Jantoven) 4 mg PO TUWEFR@1900 Blood Clot 03/05/25 03/05/25 History
Prevention/Tx
Review of Systems
-
All other systems: Negative unless noted
Physical Exam
Vital Signs
Temp Pulse Resp BP Pulse Ox
96.6 F L 90 16 164/101 97
03/06/25 07:10 03/06/25 07:10 03/06/25 07:10 03/06/25 07:10 03/06/25 07:10
Lab Results
03/06/25 07:41
03/06/25 07:41
Zbo-P-Ttxyeykmanj Pept 05867 pg/ml 03/05/25 12:00
Physical Exam
General: Well Developed, Well Nourished and No Apparent Distress
HEENT: Normocephalic and Anicteric
Respiratory: Clear, Crackles and Non Labored Respirations
Cardiac: S1/S2, Irregular Rhythm, Murmur, Peripheral Edema and JVD
GI: Soft, Non Distended and Normal Bowel Sounds
Musculoskeletal: No Clubbing, No Cyanosis and Edema (3+ edema)
Skin: Warm and Dry
Neuro: Awake, Alert, Oriented and AO x 3
Impression / Plan
-
89-year-old gentleman with history of CAD status post four-vessel CABG, HTN, DM, ALEJANDRO, permanent A-fib, chronic anticoagulation with warfarin resident of assisted living facility presented with significant edema and congestive heart failure.
Acute on chronic heart failure
- Acute on chronic heart failure with preserved ejection fraction. This is diastolic heart failure.
- Last echo was 2022 with preserved systolic functions. There is concentric LVH and moderate TR noted. Pulmonary hypertension at 45 to 55 mmHg.
- With significant JVD, edema with 3+ pitting in the lower extremities going all the way to the abdominal cavity with ascites, we will continue with aggressive diuresis.
- Continue to monitor on telemetry.
- Case was discussed with nephrology
- Both agree with diuresis at this time.
Coronary artery disease
- Small reversible ischemia was noted on last stress test back in 2020.
- Has been managed conservatively.
- No sign of any overt ischemia noted now.
Pulmonary atrial fibrillation
- High [id number] score, 6- age, HTN, DM, CAD, CHF
- On warfarin. INR is supratherapeutic.
- INR 4.57. Goal INR 2-3.
ALESHA
- Creatinine is 2.1. Baseline creatinine is 0.9
- Diuresis and repeat Cr
Data Reviewed
-
EKG: Tracing Personally Visualized and interpreted
Radiology: Report Reviewed by me
Labs: Labs Reviewed by me
Old Records: Reviewed
[2025-03-06 12:13] LABS: Glucose - Point of Care 87 mg/dl (70-99)
[2025-03-06] MEDS: LASIX 40 MG IV ×2 (13:11→17:20)
[2025-03-06 13:41] LABS: PSA, Total - Screen 3.80 ng/ml (0.0-4.0)
[2025-03-06 13:47] LABS: Urine Character Clear (Clear)
[2025-03-06 14:12] LABS: Urine Red Blood Cell 50-60 /HPF (0-2)
[2025-03-06 15:10] VITALS: BP 165/103
[2025-03-06 16:27] LABS: Glucose - Point of Care 133 mg/dl (70-99)
[2025-03-06] MEDS: LIPITOR 40 MG PO (17:20)
[2025-03-06 17:34] VITALS: BMI 29.6
[2025-03-06 19:52] VITALS: BP 146/88
[2025-03-06 21:03] LABS: Glucose - Point of Care 195 mg/dl (70-99)
[2025-03-06] MEDS: REMERON 7.5 MG PO (21:20)
[2025-03-06] MEDS: MIRALAX PO (21:43)
[2025-03-06 23:24] VITALS: BP 148/90
[2025-03-07 03:30] VITALS: BP 158/89
[2025-03-07 04:36] LABS: Glucose - Point of Care 182 mg/dl (70-99)
[2025-03-07 06:00] VITALS: BMI 28.5
[2025-03-07 06:59] LABS: Glucose - Point of Care 172 mg/dl (70-99)
[2025-03-07 07:39] VITALS: BP 173/95
[2025-03-07] MEDS: MIRALAX 17 GRAMS PO (08:03)
[2025-03-07] MEDS: TOPROL XL 25 MG PO (08:03)
[2025-03-07] MEDS: ASPIR LOW (ENTERIC COATED) 81 MG PO (08:03)
[2025-03-07] MEDS: LASIX 40 MG IV ×2 (08:04→16:23)
[2025-03-07] MEDS: DICLOFENAC 1% TOPICAL GEL 4 GRAM TOPICAL (08:08)
--- NOTE | 2025-03-07 08:09 | W.PN.URO.CBU ---
Today's Communication / Plan
-
keep Small
CHF dx renders alpha-blockade ill-advised
will d/w pt tx option as an outpatient after CHF is optimized
Assessment / Plan
-
CHF
moderate prostate enlargement with few, small bladder calculi -- acute on chronic urinary retention
rectum distended with stool pressing on prostate
mild ureteral dilatation
Diagnosis
-
Date of Service: March 07, 2025
-
Patient Diagnosis:
CHF
moderate prostate enlargement with few, small bladder calculi
rectum distended with stool pressing on prostate
mild ureteral dilatation
Subjective
-
asleep
Objective
-
Vital Signs
Temp Pulse Resp BP Pulse Ox
97.6 F 93 16 173/95 94
03/07/25 07:39 03/07/25 07:39 03/07/25 07:39 03/07/25 07:39 03/07/25 07:39
Intake and Output
03/06/25 03/07/25 03/08/25
06:59 06:59 06:59
Intake Total 1560 / 1560
Output Total 1100 / 1100 4300 / 4300 650 / 650
Balance -1100 / -1100 -2740 / -2740 -650 / -650
Intake:
Oral fluids 1560 / 1560
Output:
Urine, Small 650 / 650 800 / 800 650 / 650
Urine, Voided 450 / 450 3500 / 3500
Other:
How many times incontinent 2
SATURATED amount urine
PSA 3.8
Small placed yesterday by RN for ~ 500 ml
Physical Exam
-
General - asleep
Genitalia - Small draining urine with particles of lysing old blood products
--- NOTE | 2025-03-07 08:37 | W.PN.CD ---
Today's Communication / Plan
-
- With Small in place will not start SGLT2-I yet
- If renal function improves can consider adding MRA, ARNI or ARB
- For echo today
Impression / Plan
-
89-year-old gentleman with history of CAD status post four-vessel CABG, HTN, DM, ALEJANDRO, permanent A-fib, chronic anticoagulation with warfarin resident of assisted living facility presented with significant edema and congestive heart failure.
Acute on chronic HFpEF
- Acute on chronic heart failure with preserved ejection fraction. This is diastolic heart failure.
- Volume overloaded on admit, admit weight 94.5 kg => weight now (03/07/2025) 90.038 kg
- Continue Lasix 40 IV BID
- With Small in place will not start SGLT2-I yet
- If renal function improves can consider adding MRA, ARNI or ARB
- For echo today
HTN
CAD, stable
Permanent atrial fibrillation, rate controlled, on warfarin, [id number] 6 (age3, HTN, DM, CAD, HF)
- INR last was >4 (03/06/2025)
Anemia
DM
ALESHA
- Admit Cr 2.1. Baseline 0.9
- Cr today pending
Subjective: No CP or dyspnea, edema improved but not gone
Data:
Echo 2022: Preserved systolic functions, cLVH, mod TR, PASP 45 to 55 mmHg.
Nuc Stress 2020: Small reversible ischemia
Physical Exam
Vital Signs/Labs
Vital Signs
Temp Pulse Resp BP Pulse Ox
97.6 F 93 16 173/95 94
03/07/25 07:39 03/07/25 07:39 03/07/25 07:39 03/07/25 08:04 03/07/25 07:39
03/06/25 03/07/25 03/08/25
06:59 06:59 06:59
Actual Weight 93.531 kg 90.038 kg
PT 43.5 Sec (11.4-14.6) H 03/06/25 07:41
INR 4.55 03/06/25 07:41
03/05/25
12:00
Qaj-K-Ekptwydfxdv Pept [id number]
Physical Exam
Constitutional: No acute distress
EENT: Anicteric
Cardiovascular: Rhythm/rate is irregular and Pedal edema present
Respiratory: Respiratory effort normal and Crackles Present
GI: Soft and Distention absent
Neuro/Psych: Alert
Data Reviewed
-
Date of Service: March 07, 2025
[2025-03-07 08:55] LABS: Hematocrit 34.0 % (39.0-52.0); Hemoglobin 11.0 g/dL (13.0-18.0); Mean Corp Hgb Conc. 32.4 g/dL (33.0-37.0); Mean Corpuscular Volume 85.4 fL (80.0-94.0); Platelet Count 210 10^3/uL (130-400); Red Cell Dist. Width 17.9 % (11.5-14.5)
[2025-03-07 09:04] LABS: INR 3.45; PT 35.0 Sec (11.4-14.6)
[2025-03-07 09:26] LABS: Blood Urea Nitrogen 41 mg/dl (9-20); Calcium 8.1 mg/dl (8.4-10.2); Carbon Dioxide 26 mmol/L (22-30); Chloride 103 mmol/L (98-107); Estimated Creatinine Clearance 28 ml/min; Glucose 141 mg/dl (70-99); Potassium 3.5 mmol/L (3.5-5.1); Sodium 138 mmol/L (135-145); eGFR 33.51
--- NOTE | 2025-03-07 09:29 | W.PN.HOSP.TC ---
Today's Communication/Plan
-
Echocardiogram
PT/OT
Resume warfarin
Assessment / Plan
Assessment / Plan
Gen-AAOx3, NAD
HEENT-NC, AT, anicteric, clear oral mm
Neck-supple
CV-reg, no M, +S1/S2
Lungs-clear B/L
Abd-soft, NT, ND
Ext-bilateral lower extremity edema
Musculoskeletal-no cyanosis, clubbing
Skin-warm and dry
Neuro-grossly non-focal
Psych-calm, cooperative
89-year-old male with past medical history of permanent atrial fibrillation on Coumadin, hyperlipidemia, type 2 diabetes mellitus, recent osteomyelitis status post transmetatarsal amputation on 09/30, presents with bilateral leg swelling. Patient is
a resident of [facility]. Patient states that while changing his diaper the nursing staff noticed that his urine was brownish-red in color. They also noticed increased bilateral leg swelling. He is currently on 20 mg of furosemide
as needed. Patient denied previous history of heart failure or stroke. He is on long-term chronic anticoagulation for pulmonary atrial fibrillation. He denied any difficulty in urine dysuria, nausea, vomiting, fever, chills, shortness of breath
or chest pain.
Presentation with bilateral leg swelling
Acute HFpEF exacerbation -- NEW DIAGNOSIS
Monitor on telemetry
15 kg weight gain from his dry weight.
Dry weight 81-83 kg. Weight is down 4 kg since admission.
ALESHA in the setting of CHF exacerbation--- suspect cardiorenal syndrome
Continue IV Lasix BID
Check Echo. Previous echo 2022-- LVEF 55-60%
Continue beta robert, ASA.
Fluid restriction 1500ml/day
Cardiology following.
Small left pleural effusion with bibasilar atelectasis and/or pneumonia
Moderate bilateral pleural effusions with associated probable compressive atelectasis
-Clinically does not look like pneumonia, no symptoms or pneumonia
-On CT Abdomen/Pelvis, it was noted that patient has Moderate bilateral pleural effusions with associated probable compressive atelectasis
-Consider repeat CXR, patient is on IV diuretics
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
-Continue Aspirin, high-intensity statin and beta robert
Acute kidney injury
secondary to CHF exacerbation/cardiorenal syndrome, however patient also with mild right hydronephrosis with stones so obstructive component cannot be ruled out
Creatinine trending down, 1.9 today.
Small catheter inserted, hydronephrosis present (see below), stool probably causing obstruction by pushing against bladder outlet as well
Nephrology following.
Mild right hydronephrosis with stones on CT Imaging
Mild ureteral dilatation
Moderate prostate enlargement with few, small bladder calculi
Rectum distended with stool pressing on prostate
Chronic Constipation
-Maintain Small Catheter
Urology following. Recommend outpatient follow-up.
-Cystitis on the CT was questionable -- reasonable to hold antibiotics right now in the absence of UTI symptoms
-Treat constipation -- Miralax ordered, if still no bowel movement can try Dulocolax suppository and/or PO Senokot-S
Supratherapeutic INR
Gross Hematuria (blood-tinged urine on 03/06/25)
-Intermittent Hematuria in presence of bladder stones is to be expected
INR trending down.
-Okay to continue Aspirin
-This is not a life-threatening/serious bleed at this time, therefore no need to Vitamin K at this moment in time
Chronic Anemia
-Hgb better during this admission compared to previous one
Permanent atrial fibrillation
Elevated INR on admission, down to 3.4 today. Was on warfarin
Was on an average dose of 4 mg warfarin daily prior to admission. Will resume warfarin tonight at 3 mg daily. INR in the morning. Discussed with patient.
Hypoglycemia
Lethargy, likely from Hypoglycemia
-Accucheck glucose showed glucose 51 on 03/05 at 23:57
-Patient got carb load, was given IV dextrose, hypoglycemia resolved
Insulin-dependent type 2 diabetes mellitus
Hold metformin
No Insulin right given very symptomatic hypoglycemia above
Based on blood sugar trends, consider adding sliding scale, reduced dose home Lantus
Essential hypertension
Continue Toprol XL
Cholelithiasis and splenomegaly on hospital CT Abdomen/Pelvis imaging
Anxiety/depression
Continue mirtazapine
Hyperlipidemia
Continue atorvastatin
Chronic right foot ulcer
History of resolved B12 deficiency
History of Stage II sacral pressure injury
Hospitalization 10/27/24 to 11/02/24
-At that time, was treated for left lower lobe pneumonia and acute on chronic anemia
-Also received blood transfusions at that time
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 Polanco
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
Code Status: Full code
PT/OT
Anticipated Discharge: > 48 hours
Subjective/Interval History
-
Date of Service: March 07, 2025
Patient seen and examined, no complaints.
Objective Data
-
Labs:
Laboratory Results
03/07/25
08:12
WBC 6.7
Hgb 11.0 L
Hct 34.0 L
Plt Count 210
PT 35.0 H
INR 3.45
Sodium 138
Potassium 3.5
Chloride 103
Carbon Dioxide 26
BUN 41 H
Creatinine 1.9 H
Glucose 141 H
Calcium 8.1 L
Vital Signs:
Vital Signs
Temp Pulse Resp BP Pulse Ox
97.6 F 93 16 173/95 94
03/07/25 07:39 03/07/25 07:39 03/07/25 07:39 03/07/25 08:04 12/08/25 07:39
I&O
03/06/25 03/07/25 03/08/25
06:59 06:59 06:59
Intake Total 1560 / 1560
Output Total 1100 / 1100 4300 / 4300 650 / 650
Balance -1100 / -1100 -2740 / -2740 -650 / -650
Review of Systems
-
History Source: Patient
All other systems: Reviewed and negative
--- NOTE | 2025-03-07 09:38 | WOUNDNOTE ---
R [facility] SITE
--- NOTE | 2025-03-07 09:40 | WOUNDNOTE ---
[facility] RN note: Patient admitted with acute CHF.
See H&P for complete history.
PMH: anemia, sepsis, a-fib, ALESHA, R TMA, NIDDM, CABG, skin cancer.
Wound Location and type/assessment: Patient known to service, last seen 10/28/24 s/p R TMA. Now asked to see for scabs on scalp. Patient assessed along with Dr. Mason at bedside. Patient reports he has a history of skin cancer on scalp, larger
scab is from an abrasion. Patient states he scraped his head on a bookcase when fell in November. Now with crusted scab, no drainage. Patient admitted picking at scalp, skin very dry. With assist of nurse Jalen, turned patient to side, large
incontinent soft BM. MASD to buttocks, sacrum blanchable red. Heels intact.
Appetite: Reports good.
Pressure redistribution devices in place: Air overlay if unable to maintain turning schedule, nurse aware. Foams applied to heels and pillow placed under calves.
Plan: Recommend moisturize scalp daily with mineral oil. Will confirm orders with hospitalist and updated nurse.
Updated care plan and will follow as needed.
Note to case management of equipment requested for discharge: None.
Recommend follow up with a unit clerk.
--- NOTE | 2025-03-07 10:23 | W.PN.NEPH.PH ---
Today's Communication / Plan
-
Maintain Small cath
Maintain IV diuresis
Follow BMP
Urology did not think that stone burden at UVJ was significant enough for obstruction
Assessment/Plan
-
IMP:
Acute on chronic HFpEF exacerbation
Acute kidney injury
Mild Right hydro with UV junction stones
mod bilat pleural effusion
Supratherapeutic INR
Permanent atrial fibrillation
Insulin-dependent type 2 diabetes mellitus
Anxiety/depression
Hyperlipidemia
Chronic constipation
Chr anemia
Plan:
Creatinine of 1.9 , nonoliguric with urine output 3500 cc
Urology did not think stone burden was because enough for hydronephrosis and her acute kidney injury
If creatinine does not improve this may need to be reassessed
A/w CHF also with dark urine
CHF-new, pending echo, cards follows, change to IV lasix 40 mg IV twice daily
ALESHA-possible from CRS however he also with mild right hydro with stones so obst component can not be ruled out, hemodynamically stable
Maintain Small cath
BPs are high expect to improve with vol off
corrected annamaria is normal range
maintain FR, low salt diet
d/w pt in detail
d/w cards and nursing
-
-
Date of Service: March 07, 2025
CC / HPI / ROS
-
Chief Complaint:
ALESHA
History of Present Illness:
Hemodynamically stable
Creatinine at 1.9
Review of Systems:
Grossly nonoliguric via catheter
No reported chest pain or shortness of breath
No fevers
Labs
-
Labs:
WBC 6.7 10^3/uL (4.8-10.8) 03/07/25 08:12
RBC 3.98 10^6/uL (4.70-6.10) L 03/07/25 08:12
Hgb 11.0 g/dL (13.0-18.0) L 03/07/25 08:12
Hct 34.0 % (39.0-52.0) L 03/07/25 08:12
Plt Count 210 10^3/uL (130-400) 03/07/25 08:12
Sodium 138 mmol/L (135-145) 03/07/25 08:12
Potassium 3.5 mmol/L (3.5-5.1) 03/07/25 08:12
Chloride 103 mmol/L (98-107) 03/07/25 08:12
Carbon Dioxide 26 mmol/L (22-30) 03/07/25 08:12
BUN 41 mg/dl (9-20) H 03/07/25 08:12
Creatinine 1.9 mg/dL (0.7-1.3) H 03/07/25 08:12
eGFR 33.51 03/07/25 08:12
Glucose 141 mg/dl (70-99) H 03/07/25 08:12
Calcium 8.1 mg/dl (8.4-10.2) L 03/07/25 08:12
Qdw-E-Mpkcjbyalff Pept 49543 pg/ml 03/05/25 12:00
Albumin 3.1 g/dl (3.5-5.0) L 03/05/25 12:00
Physical Exam
-
Vital Signs:
Vital Signs
Temp Pulse Resp BP Pulse Ox
97.6 F 93 16 173/95 94
03/07/25 07:39 03/07/25 07:39 03/07/25 07:39 03/07/25 08:04 03/07/25 07:39
Cardiovascular:: Regular rate and rhythm
Respiratory:: Bilateral: Coarse
Lung Excursion:: Normal
Abdomen:: Nontender
Bowel Sounds:: Normal
Extremity Edema:: +1: Bilateral:
[2025-03-07] MEDS: TYLENOL 650 MG PO (11:13)
[2025-03-07] MEDS: HYDROPHOR 1 APPLIC TOPICAL (11:17)
[2025-03-07 11:31] VITALS: BP 148/84
[2025-03-07 12:24] LABS: Glucose - Point of Care 238 mg/dl (70-99)
--- NOTE | 2025-03-07 14:46 | CM ---
Chart reviewed. Cont w/ her cath
Per [facility], patient is current w/ services
PT attempted to see, pt refused. PT will re attempt at a another time
[2025-03-07 15:22] VITALS: BP 154/84
[2025-03-07] MEDS: KCL 20 MEQ PO (16:23)
[2025-03-07] MEDS: ULTRAM 25 MG PO (16:52)
[2025-03-07 16:53] LABS: Glucose - Point of Care 206 mg/dl (70-99)
[2025-03-07] MEDS: LIPITOR 40 MG PO (17:56)
[2025-03-07] MEDS: COUMADIN 3 MG PO (17:56)
[2025-03-07] MEDS: COLACE 100 MG PO (20:12)
[2025-03-07] MEDS: DICLOFENAC 1% TOPICAL GEL 100 GRAM TOPICAL (20:12)
[2025-03-07 21:16] LABS: Glucose - Point of Care 250 mg/dl (70-99)
[2025-03-07] MEDS: REMERON 7.5 MG PO (21:54)
[2025-03-07 23:00] VITALS: BP 132/82
[2025-03-08 06:01] VITALS: BMI 28.7
[2025-03-08 07:03] LABS: Glucose - Point of Care 154 mg/dl (70-99)
[2025-03-08 07:15] VITALS: BP 164/95
[2025-03-08] MEDS: KCL 20 MEQ PO (08:35)
[2025-03-08] MEDS: LASIX 40 MG IV ×2 (08:35→16:06)
[2025-03-08] MEDS: TOPROL XL 25 MG PO (08:35)
[2025-03-08] MEDS: COLACE 100 MG PO ×2 (08:35→20:43)
[2025-03-08] MEDS: ASPIR LOW (ENTERIC COATED) 81 MG PO (08:35)
[2025-03-08] MEDS: DICLOFENAC 1% TOPICAL GEL 4 GRAM TOPICAL (08:37)
[2025-03-08] MEDS: HYDROPHOR 1 APPLIC TOPICAL (08:38)
--- NOTE | 2025-03-08 08:39 | W.PN.CD ---
Today's Communication / Plan
-
Continue Lasix 40 IV BID => may need increased dose or add Zaroxolyn
=> U/O good, weight may be inaccurate as it may be a bed scale
- With Small in place will not start SGLT2-I yet
- If renal function improves can consider adding MRA, ARNI or ARB
Impression / Plan
-
89-year-old gentleman with history of CAD status post four-vessel CABG, HTN, DM, ALEJANDRO, permanent A-fib, chronic anticoagulation with warfarin resident of assisted living facility presented with significant edema and congestive heart failure.
Acute on chronic HFpEF
- Acute on chronic heart failure with preserved ejection fraction. This is diastolic heart failure.
- Volume overloaded on admit, admit weight 94.5 kg => weight (03/07/2025) 90.038 kg and now 90.75
- U/O good, weight may be inaccurate as it may be a bed scale
- Continue Lasix 40 IV BID => may need increased dose or add Zaroxolyn
- With Small in place will not start SGLT2-I yet
- If renal function improves can consider adding MRA, ARNI or ARB
- Echo below
HTN
CAD, stable
Permanent atrial fibrillation, rate controlled, on warfarin, [id number] 6 (age3, HTN, DM, CAD, HF)
- INR last was >4 (03/06/2025)
Anemia
DM
ALESHA
- Admit Cr 2.1. Baseline 0.9
- Cr today pending
- Obstruction may or may not be adding to ALESHA
- Hope to see it improve with diuresis
Subjective: No CP or dyspnea, edema improved but not gone
Data:
Echo 03/07/2025:
SUMMARY
1. Normal left ventricular systolic function estimate ejection fraction 55 to 60%.
2. Moderate concentric LVH with more prominent basal septal thickening.
3. Aortic sclerosis without stenosis.
4. Compared to the previous study 09/30/2022. There is more prominent LVH.
Echo 2022: Preserved systolic functions, cLVH, mod TR, PASP 45 to 55 mmHg.
Nuc Stress 2020: Small reversible ischemia
Physical Exam
Vital Signs/Labs
Vital Signs
Temp Pulse Resp BP Pulse Ox
97.9 F 80 16 132/82 98
03/07/25 23:00 03/07/25 23:00 03/07/25 23:00 03/07/25 23:00 03/07/25 23:00
03/07/25 03/08/25 03/09/25
06:59 06:59 06:59
Actual Weight 90.038 kg 90.747 kg
03/07/25 08:12
PT 35.0 Sec (11.4-14.6) H 03/07/25 08:12
INR 3.45 03/07/25 08:12
03/05/25
12:00
Utp-Y-Atlcmceciwj Pept [id number]
Physical Exam
Constitutional: No acute distress
EENT: Anicteric
Cardiovascular: Rhythm/rate is irregular and S1S2 is normal
Respiratory: Respiratory effort normal
GI: Soft and Distention absent
Neuro/Psych: Alert
Data Reviewed
-
Date of Service: March 08, 2025
[2025-03-08 08:50] VITALS: BMI 27.1
[2025-03-08 09:02] VITALS: BP 157/95; PULSE 91; O2SAT 96
[2025-03-08 09:09] LABS: INR 2.85; PT 30.1 Sec (11.4-14.6)
[2025-03-08] MEDS: MIRALAX PO (09:10)
[2025-03-08 10:09] LABS: Blood Urea Nitrogen 40 mg/dl (9-20); Calcium 7.8 mg/dl (8.4-10.2); Carbon Dioxide 30 mmol/L (22-30); Chloride 101 mmol/L (98-107); Estimated Creatinine Clearance 31 ml/min; Glucose 152 mg/dl (70-99); Potassium 3.1 mmol/L (3.5-5.1); Sodium 135 mmol/L (135-145); eGFR 38.30
--- NOTE | 2025-03-08 10:13 | W.PN.HOSP.TC ---
Today's Communication/Plan
-
Replete potassium
Continue diuretics
Check magnesium
Add Lantus, NovoLog scale
Assessment / Plan
Assessment / Plan
Gen-AAOx3, NAD
HEENT-NC, AT, anicteric, clear oral mm
Neck-supple
CV-reg, no M, +S1/S2
Lungs-clear B/L
Abd-soft, NT, ND
Ext-bilateral lower extremity edema
Musculoskeletal-no cyanosis, clubbing
Skin-warm and dry
Neuro-grossly non-focal
Psych-calm, cooperative
89-year-old male with past medical history of permanent atrial fibrillation on Coumadin, hyperlipidemia, type 2 diabetes mellitus, recent osteomyelitis status post transmetatarsal amputation on 09/30, presents with bilateral leg swelling. Patient is
a resident of [facility]. Patient states that while changing his diaper the nursing staff noticed that his urine was brownish-red in color. They also noticed increased bilateral leg swelling. He is currently on 20 mg of furosemide
as needed. Patient denied previous history of heart failure or stroke. He is on long-term chronic anticoagulation for pulmonary atrial fibrillation. He denied any difficulty in urine dysuria, nausea, vomiting, fever, chills, shortness of breath
or chest pain.
Presentation with bilateral leg swelling
Acute HFpEF exacerbation -- NEW DIAGNOSIS
Monitor on telemetry
15 kg weight gain from his dry weight.
Dry weight 81-83 kg. Weight is down 4 kg since admission.
ALESHA in the setting of CHF exacerbation--- suspect cardiorenal syndrome
Continue IV Lasix BID
Check Echo. Previous echo 2022-- LVEF 55-60%
Continue beta robert, ASA.
Fluid restriction 1500ml/day
Cardiology following.
Small left pleural effusion with bibasilar atelectasis and/or pneumonia
Moderate bilateral pleural effusions with associated probable compressive atelectasis
-Clinically does not look like pneumonia, no symptoms or pneumonia
-On CT Abdomen/Pelvis, it was noted that patient has Moderate bilateral pleural effusions with associated probable compressive atelectasis
-Consider repeat CXR, patient is on IV diuretics
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
-Continue Aspirin, high-intensity statin and beta robert
Acute kidney injury
secondary to CHF exacerbation/cardiorenal syndrome, however patient also with mild right hydronephrosis with stones so obstructive component cannot be ruled out
Creatinine trending down, 1.7 today.
Small catheter inserted, hydronephrosis present (see below), stool probably causing obstruction by pushing against bladder outlet as well
Nephrology following.
Hypokalemia -will replete. Check magnesium.
Mild right hydronephrosis with stones on CT Imaging
Mild ureteral dilatation
Moderate prostate enlargement with few, small bladder calculi
Rectum distended with stool pressing on prostate
Chronic Constipation
-Maintain Small Catheter
Urology following. Recommend outpatient follow-up.
-Cystitis on the CT was questionable -- reasonable to hold antibiotics right now in the absence of UTI symptoms
-Treat constipation -- Miralax ordered, if still no bowel movement can try Dulocolax suppository and/or PO Senokot-S
Supratherapeutic INR
Gross Hematuria (blood-tinged urine on 03/06/25)
-Intermittent Hematuria in presence of bladder stones is to be expected
INR trending down, 2.8 today. Warfarin resumed at a lower dose of 3 mg at bedtime starting 03/07.
-Okay to continue Aspirin
-This is not a life-threatening/serious bleed at this time, therefore no need to Vitamin K at this moment in time
Chronic Anemia
-Hgb stable.
Permanent atrial fibrillation
INR improved to 2.8. Continue reduced dose of warfarin 3 mg at bedtime.
Was on an average dose of 4 mg warfarin daily prior to admission. Will resume warfarin tonight at 3 mg daily. INR in the morning. Discussed with patient.
Hypoglycemia
Lethargy, likely from Hypoglycemia
-Accucheck glucose showed glucose 51 on 03/05 at 23:57
-Patient got carb load, was given IV dextrose, hypoglycemia resolved
DM 2 with hyperglycemia -glucose 154 this morning, 250 last night. Check hemoglobin A1c.
On evening of admission he developed hypoglycemia likely due to ALESHA and decreased clearance of insulin.
Prior to admission he was on glargine 12 units daily, metformin 500 mg twice daily.
Hold metformin given ALESHA.
Add low resistance aspart scale. Resume Lantus at 6 units daily.
Essential hypertension
Continue Toprol XL
Cholelithiasis and splenomegaly on hospital CT Abdomen/Pelvis imaging
Anxiety/depression
Continue mirtazapine
Hyperlipidemia
Continue atorvastatin
Chronic right foot ulcer
History of resolved B12 deficiency
History of Stage II sacral pressure injury
Hospitalization 10/27/24 to 11/02/24
-At that time, was treated for left lower lobe pneumonia and acute on chronic anemia
-Also received blood transfusions at that time
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 Polanco
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
Code Status: Full code
PT/OT
Anticipated Discharge: 24 - 48 hours
Subjective/Interval History
-
Date of Service: March 08, 2025
Patient seen and examined. No complaints.
Objective Data
-
Labs:
Laboratory Results
03/08/25
08:05
PT 30.1 H
INR 2.85
Sodium 135
Potassium 3.1 L
Chloride 101
Carbon Dioxide 30
BUN 40 H
Creatinine 1.7 H
Glucose 152 H
Calcium 7.8 L
Vital Signs:
Vital Signs
Temp Pulse Resp BP Pulse Ox
97.8 F 82 16 132/82 97
03/08/25 07:15 03/08/25 07:15 03/08/25 07:15 03/08/25 08:35 03/08/25 07:15
I&O
03/07/25 03/08/25 03/09/25
06:59 06:59 06:59
Intake Total 1560 / 1560 1020 / 1020
Output Total 4300 / 4300 1700 / 1700 3000 / 3000
Balance -2740 / -2740 -680 / -680 -3000 / -3000
Review of Systems
-
History Source: Patient
All other systems: Reviewed and negative
[2025-03-08 10:38] LABS: Magnesium 1.6 mg/dl (1.6-2.3)
[2025-03-08 11:15] VITALS: BP 148/93
[2025-03-08 11:24] LABS: Glycohemoglobin (HgbA1c) 5.7 % (4.0-5.9)
[2025-03-08 11:45] LABS: Glucose - Point of Care 226 mg/dl (70-99)
[2025-03-08] MEDS: KCL 270 MEQ IV (12:34)
[2025-03-08] MEDS: LANTUS 0.06 UNITS SC (12:36)
[2025-03-08] MEDS: NOVOLOG FLEXPEN-LOW RESISTANCE 2 UNITS SC (13:06)
--- NOTE | 2025-03-08 13:07 | W.PN.NEPH.PH ---
Today's Communication / Plan
-
ALESHA slowly improving with creatinine down to 1.7
Grossly nonoliguric with IV lasix 40mg BID
Repleted potassium
Assessment/Plan
-
IMP:
Acute on chronic HFpEF exacerbation
Acute kidney injury
Mild Right hydro with UV junction stones
moderate bilat pleural effusion
Supratherapeutic INR
Permanent atrial fibrillation
Insulin-dependent type 2 diabetes mellitus
Anxiety/depression
Hyperlipidemia
Chronic constipation
Chr anemia
Plan:
Creatinine of 1.7, nonoliguric with urine output 4L cc
Urology did not think stone burden was because enough for hydronephrosis and her acute kidney injury
creatinine down to 1.7
repleting K
A/w CHF also with dark urine
CHF-new, pending echo, cards follows, change to IV lasix 40 mg IV twice daily
ALESHA-possible from CRS however he also with mild right hydro with stones so obst component can not be ruled out, hemodynamically stable
Maintain Small cath
BPs are high expect to improve with vol off
corrected annamaria is normal range
maintain FR, low salt diet, sodium at 135
d/w pt in detail
d/w cards and nursing
-
-
Date of Service: March 08, 2025
CC / HPI / ROS
-
Chief Complaint:
ALESHA
History of Present Illness:
Hemodynamically stable
Creatinine at 1.7
Review of Systems:
Grossly nonoliguric via catheter ~4 liters
No reported chest pain or shortness of breath
No fevers
Labs
-
Labs:
WBC 6.7 10^3/uL (4.8-10.8) 03/07/25 08:12
RBC 3.98 10^6/uL (4.70-6.10) L 03/07/25 08:12
Hgb 11.0 g/dL (13.0-18.0) L 03/07/25 08:12
Hct 34.0 % (39.0-52.0) L 03/07/25 08:12
Plt Count 210 10^3/uL (130-400) 03/07/25 08:12
Sodium 135 mmol/L (135-145) 03/08/25 08:05
Potassium 3.1 mmol/L (3.5-5.1) L 03/08/25 08:05
Chloride 101 mmol/L (98-107) 03/08/25 08:05
Carbon Dioxide 30 mmol/L (22-30) 03/08/25 08:05
BUN 40 mg/dl (9-20) H 03/08/25 08:05
Creatinine 1.7 mg/dL (0.7-1.3) H 03/08/25 08:05
eGFR 38.30 03/08/25 08:05
Glucose 152 mg/dl (70-99) H 03/08/25 08:05
Calcium 7.8 mg/dl (8.4-10.2) L 03/08/25 08:05
Oif-Z-Vxcheflmxdl Pept 27869 pg/ml 03/05/25 12:00
Albumin 3.1 g/dl (3.5-5.0) L 03/05/25 12:00
Physical Exam
-
Vital Signs:
Vital Signs
Temp Pulse Resp BP Pulse Ox
97.8 F 94 20 148/93 98
03/08/25 11:15 03/08/25 11:15 03/08/25 11:15 03/08/25 11:15 03/08/25 11:15
Cardiovascular:: Regular rate and rhythm
Respiratory:: Bilateral: Coarse
Lung Excursion:: Normal
Abdomen:: Nontender
Bowel Sounds:: Normal
Extremity Edema:: +1: Bilateral:
--- NOTE | 2025-03-08 13:28 | CM ---
CM reviewed chart, care ongoing.
Therapy recommending SNF. Call to patients nurse, Kenisha, at [facility]. Per nurse, patient as of recent has been two person assist.
CM discussed therapy recommendations of SNF- Kenisha in agreement. Will fax clinicals for review if patient not agreeable to SNF.
Patient seen bedside, discussed SNF. Patient reports he was at [facility] in the past, would prefer to return back to [place] with therapy (current with [facility]).
CM will continue to send updates to Assisted Living to confirm ability to accept patient back.
Plan; return to [place] with [facility] vs SNF, pt not agreeable to SNF currently
[2025-03-08 15:20] VITALS: BP 145/83
[2025-03-08 16:17] LABS: Glucose - Point of Care 166 mg/dl (70-99)
[2025-03-08] MEDS: NOVOLOG FLEXPEN-LOW RESISTANCE 1 UNITS SC (16:17)
[2025-03-08] MEDS: LIPITOR 40 MG PO (17:58)
[2025-03-08] MEDS: COUMADIN 3 MG PO (17:58)
[2025-03-08] MEDS: DICLOFENAC 1% TOPICAL GEL 100 GRAM TOPICAL (20:43)
[2025-03-08 21:19] LABS: Glucose - Point of Care 179 mg/dl (70-99)
[2025-03-08] MEDS: REMERON 7.5 MG PO (22:09)
[2025-03-08 22:26] VITALS: BP 148/82
[2025-03-09 06:00] VITALS: BMI 26.6
--- NOTE | 2025-03-09 06:08 | PTCARENOTE ---
Small catheter found disconnected from collection bag this am. Small removed (catheter was ordered to be removed this am). Pt placed on time and amount.
[2025-03-09 07:20] VITALS: BP 139/82
[2025-03-09 08:50] LABS: Glucose - Point of Care 128 mg/dl (70-99)
--- NOTE | 2025-03-09 08:52 | W.PN.CD ---
Today's Communication / Plan
-
Continue IV Lasix 40 BID
Follow edema/weight/ BUN/Cr
Impression / Plan
-
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
heart failure.
Card: Rosemarie => MD Salvatore
Acute on chronic HFpEF
- Weight 10/28/2024: 81 kg Cr 1.4 ( and 1 several days later)
- Admit 03/05/2025: 94.5 kg Cr 2.1
- Today 03/09/2025: 84.06 kg Cr pending, but 1.7 on 03/08/2025
- Continue Lasix 40 IV BID => weight down, Cr down
- With Small in place will not start SGLT2-I yet
- If renal function improves can consider adding MRA, ARNI or ARB
- Echo below
HTN
CAD, stable
Permanent atrial fibrillation, rate controlled, on warfarin, [id number] 6 (age3, HTN, DM, CAD, HF)
- INR last was >4 (03/06/2025) => back on warfarin, INR in range 03/08/2025
Anemia
DM
ALESHA
- Admit Cr 2.1. Baseline 0.9
- Cr today pending, but improving with diuresis
- Obstruction may or may not be adding to ALESHA
Subjective: No CP or dyspnea, edema improved but not gone
Data:
Echo 03/07/2025:
SUMMARY
1. Normal left ventricular systolic function estimate ejection fraction 55 to 60%.
2. Moderate concentric LVH with more prominent basal septal thickening.
3. Aortic sclerosis without stenosis.
4. Compared to the previous study 09/30/2022. There is more prominent LVH.
Echo 2022: Preserved systolic functions, cLVH, mod TR, PASP 45 to 55 mmHg.
Nuc Stress 2020: Small reversible ischemia
Physical Exam
Vital Signs/Labs
Vital Signs
Temp Pulse Resp BP Pulse Ox
97.4 F 90 18 139/82 97
03/09/25 07:20 03/09/25 07:20 03/09/25 07:20 03/09/25 07:20 03/09/25 07:20
03/08/25 03/09/25 03/10/25
06:59 06:59 06:59
Actual Weight 90.747 kg 84.056 kg
03/07/25 08:12
PT 30.1 Sec (11.4-14.6) H 03/08/25 08:05
INR 2.85 03/08/25 08:05
Magnesium 1.6 mg/dl (1.6-2.3) 03/08/25 08:05
03/05/25
12:00
Ysz-V-Zbbyufzooda Pept [id number]
Physical Exam
Constitutional: No acute distress
EENT: Anicteric
Cardiovascular: Rhythm/rate is irregular, Systolic murmur present and Rub absent
Respiratory: Respiratory effort normal, Lungs clear to auscul. and Crackles Absent (basilar)
GI: Soft and Distention absent
Neuro/Psych: AO x 3
Data Reviewed
-
Date of Service: March 09, 2025
[2025-03-09 08:59] LABS: INR 2.90; PT 29.9 Sec (11.4-14.6)
[2025-03-09 09:16] LABS: Blood Urea Nitrogen 36 mg/dl (9-20); Calcium 7.7 mg/dl (8.4-10.2); Carbon Dioxide 31 mmol/L (22-30); Chloride 101 mmol/L (98-107); Estimated Creatinine Clearance 35 ml/min; Glucose 119 mg/dl (70-99); Potassium 3.3 mmol/L (3.5-5.1); Sodium 137 mmol/L (135-145); eGFR 44.50
[2025-03-09] MEDS: NOVOLOG FLEXPEN-LOW RESISTANCE SC (09:23)
[2025-03-09] MEDS: COLACE PO ×2 (10:15→21:12)
[2025-03-09] MEDS: DICLOFENAC 1% TOPICAL GEL 4 GRAM TOPICAL (10:29)
[2025-03-09] MEDS: ASPIR LOW (ENTERIC COATED) 81 MG PO (10:30)
[2025-03-09] MEDS: LANTUS 0.06 UNITS SC (10:30)
[2025-03-09] MEDS: LASIX 40 MG IV ×2 (10:30→15:32)
[2025-03-09] MEDS: TOPROL XL 25 MG PO (10:30)
[2025-03-09] MEDS: KCL 40 MEQ PO (10:31)
[2025-03-09] MEDS: MIRALAX PO (10:31)
[2025-03-09] MEDS: HYDROPHOR TOPICAL (10:32)
[2025-03-09] MEDS: KCL PO (10:49)
--- NOTE | 2025-03-09 11:05 | W.PN.URO.CBU ---
Today's Communication / Plan
-
will sign off
Assessment / Plan
-
CHF
moderate prostate enlargement with few, small bladder calculi -- acute on chronic urinary retention -->resolved
rectum distended with stool pressing on prostate
mild ureteral dilatation
hematuria --> resolved
Diagnosis
-
Date of Service: March 09, 2025
-
Patient Diagnosis:
CHF
moderate prostate enlargement with few, small bladder calculi
rectum distended with stool pressing on prostate
mild ureteral dilatation
Subjective
-
'I'm going normally again' -- Small removed; he showed me urinal with 225 ml of yellow urine and a small stone
Objective
-
Vital Signs
Temp Pulse Resp BP Pulse Ox
97.4 F 90 18 139/82 97
03/09/25 07:20 03/09/25 07:20 03/09/25 07:20 03/09/25 07:20 03/09/25 07:20
Intake and Output
03/08/25 03/09/25 03/10/25
06:59 06:59 06:59
Intake Total 1020 / 1020 750 / 750
Output Total 1700 / 1700 6350 / 6350
Balance -680 / -680 -5600 / -5600
Intake:
Oral fluids 1020 / 1020 480 / 480
IV piggybacks 270 / 270
Output:
Urine, Small 1700 / 1700 6350 / 6350
Other:
How many times incontinent 2 1
SATURATED amount urine
Laboratory Results
03/07/25 08:12
03/09/25 07:54
Physical Exam
-
General - well developed, well nourished, no acute distress
--- NOTE | 2025-03-09 12:06 | W.PN.HOSP.TC ---
Today's Communication/Plan
-
Increase KCl dose
Continue diuretics
Continue PT/OT
Assessment / Plan
Assessment / Plan
Gen-AAOx3, NAD
HEENT-NC, AT, anicteric, clear oral mm
Neck-supple
CV-reg, no M, +S1/S2
Lungs-clear B/L
Abd-soft, NT, ND
Ext-bilateral lower extremity edema, improving
Musculoskeletal-no cyanosis, clubbing
Skin-warm and dry
Neuro-grossly non-focal
Psych-calm, cooperative
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
swelling. Patient is a resident of [facility]. Patient states that while changing his diaper the nursing staff noticed that his urine was brownish-red in color. They also noticed increased bilateral leg swelling. He is currently
on 20 mg of furosemide as needed. Patient denied previous history of heart failure or stroke. He is on long-term chronic anticoagulation for pulmonary atrial fibrillation. He denied any difficulty in urine dysuria, nausea, vomiting, fever,
chills, shortness of breath or chest pain.
Acute HFpEF exacerbation -- NEW DIAGNOSIS
Clinically improving.
Monitor on telemetry
15 kg weight gain from his dry weight.
Dry weight 81-83 kg. Weight is down 10 kg since admission.
ALESHA in the setting of CHF exacerbation--- suspect cardiorenal syndrome
Continue IV Lasix BID
Echocardiogram shows LVEF 55 to 60%, moderate concentric LVH with more prominent basal septal thickening, aortic sclerosis without stenosis.
Small left pleural effusion with bibasilar atelectasis and/or pneumonia
Moderate bilateral pleural effusions with associated probable compressive atelectasis
-Clinically does not look like pneumonia, no symptoms or pneumonia
-On CT Abdomen/Pelvis, it was noted that patient has Moderate bilateral pleural effusions with associated probable compressive atelectasis
-Consider repeat CXR, patient is on IV diuretics
Not hypoxic, not on oxygen.
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
-Continue Aspirin, high-intensity statin and beta robert
ALESHA
secondary to CHF exacerbation/cardiorenal syndrome, however patient also with mild right hydronephrosis with stones so obstructive component cannot be ruled out
Creatinine trending down, 1.5 today.
Small catheter inserted, hydronephrosis present (see below), stool probably causing obstruction by pushing against bladder outlet as well
Nephrology following.
Hypokalemia -increase KCl dose. Magnesium 1.6 yesterday.
Mild right hydronephrosis with stones on CT Imaging
Mild ureteral dilatation
Moderate prostate enlargement with few, small bladder calculi
Rectum distended with stool pressing on prostate
Chronic Constipation
Small catheter removed last night.
Urology signed off, outpatient follow-up.
-Cystitis on the CT was questionable -- reasonable to hold antibiotics right now in the absence of UTI symptoms
-Treat constipation -- Miralax ordered, if still no bowel movement can try Dulocolax suppository and/or PO Senokot-S
Supratherapeutic INR
Gross Hematuria (blood-tinged urine on 03/06/25)
-Intermittent Hematuria in presence of bladder stones is to be expected
INR trending down, 2.8 today. Warfarin resumed at a lower dose of 3 mg at bedtime starting 03/07.
-Okay to continue Aspirin
-This is not a life-threatening/serious bleed at this time, therefore no need to Vitamin K at this moment in time
Chronic Anemia
-Hgb stable.
Permanent atrial fibrillation
INR stable at 2.9. Continue reduced dose of warfarin 3 mg at bedtime.
Was on an average dose of 4 mg warfarin daily prior to admission.
DM 2 with hyperglycemia -glucose 119 this morning, 179 last night. Hemoglobin A1c 5.7%. However, may not be reliable given his chronic anemia.
On evening of admission he developed hypoglycemia likely due to ALESHA and decreased clearance of insulin.
Prior to admission he was on glargine 12 units daily, metformin 500 mg twice daily.
Hold metformin given ALESHA.
Continue low resistance aspart scale. Continue Lantus at 6 units daily.
Essential hypertension
Continue Toprol XL
Cholelithiasis and splenomegaly on hospital CT Abdomen/Pelvis imaging
Anxiety/depression
Continue mirtazapine
Hyperlipidemia
Continue atorvastatin
Chronic right foot ulcer
History of resolved B12 deficiency
History of Stage II sacral pressure injury
Hospitalization 10/27/24 to 11/02/24
-At that time, was treated for left lower lobe pneumonia and acute on chronic anemia
-Also received blood transfusions at that time
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 Polanco
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
Code Status: Full code
PT/OT -SNF recommended.
Anticipated Discharge: 24 - 48 hours
Subjective/Interval History
-
Date of Service: March 09, 2025
Patient seen and examined. No new complaints.
Objective Data
-
Labs:
Laboratory Results
03/09/25
07:54
PT 29.9 H
INR 2.90
Sodium 137
Potassium 3.3 L
Chloride 101
Carbon Dioxide 31 H
BUN 36 H
Creatinine 1.5 H
Glucose 119 H
Calcium 7.7 L
Vital Signs:
Vital Signs
Temp Pulse Resp BP Pulse Ox
97.4 F 90 18 139/82 97
03/09/25 07:20 03/09/25 07:20 03/09/25 07:20 03/09/25 07:20 03/09/25 07:20
I&O
03/08/25 03/09/25 03/10/25
06:59 06:59 06:59
Intake Total 1020 / 1020 750 / 750
Output Total 1700 / 1700 6350 / 6350
Balance -680 / -680 -5600 / -5600
Review of Systems
-
History Source: Patient
All other systems: Reviewed and negative
[2025-03-09 12:28] LABS: Glucose - Point of Care 256 mg/dl (70-99)
--- NOTE | 2025-03-09 12:49 | W.PN.NEPH.PH ---
Today's Communication / Plan
-
cont IV lasix and kcl replacement
Assessment/Plan
-
IMP:
Acute on chronic HFpEF exacerbation
Acute kidney injury
Mild Right hydro with UV junction stones
moderate bilat pleural effusion
Supratherapeutic INR
Permanent atrial fibrillation
Insulin-dependent type 2 diabetes mellitus
Anxiety/depression
Hyperlipidemia
Chronic constipation
Chr anemia
Plan:
Creatinine better at 1.5, nonoliguric with urine output 3.3L
Urology did not think stone burden was because enough for hydronephrosis and her acute kidney injury
repleting K
CHF-new, normal EF, mod LVH cards follows, cont IV lasix 40 mg IV twice daily
Maintain Small cath
BPs improving with vol off
corrected annamaria is normal range
maintain FR, low salt diet
d/w pt in detail
d/w nursing
-
-
Date of Service: March 09, 2025
CC / HPI / ROS
-
Chief Complaint:
ALESHA
History of Present Illness:
Hemodynamically stable
Creatinine better at 1.5
Review of Systems:
Grossly nonoliguric via catheter ~3.3 liters today
No reported chest pain or shortness of breath
No fevers
Labs
-
Labs:
WBC 6.7 10^3/uL (4.8-10.8) 03/07/25 08:12
RBC 3.98 10^6/uL (4.70-6.10) L 03/07/25 08:12
Hgb 11.0 g/dL (13.0-18.0) L 03/07/25 08:12
Hct 34.0 % (39.0-52.0) L 03/07/25 08:12
Plt Count 210 10^3/uL (130-400) 03/07/25 08:12
Sodium 137 mmol/L (135-145) 03/09/25 07:54
Potassium 3.3 mmol/L (3.5-5.1) L 03/09/25 07:54
Chloride 101 mmol/L (98-107) 03/09/25 07:54
Carbon Dioxide 31 mmol/L (22-30) H 03/09/25 07:54
BUN 36 mg/dl (9-20) H 03/09/25 07:54
Creatinine 1.5 mg/dL (0.7-1.3) H 03/09/25 07:54
eGFR 44.50 03/09/25 07:54
Glucose 119 mg/dl (70-99) H 03/09/25 07:54
Calcium 7.7 mg/dl (8.4-10.2) L 03/09/25 07:54
Wqa-N-Eofgidsivqg Pept 59046 pg/ml 03/05/25 12:00
Albumin 3.1 g/dl (3.5-5.0) L 03/05/25 12:00
Physical Exam
-
Vital Signs:
Vital Signs
Temp Pulse Resp BP Pulse Ox
97.4 F 90 18 139/82 97
03/09/25 07:20 03/09/25 07:20 03/09/25 07:20 03/09/25 07:20 03/09/25 07:20
Cardiovascular:: Regular rate and rhythm (+JVD)
Respiratory:: Bilateral: CTA (decreased)
Lung Excursion:: Normal
Abdomen:: Nontender
Bowel Sounds:: Normal
Extremity Edema:: +1: Bilateral:
Small Catheter: Yes
[2025-03-09] MEDS: NOVOLOG FLEXPEN-LOW RESISTANCE 3 UNITS SC (13:41)
[2025-03-09 15:30] VITALS: BP 130/72
[2025-03-09] MEDS: LIPITOR 40 MG PO (17:03)
[2025-03-09] MEDS: COUMADIN 3 MG PO (17:03)
[2025-03-09] MEDS: NOVOLOG FLEXPEN-LOW RESISTANCE 1 UNITS SC (17:05)
[2025-03-09 17:09] LABS: Glucose - Point of Care 199 mg/dl (70-99)
[2025-03-09 20:40] LABS: Glucose - Point of Care 256 mg/dl (70-99)
[2025-03-09] MEDS: REMERON PO (21:12)
[2025-03-09] MEDS: DICLOFENAC 1% TOPICAL GEL TOPICAL (21:12)
[2025-03-09 23:24] VITALS: BP 128/62
[2025-03-10 06:00] VITALS: BMI 25.7
[2025-03-10 07:59] LABS: INR 2.75; PT 28.7 Sec (11.4-14.6)
[2025-03-10 08:02] LABS: Glucose - Point of Care 128 mg/dl (70-99)
--- NOTE | 2025-03-10 08:12 | W.PN.HOSP.TC ---
Today's Communication/Plan
-
Increase Lantus dose
Continue diuretics
Assessment / Plan
Assessment / Plan
Gen-AAOx3, NAD
HEENT-NC, AT, anicteric, clear oral mm
Neck-supple
CV-reg, no M, +S1/S2
Lungs-clear B/L
Abd-soft, NT, ND
Ext-bilateral lower extremity edema, improving
Musculoskeletal-no cyanosis, clubbing
Skin-warm and dry
Neuro-grossly non-focal
Psych-calm, cooperative
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
swelling. Patient is a resident of [facility]. Patient states that while changing his diaper the nursing staff noticed that his urine was brownish-red in color. They also noticed increased bilateral leg swelling. He is currently
on 20 mg of furosemide as needed. Patient denied previous history of heart failure or stroke. He is on long-term chronic anticoagulation for pulmonary atrial fibrillation. He denied any difficulty in urine dysuria, nausea, vomiting, fever,
chills, shortness of breath or chest pain.
Acute HFpEF exacerbation -- NEW DIAGNOSIS
Clinically improving.
Monitor on telemetry
15 kg weight gain from his dry weight.
Dry weight 81-83 kg. Weight is down 13 kg since admission.
ALESHA in the setting of CHF exacerbation--- suspect cardiorenal syndrome
Continue IV Lasix BID
Echocardiogram shows LVEF 55 to 60%, moderate concentric LVH with more prominent basal septal thickening, aortic sclerosis without stenosis.
Small left pleural effusion with bibasilar atelectasis and/or pneumonia
Moderate bilateral pleural effusions with associated probable compressive atelectasis
-Clinically does not look like pneumonia, no symptoms or pneumonia
-On CT Abdomen/Pelvis, it was noted that patient has Moderate bilateral pleural effusions with associated probable compressive atelectasis
-Consider repeat CXR, patient is on IV diuretics
Not hypoxic, not on oxygen.
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
-Continue Aspirin, high-intensity statin and beta robert
ALESHA
secondary to CHF exacerbation/cardiorenal syndrome, however patient also with mild right hydronephrosis with stones so obstructive component cannot be ruled out
Creatinine trending down, BMP pending for today.
Small catheter inserted, hydronephrosis present (see below), stool probably causing obstruction by pushing against bladder outlet as well
Nephrology following.
Hypokalemia -BMP pending for today.
Mild right hydronephrosis with stones on CT Imaging
Mild ureteral dilatation
Moderate prostate enlargement with few, small bladder calculi
Rectum distended with stool pressing on prostate
Chronic Constipation
Small catheter removed last night.
Urology signed off, outpatient follow-up.
-Cystitis on the CT was questionable -- reasonable to hold antibiotics right now in the absence of UTI symptoms
-Treat constipation -- Miralax ordered, if still no bowel movement can try Dulocolax suppository and/or PO Senokot-S
Supratherapeutic INR
Gross Hematuria (blood-tinged urine on 03/06/25)
-Intermittent Hematuria in presence of bladder stones is to be expected
INR trending down, 2.75 today. Warfarin resumed at a lower dose of 3 mg at bedtime starting 03/07.
-Okay to continue Aspirin
-This is not a life-threatening/serious bleed at this time, therefore no need to Vitamin K at this moment in time
Chronic Anemia
-Hgb stable.
Permanent atrial fibrillation
INR stable at 2.75. Continue reduced dose of warfarin 3 mg at bedtime.
Was on an average dose of 4 mg warfarin daily prior to admission.
DM 2 with hyperglycemia -glucose 128 this morning, 256 last night. Hemoglobin A1c 5.7%. However, may not be reliable given his chronic anemia.
On evening of admission he developed hypoglycemia likely due to ALESHA and decreased clearance of insulin.
Prior to admission he was on glargine 12 units daily, metformin 500 mg twice daily.
Hold metformin given ALESHA.
Continue low resistance aspart scale. Increase Lantus to 12 units daily.
Essential hypertension
Continue Toprol XL
Cholelithiasis and splenomegaly on hospital CT Abdomen/Pelvis imaging
Anxiety/depression
Continue mirtazapine
Hyperlipidemia
Continue atorvastatin
Chronic right foot ulcer
History of resolved B12 deficiency
History of Stage II sacral pressure injury
Hospitalization 10/27/24 to 11/02/24
-At that time, was treated for left lower lobe pneumonia and acute on chronic anemia
-Also received blood transfusions at that time
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 Polanco
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
Code Status: Full code
PT/OT -SNF recommended.
Anticipated Discharge: 24 - 48 hours
Subjective/Interval History
-
Date of Service: March 10, 2025
Patient seen and examined, no new complaints. Feeling better.
Objective Data
-
Labs:
Laboratory Results
03/10/25
07:37
PT 28.7 H
INR 2.75
Sodium Pending
Potassium Pending
Chloride Pending
Carbon Dioxide Pending
BUN Pending
Creatinine Pending
Glucose Pending
Calcium Pending
Vital Signs:
Vital Signs
Temp Pulse Resp BP Pulse Ox
97.6 F 88 18 128/62 97
03/09/25 23:24 03/09/25 23:24 03/09/25 23:24 03/09/25 23:24 03/09/25 23:24
I&O
03/09/25 03/10/25 03/11/25
06:59 06:59 06:59
Intake Total 750 / 750 600 / 600
Output Total 6350 / 6350 2375 / 2375
Balance -5600 / -5600 -1775 / -1775
Review of Systems
-
History Source: Patient
All other systems: Reviewed and negative
[2025-03-10 08:26] VITALS: BP 121/68
[2025-03-10 08:27] LABS: Blood Urea Nitrogen 32 mg/dl (9-20); Calcium 7.8 mg/dl (8.4-10.2); Carbon Dioxide 32 mmol/L (22-30); Chloride 101 mmol/L (98-107); Estimated Creatinine Clearance 35 ml/min; Glucose 118 mg/dl (70-99); Potassium 3.5 mmol/L (3.5-5.1); Sodium 138 mmol/L (135-145); eGFR 44.50
--- NOTE | 2025-03-10 08:38 | W.PN.CD ---
Today's Communication / Plan
-
Continue IV diuresis but he is nearing 'dry weight'.
d/c planning
Impression / Plan
-
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
heart failure.
Card: Rosemarie => MD Salvatore
Acute on chronic HFpEF
- Weight 10/28/2024: 81 kg Cr 1.4 ( and 1 several days later)
- Admit 03/05/2025: 94.5 kg Cr 2.1
- 03/09/2025: 84.06 kg Cr pending, but 1.7 on 03/08/2025
- 03/10/25: 81.3 Cr 1.5
- Continue Lasix 40 IV BID => weight down, Cr down, still some peripheral edema
-Consider sglt2-i as op
- If renal function improves can consider adding MRA, ARNI or ARB
- Echo below
HTN
CAD, stable
Permanent atrial fibrillation, rate controlled, on warfarin, [id number] 6 (age3, HTN, DM, CAD, HF)
- INR last was >4 (03/06/2025) => back on warfarin, INR in range 03/10/25
Anemia
DM
ALESHA
- Admit Cr 2.1. Baseline 0.9
- Cr today pending, but improving with diuresis
- Obstruction may or may not be adding to ALESHA
Subjective: No CP or dyspnea, edema improved but not gone, he tell's me it never is, refuses compression.
Data:
Echo 03/07/2025:
SUMMARY
1. Normal left ventricular systolic function estimate ejection fraction 55 to 60%.
2. Moderate concentric LVH with more prominent basal septal thickening.
3. Aortic sclerosis without stenosis.
4. Compared to the previous study 09/30/2022. There is more prominent LVH.
Echo 2022: Preserved systolic functions, cLVH, mod TR, PASP 45 to 55 mmHg.
Nuc Stress 2020: Small reversible ischemia
Physical Exam
Vital Signs/Labs
Vital Signs
Temp Pulse Resp BP Pulse Ox
98.2 F 89 20 121/68 96
03/10/25 08:26 03/10/25 08:26 03/10/25 08:26 03/10/25 08:26 03/10/25 08:26
03/09/25 03/10/25 03/11/25
06:59 06:59 06:59
Actual Weight 185 lb 5 oz 179 lb 4 oz
03/07/25 08:12
03/10/25 07:37
PT 28.7 Sec (11.4-14.6) H 03/10/25 07:37
INR 2.75 03/10/25 07:37
Magnesium 1.6 mg/dl (1.6-2.3) 03/08/25 08:05
03/05/25
12:00
Flt-M-Tbzqevsynwp Pept [id number]
Physical Exam
Constitutional: No acute distress
Cardiovascular: Rhythm/rate is irregular and Pedal edema present (1+ up through legs)
Respiratory: Respiratory effort normal, Lungs clear to auscul., Wheeze Absent, Crackles Absent and Rhonchi Absent
Neuro/Psych: AO x 3
Data Reviewed
-
Date of Service: March 10, 2025
Medical Decision Making: Review of Case with other Provider (marry Mason continue iv diuresis)
[2025-03-10] MEDS: NOVOLOG FLEXPEN-LOW RESISTANCE SC ×2 (09:00→17:18)
[2025-03-10] MEDS: LANTUS SC (09:01)
[2025-03-10 09:10] VITALS: BP 127/78; PULSE 90; O2SAT 99
[2025-03-10] MEDS: ASPIR LOW (ENTERIC COATED) 81 MG PO (09:17)
[2025-03-10] MEDS: COLACE 100 MG PO (09:17)
[2025-03-10] MEDS: MIRALAX 17 GRAMS PO (09:18)
[2025-03-10] MEDS: KCL 40 MEQ PO (09:18)
[2025-03-10] MEDS: LANTUS 0.06 UNITS SC (09:18)
[2025-03-10] MEDS: TOPROL XL 25 MG PO (09:18)
[2025-03-10] MEDS: LASIX 40 MG IV ×2 (09:18→17:18)
[2025-03-10] MEDS: DICLOFENAC 1% TOPICAL GEL 1 GRAM TOPICAL (09:19)
[2025-03-10] MEDS: HYDROPHOR 1 APPLIC TOPICAL (09:19)
[2025-03-10 12:32] LABS: Glucose - Point of Care 259 mg/dl (70-99)
[2025-03-10] MEDS: NOVOLOG FLEXPEN-LOW RESISTANCE 3 UNITS SC (12:55)
--- NOTE | 2025-03-10 15:23 | W.PN.NEPH.PH ---
Today's Communication / Plan
-
cont IV lasix for another 1-2 days
Assessment/Plan
-
IMP:
Acute on chronic HFpEF exacerbation
Acute kidney injury
Mild Right hydro with UV junction stones
moderate bilat pleural effusion
Supratherapeutic INR
Permanent atrial fibrillation
Insulin-dependent type 2 diabetes mellitus
Anxiety/depression
Hyperlipidemia
Chronic constipation
Chr anemia
Plan:
Creatinine stable at 1.5, nonoliguric with urine output 3.3L
Urology did not think stone burden was because enough for hydronephrosis and her acute kidney injury
repleting K prn
CHF-normal EF, mod LVH cards follows, cont IV lasix 40 mg IV twice daily still with edema, likely change to po in 1-2days
probably all edema may not be able to be diuresed
voiding well, off her
BPs stable
corrected annamaria is normal range
maintain FR, low salt diet
d/w pt in detail
-
-
Date of Service: March 10, 2025
CC / HPI / ROS
-
Chief Complaint:
ALESHA
History of Present Illness:
Hemodynamically stable
Creatinine stable at 1.5
Review of Systems:
Grossly nonoliguric via catheter ~3.2 liters today
No reported chest pain or shortness of breath
No fevers
no dizziness
lost 13kg
Labs
-
Labs:
WBC 6.7 10^3/uL (4.8-10.8) 03/07/25 08:12
RBC 3.98 10^6/uL (4.70-6.10) L 03/07/25 08:12
Hgb 11.0 g/dL (13.0-18.0) L 03/07/25 08:12
Hct 34.0 % (39.0-52.0) L 03/07/25 08:12
Plt Count 210 10^3/uL (130-400) 03/07/25 08:12
Sodium 138 mmol/L (135-145) 03/10/25 07:37
Potassium 3.5 mmol/L (3.5-5.1) 03/10/25 07:37
Chloride 101 mmol/L (98-107) 03/10/25 07:37
Carbon Dioxide 32 mmol/L (22-30) H 03/10/25 07:37
BUN 32 mg/dl (9-20) H 03/10/25 07:37
Creatinine 1.5 mg/dL (0.7-1.3) H 03/10/25 07:37
eGFR 44.50 03/10/25 07:37
Glucose 118 mg/dl (70-99) H 03/10/25 07:37
Calcium 7.8 mg/dl (8.4-10.2) L 03/10/25 07:37
Itb-W-Utsjuqbzevs Pept 60174 pg/ml 03/05/25 12:00
Albumin 3.1 g/dl (3.5-5.0) L 03/05/25 12:00
Physical Exam
-
Vital Signs:
Vital Signs
Temp Pulse Resp BP Pulse Ox
98.2 F 89 20 121/68 96
03/10/25 08:26 03/10/25 08:26 03/10/25 08:26 03/10/25 08:26 03/10/25 08:26
Cardiovascular:: Regular rate and rhythm (+JVD)
Respiratory:: Bilateral: CTA (decreased)
Lung Excursion:: Normal
Abdomen:: Nontender
Bowel Sounds:: Normal
Extremity Edema:: +3: Bilateral:
Her Catheter: No
[2025-03-10 15:45] VITALS: BP 173/93
[2025-03-10] MEDS: COUMADIN 3 MG PO (17:18)
[2025-03-10] MEDS: LIPITOR 40 MG PO (17:18)
[2025-03-10 17:19] LABS: Glucose - Point of Care 131 mg/dl (70-99)
[2025-03-10] MEDS: COLACE PO (20:44)
[2025-03-10] MEDS: DICLOFENAC 1% TOPICAL GEL TOPICAL (20:44)
[2025-03-10] MEDS: REMERON PO (20:45)
[2025-03-10 21:21] LABS: Glucose - Point of Care 240 mg/dl (70-99)
[2025-03-10 23:10] VITALS: BP 136/72
[2025-03-11 06:00] VITALS: BMI 25.5
[2025-03-11 07:00] VITALS: BP 117/69
[2025-03-11 08:21] LABS: Glucose - Point of Care 137 mg/dl (70-99)
[2025-03-11] MEDS: KCL 40 MEQ PO (08:27)
[2025-03-11] MEDS: COLACE 100 MG PO (08:27)
[2025-03-11] MEDS: NOVOLOG FLEXPEN-LOW RESISTANCE SC (08:27)
[2025-03-11] MEDS: ASPIR LOW (ENTERIC COATED) 81 MG PO (08:28)
[2025-03-11] MEDS: MIRALAX 17 GRAMS PO (08:28)
[2025-03-11] MEDS: TOPROL XL 25 MG PO (08:28)
[2025-03-11] MEDS: HYDROPHOR 1 APPLIC TOPICAL (08:28)
[2025-03-11] MEDS: DICLOFENAC 1% TOPICAL GEL 1 GRAM TOPICAL (08:29)
[2025-03-11] MEDS: LASIX 40 MG IV (08:29)
[2025-03-11] MEDS: LANTUS 0.12 UNITS SC (08:33)
[2025-03-11 09:31] LABS: Blood Urea Nitrogen 33 mg/dl (9-20); Calcium 7.3 mg/dl (8.4-10.2); Carbon Dioxide 32 mmol/L (22-30); Chloride 99 mmol/L (98-107); Estimated Creatinine Clearance 35 ml/min; Glucose 127 mg/dl (70-99); Potassium 3.3 mmol/L (3.5-5.1); Sodium 136 mmol/L (135-145); eGFR 44.50
--- NOTE | 2025-03-11 09:32 | W.PN.CD ---
Today's Communication / Plan
-
Switch to daily 40 mg lasix tomorrow
We will sign off please call with questions
We will arrange follow up.
Impression / Plan
-
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
heart failure.
Card: Rosemarie => MD Salvatore
Acute on chronic HFpEF
- Weight 10/28/2024: 81 kg Cr 1.4 ( and 1 several days later)
- Admit 03/05/2025: 94.5 kg Cr 2.1
- 03/09/2025: 84.06 kg Cr pending, but 1.7 on 03/08/2025
- 03/10/25: 81.3 Cr 1.5
- Continue Lasix 40 IV BID => switch to 40 mg daily
-Consider sglt2-i as op
- If renal function improves can consider adding MRA, ARNI or ARB
- Echo below
HTN
CAD, stable
Permanent atrial fibrillation, rate controlled, on warfarin, [id number] 6 (age3, HTN, DM, CAD, HF)
- INR last was >4 (03/06/2025) => back on warfarin, INR in range 03/10/25
Anemia
DM
ALESHA
- ADMIT Cr 2.1. Baseline 0.9
- Cr today stuck at 1.5
- Obstruction may or may not be adding to ALESHA
Subjective: Feels nearly back to normal
Data:
Echo 03/07/2025:
SUMMARY
1. Normal left ventricular systolic function estimate ejection fraction 55 to 60%.
2. Moderate concentric LVH with more prominent basal septal thickening.
3. Aortic sclerosis without stenosis.
4. Compared to the previous study 09/30/2022. There is more prominent LVH.
Echo 2022: Preserved systolic functions, cLVH, mod TR, PASP 45 to 55 mmHg.
Nuc Stress 2020: Small reversible ischemia
Physical Exam
Vital Signs/Labs
Vital Signs
Temp Pulse Resp BP Pulse Ox
97.6 F 92 16 117/69 97
03/11/25 07:00 03/11/25 07:00 03/11/25 07:00 03/11/25 07:00 03/11/25 07:00
03/10/25 03/11/25 03/12/25
06:59 06:59 06:59
Actual Weight 179 lb 4 oz 177 lb 8 oz
03/07/25 08:12
03/11/25 07:44
PT 28.7 Sec (11.4-14.6) H 03/10/25 07:37
INR 2.75 03/10/25 07:37
Magnesium 1.6 mg/dl (1.6-2.3) 03/08/25 08:05
03/05/25
12:00
Ump-K-Bdfcdeguoax Pept [id number]
Physical Exam
Constitutional: No acute distress and Comfortable
EENT: Anicteric
Cardiovascular: Rhythm/rate is irregular and Pedal edema present
Respiratory: Respiratory effort normal and Lungs clear to auscul.
GI: Soft
Neuro/Psych: Alert and Oriented
Data Reviewed
-
Date of Service: March 11, 2025
EKG: Tracing Personally Visualized and interpreted (af)
Echo: Report Reviewed by me
Labs: Labs Reviewed by me
[2025-03-11 11:03] LABS: Magnesium 1.4 mg/dl (1.6-2.3)
--- NOTE | 2025-03-11 11:08 | W.PN.HOSP.TC ---
Today's Communication/Plan
-
IV magnesium
Replete potassium
Assessment / Plan
Assessment / Plan
Gen-AAOx3, NAD
HEENT-NC, AT, anicteric, clear oral mm
Neck-supple
CV-reg, no M, +S1/S2
Lungs-clear B/L
Abd-soft, NT, ND
Ext-bilateral lower extremity edema, improving
Musculoskeletal-no cyanosis, clubbing
Skin-warm and dry
Neuro-grossly non-focal
Psych-calm, cooperative
Acute HFpEF exacerbation -- NEW DIAGNOSIS
Clinically improving.
Monitor on telemetry
15 kg weight gain from his dry weight.
Dry weight 81-83 kg. Weight is down 14 kg since admission.
ALESHA in the setting of CHF exacerbation--- suspect cardiorenal syndrome
Cardiology converting Lasix to oral starting tomorrow.
Echocardiogram shows LVEF 55 to 60%, moderate concentric LVH with more prominent basal septal thickening, aortic sclerosis without stenosis.
Small left pleural effusion with bibasilar atelectasis and/or pneumonia
Moderate bilateral pleural effusions with associated probable compressive atelectasis
-Clinically does not look like pneumonia, no symptoms or pneumonia
-On CT Abdomen/Pelvis, it was noted that patient has Moderate bilateral pleural effusions with associated probable compressive atelectasis
-Consider repeat CXR, patient is on IV diuretics
Not hypoxic, not on oxygen.
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
-Continue Aspirin, high-intensity statin and beta robert
ALESHA
secondary to CHF exacerbation/cardiorenal syndrome, however patient also with mild right hydronephrosis with stones so obstructive component cannot be ruled out
Creatinine trending down, BMP pending for today.
Small catheter inserted, hydronephrosis present (see below), stool probably causing obstruction by pushing against bladder outlet as well
Nephrology following.
Hypokalemia -3.3 today. Will increase dose of KCl.
Hypomagnesemia -1.4, will replete IV.
Mild right hydronephrosis with stones on CT Imaging
Mild ureteral dilatation
Moderate prostate enlargement with few, small bladder calculi
Rectum distended with stool pressing on prostate
Chronic Constipation
Small catheter removed last night.
Urology signed off, outpatient follow-up.
-Cystitis on the CT was questionable -- reasonable to hold antibiotics right now in the absence of UTI symptoms
-Treat constipation -- Miralax ordered, if still no bowel movement can try Dulocolax suppository and/or PO Senokot-S
Supratherapeutic INR
Gross Hematuria (blood-tinged urine on 03/06/25)
-Intermittent Hematuria in presence of bladder stones is to be expected
INR trending down, 2.75 today. Warfarin resumed at a lower dose of 3 mg at bedtime starting 03/07.
-Okay to continue Aspirin
-This is not a life-threatening/serious bleed at this time, therefore no need to Vitamin K at this moment in time
Chronic Anemia
-Hgb stable.
Permanent atrial fibrillation
INR stable at 2.75. Continue reduced dose of warfarin 3 mg at bedtime.
Was on an average dose of 4 mg warfarin daily prior to admission.
DM 2 with hyperglycemia -glucose 127 this morning, 240 last night. Hemoglobin A1c 5.7%. However, may not be reliable given his chronic anemia.
On evening of admission he developed hypoglycemia likely due to ALESHA and decreased clearance of insulin.
Prior to admission he was on glargine 12 units daily, metformin 500 mg twice daily.
Hold metformin given ALESHA.
Continue low resistance aspart scale. Continue Lantus 12 units daily.
Essential hypertension
Continue Toprol XL
Cholelithiasis and splenomegaly on hospital CT Abdomen/Pelvis imaging
Anxiety/depression
Continue mirtazapine
Hyperlipidemia
Continue atorvastatin
Chronic right foot ulcer
History of resolved B12 deficiency
History of Stage II sacral pressure injury
Hospitalization 10/27/24 to 11/02/24
-At that time, was treated for left lower lobe pneumonia and acute on chronic anemia
-Also received blood transfusions at that time
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 Polanco
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
Code Status: Full code
PT/OT -Home health recommended.
Dispo -stable for discharge back to [facility], patient wants to go tomorrow morning. Discussed with cardiology and nephrology.
Outpatient follow-up.
Updated daughter Asuncion on the phone. All questions answered.
Anticipated Discharge: Within 24 hours
Subjective/Interval History
-
Date of Service: March 11, 2025
Patient seen and examined. No complaints.
Objective Data
-
Labs:
Laboratory Results
03/11/25
07:44
Sodium 136
Potassium 3.3 L
Chloride 99
Carbon Dioxide 32 H
BUN 33 H
Creatinine 1.5 H
Glucose 127 H
Calcium 7.3 L
Vital Signs:
Vital Signs
Temp Pulse Resp BP Pulse Ox
97.6 F 92 16 117/69 97
03/11/25 07:00 03/11/25 07:00 03/11/25 07:00 03/11/25 07:00 03/11/25 07:00
I&O
03/10/25 03/11/25 03/12/25
06:59 06:59 06:59
Intake Total 600 / 600 960 / 960
Output Total 2375 / 2375 2600 / 2600
Balance -1775 / -1775 -1640 / -1640
Review of Systems
-
History Source: Patient
All other systems: Reviewed and negative
[2025-03-11] MEDS: KCL 270 MEQ IV (11:09)
--- NOTE | 2025-03-11 11:22 | W.PN.NEPH.PH ---
Today's Communication / Plan
-
Remains on p.o. Lasix
Kidney function stable at baseline
Potassium and magnesium repletion in place
Assessment/Plan
-
IMP:
Acute on chronic HFpEF exacerbation
Acute kidney injury
Mild Right hydro with UV junction stones
moderate bilat pleural effusion
Supratherapeutic INR
Permanent atrial fibrillation
Insulin-dependent type 2 diabetes mellitus
Anxiety/depression
Hyperlipidemia
Chronic constipation
Chr anemia
Plan:
Creatinine stable at 1.5, nonoliguric with urine output 3.3L
K repletion and magnesium repletion in progress
Urology did not think stone burden was because enough for hydronephrosis and her acute kidney injury
repleting K prn
CHF-normal EF, mod LVH cards follows, cont IV lasix 40 mg IV twice daily still with edema, likely change to po in 1-2days
probably all edema may not be able to be diuresed, now on 40 mg p.o. Lasix
voiding well, off her
BPs stable
corrected annamaria is normal range
maintain FR, low salt diet and hyponatremia remains to
d/w pt in detail
-
-
Date of Service: March 11, 2025
CC / HPI / ROS
-
Chief Complaint:
ALESHA
History of Present Illness:
Hemodynamically stable
Creatinine stable at 1.5
Potassium lower
Review of Systems:
Grossly nonoliguric via catheter ~3.2 liters today
No reported chest pain or shortness of breath
No fevers
no dizziness
lost 13kg
Labs
-
Labs:
WBC 6.7 10^3/uL (4.8-10.8) 03/07/25 08:12
RBC 3.98 10^6/uL (4.70-6.10) L 03/07/25 08:12
Hgb 11.0 g/dL (13.0-18.0) L 03/07/25 08:12
Hct 34.0 % (39.0-52.0) L 03/07/25 08:12
Plt Count 210 10^3/uL (130-400) 03/07/25 08:12
Sodium 136 mmol/L (135-145) 03/11/25 07:44
Potassium 3.3 mmol/L (3.5-5.1) L 03/11/25 07:44
Chloride 99 mmol/L (98-107) 03/11/25 07:44
Carbon Dioxide 32 mmol/L (22-30) H 03/11/25 07:44
BUN 33 mg/dl (9-20) H 03/11/25 07:44
Creatinine 1.5 mg/dL (0.7-1.3) H 03/11/25 07:44
eGFR 44.50 03/11/25 07:44
Glucose 127 mg/dl (70-99) H 03/11/25 07:44
Calcium 7.3 mg/dl (8.4-10.2) L 03/11/25 07:44
Nwl-P-Efuuqjqntwq Pept 71049 pg/ml 03/05/25 12:00
Albumin 3.1 g/dl (3.5-5.0) L 03/05/25 12:00
Physical Exam
-
Vital Signs:
Vital Signs
Temp Pulse Resp BP Pulse Ox
97.6 F 92 16 117/69 97
03/11/25 07:00 03/11/25 07:00 03/11/25 07:00 03/11/25 07:00 03/11/25 07:00
Cardiovascular:: Regular rate and rhythm (+JVD)
Respiratory:: Bilateral: CTA (decreased)
Lung Excursion:: Normal
Abdomen:: Nontender
Bowel Sounds:: Normal
Extremity Edema:: +3: Bilateral:
Her Catheter: No
[2025-03-11 12:21] LABS: Glucose - Point of Care 221 mg/dl (70-99)
[2025-03-11] MEDS: MAGNESIUM SULFATE 100 IV (12:27)
[2025-03-11] MEDS: NOVOLOG FLEXPEN-LOW RESISTANCE 2 UNITS SC (13:33)
--- NOTE | 2025-03-11 13:35 | CM ---
CM reviewed chart, clinicals faxed to [facility], spoke with nurse Janie, then nurse De.
Per nurses, unable to accept patient back and will require patient to go to SNF. CM discussed therapy recommending home therapy. Nurses still requesting pt d/c to SNF.
Patient seen bedside, aware that facility requiring pt d/c to SNF, requesting phone call to his daughter, Asuncion.
CM spoke with Asuncion who then spoke with nurse at [facility] who discussed patient will not get therapy daily at facility and feel he will benefit at SNF, daughter now agreeable to referral to SNF. Requesting referrals to [facility], and
[facility].
Referrals placed in [facility].
CM will continue to follow for all d.c needs.
Plan; referrals placed to SNF
[2025-03-11 15:00] VITALS: BP 129/71
[2025-03-11 16:17] LABS: Glucose - Point of Care 256 mg/dl (70-99)
[2025-03-11] MEDS: NOVOLOG FLEXPEN-LOW RESISTANCE 3 UNITS SC (17:13)
[2025-03-11] MEDS: COUMADIN 3 MG PO (17:14)
[2025-03-11] MEDS: LIPITOR 40 MG PO (17:14)
[2025-03-11] MEDS: COLACE PO (20:20)
[2025-03-11] MEDS: DICLOFENAC 1% TOPICAL GEL TOPICAL (20:20)
[2025-03-11 21:24] LABS: Glucose - Point of Care 185 mg/dl (70-99)
[2025-03-11] MEDS: REMERON PO (22:24)
[2025-03-11 23:05] VITALS: BP 135/78
[2025-03-12 05:49] VITALS: BMI 25.3
[2025-03-12 07:13] LABS: Glucose - Point of Care 114 mg/dl (70-99)
[2025-03-12] MEDS: NOVOLOG FLEXPEN-LOW RESISTANCE SC ×2 (07:58→16:55)
[2025-03-12] MEDS: TOPROL XL 25 MG PO (08:07)
[2025-03-12] MEDS: MIRALAX PO (08:08)
[2025-03-12] MEDS: HYDROPHOR 1 APPLIC TOPICAL (08:09)
[2025-03-12] MEDS: COLACE 100 MG PO (08:09)
[2025-03-12] MEDS: ASPIR LOW (ENTERIC COATED) 81 MG PO (08:09)
[2025-03-12] MEDS: DICLOFENAC 1% TOPICAL GEL 1 GRAM TOPICAL (08:09)
[2025-03-12] MEDS: LANTUS 0.12 UNITS SC (08:09)
[2025-03-12] MEDS: KCL 40 MEQ PO ×2 (08:09→20:17)
[2025-03-12 08:11] VITALS: BP 120/73
[2025-03-12] MEDS: LASIX 40 MG PO (08:16)
[2025-03-12 08:18] LABS: INR 1.95; PT 22.4 Sec (11.4-14.6)
[2025-03-12 08:32] LABS: Blood Urea Nitrogen 36 mg/dl (9-20); Calcium 7.7 mg/dl (8.4-10.2); Carbon Dioxide 31 mmol/L (22-30); Chloride 99 mmol/L (98-107); Estimated Creatinine Clearance 33 ml/min; Glucose 104 mg/dl (70-99); Potassium 3.6 mmol/L (3.5-5.1); Sodium 135 mmol/L (135-145); eGFR 41.19
--- NOTE | 2025-03-12 08:58 | W.PN.HOSP.TC ---
Today's Communication/Plan
-
Increase warfarin to 4 mg
Labs in the morning
Check magnesium level
Assessment / Plan
Assessment / Plan
Gen-AAOx3, NAD
HEENT-NC, AT, anicteric, clear oral mm
Neck-supple
CV-reg, no M, +S1/S2
Lungs-clear B/L
Abd-soft, NT, ND
Ext-bilateral lower extremity edema, improving
Musculoskeletal-no cyanosis, clubbing
Skin-warm and dry
Neuro-grossly non-focal
Psych-calm, cooperative
Acute HFpEF exacerbation -- NEW DIAGNOSIS
Clinically improving.
Monitor on telemetry
15 kg weight gain from his dry weight.
Dry weight 81-83 kg. Weight is down 14 kg since admission. Weight stable at 80 kg.
ALESHA in the setting of CHF exacerbation--- suspect cardiorenal syndrome
Now on Lasix p.o., 40 mg daily.
Echocardiogram shows LVEF 55 to 60%, moderate concentric LVH with more prominent basal septal thickening, aortic sclerosis without stenosis.
Small left pleural effusion with bibasilar atelectasis and/or pneumonia
Moderate bilateral pleural effusions with associated probable compressive atelectasis
-Clinically does not look like pneumonia, no symptoms or pneumonia
-On CT Abdomen/Pelvis, it was noted that patient has Moderate bilateral pleural effusions with associated probable compressive atelectasis
-Consider repeat CXR, patient is on IV diuretics
Not hypoxic, not on oxygen.
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
-Continue Aspirin, high-intensity statin and beta robert
ALESHA
secondary to CHF exacerbation/cardiorenal syndrome, however patient also with mild right hydronephrosis with stones so obstructive component cannot be ruled out
Creatinine relatively stable, 1.6.
Small catheter inserted, hydronephrosis present (see below), stool probably causing obstruction by pushing against bladder outlet as well
Nephrology following.
Hypokalemia - improved. Continue KCl.
Hypomagnesemia - check level today.
Mild right hydronephrosis with stones on CT Imaging
Mild ureteral dilatation
Moderate prostate enlargement with few, small bladder calculi
Rectum distended with stool pressing on prostate
Chronic Constipation
Small catheter removed last night.
Urology signed off, outpatient follow-up.
-Cystitis on the CT was questionable -- reasonable to hold antibiotics right now in the absence of UTI symptoms
-Treat constipation -- Miralax ordered, if still no bowel movement can try Dulocolax suppository and/or PO Senokot-S
Supratherapeutic INR
Gross Hematuria (blood-tinged urine on 03/06/25)
-Intermittent Hematuria in presence of bladder stones is to be expected
-Okay to continue Aspirin
-This is not a life-threatening/serious bleed at this time, therefore no need to Vitamin K at this moment in time
Chronic Anemia
-Hgb stable.
Permanent atrial fibrillation
INR down to 1.95 today. Will change warfarin to 4 mg nightly. INR in the morning.
DM 2 with hyperglycemia -glucose 114 this morning, 185 last night. Hemoglobin A1c 5.7%. However, may not be reliable given his chronic anemia.
On evening of admission he developed hypoglycemia likely due to ALESHA and decreased clearance of insulin.
Prior to admission he was on glargine 12 units daily, metformin 500 mg twice daily.
Hold metformin given ALESHA.
Continue low resistance aspart scale. Continue Lantus 12 units daily.
Essential hypertension
Continue Toprol XL
Cholelithiasis and splenomegaly on hospital CT Abdomen/Pelvis imaging
Anxiety/depression
Continue mirtazapine
Hyperlipidemia
Continue atorvastatin
Chronic right foot ulcer
History of resolved B12 deficiency
History of Stage II sacral pressure injury
Hospitalization 10/27/24 to 11/02/24
-At that time, was treated for left lower lobe pneumonia and acute on chronic anemia
-Also received blood transfusions at that time
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 Polanco
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
Code Status: Full code
PT/OT -Home health recommended.
Dispo -patient lives in [facility] assisted living but plan to discharge to SNF first. Referrals placed by case management. Otherwise medically stable.
Anticipated Discharge: Within 24 hours
Subjective/Interval History
-
Date of Service: March 12, 2025
Patient seen and examined. No complaints.
Objective Data
-
Labs:
Laboratory Results
03/12/25
07:32
PT 22.4 H
INR 1.95
Sodium 135
Potassium 3.6
Chloride 99
Carbon Dioxide 31 H
BUN 36 H
Creatinine 1.6 H
Glucose 104 H
Calcium 7.7 L
Vital Signs:
Vital Signs
Temp Pulse Resp BP Pulse Ox
97.8 F 84 18 120/73 96
03/12/25 08:11 03/12/25 08:11 03/12/25 08:11 03/12/25 08:11 03/12/25 08:11
I&O
03/11/25 03/12/25 03/13/25
06:59 06:59 06:59
Intake Total 960 / 960 240 / 240
Output Total 2600 / 2600 500 / 500
Balance -1640 / -1640 -260 / -260
Review of Systems
-
History Source: Patient
All other systems: Reviewed and negative
[2025-03-12 09:30] LABS: Magnesium 2.1 mg/dl (1.6-2.3)
--- NOTE | 2025-03-12 10:01 | W.PN.NEPH.PH ---
Today's Communication / Plan
-
Maintain oral Lasix and fluid restriction
Watch creatinine, if it continues to rise we will need to do another postvoid bladder scan
Assessment/Plan
-
IMP:
Acute on chronic HFpEF exacerbation
Acute kidney injury
Mild Right hydro with UV junction stones
moderate bilat pleural effusion
Supratherapeutic INR
Permanent atrial fibrillation
Insulin-dependent type 2 diabetes mellitus
Anxiety/depression
Hyperlipidemia
Chronic constipation
Chr anemia
Plan:
Creatinine stable at 1.6
K repletion and magnesium repletion in progress
Urology did not think stone burden was because enough for hydronephrosis and her acute kidney injury
repleting K prn maintains on Lasix 40 mg daily
voiding ?, off her, may need to follow-up postvoid bladder scan if urine output recorded does not increase
BPs stable
corrected annamaria is normal range
maintain FR, low salt diet and hyponatremia remains to
-
-
Date of Service: March 12, 2025
CC / HPI / ROS
-
Chief Complaint:
ALESHA
History of Present Illness:
Hemodynamically stable
Creatinine at 1.6
Potassium stable today after repletion
Review of Systems:
Grossly nonoliguric via catheter ~3.2 liters today
No reported chest pain or shortness of breath
No fevers
no dizziness
lost 13kg
Labs
-
Labs:
WBC 6.7 10^3/uL (4.8-10.8) 03/07/25 08:12
RBC 3.98 10^6/uL (4.70-6.10) L 03/07/25 08:12
Hgb 11.0 g/dL (13.0-18.0) L 03/07/25 08:12
Hct 34.0 % (39.0-52.0) L 03/07/25 08:12
Plt Count 210 10^3/uL (130-400) 03/07/25 08:12
Sodium 135 mmol/L (135-145) 03/12/25 07:32
Potassium 3.6 mmol/L (3.5-5.1) 03/12/25 07:32
Chloride 99 mmol/L (98-107) 03/12/25 07:32
Carbon Dioxide 31 mmol/L (22-30) H 03/12/25 07:32
BUN 36 mg/dl (9-20) H 03/12/25 07:32
Creatinine 1.6 mg/dL (0.7-1.3) H 03/12/25 07:32
eGFR 41.19 03/12/25 07:32
Glucose 104 mg/dl (70-99) H 03/12/25 07:32
Calcium 7.7 mg/dl (8.4-10.2) L 03/12/25 07:32
Oqn-R-Lecrmamjexq Pept 52780 pg/ml 03/05/25 12:00
Albumin 3.1 g/dl (3.5-5.0) L 03/05/25 12:00
Physical Exam
-
Vital Signs:
Vital Signs
Temp Pulse Resp BP Pulse Ox
97.8 F 84 18 120/73 96
03/12/25 08:11 03/12/25 08:11 03/12/25 08:11 03/12/25 08:11 03/12/25 08:11
Cardiovascular:: Regular rate and rhythm (+JVD)
Respiratory:: Bilateral: CTA (decreased)
Lung Excursion:: Normal
Abdomen:: Nontender
Bowel Sounds:: Normal
Extremity Edema:: +3: Bilateral:
Her Catheter: No
[2025-03-12 11:59] LABS: Glucose - Point of Care 189 mg/dl (70-99)
[2025-03-12] MEDS: NOVOLOG FLEXPEN-LOW RESISTANCE 1 UNITS SC (12:06)
[2025-03-12 15:49] VITALS: BP 121/67
[2025-03-12 16:47] LABS: Glucose - Point of Care 130 mg/dl (70-99)
[2025-03-12] MEDS: LIPITOR 40 MG PO (17:25)
[2025-03-12] MEDS: COUMADIN 4 MG PO (17:25)
[2025-03-12] MEDS: DICLOFENAC 1% TOPICAL GEL TOPICAL (20:16)
[2025-03-12] MEDS: COLACE PO (20:16)
[2025-03-12] MEDS: REMERON PO (21:31)
[2025-03-12 21:45] LABS: Glucose - Point of Care 225 mg/dl (70-99)
[2025-03-12 23:05] VITALS: BP 137/74
[2025-03-13 05:23] VITALS: BMI 25.8
[2025-03-13 06:00] VITALS: BMI 25.8
[2025-03-13 07:41] VITALS: BP 136/68
[2025-03-13] MEDS: KCL 40 MEQ PO (08:03)
[2025-03-13] MEDS: ASPIR LOW (ENTERIC COATED) 81 MG PO (08:03)
[2025-03-13] MEDS: LASIX 40 MG PO (08:04)
[2025-03-13] MEDS: MIRALAX 17 GRAMS PO (08:04)
[2025-03-13] MEDS: TOPROL XL 25 MG PO (08:04)
[2025-03-13] MEDS: COLACE 100 MG PO (08:04)
[2025-03-13] MEDS: HYDROPHOR 1 APPLIC TOPICAL (08:05)
[2025-03-13] MEDS: DICLOFENAC 1% TOPICAL GEL TOPICAL ×2 (08:05→20:16)
[2025-03-13 08:12] LABS: INR 2.05; PT 23.3 Sec (11.4-14.6)
[2025-03-13 08:31] LABS: Blood Urea Nitrogen 37 mg/dl (9-20); Calcium 8.0 mg/dl (8.4-10.2); Carbon Dioxide 28 mmol/L (22-30); Chloride 102 mmol/L (98-107); Estimated Creatinine Clearance 38 ml/min; Glucose 118 mg/dl (70-99); Magnesium 2.0 mg/dl (1.6-2.3); Potassium 4.2 mmol/L (3.5-5.1); Sodium 136 mmol/L (135-145); eGFR 48.34
[2025-03-13] MEDS: NOVOLOG FLEXPEN-LOW RESISTANCE SC (08:35)
[2025-03-13] MEDS: LANTUS 0.12 UNITS SC (08:35)
[2025-03-13 08:44] LABS: Glucose - Point of Care 137 mg/dl (70-99)
--- NOTE | 2025-03-13 10:51 | W.PN.HOSP.TC ---
Today's Communication/Plan
-
Discharge planning
Assessment / Plan
Assessment / Plan
Gen-AAOx3, NAD
HEENT-NC, AT, anicteric, clear oral mm
Neck-supple
CV-reg, no M, +S1/S2
Lungs-clear B/L
Abd-soft, NT, ND
Ext-bilateral lower extremity edema, improving
Musculoskeletal-no cyanosis, clubbing
Skin-warm and dry
Neuro-grossly non-focal
Psych-calm, cooperative
Acute HFpEF exacerbation -- NEW DIAGNOSIS
Clinically improving.
Monitor on telemetry
15 kg weight gain from his dry weight.
Dry weight 81-83 kg. Weight is down 14 kg since admission. Weight stable at 81 kg.
ALESHA in the setting of CHF exacerbation--- suspect cardiorenal syndrome
Now on Lasix p.o., 40 mg daily.
Echocardiogram shows LVEF 55 to 60%, moderate concentric LVH with more prominent basal septal thickening, aortic sclerosis without stenosis.
Small left pleural effusion with bibasilar atelectasis and/or pneumonia
Moderate bilateral pleural effusions with associated probable compressive atelectasis
-Clinically does not look like pneumonia, no symptoms or pneumonia
-On CT Abdomen/Pelvis, it was noted that patient has Moderate bilateral pleural effusions with associated probable compressive atelectasis
-Consider repeat CXR, patient is on IV diuretics
Not hypoxic, not on oxygen.
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
-Continue Aspirin, high-intensity statin and beta robert
ALESHA
secondary to CHF exacerbation/cardiorenal syndrome, however patient also with mild right hydronephrosis with stones so obstructive component cannot be ruled out
Creatinine relatively stable, 1.4.
Small catheter inserted, hydronephrosis present (see below), stool probably causing obstruction by pushing against bladder outlet as well
Nephrology following.
Hypokalemia - improved. Continue KCl but reduce to once daily.
Hypomagnesemia -improved.
Mild right hydronephrosis with stones on CT Imaging
Mild ureteral dilatation
Moderate prostate enlargement with few, small bladder calculi
Rectum distended with stool pressing on prostate
Chronic Constipation
Small catheter removed last night.
Urology signed off, outpatient follow-up.
-Cystitis on the CT was questionable -- reasonable to hold antibiotics right now in the absence of UTI symptoms
-Treat constipation -- Miralax ordered, if still no bowel movement can try Dulocolax suppository and/or PO Senokot-S
Supratherapeutic INR
Gross Hematuria (blood-tinged urine on 03/06/25)
Hematuria resolved.
Chronic Anemia
-Hgb stable.
Permanent atrial fibrillation
INR therapeutic, 2.0 today. Continue warfarin at 4 mg nightly.
DM 2 with hyperglycemia -glucose 137 this morning, 225 last night. Hemoglobin A1c 5.7%. However, may not be reliable given his chronic anemia.
On evening of admission he developed hypoglycemia likely due to ALESHA and decreased clearance of insulin.
Prior to admission he was on glargine 12 units daily, metformin 500 mg twice daily.
Hold metformin given ALESHA.
Continue low resistance aspart scale. Continue Lantus 12 units daily.
Essential hypertension
Continue Toprol XL
Cholelithiasis and splenomegaly on hospital CT Abdomen/Pelvis imaging
Anxiety/depression
Continue mirtazapine
Hyperlipidemia
Continue atorvastatin
Chronic right foot ulcer
History of resolved B12 deficiency
History of Stage II sacral pressure injury
Hospitalization 10/27/24 to 11/02/24
-At that time, was treated for left lower lobe pneumonia and acute on chronic anemia
-Also received blood transfusions at that time
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 Polanco
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
Code Status: Full code
PT/OT -Home health recommended.
Dispo -patient lives in [facility] assisted living but plan to discharge to SNF first. Referrals placed by case management. Otherwise medically stable.
Anticipated Discharge: Within 24 hours
Subjective/Interval History
-
Date of Service: March 13, 2025
Patient seen and examined. No complaints.
Objective Data
-
Labs:
Laboratory Results
03/13/25
07:14
PT 23.3 H
INR 2.05
Sodium 136
Potassium 4.2
Chloride 102
Carbon Dioxide 28
BUN 37 H
Creatinine 1.4 H
Glucose 118 H
Calcium 8.0 L
Vital Signs:
Vital Signs
Temp Pulse Resp BP Pulse Ox
98.0 F 90 16 136/68 98
03/13/25 07:41 03/13/25 07:41 03/13/25 07:41 03/13/25 07:41 03/13/25 07:41
I&O
03/12/25 03/13/25 03/14/25
06:59 06:59 06:59
Intake Total 240 / 240 240 / 240
Output Total 500 / 500 575 / 575
Balance -260 / -260 -335 / -335
Review of Systems
-
History Source: Patient
All other systems: Reviewed and negative
[2025-03-13 11:47] LABS: Glucose - Point of Care 239 mg/dl (70-99)
[2025-03-13] MEDS: NOVOLOG FLEXPEN-LOW RESISTANCE 2 UNITS SC ×2 (11:57→17:10)
--- NOTE | 2025-03-13 12:48 | W.PN.NEPH.PH ---
Today's Communication / Plan
-
observe
Assessment/Plan
-
IMP:
Acute on chronic HFpEF exacerbation
Acute kidney injury
Mild Right hydro with UV junction stones
moderate bilateral pleural effusion
Supratherapeutic INR
Permanent atrial fibrillation
Insulin-dependent type 2 diabetes mellitus
Anxiety/depression
Hyperlipidemia
Chronic constipation
Chr anemia
Plan:
Creatinine stable at 1.4, nonoliguric
K repletion and magnesium repletion had been performed
Urology did not think stone burden was because enough for hydronephrosis and her acute kidney injury
maintains on 40 mg p.o. Lasix
BPs stable
corrected annamaria is normal range
-
-
Date of Service: March 13, 2025
CC / HPI / ROS
-
Chief Complaint:
ALESHA
History of Present Illness:
Hemodynamically stable
Creatinine at 1.4
Potassium stable today after repletion
Review of Systems:
nonoliguric
No reported chest pain or shortness of breath
No fevers
no dizziness
lost 13kg
Labs
-
Labs:
WBC 6.7 10^3/uL (4.8-10.8) 03/07/25 08:12
RBC 3.98 10^6/uL (4.70-6.10) L 03/07/25 08:12
Hgb 11.0 g/dL (13.0-18.0) L 03/07/25 08:12
Hct 34.0 % (39.0-52.0) L 03/07/25 08:12
Plt Count 210 10^3/uL (130-400) 03/07/25 08:12
Sodium 136 mmol/L (135-145) 03/13/25 07:14
Potassium 4.2 mmol/L (3.5-5.1) 03/13/25 07:14
Chloride 102 mmol/L (98-107) 03/13/25 07:14
Carbon Dioxide 28 mmol/L (22-30) 03/13/25 07:14
BUN 37 mg/dl (9-20) H 03/13/25 07:14
Creatinine 1.4 mg/dL (0.7-1.3) H 03/13/25 07:14
eGFR 48.34 03/13/25 07:14
Glucose 118 mg/dl (70-99) H 03/13/25 07:14
Calcium 8.0 mg/dl (8.4-10.2) L 03/13/25 07:14
Lxy-A-Crpgfkbrbth Pept 27637 pg/ml 03/05/25 12:00
Albumin 3.1 g/dl (3.5-5.0) L 03/05/25 12:00
Physical Exam
-
Vital Signs:
Vital Signs
Temp Pulse Resp BP Pulse Ox
98.0 F 90 16 136/68 98
03/13/25 07:41 03/13/25 07:41 03/13/25 07:41 03/13/25 07:41 03/13/25 07:41
Cardiovascular:: Regular rate and rhythm (+JVD)
Respiratory:: Bilateral: CTA (decreased)
Lung Excursion:: Normal
Abdomen:: Nontender
Bowel Sounds:: Normal
Extremity Edema:: +2: Bilateral:
Small Catheter: No
[2025-03-13 15:20] VITALS: BP 127/67
[2025-03-13 16:37] LABS: Glucose - Point of Care 247 mg/dl (70-99)
[2025-03-13] MEDS: COUMADIN 4 MG PO (17:09)
[2025-03-13] MEDS: LIPITOR 40 MG PO (17:09)
[2025-03-13] MEDS: COLACE PO (20:16)
[2025-03-13] MEDS: REMERON PO (21:38)
[2025-03-13 22:02] LABS: Glucose - Point of Care 182 mg/dl (70-99)
[2025-03-13 22:44] VITALS: BP 136/77
[2025-03-14 05:43] VITALS: BMI 25.6
[2025-03-14 08:09] VITALS: BP 120/66
[2025-03-14 08:19] LABS: Glucose - Point of Care 115 mg/dl (70-99)
[2025-03-14 08:56] LABS: INR 2.05; PT 23.3 Sec (11.4-14.6)
[2025-03-14] MEDS: NOVOLOG FLEXPEN-LOW RESISTANCE SC (09:16)
[2025-03-14] MEDS: KCL 40 MEQ PO (09:17)
[2025-03-14] MEDS: ASPIR LOW (ENTERIC COATED) 81 MG PO (09:18)
[2025-03-14] MEDS: COLACE PO (09:18)
[2025-03-14] MEDS: TOPROL XL 25 MG PO (09:18)
[2025-03-14] MEDS: LASIX 40 MG PO (09:18)
[2025-03-14] MEDS: MIRALAX PO (09:19)
[2025-03-14] MEDS: LANTUS 0.12 UNITS SC (09:19)
[2025-03-14] MEDS: HYDROPHOR 1 APPLIC TOPICAL (09:20)
[2025-03-14] MEDS: DICLOFENAC 1% TOPICAL GEL 1 GRAM TOPICAL (09:21)
[2025-03-14 09:26] LABS: Blood Urea Nitrogen 38 mg/dl (9-20); Calcium 8.3 mg/dl (8.4-10.2); Carbon Dioxide 32 mmol/L (22-30); Chloride 102 mmol/L (98-107); Estimated Creatinine Clearance 38 ml/min; Glucose 117 mg/dl (70-99); Magnesium 2.0 mg/dl (1.6-2.3); Potassium 4.1 mmol/L (3.5-5.1); Sodium 137 mmol/L (135-145); eGFR 48.34
--- NOTE | 2025-03-14 11:49 | W.PN.NEPH.PH ---
Today's Communication / Plan
-
dc planning
Assessment/Plan
-
IMP:
Acute on chronic HFpEF exacerbation
Acute kidney injury
Mild Right hydro with UV junction stones
moderate bilateral pleural effusion
Supratherapeutic INR
Permanent atrial fibrillation
Insulin-dependent type 2 diabetes mellitus
Anxiety/depression
Hyperlipidemia
Chronic constipation
Chr anemia
Plan:
continue lasix and K
dc planning
-
-
Date of Service: March 14, 2025
CC / HPI / ROS
-
Chief Complaint:
ALESHA
History of Present Illness:
Hemodynamically stable
Creatinine at 1.4
Potassium stable today after repletion
weight stable on daily lasix with K
Review of Systems:
nonoliguric
No reported chest pain or shortness of breath
Labs
-
Labs:
WBC 6.7 10^3/uL (4.8-10.8) 03/07/25 08:12
RBC 3.98 10^6/uL (4.70-6.10) L 03/07/25 08:12
Hgb 11.0 g/dL (13.0-18.0) L 03/07/25 08:12
Hct 34.0 % (39.0-52.0) L 03/07/25 08:12
Plt Count 210 10^3/uL (130-400) 03/07/25 08:12
Sodium 137 mmol/L (135-145) 03/14/25 08:24
Potassium 4.1 mmol/L (3.5-5.1) 03/14/25 08:24
Chloride 102 mmol/L (98-107) 03/14/25 08:24
Carbon Dioxide 32 mmol/L (22-30) H 03/14/25 08:24
BUN 38 mg/dl (9-20) H 03/14/25 08:24
Creatinine 1.4 mg/dL (0.7-1.3) H 03/14/25 08:24
eGFR 48.34 03/14/25 08:24
Glucose 117 mg/dl (70-99) H 03/14/25 08:24
Calcium 8.3 mg/dl (8.4-10.2) L 03/14/25 08:24
Dky-C-Eevhbkohhqt Pept 16881 pg/ml 03/05/25 12:00
Albumin 3.1 g/dl (3.5-5.0) L 03/05/25 12:00
Physical Exam
-
Vital Signs:
Vital Signs
Temp Pulse Resp BP Pulse Ox
97.5 F 88 20 120/66 98
03/14/25 08:09 03/14/25 08:09 03/14/25 08:09 03/14/25 08:09 03/14/25 08:09
Cardiovascular:: Regular rate and rhythm
Respiratory:: Bilateral: CTA
Lung Excursion:: Normal
Abdomen:: Nontender and Soft
Bowel Sounds:: Normal
Extremity Edema:: +1: Bilateral:
--- NOTE | 2025-03-14 11:49 | CM ---
Chart reviewed. Discussed in rounds, patient is medically stable
SNF referrals reviewed. [facility] and [facility] accepted
Spoke w/ patient's daughter, [place], prefers [facility]. Spoke w/ [facility]/admissions, confirmed available bed today
Patient will need ambulance transport, forms on chart
IMM verbally reviewed w/ daughter, copy on chart
[facility]
Report: [phone]

Plan: D/c to [facility] today
[2025-03-14 12:28] LABS: Glucose - Point of Care 280 mg/dl (70-99)
[2025-03-14] MEDS: NOVOLOG FLEXPEN-LOW RESISTANCE 3 UNITS SC (12:34)
--- NOTE | 2025-03-14 13:19 | W.PN.HOSP.TC ---
Today's Communication/Plan
-
lasix
PO K
coumadin
f/u bmp outpt
f/u cards, urology, nephro outpt
Assessment / Plan
Assessment / Plan
Gen-AAOx3, NAD
HEENT-NC, AT, anicteric, clear oral mm
Neck-supple
CV-reg, no M, +S1/S2
Lungs-clear B/L
Abd-soft, NT, ND
Ext-bilateral lower extremity edema, improving
Musculoskeletal-no cyanosis, clubbing
Skin-warm and dry
Neuro-grossly non-focal
Psych-calm, cooperative
Acute HFpEF exacerbation -- NEW DIAGNOSIS
Clinically improving.
Monitor on telemetry
15 kg weight gain from his dry weight.
Dry weight 81-83 kg. Weight is down 14 kg since admission. Weight stable at 81 kg.
ALESHA in the setting of CHF exacerbation--- suspect cardiorenal syndrome
Now on Lasix p.o., 40 mg daily.
Echocardiogram shows LVEF 55 to 60%, moderate concentric LVH with more prominent basal septal thickening, aortic sclerosis without stenosis.
Small left pleural effusion with bibasilar atelectasis and/or pneumonia
Moderate bilateral pleural effusions with associated probable compressive atelectasis
-Clinically does not look like pneumonia, no symptoms or pneumonia
-On CT Abdomen/Pelvis, it was noted that patient has Moderate bilateral pleural effusions with associated probable compressive atelectasis
-Consider repeat CXR, patient is on IV diuretics
Not hypoxic, not on oxygen.
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
-Continue Aspirin, high-intensity statin and beta robert
ALESHA
secondary to CHF exacerbation/cardiorenal syndrome, however patient also with mild right hydronephrosis with stones so obstructive component cannot be ruled out
Creatinine relatively stable
Small catheter inserted, hydronephrosis present (see below), stool probably causing obstruction by pushing against bladder outlet as well; urology does not believe it is secondary to stones
Nephrology following.
Continue Lasix
Hypokalemia - improved. Continue KCl but reduce to once daily. Continue
Hypomagnesemia -improved.
Mild right hydronephrosis with stones on CT Imaging
Mild ureteral dilatation
Moderate prostate enlargement with few, small bladder calculi
Rectum distended with stool pressing on prostate
Chronic Constipation
Small catheter removed last night.
Urology signed off, outpatient follow-up.
-Cystitis on the CT was questionable -- reasonable to hold antibiotics right now in the absence of UTI symptoms
-Treat constipation -- Miralax ordered, if still no bowel movement can try Dulocolax suppository and/or PO Senokot-S
Supratherapeutic INR
Gross Hematuria (blood-tinged urine on 03/06/25)
Hematuria resolved.
Continue Coumadin, follow-up INR
Chronic Anemia
-Hgb stable.
Permanent atrial fibrillation
INR therapeutic, Continue warfarin at 4 mg nightly.
DM 2 with hyperglycemia -glucose 137 this morning, 225 last night. Hemoglobin A1c 5.7%. However, may not be reliable given his chronic anemia.
On evening of admission he developed hypoglycemia likely due to ALESHA and decreased clearance of insulin.
Prior to admission he was on glargine 12 units daily, metformin 500 mg twice daily.
Hold metformin given ALESHA.
Continue low resistance aspart scale. Continue Lantus 12 units daily.
Essential hypertension
Continue Toprol XL
Cholelithiasis and splenomegaly on hospital CT Abdomen/Pelvis imaging
Anxiety/depression
Continue mirtazapine
Hyperlipidemia
Continue atorvastatin
Chronic right foot ulcer
History of resolved B12 deficiency
History of Stage II sacral pressure injury
Hospitalization 10/27/24 to 11/02/24
-At that time, was treated for left lower lobe pneumonia and acute on chronic anemia
-Also received blood transfusions at that time
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 Polanco
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
Code Status: Full code
PT/OT -Home health recommended.
More than 30 minutes spent in discharge including
Final examination of the patient
Summarizing hospital stay
Instructions for continuing care to all relevant caregivers
Preparation of discharge records, prescriptions, and referral forms
Total time spent (in minutes): 36
Anticipated Discharge: Today
Subjective/Interval History
-
Date of Service: March 14, 2025
No acute events overnight
Objective Data
-
Labs:
Laboratory Results
03/14/25
08:24
PT 23.3 H
INR 2.05
Sodium 137
Potassium 4.1
Chloride 102
Carbon Dioxide 32 H
BUN 38 H
Creatinine 1.4 H
Glucose 117 H
Calcium 8.3 L
Vital Signs:
Vital Signs
Temp Pulse Resp BP Pulse Ox
97.5 F 88 20 120/66 98
03/14/25 08:09 03/14/25 08:09 03/14/25 08:09 03/14/25 08:09 03/14/25 08:09
I&O
03/13/25 03/14/25 03/15/25
06:59 06:59 06:59
Intake Total 240 / 240 240 / 240
Output Total 575 / 575 950 / 950
Balance -335 / -335 -710 / -710
Review of Systems
-
History Source: Patient
All other systems: Reviewed and negative
Data Reviewed
-
MRI: Report Reviewed by me
Labs: Labs Reviewed by me
[2025-03-14 15:39] VITALS: BP 116/54
--- NOTE | 2025-03-15 11:09 | W.HF.CON ---
Heart Failure
- LV Function
Left ventricular function study result: LV Ejection fraction >/= 50%
Ejection Fraction Percentage: 55-60
- ARNI
Patient already on ARNI: No
Heart Failure ARNI Not Indicated: LV Ejection Fraction >/= 40%
- ACEI/ARB
Patient already on ACEI/ARB: No
Heart Failure ACEI/ARB Not Indicated: LV Ejection Fraction > 40%
- Beta Aileen
Patient already on Evidence Based Beta Aileen: Yes
- Mineralocorticord Receptor Antagonist
Patient already on MRA: No
Heart Failure MRA Not Indicated: LV Ejection Fraction > 40%
- SGLT-2 Inhibitor
Patient already on SGLT-2 Inhibitor: No
Heart Failure SGLT-2 Inhibitor Contraindication: Patient Refusal
- Afib Anticoagulation
Patient already on Anticoagulation for Afib: Yes
- NYHA CHF Classification
NYHA CHF Classification Level: Class III - Symptoms w/ min exertion, interferes w/ nml daily activity
- ACC/AHA Stage
ACC/AHA Stage: Stage C: Symptomatic Heart Failure
== END 2025-03-14 16:56 | DRG 291 ==
LOC: 4 WEST ACU 17:11
PROVIDERS: Hospitalist; Physician Assistant; Specialist; Student in an Organized Health Care Education/Training Program; ADMITTING PHYSICIAN Internal Medicine; ATTENDING PHYSICIAN Internal Medicine; CONSULT PHYSICIAN Internal Medicine; CONSULT PHYSICIAN Internal Medicine Cardiovascular Disease; CONSULT PHYSICIAN Specialist; EMERGENCY PHYSICIAN Emergency Medicine; FAMILY PHYSICIAN Family Medicine
DX: I11.0 Hypertensive heart disease with heart failure (principal); I50.33 Acute on chronic diastolic (congestive) heart failure; N17.9 Acute kidney failure, unspecified; N13.39 Other hydronephrosis; I48.21 Permanent atrial fibrillation; I70.0 Atherosclerosis of aorta; Z95.1 Presence of aortocoronary bypass graft; I25.10 Atherosclerotic heart disease of native coronary artery without angina pectoris; E87.6 Hypokalemia; E83.42 Hypomagnesemia; D64.9 Anemia, unspecified; F41.9 Anxiety disorder, unspecified; F32.A Depression, unspecified; K80.20 Calculus of gallbladder without cholecystitis without obstruction; R16.1 Splenomegaly, not elsewhere classified; E11.621 Type 2 diabetes mellitus with foot ulcer; Z88.0 Allergy status to penicillin; Z79.01 Long term (current) use of anticoagulants; E78.00 Pure hypercholesterolemia, unspecified; Z79.82 Long term (current) use of aspirin; Z79.4 Long term (current) use of insulin; Z79.84 Long term (current) use of oral hypoglycemic drugs; K59.09 Other constipation; G47.30 Sleep apnea, unspecified; L97.519 Non-pressure chronic ulcer of other part of right foot with unspecified severity; R79.1 Abnormal coagulation profile; G47.33 Obstructive sleep apnea (adult) (pediatric)
CPT/HCPCS: 71046; 74176; 80048; 80053; 81003; 81015; 82570; 82962; 83036; 83735; 83880; 84156; 84300; 85025; 85027; 85610; 87070; 87077; 87086; 87147; 87186; 93306; 96374; 97163; 97167; 97530; 99285; G0103

== ENCOUNTER → 2025-03-15 09:05 | Outpatient (REF) | payer OTHER, MEDICARE, SELFPAY ==
[2025-03-15 11:25] LABS: INR 2.22; PT 24.8 Sec (11.4-14.6)
== END ==
LOC: OLABP 09:05
PROVIDERS: ATTENDING PHYSICIAN Family Medicine
DX: I10 Essential (primary) hypertension (principal); I11.0 Hypertensive heart disease with heart failure; J98.11 Atelectasis; I25.10 Atherosclerotic heart disease of native coronary artery without angina pectoris; D64.9 Anemia, unspecified; I48.21 Permanent atrial fibrillation; L97.519 Non-pressure chronic ulcer of other part of right foot with unspecified severity; Z89.421 Acquired absence of other right toe(s); N13.30 Unspecified hydronephrosis; I50.9 Heart failure, unspecified
CPT/HCPCS: 36415; 85610

== ENCOUNTER → 2025-03-17 08:58 | Outpatient (REF) | payer OTHER, MEDICARE, SELFPAY ==
[2025-03-17 10:34] LABS: Hematocrit 29.1 % (39.0-52.0); Hemoglobin 8.7 g/dL (13.0-18.0); Mean Corp Hgb Conc. 29.9 g/dL (33.0-37.0); Mean Corpuscular Volume 89.8 fL (80.0-94.0); Nucleated Red Blood Cells % 0 % (-); Platelet Count 215 10^3/uL (130-400); Red Cell Dist. Width 17.2 % (11.5-14.5)
[2025-03-17 10:50] LABS: INR 2.20; PT 24.1 Sec (11.4-14.6)
[2025-03-17 11:04] LABS: Blood Urea Nitrogen 37 mg/dl (9-20); Glucose 110 mg/dl (70-99); Sodium 138 mmol/L (135-145); eGFR 48.34
[2025-03-17 11:05] LABS: Calcium 8.6 mg/dl (8.4-10.2); Carbon Dioxide 30 mmol/L (22-30); Chloride 105 mmol/L (98-107); Potassium 4.3 mmol/L (3.5-5.1)
== END ==
LOC: OLABP 08:58
PROVIDERS: ATTENDING PHYSICIAN Family Medicine
DX: I50.9 Heart failure, unspecified (principal); N17.9 Acute kidney failure, unspecified; I11.0 Hypertensive heart disease with heart failure; J98.11 Atelectasis; I25.10 Atherosclerotic heart disease of native coronary artery without angina pectoris; D64.9 Anemia, unspecified; E11.65 Type 2 diabetes mellitus with hyperglycemia; I48.21 Permanent atrial fibrillation; I10 Essential (primary) hypertension; L97.519 Non-pressure chronic ulcer of other part of right foot with unspecified severity; Z89.421 Acquired absence of other right toe(s); B95.62 Methicillin resistant Staphylococcus aureus infection as the cause of diseases classified elsewhere; E78.5 Hyperlipidemia, unspecified; F32.A Depression, unspecified; F41.9 Anxiety disorder, unspecified; J90 Pleural effusion, not elsewhere classified; K59.04 Chronic idiopathic constipation; M72.0 Palmar fascial fibromatosis [Dupuytren]; N13.30 Unspecified hydronephrosis
CPT/HCPCS: 36415; 80048; 85025; 85610

== ENCOUNTER → 2025-03-21 09:38 | Outpatient (REF) | payer OTHER, MEDICARE, SELFPAY ==
[2025-03-21 10:56] LABS: INR 2.48; PT 27.1 Sec (11.4-14.6)
== END ==
LOC: OLABP 09:38
PROVIDERS: ATTENDING PHYSICIAN Family Medicine
DX: I50.9 Heart failure, unspecified (principal); N17.9 Acute kidney failure, unspecified; I11.0 Hypertensive heart disease with heart failure; J98.11 Atelectasis; I25.10 Atherosclerotic heart disease of native coronary artery without angina pectoris; D64.9 Anemia, unspecified; E11.65 Type 2 diabetes mellitus with hyperglycemia; I48.21 Permanent atrial fibrillation; I10 Essential (primary) hypertension; L97.519 Non-pressure chronic ulcer of other part of right foot with unspecified severity; Z89.421 Acquired absence of other right toe(s); B95.62 Methicillin resistant Staphylococcus aureus infection as the cause of diseases classified elsewhere; E78.5 Hyperlipidemia, unspecified; F32.A Depression, unspecified; F41.9 Anxiety disorder, unspecified; J90 Pleural effusion, not elsewhere classified; K59.04 Chronic idiopathic constipation; M72.0 Palmar fascial fibromatosis [Dupuytren]; N13.30 Unspecified hydronephrosis
CPT/HCPCS: 36415; 85610

== ENCOUNTER → 2025-03-22 09:18 | Outpatient (REF) | payer OTHER, MEDICARE, SELFPAY ==
[2025-03-22 11:09] LABS: INR 2.20; PT 24.6 Sec (11.4-14.6)
== END ==
LOC: OLABP 09:18
PROVIDERS: ATTENDING PHYSICIAN Family Medicine
DX: I50.9 Heart failure, unspecified (principal); N17.9 Acute kidney failure, unspecified; I11.0 Hypertensive heart disease with heart failure; J98.11 Atelectasis; I25.10 Atherosclerotic heart disease of native coronary artery without angina pectoris; D64.9 Anemia, unspecified; E11.65 Type 2 diabetes mellitus with hyperglycemia; I48.21 Permanent atrial fibrillation; I10 Essential (primary) hypertension; L97.519 Non-pressure chronic ulcer of other part of right foot with unspecified severity; Z89.421 Acquired absence of other right toe(s); B95.62 Methicillin resistant Staphylococcus aureus infection as the cause of diseases classified elsewhere; E78.5 Hyperlipidemia, unspecified; F32.A Depression, unspecified; F41.9 Anxiety disorder, unspecified; J90 Pleural effusion, not elsewhere classified; K59.04 Chronic idiopathic constipation; M72.0 Palmar fascial fibromatosis [Dupuytren]; N13.30 Unspecified hydronephrosis
CPT/HCPCS: 36415; 85610

== ENCOUNTER → 2025-03-25 09:27 | Outpatient (REF) | payer OTHER, MEDICARE, SELFPAY ==
[2025-03-25 11:46] LABS: INR 2.20; PT 24.6 Sec (11.4-14.6)
== END ==
LOC: OLABP 09:27
PROVIDERS: ATTENDING PHYSICIAN Family Medicine
DX: I50.9 Heart failure, unspecified (principal); N17.9 Acute kidney failure, unspecified; I11.0 Hypertensive heart disease with heart failure; I25.10 Atherosclerotic heart disease of native coronary artery without angina pectoris; D64.9 Anemia, unspecified; E11.65 Type 2 diabetes mellitus with hyperglycemia; I48.21 Permanent atrial fibrillation; I10 Essential (primary) hypertension; L97.519 Non-pressure chronic ulcer of other part of right foot with unspecified severity; Z89.421 Acquired absence of other right toe(s); B95.62 Methicillin resistant Staphylococcus aureus infection as the cause of diseases classified elsewhere; E78.5 Hyperlipidemia, unspecified; F32.A Depression, unspecified; F41.9 Anxiety disorder, unspecified; J90 Pleural effusion, not elsewhere classified; K59.04 Chronic idiopathic constipation; M72.0 Palmar fascial fibromatosis [Dupuytren]; N13.30 Unspecified hydronephrosis
CPT/HCPCS: 36415; 85610

== ENCOUNTER → 2025-03-28 09:44 | Outpatient (REF) | payer OTHER, MEDICARE, SELFPAY ==
[2025-03-28 11:28] LABS: INR 2.28; PT 25.3 Sec (11.4-14.6)
== END ==
LOC: OLABP 09:44
PROVIDERS: ATTENDING PHYSICIAN Family Medicine
DX: I50.9 Heart failure, unspecified (principal); N17.9 Acute kidney failure, unspecified; I11.0 Hypertensive heart disease with heart failure; D64.9 Anemia, unspecified; E11.65 Type 2 diabetes mellitus with hyperglycemia; I48.21 Permanent atrial fibrillation; I10 Essential (primary) hypertension; L97.519 Non-pressure chronic ulcer of other part of right foot with unspecified severity; Z89.421 Acquired absence of other right toe(s); B95.62 Methicillin resistant Staphylococcus aureus infection as the cause of diseases classified elsewhere; E78.5 Hyperlipidemia, unspecified; F32.A Depression, unspecified; F41.9 Anxiety disorder, unspecified; J90 Pleural effusion, not elsewhere classified; K59.04 Chronic idiopathic constipation; M72.0 Palmar fascial fibromatosis [Dupuytren]; N13.30 Unspecified hydronephrosis
CPT/HCPCS: 36415; 85610

== ENCOUNTER → 2025-03-29 10:10 | Outpatient (REF) | payer OTHER, MEDICARE, SELFPAY ==
[2025-03-29 10:59] LABS: INR 2.34; PT 25.8 Sec (11.4-14.6)
== END ==
LOC: OLABP 10:10
PROVIDERS: ATTENDING PHYSICIAN Family Medicine
DX: I50.9 Heart failure, unspecified (principal); N17.9 Acute kidney failure, unspecified; B95.62 Methicillin resistant Staphylococcus aureus infection as the cause of diseases classified elsewhere; E78.5 Hyperlipidemia, unspecified; I10 Essential (primary) hypertension; J98.11 Atelectasis; F32.A Depression, unspecified; F41.9 Anxiety disorder, unspecified; I25.10 Atherosclerotic heart disease of native coronary artery without angina pectoris; D64.9 Anemia, unspecified; K59.04 Chronic idiopathic constipation; E11.65 Type 2 diabetes mellitus with hyperglycemia; Z89.421 Acquired absence of other right toe(s); L97.519 Non-pressure chronic ulcer of other part of right foot with unspecified severity
CPT/HCPCS: 36415; 85610

== ENCOUNTER → 2025-03-30 11:31 | Outpatient (REF) | payer OTHER, MEDICARE, SELFPAY ==
[2025-03-30 13:01] LABS: INR 2.63; PT 27.7 Sec (11.4-14.6)
== END ==
LOC: OLABP 11:31
PROVIDERS: ATTENDING PHYSICIAN Family Medicine
DX: I50.9 Heart failure, unspecified (principal); N17.9 Acute kidney failure, unspecified; I11.0 Hypertensive heart disease with heart failure; J98.11 Atelectasis; I25.10 Atherosclerotic heart disease of native coronary artery without angina pectoris; D64.9 Anemia, unspecified; E11.65 Type 2 diabetes mellitus with hyperglycemia; I48.21 Permanent atrial fibrillation; I10 Essential (primary) hypertension; L97.519 Non-pressure chronic ulcer of other part of right foot with unspecified severity; Z89.421 Acquired absence of other right toe(s); N13.30 Unspecified hydronephrosis; M72.0 Palmar fascial fibromatosis [Dupuytren]; K59.04 Chronic idiopathic constipation; J90 Pleural effusion, not elsewhere classified; F41.9 Anxiety disorder, unspecified; F32.A Depression, unspecified; E78.5 Hyperlipidemia, unspecified; B95.62 Methicillin resistant Staphylococcus aureus infection as the cause of diseases classified elsewhere
CPT/HCPCS: 36415; 85610